=== PATIENT | male | born 1955 | race Caucasian/White ===

== ENCOUNTER 2018-05-13 16:40 | Inpatient (IN) | payer OTHER ==
[~2018-05-13] VITALS: Ht 180.3 cm; Wt 66.9 kg
[2018-05-13] MEDS ORDERED: ONDANSETRON 4 MG TAB (S0181) PO PRN (17:45)
[2018-05-13] MEDS ORDERED: BISACODYL 10 MG SUPP PR PRN (17:45)
[2018-05-13 18:10] VITALS: BP 158/72
[2018-05-13] MEDS ORDERED: VITA500C24 PO (18:11)
[2018-05-13] MEDS ORDERED: VITA100T92 PO (18:11)
[2018-05-13] MEDS ORDERED: GABA-843 PO (18:11)
[2018-05-13] MEDS ORDERED: COLA100C5 PO (18:11)
[2018-05-13] MEDS ORDERED: OXYC10TA12 PO (18:11)
[2018-05-13] MEDS ORDERED: TOPR50TA23 PO (18:11)
[2018-05-13] MEDS ORDERED: VITA-122 PO (18:11)
[2018-05-13] MEDS ORDERED: SENO8.6T5 PO (18:11)
[2018-05-13] MEDS ORDERED: PANT40TA3 PO (18:11)
[2018-05-13] MEDS ORDERED: VITMTA PO (18:11)
[2018-05-13] MEDS ORDERED: ACET1TAB55 PO (18:13)
[2018-05-13] MEDS ORDERED: METOPROLOL TART 25 MG TABLET PO ONE (18:45)
[2018-05-13] MEDS: MOM 30ML SUSPENSION UDC PO PRN (18:48)
[2018-05-13 20:13] VITALS: BP 154/72
[2018-05-13] MEDS: traZODone 50 MG TAB PO PRN (20:41)
[2018-05-13] MEDS: DOCUSATE SODIUM 100 MG CAP PO SCH (20:42)
[2018-05-13] MEDS: oxyCODONE 5MG TAB PO PRN (20:43)
[2018-05-13] MEDS: SENNA 8.6 MG TAB (SENOKOT) PO SCH (20:43)
[2018-05-13] MEDS ORDERED: GABAPENTIN 100 MG CAP PO SCH (21:00)
[2018-05-14 01:22] LABS: APPEARANCE, URINE CLEAR (CLEAR); BACTERIA, URINE AUTO NEGATIVE (NEGATIVE); BILIRUBIN, URINE AUTO NEGATIVE (NEGATIVE); BLOOD, URINE BLOOD NEGATIVE (NEGATIVE); COLOR, URINE YELLOW (YELLOW); GLUCOSE, URINE (UA) AUTO NEGATIVE (NEGATIVE); KETONE, URINE AUTO TRACE mg/dL (NEGATIVE); LEUKOCYTE ESTERASE, URINE AUTO NEGATIVE (NEGATIVE); NITRITE, URINE AUTO NEGATIVE (NEGATIVE); PROTEIN, URINE AUTO NEGATIVE (NEGATIVE); RBC, URINE AUTO 1 /HPF (0-3); SPECIFIC GRAVITY URINE AUTO 1.014 (1.002-1.035); SQUAMOUS EPITHELIAL CELL UR AU 0 /HPF (0-6); WBC, URINE AUTO 1 /HPF (0-3)
[2018-05-14 05:55] VITALS: BP 178/84
[2018-05-14] MEDS: oxyCODONE 5MG TAB PO PRN ×2 (05:57→09:54)
[2018-05-14 06:32] VITALS: BP 158/78
[2018-05-14 07:13] LABS: BASO % 0.1 % (0.0-1.0); EOS # 0.1 10^3/uL (0.0-0.50); EOS % 1.3 % (0.0-3.0); HEMATOCRIT 24.6 % (42.0-52.0); HEMOGLOBIN 8.6 g/dl (13.5-17.5); LYMPH # 0.6 10^3/uL (1.5-4.5); MEAN CORPUSCULAR VOLUME 88.8 fl (80.0-96.0); MONO # 1.1 10^3/uL (0.0-0.8); MONO % 15.5 % (0.0-5.0); NEUTROPHILS # 5.3 10^3/uL (1.8-7.7); NEUTROPHILS % 74.5 % (36.0-66.0); PLATELET COUNT, AUTOMATED 240 10^3/uL (150-450); RED BLOOD COUNT 2.77 10^6/uL (4.30-6.10); WHITE BLOOD COUNT 7.1 10^3/uL (4.0-10.0)
[2018-05-14 07:41] LABS: ALBUMIN 2.3 GM/DL (3.2-5.2); ALT/SGPT 48 U/L (12-78); BILIRUBIN,TOTAL 0.6 MG/DL (0.2-1.0); BLOOD UREA NITROGEN 11 MG/DL (7-18); CALCIUM LEVEL 8.1 MG/DL (8.8-10.2); CARBON DIOXIDE LEVEL 25 MEQ/L (21-32); CHLORIDE LEVEL 100 MEQ/L (98-107); CREATININE FOR GFR 0.39 MG/DL (0.70-1.30); GLOMERULAR FILTRATION RATE > 60.0 (>49); GLUCOSE, FASTING 98 MG/DL (70-100); POTASSIUM SERUM 3.3 MEQ/L (3.5-5.1); SODIUM LEVEL 132 MEQ/L (136-145); TOTAL PROTEIN 5.6 GM/DL (6.4-8.2)
[2018-05-14] MEDS ORDERED: METOPROLOL SUCC (TopROL XL) 50MG **XL** TAB PO SCH (09:00)
[2018-05-14] MEDS: PANTOPRAZOLE 40MG TAB (PROTONIX) PO SCH (09:37)
[2018-05-14] MEDS: VITAMIN D 1,000 INTERNATIONAL UNITS TABLET PO SCH (09:37)
[2018-05-14] MEDS: ASCORBIC ACID 500 MG TAB PO SCH (09:37)
[2018-05-14] MEDS: DOCUSATE SODIUM 100 MG CAP PO SCH ×2 (09:37→20:55)
[2018-05-14] MEDS: THIAMINE 100 MG TAB PO SCH (09:37)
[2018-05-14] MEDS: ENOXAPARIN 40 MG/0.4 ML SYRINGE (J1650) SC SCH (09:39)
--- NOTE | 2018-05-14 10:54 | CR.PDOC ---
General Date of Consultation: May 14, 2018 Consultation CONSULTATION REPORT FOR: Dr Paniagua REASON FOR CONSULTATION: Medical Management ATTENDING: Dr. Erlinda Guillaume PCP: Dr Nida Peña [place] Neuro[facility] Dr Liu HPI: 62year old M S/P T11-S1 posterior arthrodesis L1-S1 laminectomies05/08/[address] Liu [facility]. Transfered to the care of Dr Paniagua, [facility], 05/13/18. No acute medical complaints today. Pt states pain is controlled. OOB with therapy. Denies any fevers, chills, weakness, fatigue, Headache, Chest Pain, Shortness of breath, cough, palpitations, abdominal pain, N/V/D or changes in bowel or bladder habits. PMHx: cervical stenosis Lumbar stenosis Thoracolumbar scoliosis Chronic neck pain/LE pain/Chronic pain GERD HTN PSHX: 05/08/18 T11-S1 posterior arthrodesis L1-S1 laminectomies. SOCHX: Resides in: [facility] Marital Status: Tobacco use: cigars ETOH: 1-2 per day FAMHX: Children: Alive, well ROS: As noted in HPI, otherwise 11pt ROS of systems reviewed and unremarkable. PE: GEN: 62yoM, appears stated age. Well-nourished, well developed. No acute di stress. Alert and oriented x 3. Pleasant, interactive. HEENT: Normocephalic, atraumatic. Sclera are nonicteric. Conjunctiva without injection. Nose midline. No facial asymmetry. Moist mucous membranes.Pharynx pink and moist, no cobblestoning. Neck supple, trachea midline. No lymphadenopathy or thyromegaly appreciated. CHEST: Regular rate and rhythm, +S1, +S2 LUNGS: Clear to auscultation bilaterally. No wheezes, rales, or rhonchi. ABD: Exam limited related to pt brace. Round, soft, non-tender, non-distended. +Bowel sounds noted. EXT: Pulses 2+ bilaterally dorsalis pedis and radial. No lower extremity edema appreciated. SKIN: [place], dry, warm. Capillary refill <2sec. No rashes. NEURO: Alert and oriented x 3. Cranial nerves III-XII are intact. No focal deficits appreciated. UC pending. U/S LEs pending. A&P: 62year old M S/P T11-S1 posterior arthrodesis L1-S1 laminectomies05/08/[address] Liu [facility]. Transferred to the care of MARIEL Zamora [facility], 05/13/18. 1. S/P T11-S1 posterior arthrodesis L1-S1 laminectomies05/08/[address] Alexa Plascencia [facility] PT/OT/ST as per MARIEL Zamora. Pain control as per MARIEL Zamora. Bowel care as per MARIEL Zamora. DVT prophylaxis as per MARIEL Zamora. Lovenox SQ. LE U/S pending. Outpt F/U with Dr Liu. Wearing TLSO brace as per Dr Liu. UC pending. 2. HTN. Toprol XL 100 mg po daily. Dose increased today as per Dr Paniagua for additional BP control. Pt to restart ASA 81 mg daily 05/22/18. 3. Hypokalemia. Supplement ordered. Recheck BMP in AM. 4. Anemia. Hgb 8.6 Add Fe studies, B12, folate. FOB. Monitor need for transfusion. 5. Hyponatremia. Recheck BMP in AM. 6. GERD. Protonix. Thank you for your consultation. We will continue to follow along with you. Vital Signs/I&O Vital Signs Date Time Temp Pulse Resp B/P (MAP) Pulse Ox O2 Delivery O2 Flow Rate FiO2 05/14/18 09:54 18 05/14/18 09:39 80 157/70 05/14/18 06:32 98.7 Room Air 05/14/18 05:55 96 I&O- Last 24 Hours up to 6 AM 05/14/18 06:00 Intake Total 240 ml Output Total 775 ml Balance -535 ml Laboratory Data Labs 24H Laboratory Tests 2 05/14/18 01:16: Urine Appearance CLEAR, Urine Color YELLOW, Urine pH 7.0, Urine Specific [place] 1.014, Urine Protein NEGATIVE, Urine Glucose (UA) NEGATIVE, Urine Ketones TRACEH, Urine Urobilinogen 4.0H, Urine Bilirubin NEGATIVE, Urine Leukocyte Esterase NEGATIVE, Urine Blood NEGATIVE, Urine Nitrite NEGATIVE, Urine WBC (Auto) 1, Urine RBC (Auto) 1, Urine Hyaline Casts (Auto) 0, Urine Bacteria (Aut o) NEGATIVE, Urine Squamous Epithelial Cells 0, Urine Sperm (Auto) 05/14/18 06:50: Immature Granulocyte % (Auto) 0.6, White Blood Count 7.1, Red Blood Count 2.77L, Hemoglobin 8.6L, Hematocrit 24.6L, Mean Corpuscular Volume 88.8, Mean Corpuscular Hemoglobin 31.0, Mean Corpuscular Hemoglobin Concent 35.0, Red Cell Distribution Width 11.8, Platelet Count 240, Neutrophils (%) (Auto) 74.5H, Lymphocytes (%) (Auto) 8.0L, Monocytes (%) (Auto) 15.5H, Eosinophils (%) (Auto) 1.3, Basophils (%) (Auto) 0.1, Neutrophils # (Auto) 5.3, Lymphocytes # (Auto) 0.6L, Monocytes # (Auto) 1.1H, Eosinophils # (Auto) 0.1, Basophils # (Auto) 0.0, Nucleated Red Blood Cells % (auto) 0.0, Anion Gap 7L, Glomerular Filtration Rate > 60.0, Blood Urea Nitrogen 11, Creatinine 0.39L, Sodium Level 132L, Potassium Level 3.3L, Chloride Level 100, Carbon Dioxide Level 25, Calcium Level 8.1L, Aspartate Amino Transf (AST/SGOT) 33, Alanine Aminotransferase (ALT/SGPT) 48, Alkaline Phosphatase 84, Total Bilirubin 0.6, Total Protein 5.6L, Albumin 2.3L, Albumin/Globulin Ratio 0.70L CBC/BMP Laboratory Tests 05/14/18 06:50 Red Blood Count 2.77 L, Mean Corpuscular Volume 88.8, Mean Corpuscular Hemoglobin 31.0, Mean Corpuscular Hemoglobin Concent 35.0, Red Cell Distribution Width 11.8, Neutrophils (%) (Auto) 74.5 H, Lymphocytes (%) (Auto) 8.0 L, Monocytes (%) (Auto) 15.5 H, Eosinophils (%) (Auto) 1.3, Basophils (%) (Auto) 0.1, Neutrophils # (Auto) 5.3, Lymphocytes # (Auto) 0.6 L, Monocytes # (Auto) 1.1 H, Eosinophils # (Auto) 0.1, Basophils # (Auto) 0.0, Calcium Level 8.1 L, Aspartate Amino Transf (AST/SGOT) 33, Alanine Aminotransferase (ALT/SGPT) 48, Alkaline Phosphatase 84, Total Bilirubin 0.6, Total Protein 5.6 L, Albumin 2.3 L Microbiology Microbiology 05/14/18 Urine Culture, Received Pending Allergies Coded Allergies: No Known Drug Allergy (Verified Allergy, Unknown, 05/13/18) Home Medications Scheduled Ascorbic Acid (Vitamin C) 500 Mg Cap, 1,000 MG PO DAILY, (Reported) Cholecalciferol (Vitamin D3) 1,000 Unit Tab, 1,000 UNIT PO DAILY, (Reported) Docusate Sodium (Colace) 100 Mg Cap, 100 MG PO BID, (Reported) Gabapentin (Gabapentin) 300 Mg Cap, 300 MG PO TID, (Reported) Metoprolol Succinate (Toprol Xl) 50 Mg Tab, 100 MG PO DAILY, (Reported) Multivitamins *[facility] STOCKED* (Thera M Plus *[facility] STOCKED*) 1 Tab Tab, 1 TAB PO BID, (Reported) Pantoprazole Sodium (Pantoprazole Sodium) 40 Mg Tab, 40 MG PO DAILY, (Reported) Senna (Senokot) 8.6 Mg Tab, 17.2 MG PO QHS, (Reported) Thiamine Mononitrate (Vitamin B1) 100 Mg Tab, 100 MG PO BID, (Reported) Scheduled PRN Acetaminophen (Acetaminophen) 325 Mg Tab, 650 MG PO Q6H PRN for PAIN, (Reported) Oxycodone HCl (Oxycodone HCl) 10 Mg Tab, 20 MG PO Q4H PRN for PAIN, (Reported) Olga Loja May 14, 2018 10:54
[2018-05-14] MEDS ORDERED: METOPROLOL SUCC (TopROL XL) 50MG **XL** TAB PO ONE (11:15)
[2018-05-14] MEDS ORDERED: POTASSIUM CHLORIDE 10 MEQ SR TABLET PO ONE (11:30)
[2018-05-14 14:00] VITALS: BP 171/79
--- NOTE | 2018-05-14 14:48 | HPEPDOC ---
[employer] Note DATE OF ADMISSION: May 13, 2018 at 17:26 SOURCE OF ADMISSION INFORMATION: Patient, family, and [facility] medical records CHIEF COMPLAINT: lumbar stenosis s/p laminectomy HISTORY OF PRESENT ILLNESS: 62M pmh HTN and chronic neck and scolioisis with low back pain who developed worsening lower extremity weakness especially affecting his left lower extremity which worsened in August 2017 leading him to use a rolling walker and require assistance with stairs. He was evaluated at [facility] where he underwent a T11-S1 posterior arthrodesis and [id number]-L4-L5-S1 laminectomy for a diagnosis of severe lumbar stenosis with neurogenic claudication performed by Dr. Liu. He denied having any urinary or fecal incontinence prior to or following the surgery and had slight gain in strength in his left lower extremity. He denies ever having had spinal injections prior to his surgery and was not managemd by a pain specialist. Post-op CT lumbar spine revealed dextroconvex scoliosis of the lumbar spine. Expected recent postsurgical changesmultilevel degenerative changesat L2-L3 moderate left and mild right foraminal narrowing. At L3- E9deetu is moderate to severe bilateral foraminal narrowing left greater than right. At L4-G1akrklxtw to severe bilateral foraminal narrowingat L5- N4ckgtphnb to severe bilateral foraminal narrowing, right greater than left. His pain was controlled, aspirin held until the 22 of May, and TLSO brace provided for lumbar stabilization, He was evaluated by therapy, found to have significant gait and ADL impairments and deemed medically appropriate for discharge to ARU on 05-13-18. REVIEW OF SYSTEMS: The following is a completed review of systems and has been reviewed. Review of systems otherwise unremarkable. PAIN: self reports non-radiating low back pain EYES: Negative for recent vision changes EARS, NOSE, & THROAT: Denied rhinorrhea, throat pain or dysphagia CARDIOVASCULAR: denies chest pain or palpitations PULMONARY: Negative. Denies shortness of breat GASTROINTESTINAL: Negative for diarrhea, +constipation GENITOURINARY: Negative for dysuria or hematuria or incontinence MUSCULOSKELETAL: bilateral LE weakness L>R and Left shoulder pain and arm weakness NEUROLOGICAL: LLE paralysis HEMATOLOGICAL: Negative for bruising SKIN: scab on bottom of left foot, lumbosacral sutures, otherwise intact. PSYCHIATRIC: Unremarkable All other review of systems found to be negative. PAST MEDICAL HISTORY: HTN, low back pain, cervical and lumbar stenosis PAST SURGICAL HISTORY: right hip THR ALLERGIES: Please see below. MEDICATIONS: Please see below. FAMILY HISTORY: healthy children SOCIAL HISTORY: lives with , has been using a RW for 6 months, smokes 2 cigars a day and has 2 drinks/day, no drugs. DIET: Regular PHYSICAL EXAMINATION: VITAL SIGNS: Please see below. GENERAL: Pleasant and cooperative. No acute distress. HEENT: PERRL. Extraocular movements intact. Clear conjunctiva, poor dentition CARDIOVASCULAR: Regular rate and rhythm. No murmurs, rubs, or gallops LUNGS: Clear to auscultation bilaterally. No wheezes. No rhonchi ABDOMEN: Soft, nontender, nondistended. Positive bowel sounds. Normal active bowel sounds NEUROLOGICAL: Alert and oriented times three. Cranial nerves II through XII grossly intact. Sensation to light touch in C-T2 dermatomes and L2-S2 dermatomes +bilateral Babinski, 1+/4 patellar reflexes bilat 3+ bicep and brachioradialis reflexes, negative Isabel's EXTREMITIES: 5-\\5 strength right upper extremities. 3/5 left shoulder abduction pain limiting, and unable to fully test elbow extension given limited ROM, household refrigeration mechanic 5/5 and elbow flexors 5-/5 3+/5 right hip flexors and knee extensors, 2+/5 ankle DF and EHL 2/5 left hip flexors and knee extensors, 1/5 left ankle DF and EHL Left shoulder: +Neers and decreased internal rotation SKIN: lumbosacral incision c/d/i no induration, no sacral ulcers, scab on bottom of left foot IMAGING: Imaging documentation personally reviewed by record FUNCTIONAL STATUS: Premorbid: Min assist with RW for ambulation, Mod assist for stairs for the last 6 months, however able to walk with a cane 1 year ago On Admission: Total assist with stairs, Mod-Max assist with functional transfers and bed mobility, Total assist for ambulation with RW. GOALS: Modified Independent from a wheelchair level, able to ambulate household distances with a RW CG-supervision and for stair negotiation, Mod-I for bathing, dressing, and grooming. ASSESSMENT:62-year-old M with past medical history of chronic low back pain who presents status post T11-S1 arthrodesis and laminectomy. PLAN: 1. rehab: PT/OT, assess for DME 2. Ortho: s/p T11-S1 arthrodesis with laminectomy in setting of spinal stenosis with significant RLE paresis, TLSO brace when out of bed, Spinal precautions, monitor for myelopathy, at this time does have brisk reflexes in UE and +Babinksi most likely from cervical stenosis- no incontinence -will need outpatient follow-up -Left shoulder likely weak from cervical stenosis and impingement- will encourage ROM to prevent adhesive capsulitis 3. Cardio: pmh HTN: continue Metoprolol aand adjust prn- medicine consulted, will restart ASA on 05-22-18 4 GI: bowel meds, and protonix for ppx 5. : monitor PVRs, f/u admission UA and Ucx 6. Skin: dressing in place, can be removed on 05-17-18, monitor for infection, multipodus boots while in bed to prevent heel cord contractures and heel ulcers 7. DVT ppx" will start Lovenox and f/u admission dopplers 9. Pain: OXycodone and Tylenol 8. Dispo: TBD POST ADMISSION PHYSICIAN EVALUATION: Medical and functional status: Description of medical status, medical assessment: As above. Rehabilitation diagnosis and current and prior cold morbid medical conditions as above. Risk of complications and plans to mitigate them as above. Description of functional status current status is as above. Prior status as above. Status compared to preadmission: There are no clinically significant differences between the patient's current status and the information described on the preadmission screening document. Treatment plan anticipated: Treatment plan is as described above. Required disciplines including physical therapy, occupational therapy, others as noted above. Intensity of services: 3 hours a day, 6 days a week. Special considerations: There are no specific special or safety considerations that would likely preclude immediate implementation of an intensive rehabilitation program or subsequently influence the plan of care. ATTESTATION: Considering all the information above, it is my best judgment that this patient requires intensive rehabilitation therapy as described above and an inpatient hospital environment due to the complexity of nursing, medical, and rehabilitation needs required by the patient. Furthermore, this patient can reasonably be expected to participate in an benefit from an inpatient rehabilitation stay with an interdisciplinary team approach to the delivery of rehabilitation care under the direction and supervision of rehabilitation physician PROGNOSIS: Good ESTIMATED LENGTH OF STAY:21-28 days. PROJECTED DISCHARGE DESTINATION: Home with family support and any durable medic al equipment required to increase functional safety and mobility. TIME SPENT COUNSELING AND COORDINATING INITIAL CARE: Greater than 70 minutes. Vital Signs Vital Sign - Last 24 Hours 05/13/18 05/13/18 05/13/18 05/13/18 18:10 18:48 20:13 20:43 Temp 99.0 99.6 Pulse 85 85 74 Resp 20 19 18 B/P (MAP) 158/72 (100) 158/72 154/72 (99) Pulse Ox 98 98 O2 Delivery Room Air Room Air 05/13/18 05/14/18 05/14/18 05/14/18 22:00 05:55 05:57 06:32 Temp 100.4 98.7 Pulse 85 Resp 18 18 18 B/P (MAP) 178/84 (115) 158/78 (104) Pulse Ox 96 O2 Delivery Room Air Room Air Room Air 05/14/18 05/14/18 05/14/18 06:50 09:39 09:54 Pulse 80 Resp 18 18 B/P (MAP) 157/70 Laboratory Data CBC/BMP Laboratory Tests 05/14/18 06:50 Red Blood Count 2.77 L, Mean Corpuscular Volume 88.8, Mean Corpuscular Hemoglobin 31.0, Mean Corpuscular Hemoglobin Concent 35.0, Red Cell Distribution Width 11.8, Neutrophils (%) (Auto) 74.5 H, Lymphocytes (%) (Auto) 8.0 L, Monocytes (%) (Auto) 15.5 H, Eosinophils (%) (Auto) 1.3, Basophils (%) (Auto) 0.1, Neutrophils # (Auto) 5.3, Lymphocytes # (Auto) 0.6 L, Monocytes # (Auto) 1.1 H, Eosinophils # (Auto) 0.1, Basophils # (Auto) 0.0, Calcium Level 8.1 L, Aspartate Amino Transf (AST/SGOT) 33, Alanine Aminotransferase (ALT/SGPT) 48, Alkaline Phosphatase 84, Total Bilirubin 0.6, Total Protein 5.6 L, Albumin 2.3 L Labs 24H Laboratory Tests 2 05/14/18 01:16: Urine Appearance CLEAR, Urine Color YELLOW, Urine pH 7.0, Urine Specific [place] 1.014, Urine Protein NEGATIVE, Urine Glucose (UA) NEGATIVE, Urine Ketones TRACEH, Urine Urobilinogen 4.0H, Urine Bilirubin NEGATIVE, Urine Leukocyte Esterase NEGATIVE, Urine Blood NEGATIVE, Urine Nitrite NEGATIVE, Urine WBC (Auto) 1, Urine RBC (Auto) 1, Urine Hyaline Casts (Auto) 0, Urine Bacteria (Auto) NEGATIVE, Urine Squamous Epithelial Cells 0, Urine Sperm (Auto) 05/14/18 06:50: Immature Granulocyte % (Auto) 0.6, White Blood Count 7.1, Red Blood Count 2.77L, Hemoglobin 8.6L, Hematocrit 24.6L, Mean Corpuscular Volume 88.8, Mean C orpuscular Hemoglobin 31.0, Mean Corpuscular Hemoglobin Concent 35.0, Red Cell Distribution Width 11.8, Platelet Count 240, Neutrophils (%) (Auto) 74.5H, Lymphocytes (%) (Auto) 8.0L, Monocytes (%) (Auto) 15.5H, Eosinophils (%) (Auto) 1.3, Basophils (%) (Auto) 0.1, Neutrophils # (Auto) 5.3, Lymphocytes # (Auto) 0.6L, Monocytes # (Auto) 1.1H, Eosinophils # (Auto) 0.1, Basophils # (Auto) 0.0, Nucleated Red Blood Cells % (auto) 0.0, Anion Gap 7L, Glomerular Filtration Rate > 60.0, Blood Urea Nitrogen 11, Creatinine 0.39L, Sodium Level 132L, Potassium Level 3.3L, Chloride Level 100, Carbon Dioxide Level 25, Calcium Level 8.1L, Aspartate Amino Transf (AST/SGOT) 33, Alanine Aminotransferase (ALT/SGPT) 48, Alkaline Phosphatase 84, Total Bilirubin 0.6, Total Protein 5.6L, Albumin 2.3L, Albumin/Globulin Ratio 0.70L Microbiology Microbiology 05/14/18 Urine Culture, Received Pending Home Medications Scheduled Ascorbic Acid (Vitamin C) 500 Mg Cap, 1,000 MG PO DAILY, (Reported) Cholecalciferol (Vitamin D3) 1,000 Unit Tab, 1,000 UNIT PO DAILY, (Reported) Docusate Sodium (Colace) 100 Mg Cap, 100 MG PO BID, (Reported) Gabapentin (Gabapentin) 300 Mg Cap, 300 MG PO TID, (Reported) Metoprolol Succinate (Toprol Xl) 50 Mg Tab, 100 MG PO DAILY, (Reported) Multivitamins *[facility] STOCKED* (Thera M Plus *[facility] STOCKED*) 1 Tab Tab, 1 TAB PO BID, (Reported) Pantoprazole Sodium (Pantoprazole Sodium) 40 Mg Tab, 40 MG PO DAILY, (Reported) Senna (Senokot) 8.6 Mg Tab, 17.2 MG PO QHS, (Reported) Thiamine Mononitrate (Vitamin B1) 100 Mg Tab, 100 MG PO BID, (Reported) Scheduled PRN Acetaminophen (Acetaminophen) 325 Mg Tab, 650 MG PO Q6H PRN for PAIN, (Reported) Oxycodone HCl (Oxycodone HCl) 10 Mg Tab, 20 MG PO Q4H PRN for PAIN, (Reported) Allergies Coded Allergies: No Known Drug Allergy (Verified Allergy, Unknown, 05/13/18) BRUCE CARDOZA MD May 14, 2018 14:48
[2018-05-14] MEDS: oxyCODONE 5MG TAB PO SCH ×2 (15:21→20:56)
[2018-05-14] MEDS ORDERED: LACTULOSE 20 GM/30 ML SYRUP UD PO ONE (16:00)
[2018-05-14] MEDS ORDERED: BISACODYL 10 MG SUPP PR PRN (18:00)
[2018-05-14 20:00] VITALS: BP 168/76
--- NOTE | 2018-05-14 20:51 | IPNPDOC ---
PM&R Progress Note DATE OF SERVICE: May 14, 2018 Reject Opener And Filler Progress Note Subjective: Patient reports he had a tiring, but productive day in therapy and was instructed to work on scapular stabilization exercises while in bed and gluteal strengthening. REVIEW OF SYSTEMS: The following is a completed review of systems and has been reviewed. Review of systems otherwise unremarkable. PAIN: self reports non-radiating low back pain EYES: Negative for recent vision changes EARS, NOSE, & THROAT: Denied rhinorrhea, throat pain or dysphagia CARDIOVASCULAR: denies chest pain or palpitations PULMONARY: Negative. Denies shortness of breast GASTROINTESTINAL: Negative for diarrhea, +constipation GENITOURINARY: Negative for dysuria or hematuria or incontinence MUSCULOSKELETAL: bilateral LE weakness L>R and Left shoulder pain and arm weakness NEUROLOGICAL: LLE paralysis HEMATOLOGICAL: Negative for bruising SKIN: scab on bottom of left foot, lumbosacral sutures, otherwise intact. PSYCHIATRIC: Unremarkable All other review of systems found to be negative. PAST MEDICAL HISTORY: HTN, low back pain, cervical and lumbar stenosis PAST SURGICAL HISTORY: right hip THR PHYSICAL EXAMINATION: VITAL SIGNS: Please see below. GENERAL: Pleasant and cooperative. No acute distress. HEENT: PERRL. Extraocular movements intact. Clear conjunctiva, poor dentition CARDIOVASCULAR: Regular rate and rhythm. No murmurs, rubs, or gallops LUNGS: Clear to auscultation bilaterally. No wheezes. No rhonchi ABDOMEN: Soft, nontender, nondistended. Positive bowel sounds. Normal active bowel sounds NEUROLOGICAL: Alert and oriented times three. Cranial nerves II through XII grossly intact. Sensation to light touch in C-T2 dermatomes and L2-S2 dermatomes +bilateral Babinski, 1+/4 patellar reflexes bilat 3+ bicep and brachioradialis reflexes, negative Isabel's EXTREMITIES: 5-\5 strength right upper extremities. 3/5 left shoulder abduction pain limiting, and unable to fully test elbow extension given limited ROM, evp and chief operating officer 5/5 and elbow flexors 5-/5 3+/5 right hip flexors and knee extensors, 2+/5 ankle DF and EHL 2/5 left hip flexors and knee extensors, 1/5 left ankle DF and EHL Left shoulder: +Neers and decreased internal rotation SKIN: lumbosacral incision c/d/i no induration, no sacral ulcers, scab on bottom of left foot IMAGING: Imaging documentation personally reviewed by record ASSESSMENT:62-year-old M with past medical history of chronic low back pain who presents status post T11-S1 arthrodesis and laminectomy. PLAN: 1. rehab: PT/OT, assess for DME 2. Ortho: s/p T11-S1 arthrodesis with laminectomy in setting of spinal stenosis with significant RLE paresis, TLSO brace when out of bed, Spinal precautions, monitor for myelopathy, at this time does have brisk reflexes in UE and +Babinksi most likely from cervical stenosis- no incontinence -will need outpatient follow-up with surgeon 05-21-18 for possible suture removal -Left shoulder likely weak from cervical stenosis and impingement- will encourage ROM to prevent adhesive capsulitis 3. Cardio: pmh HTN: continue Metoprolol aand adjust prn- medicine consulted, will restart ASA on 05-22-18 4 GI: bowel meds, and protonix for ppx 5. : monitor PVRs, f/u admission UA and Ucx 6. Skin: dressing in place, can be removed on 05-17-18, monitor for infection, multipodus boots while in bed to prevent heel cord contractures and heel ulcers 7. DVT ppx: continue Lovenox and f/u admission dopplers-pendind report 9. Pain: OXycodone and Tylenol 8. Dispo: TBD Allergies Coded Allergies: No Known Drug Allergy (Verified Allergy, Unknown, 05/13/18) Vital Signs Vital Signs Date Time Temp Pulse Resp B/P (MAP) Pulse Ox O2 Delivery O2 Flow Rate FiO2 05/14/18 15:51 18 05/14/18 15:20 171/79 05/14/18 14:00 98.3 78 100 Room Air Laboratory Data CBC/BMP Laboratory Tests 05/14/18 06:50 Red Blood Count 2.77 L, Mean Corpuscular Volume 88.8, Mean Corpuscular Hemoglobin 31.0, Mean Corpuscular Hemoglobin Concent 35.0, Red Cell Distribution Width 11.8, Neutrophils (%) (Auto) 74.5 H, Lymphocytes (%) (Auto) 8.0 L, Monocytes (%) (Auto) 15.5 H, Eosinophils (%) (Auto) 1.3, Basophils (%) (Auto) 0.1, Neutrophils # (Auto) 5.3, Lymphocytes # (Auto) 0.6 L, Monocytes # (Auto) 1.1 H, Eosinophils # (Auto) 0.1, Basophils # (Auto) 0.0, Calcium Level 8.1 L, Aspartate Amino Transf (AST/SGOT) 33, Alanine Aminotransferase (ALT/SGPT) 48, Alkaline Phosphatase 84, Total Bilirubin 0.6, Total Protein 5.6 L, Albumin 2.3 L Labs 24H Laboratory Tests 2 05/14/18 01:16: Urine Appearance CLEAR, Urine Color YELLOW, Urine pH 7.0, Urine Specific [place] 1.014, Urine Protein NEGATIVE, Urine Glucose (UA) NEGATIVE, Urine Ketones TRACEH , Urine Urobilinogen 4.0H, Urine Bilirubin NEGATIVE, Urine Leukocyte Esterase NEGATIVE, Urine Blood NEGATIVE, Urine Nitrite NEGATIVE, Urine WBC (Auto) 1, Urine RBC (Auto) 1, Urine Hyaline Casts (Auto) 0, Urine Bacteria (Auto) NEGATIVE, Urine Squamous Epithelial Cells 0, Urine Sperm (Auto) 05/14/18 06:50: Immature Granulocyte % (Auto) 0.6, White Blood Count 7.1, Red Blood Count 2.77L, Hemoglobin 8.6L, Hematocrit 24.6L, Mean Corpuscular Volume 88.8, Mean Corpuscular Hemoglobin 31.0, Mean Corpuscular Hemoglobin Concent 35.0, Red Cell Distribution Width 11.8, Platelet Count 240, Neutrophils (%) (Auto) 74.5H, Lymphocytes (%) (Auto) 8.0L, Monocytes (%) (Auto) 15.5H, Eosinophils (%) (Auto) 1.3, Basophils (%) (Auto) 0.1, Neutrophils # (Auto) 5.3, Lymphocytes # (Auto) 0.6L, Monocytes # (Auto) 1.1H, Eosinophils # (Auto) 0.1, Basophils # (Auto) 0.0, Nucleated Red Blood Cells % (auto) 0.0, Anion Gap 7L, Glomerular Filtration Rate > 60.0, Blood Urea Nitrogen 11, Creatinine 0.39L, Sodium Level 132L, Potassium Level 3.3L, Chloride Level 100, Carbon Dioxide Level 25, Calcium Level 8.1L, Aspartate Amino Transf (AST/SGOT) 33, Alanine Aminotransferase (ALT/SGPT) 48, Alkaline Phosphatase 84, Total Bilirubin 0.6, Total Protein 5.6L, Albumin 2.3L, Albumin/Globulin Ratio 0.70L Microbiology Microbiology 05/14/18 Stool Occult Blood (TENZIN) - Final, Complete 05/14/18 Urine Culture, Received Pending Current Medications Current Medications Current Medications Acetaminophen (Tylenol Tab) 650 mg Q4HP PRN PO fever/MILD PAIN (PS 1-4); Start 05/13/18 at 17:45 Ascorbic Acid (Vitamin C) 1,000 mg DAILY PO Last administered on 05/14/18at 09:37; Start 05/14/18 at 09:00 Aspirin (Ecotrin) 81 mg DAILY PO ; Start 05/22/18 at 09:00 Bisacodyl (Dulcolax Suppository) 10 mg ASDIRECTED PRN MA IF NO BOWEL MOVEMENT; Start 05/14/18 at 18:00 Bisacodyl (Dulcolax Suppository) 10 mg DAILYPRN PRN [place] CONSTIPATION; Start 05/13/18 at 17:45 Docusate Sodium (Colace) 100 mg BID PO Last administered on 05/14/18at 09:37; Start 05/13/18 at 21:00 Enoxaparin Sodium (Lovenox) 40 mg DAILY SC Last administered on 05/14/18at 09:39; Start 05/14/18 at 09:00 Gabapentin (Neurontin) 200 mg TID PO ; Start 05/13/18 at 21:00; Stop 05/13/18 at 21:00; Status DC Home Med (Med Rec Complete!) ASDIRECTED XX ; Start 05/13/18 at 18:15; Stop 05/13/18 at 18:16; Status DC Magnesium Hydroxide (Milk Of Magnesia) 30 ml DAILYPRN PRN PO CONSTIPATION Last administered on 05/13/18at 18:48; Start 05/13/18 at 17:45 Metoprolol Succinate (TopROL XL) 50 mg DAILY PO Last administered on 05/14/18at 09:39; Start 05/14/18 at 09:00; Stop 05/14/18 at 11:18; Status DC Metoprolol Succinate (TopROL XL) 100 mg DAILY PO ; Start 05/15/18 at 09:00 Ondansetron HCl (Zofran) 4 mg Q6HP PRN PO NAUSEA; Start 05/13/18 at 17:45 Oxycodone HCl (Roxicodone, Oxyir) 5 mg Q4HP PRN PO PAIN 4-7 Last administered on 05/13/18at 20:43; Start 05/13/18 at 17:45 Oxycodone HCl (Roxicodone, Oxyir) 10 mg Q4HP PRN PO SEVERE PAIN (PS 8-10) Last administered on 05/14/18at 09:54; Start 05/13/18 at 17:45; Stop 05/14/18 at 11:16; Status DC Oxycodone HCl (Roxicodone, Oxyir) 10 mg TID PO Last administered on 05/14/18 15:21; Start 05/14/18 at 16:00 Pantoprazole Sodium (Protonix) 40 mg DAILY PO Last administered on 05/14/18 09:37; Start 05/14/18 at 09:00 Potassium Chloride (Micro-K Extencaps) 20 meq DAILY PO ; Start 05/15/18 at 09:00 Senna (Senokot) 1 tab QHS PO Last administered on 05/13/18 20:43; Start 05/13/18 at 21:00 Thiamine HCl (Thiamine HCl) 100 mg DAILY PO Last administered on 05/14/18 09:37; Start 05/14/18 at 09:00 Trazodone HCl (Desyrel) 50 mg QHSP PRN PO INSOMNIA Last administered on 05/13/18 20:41; Start 05/13/18 at 17:45 Vitamin D (Vitamin D) 1,000 units DAILY PO Last administered on 05/14/18 09:37; Start 05/14/18 at 09:00 BRUCE CARDOZA MD May 14, 2018 20:51
[2018-05-14] MEDS: SENNA 8.6 MG TAB (SENOKOT) PO SCH (20:55)
[2018-05-14] MEDS: LIDOCAINE 5% (LIDODERM) PATCH TD SCH (21:02)
[2018-05-15] MEDS: oxyCODONE 5MG TAB PO PRN (02:36)
--- NOTE | 2018-05-15 05:45 | REP ---
Clinical: History of recent spinal fusion with decreased mobility . Technique: Bowden scale and color Doppler evaluation using linear high frequency transducer. Findings: Ultrasound examination of the right and left lower extremity deep venous structures from the common femoral vein to the popliteal vein demonstrates normal compressibility flow and wave patterns in response to respiration and augmentation. There is no evidence for deep venous thrombosis. Impression: No evidence for deep venous thrombosis. Electronically Signed by Adryan Cole MD 05/15/2018 05:36 A
[2018-05-15 06:15] VITALS: BP 158/68
[2018-05-15 07:21] LABS: BASO % 0.1 % (0.0-1.0); EOS # 0.2 10^3/uL (0.0-0.50); EOS % 2.4 % (0.0-3.0); HEMATOCRIT 25.3 % (42.0-52.0); HEMOGLOBIN 8.7 g/dl (13.5-17.5); LYMPH # 0.6 10^3/uL (1.5-4.5); LYMPH % 8.7 % (24.0-44.0); MEAN CORPUSCULAR HEMOGLOBIN 30.7 pg (27.0-33.0); MEAN CORPUSCULAR HGB CONC 34.4 g/dl (32.0-36.5); MEAN CORPUSCULAR VOLUME 89.4 fl (80.0-96.0); MONO % 14.8 % (0.0-5.0); NEUTROPHILS % 73.3 % (36.0-66.0); PLATELET COUNT, AUTOMATED 278 10^3/uL (150-450); RED BLOOD COUNT 2.83 10^6/uL (4.30-6.10); WHITE BLOOD COUNT 6.8 10^3/uL (4.0-10.0)
[2018-05-15 07:37] LABS: BLOOD UREA NITROGEN 8 MG/DL (7-18); CALCIUM LEVEL 8.1 MG/DL (8.8-10.2); CARBON DIOXIDE LEVEL 24 MEQ/L (21-32); CHLORIDE LEVEL 98 MEQ/L (98-107); CREATININE FOR GFR 0.42 MG/DL (0.70-1.30); GLOMERULAR FILTRATION RATE > 60.0 (>49); GLUCOSE, FASTING 96 MG/DL (70-100); POTASSIUM SERUM 3.6 MEQ/L (3.5-5.1); SODIUM LEVEL 130 MEQ/L (136-145)
[2018-05-15 07:41] LABS: PERCENT SATURATION 10.7 % (19.7-50.0)
[2018-05-15] MEDS: **NOTE PATIENT COMMENT** MISC XX SCH (09:00)
[2018-05-15] MEDS: POTASSIUM CHLORIDE 10 MEQ SR TABLET PO SCH (09:24)
[2018-05-15] MEDS: ASCORBIC ACID 500 MG TAB PO SCH (09:24)
[2018-05-15] MEDS: VITAMIN D 1,000 INTERNATIONAL UNITS TABLET PO SCH (09:24)
[2018-05-15] MEDS: PANTOPRAZOLE 40MG TAB (PROTONIX) PO SCH (09:24)
[2018-05-15] MEDS: DOCUSATE SODIUM 100 MG CAP PO SCH ×2 (09:24→21:00)
[2018-05-15] MEDS: THIAMINE 100 MG TAB PO SCH (09:24)
[2018-05-15] MEDS: METOPROLOL SUCC (TopROL XL) 50MG **XL** TAB PO SCH (09:24)
[2018-05-15] MEDS: oxyCODONE 5MG TAB PO SCH ×3 (09:25→22:03)
[2018-05-15] MEDS: ENOXAPARIN 40 MG/0.4 ML SYRINGE (J1650) SC SCH (09:25)
--- NOTE | 2018-05-15 11:37 | IPNPDOC ---
Date Seen The patient was seen on 05/15/18. Progress Note HPI: 62year old M S/P T11-S1 posterior arthrodesis L1-S1 laminectomies05/08/[address] Liu [facility]. [facility] [place] The pt states he has had pain related to his brace, with some adjustments this has improved some. States he is eating and drinking. Denies any fevers, chills, weakness, fatigue, Headache, Chest Pain, Shortness of breath, cough, palpitations, abdominal pain, N/V/D or changes in bowel or bladder habits. PMHx: cervical stenosis Lumbar stenosis Thoracolumbar scoliosis Chronic neck pain/LE pain/Chronic pain GERD HTN PSHX: 05/08/18 T11-S1 posterior arthrodesis L1-S1 laminectomies. PE: GEN: 62yoM, appears stated age. No acute distress. Alert and oriented x 3. HEENT: Normocephalic, atraumatic. Sclera are nonicteric. Conjunctiva without injection. Moist mucous membranes.Pharynx pink and moist. Neck supple, trachea midline. No lymphadenopathy or thyromegaly appreciated. CHEST: Regular rate and rhythm, +S1, +S2 LUNGS: Clear to auscultation bilaterally. No wheezes, rales, or rhonchi. ABD: Exam limited related to pt brace. Round, soft, non-tender, non-distended. +Bowel sounds noted. EXT: Pulses 2+ bilaterally dorsalis pedis and radial. No lower extremity edema appreciated. SKIN: [place], dry, warm. No rashes. NEURO: Alert and oriented x 3. Cranial nerves III-XII are intact. No focal deficits appreciated. UC neg 05/14/18 FOB neg. U/S LEs No evidence for deep venous thrombosis. Electronically Signed by Adryan Cole MD 05/15/2018 05:36 A A&P: 62year old M S/P T11-S1 posterior arthrodesis L1-S1 laminectomies05/08/[address] Liu [facility]. Transferred to the care of Dr Paniagua [facility], 05/13/18. 1. S/P T11-S1 posterior arthrodesis L1-S1 laminectomies05/08/[address] Liu [facility] PT/OT/ST as per MARIEL Zamora. Pain control as per MARIEL Zamora. Bowel care as per MARIEL Zamora. DVT prophylaxis as per MARIEL Zamora. Lovenox SQ. LE U/S pending. Outpt F/U with Dr Liu. Wearing TLSO brace as per Dr Liu. UC neg LE U/S neg. 2. HTN. Toprol XL 100 mg po daily. Dose increased 05/14/18 Lisinopril 10 mg daily added 05/15/18 for additional BP control. Pt to restart ASA 81 mg daily 05/22/18. 3. Hypokalemia. Supplement ordered. Recheck BMP in AM. 4. Anemia. Hgb 8.7 Fe studies, B12, folate completed. FOB neg. Fe supplement BID added. Monitor need for transfusion. 5. Hyponatremia. Na 130. Add Ser Osm/Ur Osm/Ur Cr/NA/TSH/Mag. NaCl tab BID added today. Monitor daily BMP. 6. GERD. Protonix. VS, I&O, 24H, Fishbone Vital Signs/I&O Vital Signs Date Time Temp Pulse Resp B/P (MAP) Pulse Ox O2 Delivery O2 Flow Rate FiO2 05/15/18 09:55 16 Room Air 05/15/18 09:24 74 158/68 05/15/18 06:15 98.5 96 I&O- Last 24 Hours up to 6 AM 05/15/18 06:00 Intake Total 990 ml Output Total 1300 ml Balance -310 ml Laboratory Data 24H LABS Laboratory Tests 2 05/15/18 06:47: Immature Granulocyte % (Auto) 0.7, White Blood Count 6.8, Red Blood Count 2.83L, Hemoglobin 8.7L, Hematocrit 25.3L, Mean Corpuscular Volume 89.4, Mean Corpuscu lar Hemoglobin 30.7, Mean Corpuscular Hemoglobin Concent 34.4, Red Cell Distribution Width 11.9, Platelet Count 278, Neutrophils (%) (Auto) 73.3H, Lymphocytes (%) (Auto) 8.7L, Monocytes (%) (Auto) 14.8H, Eosinophils (%) (Auto) 2.4, Basophils (%) (Auto) 0.1, Neutrophils # (Auto) 5.0, Lymphocytes # (Auto) 0.6L, Monocytes # (Auto) 1.0H, Eosinophils # (Auto) 0.2, Basophils # (Auto) 0.0, Nucleated Red Blood Cells % (auto) 0.0, Anion Gap 8, Glomerular Filtration Rate > 60.0, Blood Urea Nitrogen 8, Creatinine 0.42L, Sodium Level 130L, Potassium Level 3.6, Chloride Level 98, Carbon Dioxide Level 24, Calcium Level 8.1L, Iron Level 17L, Total Iron Binding Capacity 159L, Transferrin % Saturation 10.7L, Ferritin 272, Vitamin B12 Level 346, Folate 11.0 CBC/BMP Laboratory Tests 05/15/18 06:47 Red Blood Count 2.83 L, Mean Corpuscular Volume 89.4, Mean Corpuscular Hemoglobin 30.7, Mean Corpuscular Hemoglobin Concent 34.4, Red Cell Distribution Width 11.9, Neutrophils (%) (Auto) 73.3 H, Lymphocytes (%) (Auto) 8.7 L, Monocytes (%) (Auto) 14.8 H, Eosinophils (%) (Auto) 2.4, Basophils (%) (Auto) 0.1, Neutrophils # (Auto) 5.0, Lymphocytes # (Auto) 0.6 L, Monocytes # (Auto) 1.0 H, Eosinophils # (Auto) 0.2, Basophils # (Auto) 0.0, Calcium Level 8.1 L Microbiology Microbiology 05/14/18 Stool Occult Blood (TENZIN) - Final, Complete 05/14/18 Urine Culture - Final, Complete Olga Loja May 15, 2018 11:37
[2018-05-15 12:54] LABS: MAGNESIUM LEVEL 2.4 MG/DL (1.8-2.4); THYROID STIMULATING HORMONE 0.782 uIU/ML (0.358-3.740)
[2018-05-15] MEDS: SODIUM CHLORIDE 1 GM TAB PO SCH ×2 (13:13→22:03)
[2018-05-15] MEDS: LISINOPRIL 10 MG TAB PO SCH (13:14)
[2018-05-15 14:00] VITALS: BP 144/58
[2018-05-15 20:00] VITALS: BP 152/80
[2018-05-15] MEDS: SENNA 8.6 MG TAB (SENOKOT) PO SCH (21:00)
[2018-05-15] MEDS: FERROUS GLUCONATE 324 MG TAB PO SCH (22:03)
[2018-05-15] MEDS: LIDOCAINE 5% (LIDODERM) PATCH TD SCH (22:04)
[2018-05-15] MEDS: traZODone 50 MG TAB PO PRN (22:09)
[2018-05-16] MEDS: oxyCODONE 5MG TAB PO PRN ×2 (01:43→13:31)
[2018-05-16 06:00] VITALS: BP 152/80
[2018-05-16 07:30] LABS: HEMATOCRIT 24.8 % (42.0-52.0); HEMOGLOBIN 8.6 g/dl (13.5-17.5); MEAN CORPUSCULAR HEMOGLOBIN 31.2 pg (27.0-33.0); MEAN CORPUSCULAR HGB CONC 34.7 g/dl (32.0-36.5); MEAN CORPUSCULAR VOLUME 89.9 fl (80.0-96.0); PLATELET COUNT, AUTOMATED 302 10^3/uL (150-450); RED BLOOD COUNT 2.76 10^6/uL (4.30-6.10); WHITE BLOOD COUNT 9.5 10^3/uL (4.0-10.0)
[2018-05-16 07:55] LABS: BLOOD UREA NITROGEN 7 MG/DL (7-18); CALCIUM LEVEL 7.8 MG/DL (8.8-10.2); CARBON DIOXIDE LEVEL 22 MEQ/L (21-32); CHLORIDE LEVEL 97 MEQ/L (98-107); CREATININE FOR GFR 0.44 MG/DL (0.70-1.30); GLOMERULAR FILTRATION RATE > 60.0 (>49); GLUCOSE, FASTING 100 MG/DL (70-100); MAGNESIUM LEVEL 1.8 MG/DL (1.8-2.4); POTASSIUM SERUM 3.7 MEQ/L (3.5-5.1); SODIUM LEVEL 130 MEQ/L (136-145)
[2018-05-16] MEDS: ENOXAPARIN 40 MG/0.4 ML SYRINGE (J1650) SC SCH (08:37)
[2018-05-16] MEDS: LISINOPRIL 10 MG TAB PO SCH (08:38)
[2018-05-16] MEDS: METOPROLOL SUCC (TopROL XL) 50MG **XL** TAB PO SCH (08:38)
[2018-05-16] MEDS: PANTOPRAZOLE 40MG TAB (PROTONIX) PO SCH (08:38)
[2018-05-16] MEDS: SODIUM CHLORIDE 1 GM TAB PO SCH ×3 (08:38→21:29)
[2018-05-16] MEDS: POTASSIUM CHLORIDE 10 MEQ SR TABLET PO SCH (08:38)
[2018-05-16] MEDS: VITAMIN D 1,000 INTERNATIONAL UNITS TABLET PO SCH (08:39)
[2018-05-16] MEDS: DOCUSATE SODIUM 100 MG CAP PO SCH ×2 (08:39→21:00)
[2018-05-16] MEDS: THIAMINE 100 MG TAB PO SCH (08:39)
[2018-05-16] MEDS: oxyCODONE 5MG TAB PO SCH ×3 (08:39→21:30)
[2018-05-16] MEDS: **NOTE PATIENT COMMENT** MISC XX SCH (08:40)
[2018-05-16] MEDS: FERROUS GLUCONATE 324 MG TAB PO SCH ×2 (08:40→21:29)
[2018-05-16] MEDS: ASCORBIC ACID 500 MG TAB PO SCH (08:40)
[2018-05-16 14:00] VITALS: BP 128/62
--- NOTE | 2018-05-16 15:49 | IPNPDOC ---
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 REVIEW OF SYSTEMS: The following is a completed review of systems and has been reviewed. Review of systems otherwise unremarkable. PAIN: self reports non-radiating low back pain EYES: Negative for recent vision changes EARS, NOSE, & THROAT: Denied rhinorrhea, throat pain or dysphagia CARDIOVASCULAR: denies chest pain or palpitations PULMONARY: Negative. Denies shortness of breast GASTROINTESTINAL: Negative for diarrhea, +constipation GENITOURINARY: Negative for dysuria or hematuria or incontinence MUSCULOSKELETAL: bilateral LE weakness L>R and Left shoulder pain and arm weakn ess NEUROLOGICAL: LLE paralysis HEMATOLOGICAL: Negative for bruising SKIN: scab on bottom of left foot, lumbosacral sutures, otherwise intact. PSYCHIATRIC: Unremarkable All other review of systems found to be negative. PHYSICAL EXAMINATION: VITAL SIGNS: Please see below. GENERAL: Pleasant and cooperative. No acute distress. HEENT: PERRL. Extraocular movements intact. Clear conjunctiva, poor dentition CARDIOVASCULAR: Regular rate and rhythm. No murmurs, rubs, or gallops LUNGS: Clear to auscultation bilaterally. No wheezes. No rhonchi ABDOMEN: Soft, nontender, nondistended. Positive bowel sounds. Normal active bowel sounds NEUROLOGICAL: Alert and oriented times three. Cranial nerves II through XII grossly intact. Sensation to light touch in C-T2 dermatomes and L2-S2 dermatomes +bilateral Babinski, 1+/4 patellar reflexes bilat 3+ bicep, triceps, and brachioradialis reflexes, positive Isabel's EXTREMITIES: 5-\5 strength right upper extremities. 3/5 left shoulder abduction pain limiting, and unable to fully test elbow extension given limited ROM, pie filling mixer 5/5 and elbow flexors 5-/5 3+/5 right hip flexors and knee extensors, 2+/5 ankle DF and EHL 2/5 left hip flexors and knee extensors, 1/5 left ankle DF and EHL Left shoulder: +Neers and decreased internal rotation SKIN: lumbosacral incision c/d/i no induration, no sacral ulcers, scab on bottom of left foot bilateral lower lateral trunk erythema ASSESSMENT:62-year-old M with past medical history of chronic low back pain who presents status post T11-S1 arthrodesis and laminectomy. PLAN: 1. rehab: PT/OT, assess for DME- able to propel his wheel chair, working on [id number] 2. Ortho: s/p T11-S1 arthrodesis with laminectomy in setting of spinal stenosis with significant RLE paresis, TLSO brace when out of bed, Spinal precautions, monitor for myelopathy, at this time does have brisk reflexes in UE and +Babinksi most likely from cervical stenosis- no incontinence -has outpatient follow-up with surgeon 05-21-18 for possible suture removal -Left shoulder likely weak from cervical stenosis and impingement- will e ncourage ROM to prevent adhesive capsulitis -TSLO brace adjusted by [facility] 3. Cardio: pmh HTN: continue Metoprolol aand adjust prn- medicine consulted, will restart ASA on 05-22-18 4 GI: bowel meds, and protonix for ppx 5. : monitor PVRs, admission UA and Ucx negative 6. Skin: dressing in place, can be removed on 05-17-18, monitor for infection, multipodus boots while in bed to prevent heel cord contractures and heel ulcers 7. DVT ppx: continue Lovenox, admission dopplers negative 9. Pain: OXycodone and Tylenol 8. Dispo: TBD Allergies Coded Allergies: No Known Drug Allergy (Verified Allergy, Unknown, 05/13/18) Vital Signs Vital Signs Date Time Temp Pulse Resp B/P (MAP) Pulse Ox O2 Delivery O2 Flow Rate FiO2 05/16/18 14:01 18 Room Air 05/16/18 08:38 152/80 05/16/18 08:38 88 05/16/18 06:00 98.6 98 Laboratory Data CBC/BMP Laboratory Tests 05/16/18 06:29 Red Blood Count 2.76 L, Mean Corpuscular Volume 89.9, Mean Corpuscular Hemoglobin 31.2, Mean Corpuscular Hemoglobin Concent 34.7, Red Cell Distribution Width 12.1, Calcium Level 7.8 L Labs 24H Laboratory Tests 2 05/16/18 06:29: Nucleated Red Blood Cells % (auto) 0.0, Anion Gap 11, Glomerular Filtration Rate > 60.0, Blood Urea Nitrogen 7, Creatinine 0.44L, Sodium Level 130L, Potassium Level 3.7, Chloride Level 97L, Carbon Dioxide Level 22, Calcium Level 7.8L, Magnesium Level 1.8 Microbiology Microbiology 05/14/18 Stool Occult Blood (TENZIN) - Final, Complete 05/14/18 Urine Culture - Final, Complete Current Medications Current Medications Current Medications Acetaminophen (Tylenol Tab) 650 mg Q4HP PRN PO fever/MILD PAIN (PS 1-4); Start 05/13/18 at 17:45 Ascorbic Acid (Vitamin C) 1,000 mg DAILY PO Last administered on 05/16/18at 08:40; Start 05/14/18 at 09:00 Aspirin (Ecotrin) 81 mg DAILY PO ; Start 05/22/18 at 09:00 Bisacodyl (Dulcolax Suppository) 10 mg ASDIRECTED PRN MO IF NO BOWEL MOVEMENT; Start 05/14/18 at 18:00 Bisacodyl (Dulcolax Suppository) 10 mg DAILYPRN PRN [place] CONSTIPATION; Start 05/13/18 at 17:45 Docusate Sodium (Colace) 100 mg BID PO Last administered on 05/16/18at 08:39; Start 05/13/18 at 21:00 Enoxaparin Sodium (Lovenox) 40 mg DAILY SC Last administered on 05/16/18at 08:37; Start 05/14/18 at 09:00 Ferrous Gluconate (Fergon) 324 mg BID PO Last administered on 05/16/18at 08:40; Start 05/15/18 at 21:00 Gabapentin (Neurontin) 200 mg TID PO ; Start 05/13/18 at 21:00; Stop 05/13/18 at 21:00; Status DC Home Med (Med Rec Complete!) ASDIRECTED XX ; Start 05/13/18 at 18:15; Stop 05/13/18 at 18:16; Status DC Lidocaine (Lidoderm Patch) 1 patch DAILY@2100 TD Last administered on 05/15/18at 22:04; Start 05/14/18 at 21:00 Lisinopril (Prinivil) 10 mg DAILY PO Last administered on 05/16/18at 08:38; Start 05/15/18 at 11:00 Magnesium Hydroxide (Milk Of Magnesia) 30 ml DAILYPRN PRN PO CONSTIPATION Last administered on 05/13/18 18:48; Start 05/13/18 at 17:45 Metoprolol Succinate (TopROL XL) 50 mg DAILY PO Last administered on 05/14/18 09:39; Start 05/14/18 at 09:00; Stop 05/14/18 at 11:18; Status DC Metoprolol Succinate (TopROL XL) 100 mg DAILY PO Last administered on 05/16/18 08:38; Start 05/15/18 at 09:00 Non-Formulary Medication ( See Comment Field Below ) REMOVE LIDODERM PATCH DAILY XX Last administered on 05/16/18 08:40; Start 05/15/18 at 09:00 Ondansetron HCl (Zofran) 4 mg Q6HP PRN PO NAUSEA; Start 05/13/18 at 17:45 Oxycodone HCl (Roxicodone, Oxyir) 5 mg Q4HP PRN PO PAIN 4-7 Last administered on 05/16/18 13:31; Start 05/13/18 at 17:45 Oxycodone HCl (Roxicodone, Oxyir) 10 mg Q4HP PRN PO SEVERE PAIN (PS 8-10) Last administered on 05/14/18 09:54; Start 05/13/18 at 17:45; Stop 05/14/18 at 11:16; Status DC Oxycodone HCl (Roxicodone, Oxyir) 10 mg TID PO Last administered on 05/16/18 08:39; Start 05/14/18 at 16:00 Pantoprazole Sodium (Protonix) 40 mg DAILY PO Last administered on 05/16/18 08:38; Start 05/14/18 at 09:00 Potassium Chloride (Micro-K Extencaps) 20 meq DAILY PO Last administered on 05/16/18 08:38; Start 05/15/18 at 09:00 Senna (Senokot) 1 tab QHS PO Last administered on 05/13/18at 20:43; Start 05/13/18 at 21:00; Stop 05/15/18 at 17:28; Status DC Senna (Senokot) 2 tab QHS PO ; Start 05/15/18 at 21:00 Sodium Chloride (Sodium Chloride) 1 gm BID PO Last administered on 05/16/18 08:38; Start 05/15/18 at 11:00 Thiamine HCl (Thiamine HCl) 100 mg DAILY PO Last administered on 05/16/18at 08:39; Start 05/14/18 at 09:00 Trazodone HCl (Desyrel) 50 mg QHSP PRN PO INSOMNIA Last administered on 05/15/18at 22:09; Start 05/13/18 at 17:45 Vitamin D (Vitamin D) 1,000 units DAILY PO Last administered on 05/16/18at 08:39; Start 05/14/18 at 09:00 BRUCE CARDOZA MD May 16, 2018 15:49
[2018-05-16 20:00] VITALS: BP 140/72
[2018-05-16] MEDS: SENNA 8.6 MG TAB (SENOKOT) PO SCH (21:00)
[2018-05-16] MEDS: LIDOCAINE 5% (LIDODERM) PATCH TD SCH (21:30)
[2018-05-16] MEDS: traZODone 50 MG TAB PO PRN (21:33)
[2018-05-16] MEDS: ACETAMINOPHEN TAB 650MG DOSE (2X325MG) PO PRN (21:34)
[2018-05-17] MEDS: oxyCODONE 5MG TAB PO PRN (01:27)
[2018-05-17 05:28] LABS: CREATININE,RANDOM URINE 35.7 MG/DL
[2018-05-17 06:00] VITALS: BP 160/70
[2018-05-17 06:50] LABS: BLOOD UREA NITROGEN 9 MG/DL (7-18); CALCIUM LEVEL 8.3 MG/DL (8.8-10.2); CARBON DIOXIDE LEVEL 23 MEQ/L (21-32); CHLORIDE LEVEL 99 MEQ/L (98-107); CREATININE FOR GFR 0.45 MG/DL (0.70-1.30); GLOMERULAR FILTRATION RATE > 60.0 (>49); GLUCOSE, FASTING 95 MG/DL (70-100); POTASSIUM SERUM 3.7 MEQ/L (3.5-5.1); SODIUM LEVEL 132 MEQ/L (136-145)
[2018-05-17] MEDS: DOCUSATE SODIUM 100 MG CAP PO SCH ×2 (09:00→21:59)
[2018-05-17] MEDS: **NOTE PATIENT COMMENT** MISC XX SCH (09:00)
[2018-05-17] MEDS: ASCORBIC ACID 500 MG TAB PO SCH (09:20)
[2018-05-17] MEDS: SODIUM CHLORIDE 1 GM TAB PO SCH ×3 (09:20→21:59)
[2018-05-17] MEDS: THIAMINE 100 MG TAB PO SCH (09:20)
[2018-05-17] MEDS: ENOXAPARIN 40 MG/0.4 ML SYRINGE (J1650) SC SCH (09:20)
[2018-05-17] MEDS: LISINOPRIL 10 MG TAB PO SCH (09:20)
[2018-05-17] MEDS: METOPROLOL SUCC (TopROL XL) 50MG **XL** TAB PO SCH (09:21)
[2018-05-17] MEDS: VITAMIN D 1,000 INTERNATIONAL UNITS TABLET PO SCH (09:22)
[2018-05-17] MEDS: oxyCODONE 5MG TAB PO SCH ×3 (09:22→21:59)
[2018-05-17] MEDS: POTASSIUM CHLORIDE 10 MEQ SR TABLET PO SCH (09:22)
[2018-05-17] MEDS: FERROUS GLUCONATE 324 MG TAB PO SCH ×2 (09:22→21:59)
[2018-05-17] MEDS: PANTOPRAZOLE 40MG TAB (PROTONIX) PO SCH (09:22)
[2018-05-17 14:00] VITALS: BP 148/68
--- NOTE | 2018-05-17 17:04 | IPN ---
DATE: 05/16/2018 Patient seen and examined. Continued to report back pain. Denies any fevers, chills, chest pain, pressure or discomfort. Participating with physical therapy. VITAL SIGNS: Temperature 98.3, pulse 80, respiratory rate 18, blood pressure 128/62, pulse oximetry 99% on room air. LABORATORY: WBC 9.5, hemoglobin and hematocrit (H and H) 8.6 and 24.8, platelets 302. Chemistry: Sodium 130, potassium 3.7, chloride 97, bicarbonate 22, BUN 7, creatinine 0.44. PHYSICAL EXAMINATION: GENERAL: Patient in no acute distress, alert and oriented times three. HEENT: Normocephalic, atraumatic. PULMONARY: Bilateral clear. CARDIAC: Regular. S1, S2. ABDOMEN: Soft, nontender. Positive bowel sounds. EXTREMITIES: Dorsalis pedis (DP)/posterior tibial (PT) pulses intact. Bilateral lower extremity weakness has been ongoing since patient had the back problem, left worse than right. ASSESSMENT AND PLAN: This is a 62-year-old male patient with underlying medical history of cervical stenosis, lumbar stenosis, thoracolumbar scoliosis, chronic neck pain, lower extremity pain, gastroesophageal reflux disease (GERD), hypertension, status post T11-S1 posterior arthrodesis with L1-S1 laminectomy on 05/08/2018 at [facility]. Patient was transferred to acute rehabilitation for further physical therapy. PROBLEMS: 1. Status post T11-S1 posterior arthrodesis with L1-S1 laminectomy 05/08/2018 at [facility]. Physical therapy (PT)/occupational therapy (OT) as per acute rehabilitation provider, pain control as per acute provider, bowel regimen as per acute rehabilitation provider and deep venous thrombosis (DVT) prophylaxis as per acute rehabilitation provider. Patient on Lovenox subcutaneously. Lower extremity ultrasound negative. 2. Hypertension. Continue medication, metoprolol and lisinopril. Continue aspirin. 3. Anemia. Monitor hemoglobin and hematocrit (H and H). Transfuse as needed. 4. Hyponatremia. Will monitor closely. Patient on sodium chloride tablet. 5. Gastroesophageal reflux disease (GERD). Continue proton pump inhibitor (PPI). 6. Deep venous thrombosis (DVT) prophylaxis. Lovenox subcutaneously. DISPOSITION: As per acute rehabilitation provider.
[2018-05-17] MEDS: SENNA 8.6 MG TAB (SENOKOT) PO SCH (21:59)
[2018-05-17] MEDS: LIDOCAINE 5% (LIDODERM) PATCH TD SCH (21:59)
[2018-05-17 22:00] VITALS: BP 142/78
[2018-05-18] MEDS: traZODone 50 MG TAB PO PRN (02:37)
[2018-05-18] MEDS: oxyCODONE 5MG TAB PO PRN ×2 (04:18→14:23)
[2018-05-18 06:00] VITALS: BP 160/78
[2018-05-18 06:10] LABS: HEMATOCRIT 26.2 % (42.0-52.0); HEMOGLOBIN 8.8 g/dl (13.5-17.5); MEAN CORPUSCULAR HEMOGLOBIN 30.3 pg (27.0-33.0); MEAN CORPUSCULAR HGB CONC 33.6 g/dl (32.0-36.5); MEAN CORPUSCULAR VOLUME 90.3 fl (80.0-96.0); PLATELET COUNT, AUTOMATED 341 10^3/uL (150-450); WHITE BLOOD COUNT 7.7 10^3/uL (4.0-10.0)
[2018-05-18 06:35] LABS: BLOOD UREA NITROGEN 10 MG/DL (7-18); CALCIUM LEVEL 8.3 MG/DL (8.8-10.2); CARBON DIOXIDE LEVEL 22 MEQ/L (21-32); CHLORIDE LEVEL 96 MEQ/L (98-107); CREATININE FOR GFR 0.51 MG/DL (0.70-1.30); GLOMERULAR FILTRATION RATE > 60.0 (>49); GLUCOSE, FASTING 103 MG/DL (70-100); MAGNESIUM LEVEL 1.9 MG/DL (1.8-2.4); POTASSIUM SERUM 3.8 MEQ/L (3.5-5.1); SODIUM LEVEL 128 MEQ/L (136-145)
[2018-05-18] MEDS: ACETAMINOPHEN TAB 650MG DOSE (2X325MG) PO PRN ×2 (07:05→15:27)
--- NOTE | 2018-05-18 07:41 | IPN ---
DATE: 05/17/2018 Patient seen and examined. Continues to report back pain. Denies any chest pain, pressure or discomfort. Denies any fevers or chills. Participating with physical therapy. He is bit fatigued. VITAL SIGNS: Temperature 97.2, pulse 84, respirations 18, blood pressure 160/70, pulse oximetry 98% on room air. LABORATORY: WBC 9.5, hemoglobin and hematocrit 8.6/24.8, platelets 302. Chemistry: Sodium 132, potassium 3.7, chloride 99, bicarb 23, BUN 9, creatinine 0.45. PHYSICAL EXAMINATION: GENERAL: Patient alert, comfortable in no acute distress. HEENT: Normocephalic, atraumatic. PULMONARY: Bilaterally clear. CARDIAC: Regular S1, S2. ABDOMEN: Soft, nontender. EXTREMITIES: Dorsalis pedis (DP)/posterior tibial (PT) pulses intact. No edema bilateral lower extremities. Bilateral lower extremity weakness with left sided foot drop. ASSESSMENT AND PLAN: This is a 62-year-old male patient with underlying medical history of cervical stenosis, lumbar stenosis, thoracolumbar scoliosis, chronic neck pain, gastroesophageal reflux disease (GERD), hypertension, patient status post T11 to S1 posterior arthrodesis with L1 to S1 laminectomy on 05/08/2018 at [facility], transferred to acute rehabilitation for further care. PROBLEMS: 1. Status post T11 to S1 posterior arthrodesis with L1 to S1 laminectomy 05/08/2018 at [facility] in [place]. Physical therapy (PT)/occupational therapy (OT) pain regimen, bowel care, deep vein thrombosis (DVT) prophylaxis as per acute rehabilitation provider. Patient on Lovenox for deep vein thrombosis (DVT) prophylaxis. Ultrasound appreciated with no DVT. Follow-up outpatient. Foot brace has been ordered by acute rehab provider. 2. Hypertension. Continue current medications, metoprolol and lisinopril. Restarting aspirin 81 mg daily on 05/22/2018. 3. Hypokalemia. Supplementation has been ordered. Will continue to follow. 4. Anemia. Monitor hemoglobin and hematocrit. Fecal occult has been negative. Iron supplementation. 5. Hyponatremia. Continue to monitor. Sodium chloride tablet. Currently improved. Urine study appreciated. 6. Gastroesophageal reflux disease (GERD). Continue proton pump inhibitor (PPI). 7. Deep venous thrombosis (DVT) prophylaxis. Lovenox subcu. DISPOSITION: Pending acute rehabilitation provider.
[2018-05-18 08:30] LABS: APPEARANCE, URINE CLEAR (CLEAR); BACTERIA, URINE AUTO NEGATIVE (NEGATIVE); BILIRUBIN, URINE AUTO NEGATIVE (NEGATIVE); BLOOD, URINE BLOOD NEGATIVE (NEGATIVE); COLOR, URINE YELLOW (YELLOW); GLUCOSE, URINE (UA) AUTO NEGATIVE (NEGATIVE); KETONE, URINE AUTO NEGATIVE (NEGATIVE); LEUKOCYTE ESTERASE, URINE AUTO NEGATIVE (NEGATIVE); NITRITE, URINE AUTO NEGATIVE (NEGATIVE); PROTEIN, URINE AUTO NEGATIVE (NEGATIVE); RBC, URINE AUTO 2 /HPF (0-3); SPECIFIC GRAVITY URINE AUTO 1.014 (1.002-1.035); SQUAMOUS EPITHELIAL CELL UR AU 0 /HPF (0-6); WBC, URINE AUTO 1 /HPF (0-3)
[2018-05-18] MEDS: ASCORBIC ACID 500 MG TAB PO SCH (08:48)
[2018-05-18] MEDS: oxyCODONE 5MG TAB PO SCH ×3 (08:49→21:27)
[2018-05-18] MEDS: SODIUM CHLORIDE 1 GM TAB PO SCH ×3 (08:49→21:26)
[2018-05-18] MEDS: VITAMIN D 1,000 INTERNATIONAL UNITS TABLET PO SCH (08:50)
[2018-05-18] MEDS: METOPROLOL SUCC (TopROL XL) 50MG **XL** TAB PO SCH (08:50)
[2018-05-18] MEDS: FERROUS GLUCONATE 324 MG TAB PO SCH ×2 (08:51→21:27)
[2018-05-18] MEDS: LISINOPRIL 10 MG TAB PO SCH (08:51)
[2018-05-18] MEDS: ENOXAPARIN 40 MG/0.4 ML SYRINGE (J1650) SC SCH (08:51)
[2018-05-18] MEDS: PANTOPRAZOLE 40MG TAB (PROTONIX) PO SCH (08:51)
[2018-05-18] MEDS: POTASSIUM CHLORIDE 10 MEQ SR TABLET PO SCH (08:51)
[2018-05-18] MEDS: THIAMINE 100 MG TAB PO SCH (08:51)
[2018-05-18] MEDS: DOCUSATE SODIUM 100 MG CAP PO SCH ×2 (08:51→21:27)
[2018-05-18] MEDS: **NOTE PATIENT COMMENT** MISC XX SCH (08:52)
[2018-05-18] MEDS ORDERED: NS 1,000 ML IV ONE (10:30)
--- NOTE | 2018-05-18 12:15 | REP ---
CHEST, PORTABLE VIEW: AP portable view of the chest is performed. There is no prior study for comparison. There is some minimal linear fibroatelectatic change in the left lung base. No acute infiltrate is seen. The heart is normal in size. There is mild calcification of the thoracic aorta. The mediastinal silhouette is otherwise unremarkable. There are significant degenerative changes at both glenohumeral joints. There are degenerative changes of the spine. IMPRESSION: No acute infiltrate. Electronically Signed by Carlos Bowden MD 05/18/2018 12:59 P
[2018-05-18 14:00] VITALS: BP 150/72
--- NOTE | 2018-05-18 14:14 | IPNPDOC ---
Date Seen The patient was seen on 05/18/18. Progress Note HPI: 62year old M S/P T11-S1 posterior arthrodesis L1-S1 laminectomies05/08/[address] Liu [facility]. Transfered to the care of Dr Paniagua [facility], 05/13/18. The pt states he has had pain related to his brace, with some adjustments this has improved somewhat. States he is eating and drinking. Tmax this am noted to be 101.7. Denies any weakness, fatigue, Headache, Chest Pain, Shortness of breath, cough, palpitations, abdominal pain, N/V/D or changes in bowel or bladder habits. PMHx: cervical stenosis Lumbar stenosis Thoracolumbar scoliosis Chronic neck pain/LE pain/Chronic pain GERD HTN PSHX: 05/08/18 T11-S1 posterior arthrodesis L1-S1 laminectomies. PE: GEN: 62yoM, appears stated age. No acute distress. Alert and oriented x 3. HEENT: Normocephalic, atraumatic. Sclera are nonicteric. Conjunctiva without injection. Moist mucous membranes.Pharynx pink and moist. CHEST: Regular rate and rhythm, +S1, +S2 LUNGS: Clear to auscultation bilaterally. No wheezes, rales, or rhonchi. ABD: Exam limited related to pt brace. Round, soft, non-tender, non-distended. +Bowel sounds noted. EXT: Pulses 2+ bilaterally dorsalis pedis and radial. No lower extremity edema appreciated. SKIN: [place], dry, warm. No rashes. NEURO: Alert and oriented x 3. Cranial nerves III-XII are intact. No focal deficits appreciated. UC neg 05/14/18 FOB neg. U/S LEs No evidence for deep venous thrombosis. Electronically Signed by Adryan Cole MD 05/15/2018 05:36 A A&P: 62year old M S/P T11-S1 posterior arthrodesis L1-S1 laminectomies05/08/[address] Liu [facility]. Transferred to the care of Dr Paniagua [facility], 05/13/18. 1. S/P T11-S1 posterior arthrodesis L1-S1 laminectomies05/08/[address] [facility] [place] PT/OT/ST as per MARIEL Zamora. Pain control as per MARIEL Zamora. Bowel care as per MARIEL Zamora. DVT prophylaxis as per MARIEL Zamora. Lovenox SQ. LE U/S pending. Outpt F/U with Dr Liu. Wearing TLSO brace as per Dr Liu. UC neg LE U/S neg. 2. Fever. Tmax 101.7. Respiratory panel Flu positive. BC x 2 pending. CXR NAD IVF x 1 liter. Add Tamiflu 75 mg BID x 5 days. Droplet precautions. Tylenol as needed. 3. HTN. Toprol XL 100 mg po daily. Lisinopril 10 mg daily. Pt to restart ASA 81 mg daily 05/22/18. 4. Hypokalemia. Supplement ordered. Recheck BMP in AM. 4. Anemia. Hgb 8.8 Fe studies, B12, folate completed. FOB neg. Fe supplement BID added. Monitor need for transfusion. 5. Hyponatremia. Na 128. Ser Osm/Ur Osm/Ur Cr/NA/TSH/Mag noted. NaCl tab TID. IVF NS x 1 liter today Monitor daily BMP. 6. GERD. Protonix. VS, I&O, 24H, Fishbone Vital Signs/I&O Vital Signs Date Time Temp Pulse Resp B/P (MAP) Pulse Ox O2 Delivery O2 Flow Rate FiO2 05/18/18 09:30 18 05/18/18 08:50 110 160/78 05/18/18 06:00 101.7 98 Room Air I&O- Last 24 Hours up to 6 AM 05/18/18 05:59 Intake Total 860 ml Output Total 1095 ml Balance -235 ml Laboratory Data 24H LABS Laboratory Tests 2 05/18/18 05:35: Nucleated Red Blood Cells % (auto) 0.0, Anion Gap 10, Glomerular Filtration Rate > 60.0, Blood Urea Nitrogen 10, Creatinine 0.51L, Sodium Level 128L, Potassium Level 3.8, Chloride Level 96L, Carbon Dioxide Level 22, Calcium Level 8.3L, Magnesium Level 1.9 05/18/18 08:16: Urine Appearance CLEAR, Urine Color YELLOW, Urine pH 7.0, Urine Specific [place] 1.014, Urine Protein NEGATIVE, Urine Glucose (UA) NEGATIVE, Urine Ketones NEGATIVE, Urine Urobilinogen 4.0H, Urine Bilirubin NEGATIVE, Urine Leukocyte Esterase NEGATIVE, Urine Blood NEGATIVE, Urine Nitrite NEGATIVE, Urine WBC (Auto) 1, Urine RBC (Auto) 2, Urine Hyaline Casts (Auto) 0, Urine Bacteria (Auto) NEGATIVE, Urine Squamous Epithelial Cells 0, Urine Sperm (Auto) CBC/BMP Laboratory Tests 05/18/18 05:35 Red Blood Count 2.90 L, Mean Corpuscular Volume 90.3, Mean Corpuscular Hemoglo bin 30.3, Mean Corpuscular Hemoglobin Concent 33.6, Red Cell Distribution Width 12.4, Calcium Level 8.3 L Microbiology Microbiology 05/18/18 Blood Culture, Received Pending 05/18/18 Blood Culture, Received Pending 05/14/18 Stool Occult Blood (TENZIN) - Final, Complete 05/18/18 Respiratory Virus Panel (PCR) (TENZIN) - Final, Complete Influenza A H1-200805/14/18 Urine Culture - Final, Complete Olga Loja May 18, 2018 14:14
[2018-05-18] MEDS: CEPHALEXIN 500 MG CAP PO SCH ×3 (14:22→21:27)
[2018-05-18] MEDS: OSELTAMIVIR PHOSPHATE 75 MG CAP (TAMIFLU) PO SCH ×2 (14:37→21:26)
--- NOTE | 2018-05-18 19:29 | IPNPDOC ---
PM&R Progress Note DATE OF SERVICE: May 18, 2018 [employer] Reclaimer Progress Note Subjective: Patient with fever this morning, denies cough, feels fatigued overall. REVIEW OF SYSTEMS: The following is a completed review of systems and has been reviewed. Review of systems otherwise unremarkable. PAIN: self reports non-radiating low back pain EYES: Negative for recent vision changes EARS, NOSE, & THROAT: Denied rhinorrhea, throat pain or dysphagia CARDIOVASCULAR: denies chest pain or palpitations PULMONARY: Negative. Denies shortness of breast GASTROINTESTINAL: Negative for diarrhea, +constipation GENITOURINARY: Negative for dysuria or hematuria or incontinence MUSCULOSKELETAL: bilateral LE weakness L>R and Left shoulder pain and arm weakness NEUROLOGICAL: LLE paralysis HEMATOLOGICAL: Negative for bruising SKIN: scab on bottom of left foot, lumbosacral sutures, otherwise intact. PSYCHIATRIC: Unremarkable All other review of systems found to be negative. PHYSICAL EXAMINATION: VITAL SIGNS: Please see below. GENERAL: Pleasant and cooperative. No acute distress. HEENT: PERRL. Extraocular movements intact. Clear conjunctiva, poor dentition CARDIOVASCULAR: Regular rate and rhythm. No murmurs, rubs, or gallops LUNGS: Clear to auscultation bilaterally. No wheezes. No rhonchi ABDOMEN: Soft, nontender, nondistended. Positive bowel sounds. Normal active bowel sounds NEUROLOGICAL: Alert and oriented times three. Cranial nerves II through XII grossly intact. Sensation to light touch in C-T2 dermatomes and L2-S2 dermatomes +bilateral Babinski, 1+/4 patellar reflexes bilat 3+ bicep and brachioradialis reflexes, negative Isabel's EXTREMITIES: 5-\5 strength right upper extremities. 3/5 left shoulder abduction pain limiting, and unable to fully test elbow extension given limited ROM, finger lift operator 5/5 and elbow flexors 5-/5 3+/5 right hip flexors and knee extensors, 2+/5 ankle DF and EHL 2/5 left hip flexors and knee extensors, 1/5 left ankle DF and EHL Left shoulder: +Neers and decreased internal rotation SKIN: lumbosacral incision erythematous, no sacral ulcers, scab on bottom of left foot Lateral truncal ecchymosis ASSESSMENT:62-year-old M with past medical history of chronic low back pain who presents status post T11-S1 arthrodesis and laminectomy. PLAN: 1. rehab: PT/OT, assess for DME 2. Ortho: s/p T11-S1 arthrodesis with laminectomy in setting of spinal stenosis with significant RLE paresis, TLSO brace when out of bed, Spinal precautions, monitor for myelopathy, at this time does have brisk reflexes in UE and +Babinksi most likely from cervical stenosis- no incontinence -will need outpatient follow-up with surgeon 05-21-18 for possible suture removal -Left shoulder likely weak from cervical stenosis and impingement- will encourage ROM to prevent adhesive capsulitis - TLSO brace adjusted 05/15/18 3. Cardio: pmh HTN: continue Metoprolol and adjust prn- medicine consulted, will restart ASA on 05-22-18 4 GI: bowel meds, and Protonix for ppx 5. : monitor PVRs, admission UA and Ucx negative 6. Skin: dressing in place, change prn soil/drainage, multipodus boots while in bed to prevent heel cord contractures and heel ulcers 7. DVT ppx: continue Lovenox, admission dopplers negative 9. Pain: OXycodone and Tylenol 10. Electrolytes: Hyponatremia, continue salt tabs, will receive 1 L IVF, monitor 11. ID: patient with fever this morning without leukocytosis, +Influenza, started on Tamiflu, given IVF monitor vitals -CXR negative for infiltrate -blood cultures sent -starting Keflex for possible incision site infection 8. Dispo: TBD Allergies Coded Allergies: No Known Drug Allergy (Verified Allergy, Unknown, 05/13/18) Vital Signs Vital Signs Date Time Temp Pulse Resp B/P (MAP) Pulse Ox O2 Delivery O2 Flow Rate FiO2 05/18/18 16:11 18 05/18/18 14:00 102.7 105 150/72 (98) 98 Room Air Laboratory Data CBC/BMP Laboratory Tests 05/18/18 05:35 Red Blood Count 2.90 L, Mean Corpuscular Volume 90.3, Mean Corpuscular Hemoglobin 30.3, Mean Corpuscular Hemoglobin Concent 33.6, Red Cell Distribution Width 12.4, Calcium Level 8.3 L Labs 24H Laboratory Tests 2 05/18/18 05:35: Nucleated Red Blood Cells % (auto) 0.0, Anion Gap 10, Glomerular Filtration Rate > 60.0, Blood Urea Nitrogen 10, Creatinine 0.51L, Sodium Level 128L, Potassium Level 3.8, Chloride Level 96L, Carbon Dioxide Level 22, Calcium Level 8.3L, Magnesium Level 1.9 05/18/18 08:16: Urine Appearance CLEAR, Urine Color YELLOW, Urine pH 7.0, Urine Specific [place] 1.014, Urine Protein NEGATIVE, Urine Glucose (UA) NEGATIVE, Urine Ketones NEGATIVE, Urine Urobilinogen 4.0H, Urine Bilirubin NEGATIVE, Urine Leukocyte Esterase NEGATIVE, Urine Blood NEGATIVE, Urine Nitrite NEGATIVE, Urine WBC (Auto) 1, Urine RBC (Auto) 2, Urine Hyaline Casts (Auto) 0, Urine Bacteria (Auto) NEGATIVE, Urine Squamous Epithelial Cells 0, Urine Sperm (Auto) Microbiology Microbiology 05/18/18 Blood Culture, Received Pending 05/18/18 Blood Culture, Received Pending 05/14/18 Stool Occult Blood (TENZIN) - Final, Complete 05/18/18 Respiratory Virus Panel (PCR) (ETNZIN) - Final, Complete Influenza A H1-2009 05/14/18 Urine Culture - Final, Complete Current Medications Current Medications Current Medications Acetaminophen (Tylenol Tab) 650 mg Q4HP PRN PO fever/MILD PAIN (PS 1-4) Last administered on 05/18/18at 15:27; Start 05/13/18 at 17:45 Ascorbic Acid (Vitamin C) 1,000 mg DAILY PO Last administered on 05/18/18at 08:48; Start 05/14/18 at 09:00 Aspirin (Ecotrin) 81 mg DAILY PO ; Start 05/22/18 at 09:00 Bisacodyl (Dulcolax Suppository) 10 mg ASDIRECTED PRN [place] IF NO BOWEL MOVEMENT; Start 05/14/18 at 18:00 Bisacodyl (Dulcolax Suppository) 10 mg DAILYPRN PRN [place] CONSTIPATION; Start 05/13/18 at 17:45 Cephalexin Monohydrate (Keflex) 500 mg QID PO Last administered on 05/18/18at 18:05; Start 05/18/18 at 13:00 Docusate Sodium (Colace) 100 mg BID PO Last administered on 05/18/18at 08:51; Start 05/13/18 at 21:00 Enoxaparin Sodium (Lovenox) 40 mg DAILY SC Last administered on 05/18/18at 08:51; Start 05/14/18 at 09:00 Ferrous Gluconate (Fergon) 324 mg BID PO Last administered on 05/18/18 08:51; Start 05/15/18 at 21:00 Gabapentin (Neurontin) 200 mg TID PO ; Start 05/13/18 at 21:00; Stop 05/13/18 at 21:00; Status DC Home Med (Med Rec Complete!) ASDIRECTED XX ; Start 05/13/18 at 18:15; Stop 05/13/18 at 18:16; Status DC Lidocaine (Lidoderm Patch) 1 patch DAILY@2100 TD Last administered on 05/17/18at 21:59; Start 05/14/18 at 21:00 Lisinopril (Prinivil) 10 mg DAILY PO Last administered on 05/18/18 08:51; Start 05/15/18 at 11:00 Magnesium Hydroxide (Milk Of Magnesia) 30 ml DAILYPRN PRN PO CONSTIPATION Last administered on 05/13/18at 18:48; Start 05/13/18 at 17:45 Metoprolol Succinate (TopROL XL) 50 mg DAILY PO Last administered on 05/14/18at 09:39; Start 05/14/18 at 09:00; Stop 05/14/18 at 11:18; Status DC Metoprolol Succinate (TopROL XL) 100 mg DAILY PO Last administered on 05/18/18at 08:50; Start 05/15/18 at 09:00 Non-Formulary Medication ( See Comment Field Below ) REMOVE LIDODERM PATCH DAILY XX Last administered on 05/18/18at 08:52; Start 05/15/18 at 09:00 Ondansetron HCl (Zofran) 4 mg Q6HP PRN PO NAUSEA; Start 05/13/18 at 17:45 Oseltamivir Phosphate (Tamiflu) 75 mg BID PO Last administered on 05/18/18at 14:37; Start 05/18/18 at 14:15 Oxycodone HCl (Roxicodone, Oxyir) 5 mg Q4HP PRN PO PAIN 4-7 Last administered on 05/18/18at 14:23; Start 05/13/18 at 17:45 Oxycodone HCl (Roxicodone, Oxyir) 10 mg Q4HP PRN PO SEVERE PAIN (PS 8-10) Last administered on 05/14/18 09:54; Start 05/13/18 at 17:45; Stop 05/14/18 at 11:16; Status DC Oxycodone HCl (Roxicodone, Oxyir) 10 mg TID PO Last administered on 05/18/18 15:27; Start 05/14/18 at 16:00 Pantoprazole Sodium (Protonix) 40 mg DAILY PO Last administered on 05/18/18 08:51; Start 05/14/18 at 09:00 Potassium Chloride (Micro-K Extencaps) 20 meq DAILY PO Last administered on 05/18/18 08:51; Start 05/15/18 at 09:00 Senna (Senokot) 1 tab QHS PO Last administered on 05/13/18 20:43; Start 05/13/18 at 21:00; Stop 05/15/18 at 17:28; Status DC Senna (Senokot) 2 tab QHS PO Last administered on 05/17/18 21:59; Start 05/15/18 at 21:00 Sodium Chloride (Sodium Chloride) 1 gm BID PO Last administered on 05/16/18 08:38; Start 05/15/18 at 11:00; Stop 05/16/18 at 15:45; Status DC Sodium Chloride (Sodium Chloride) 1 gm TID PO Last administered on 05/18/18 15:26; Start 05/16/18 at 16:00 Thiamine HCl (Thiamine HCl) 100 mg DAILY PO Last administered on 05/18/18 08:51; Start 05/14/18 at 09:00 Trazodone HCl (Desyrel) 50 mg QHSP PRN PO INSOMNIA Last administered on 05/18/18 02:37; Start 05/13/18 at 17:45 Vitamin D (Vitamin D) 1,000 units DAILY PO Last administered on 05/18/18 08:50; Start 05/14/18 at 09:00 BRUCE CARDOZA MD May 18, 2018 19:29
[2018-05-18 20:00] VITALS: BP 146/78
[2018-05-18] MEDS: SENNA 8.6 MG TAB (SENOKOT) PO SCH (21:26)
[2018-05-18] MEDS: LIDOCAINE 5% (LIDODERM) PATCH TD SCH (21:28)
[2018-05-19] MEDS: oxyCODONE 5MG TAB PO PRN (00:35)
[2018-05-19] MEDS: traZODone 50 MG TAB PO PRN (00:35)
[2018-05-19 06:00] VITALS: BP 150/72
[2018-05-19 06:47] LABS: BASO % 0.2 % (0.0-1.0); EOS % 0.7 % (0.0-3.0); HEMATOCRIT 23.7 % (42.0-52.0); LYMPH # 0.4 10^3/uL (1.5-4.5); MEAN CORPUSCULAR HEMOGLOBIN 30.1 pg (27.0-33.0); MEAN CORPUSCULAR HGB CONC 33.8 g/dl (32.0-36.5); MEAN CORPUSCULAR VOLUME 89.1 fl (80.0-96.0); MONO # 0.8 10^3/uL (0.0-0.8); MONO % 20.4 % (0.0-5.0); NEUTROPHILS # 2.8 10^3/uL (1.8-7.7); NEUTROPHILS % 67.5 % (36.0-66.0); PLATELET COUNT, AUTOMATED 315 10^3/uL (150-450); RED BLOOD COUNT 2.66 10^6/uL (4.30-6.10); WHITE BLOOD COUNT 4.1 10^3/uL (4.0-10.0)
[2018-05-19 07:12] LABS: BLOOD UREA NITROGEN 12 MG/DL (7-18); CALCIUM LEVEL 7.6 MG/DL (8.8-10.2); CARBON DIOXIDE LEVEL 19 MEQ/L (21-32); CHLORIDE LEVEL 97 MEQ/L (98-107); CREATININE FOR GFR 0.45 MG/DL (0.70-1.30); GLOMERULAR FILTRATION RATE > 60.0 (>49); GLUCOSE, FASTING 90 MG/DL (70-100); POTASSIUM SERUM 3.9 MEQ/L (3.5-5.1); SODIUM LEVEL 128 MEQ/L (136-145)
[2018-05-19] MEDS: ENOXAPARIN 40 MG/0.4 ML SYRINGE (J1650) SC SCH (09:00)
[2018-05-19] MEDS: VITAMIN D 1,000 INTERNATIONAL UNITS TABLET PO SCH (09:00)
[2018-05-19] MEDS: CEPHALEXIN 500 MG CAP PO SCH ×4 (09:00→21:05)
[2018-05-19] MEDS: DOCUSATE SODIUM 100 MG CAP PO SCH ×2 (09:00→21:05)
[2018-05-19] MEDS: FERROUS GLUCONATE 324 MG TAB PO SCH ×2 (09:00→21:05)
[2018-05-19] MEDS: METOPROLOL SUCC (TopROL XL) 50MG **XL** TAB PO SCH (09:00)
[2018-05-19] MEDS: OSELTAMIVIR PHOSPHATE 75 MG CAP (TAMIFLU) PO SCH ×2 (09:00→21:05)
[2018-05-19] MEDS: POTASSIUM CHLORIDE 10 MEQ SR TABLET PO SCH (09:01)
[2018-05-19] MEDS: ASCORBIC ACID 500 MG TAB PO SCH (09:01)
[2018-05-19] MEDS: PANTOPRAZOLE 40MG TAB (PROTONIX) PO SCH (09:01)
[2018-05-19] MEDS: oxyCODONE 5MG TAB PO SCH ×3 (09:01→21:05)
[2018-05-19] MEDS: LISINOPRIL 10 MG TAB PO SCH (09:02)
[2018-05-19] MEDS: SODIUM CHLORIDE 1 GM TAB PO SCH ×3 (09:02→21:05)
[2018-05-19] MEDS: THIAMINE 100 MG TAB PO SCH (09:02)
[2018-05-19] MEDS: **NOTE PATIENT COMMENT** MISC XX SCH (09:23)
--- NOTE | 2018-05-19 11:17 | PMRNOTEPD ---
PMR Note Patient with the flu and significant weakness and lethargy, will hold therapy for the day. BRUCE CARDOZA MD May 19, 2018 11:17
[2018-05-19 14:00] VITALS: BP 128/56
--- NOTE | 2018-05-19 19:00 | IPNPDOC ---
PM&R Progress Note DATE OF SERVICE: May 19, 2018 Grade Recorder Progress Note Subjective: Patient extremely fatigued today and complaining of back pain. Therapy held. REVIEW OF SYSTEMS: The following is a completed review of systems and has been reviewed. Review of systems otherwise unremarkable. PAIN: self reports non-radiating low back pain EYES: Negative for recent vision changes EARS, NOSE, & THROAT: Denied rhinorrhea, throat pain or dysphagia CARDIOVASCULAR: denies chest pain or palpitations PULMONARY: Negative. Denies shortness of breast GASTROINTESTINAL: Negative for diarrhea, +constipation GENITOURINARY: Negative for dysuria or hematuria or incontinence MUSCULOSKELETAL: bilateral LE weakness L>R and Left shoulder pain and arm w eakness NEUROLOGICAL: LLE paralysis HEMATOLOGICAL: Negative for bruising SKIN: scab on bottom of left foot, lumbosacral sutures, otherwise intact. PSYCHIATRIC: Unremarkable All other review of systems found to be negative. PHYSICAL EXAMINATION: VITAL SIGNS: Please see below. GENERAL: Pleasant and cooperative. No acute distress. HEENT: PERRL. Extraocular movements intact. Clear conjunctiva, poor dentition CARDIOVASCULAR: Regular rate and rhythm. No murmurs, rubs, or gallops LUNGS: Clear to auscultation bilaterally. No wheezes. No rhonchi ABDOMEN: Soft, nontender, nondistended. Positive bowel sounds. Normal active bowel sounds NEUROLOGICAL: Alert and oriented times three. Cranial nerves II through XII grossly intact. Sensation to light touch in C-T2 dermatomes and L2-S2 dermatomes +bilateral Babinski, 1+/4 patellar reflexes bilat 3+ bicep and brachioradialis reflexes, negative Isabel's EXTREMITIES: 5-\5 strength right upper extremities. 3/5 left shoulder abduction pain limiting, and unable to fully test elbow extension given limited ROM, restaurant crew person 5/5 and elbow flexors 5-/5 3+/5 right hip flexors and knee extensors, 2+/5 ankle DF and EHL 2/5 left hip flexors and knee extensors, 1/5 left ankle DF and EHL Left shoulder: +Neers and decreased internal rotation SKIN: lumbosacral incision erythematous, no sacral ulcers, scab on bottom of left foot Lateral truncal ecchymosis ASSESSMENT:62-year-old M with past medical history of chronic low back pain who presents status post T11-S1 arthrodesis and laminectomy. PLAN: 1. rehab: PT/OT, assess for DME, working on [id number] 2. Ortho: s/p T11-S1 arthrodesis with laminectomy in setting of spinal stenosis with significant RLE paresis, TLSO brace when out of bed, Spinal precautions, monitor for myelopathy, at this time does have brisk reflexes in UE and +Babinksi most likely from cervical stenosis- no incontinence -will reschedule outpatient follow-up with surgeon 05-21-18 for possible suture removal given +flu -Left shoulder likely weak from cervical stenosis and impingement- will encourage ROM to prevent adhesive capsulitis - TLSO brace adjusted 05/15/18 3. Cardio: pmh HTN: continue Metoprolol and adjust prn- medicine consulted, will restart ASA on 05-22-18 4 GI: bowel meds, and Protonix for ppx 5. : monitor PVRs, admission UA and Ucx negative 6. Skin: dressing in place, change prn soil/drainage, multipodus boots while in bed to prevent heel cord contractures and heel ulcers 7. DVT ppx: continue Lovenox, admission dopplers negative 9. Pain: OXycodone and Tylenol 10. Electrolytes: Hyponatremia, continue salt tabs, s/p 1 L IVF, stable at 128 will continue to monitor- no seizure, cardiac, or GI symptoms at this time 11. ID: patient with fever this morning without leukocytosis, +Influenza, started on Tamiflu, given IVF monitor vitals -CXR negative for infiltrate -blood cultures sent -starting Keflex for possible incision site infection 8. Dispo: 06-08-18, progressing slowly towards goals, medical hold today for continued fatigue secondary to influenza Allergies Coded Allergies: No Known Drug Allergy (Verified Allergy, Unknown, 05/13/18) Vital Signs Vital Signs Date Time Temp Pulse Resp B/P (MAP) Pulse Ox O2 Delivery O2 Flow Rate FiO2 05/19/18 17:25 18 05/19/18 14:00 98.9 74 128/56 (80) 96 Room Air Laboratory Data CBC/BMP Laboratory Tests 05/19/18 06:16 Red Blood Count 2.66 L, Mean Corpuscular Volume 89.1, Mean Corpuscular Hemoglobin 30.1, Mean Corpuscular Hemoglobin Concent 33.8, Red Cell Distribution Width 12.6, Neutrophils (%) (Auto) 67.5 H, Lymphocytes (%) (Auto) 10.0 L, Monocytes (%) (Auto) 20.4 H, Eosinophils (%) (Auto) 0.7, Basophils (%) (Auto) 0 .2, Neutrophils # (Auto) 2.8, Lymphocytes # (Auto) 0.4 L, Monocytes # (Auto) 0.8, Eosinophils # (Auto) 0.0, Basophils # (Auto) 0.0, Calcium Level 7.6 L Labs 24H Laboratory Tests 2 05/19/18 06:16: Immature Granulocyte % (Auto) 1.2, White Blood Count 4.1, Red Blood Count 2.66L, Hemoglobin 8.0L, Hematocrit 23.7L, Mean Corpuscular Volume 89.1, Mean Corpuscular Hemoglobin 30.1, Mean Corpuscular Hemoglobin Concent 33.8, Red Cell Distribution Width 12.6, Platelet Count 315, Neutrophils (%) (Auto) 67.5H, Lymphocytes (%) (Auto) 10.0L, Monocytes (%) (Auto) 20.4H, Eosinophils (%) (Auto) 0.7, Basophils (%) (Auto) 0.2, Neutrophils # (Auto) 2.8, Lymphocytes # (Auto) 0.4L, Monocytes # (Auto) 0.8, Eosinophils # (Auto) 0.0, Basophils # (Auto) 0.0, Nucleated Red Blood Cells % (auto) 0.0, Anion Gap 12, Glomerular Filtration Rate > 60.0, Blood Urea Nitrogen 12, Creatinine 0.45L, Sodium Level 128L, Potassium Level 3.9, Chloride Level 97L, Carbon Dioxide Level 19L, Calcium Level 7.6L Microbiology Microbiology 05/18/18 Blood Culture - Preliminary, Resulted No growth after 24 hours . All specim... 05/18/18 Blood Culture - Preliminary, Resulted No growth after 24 hours . All specim... 05/14/18 Stool Occult Blood (TENZIN) - Final, Complete 05/18/18 Respiratory Virus Panel (PCR) (TENZIN) - Final, Complete Influenza A H1-2009 05/14/18 Urine Culture - Final, Complete Current Medications Current Medications Current Medications Acetaminophen (Tylenol Tab) 650 mg Q4HP PRN PO fever/MILD PAIN (PS 1-4) Last administered on 05/18/18at 15:27; Start 05/13/18 at 17:45 Ascorbic Acid (Vitamin C) 1,000 mg DAILY PO Last administered on 05/19/18at 09:01; Start 05/14/18 at 09:00 Aspirin (Ecotrin) 81 mg DAILY PO ; Start 05/22/18 at 09:00 Bisacodyl (Dulcolax Suppository) 10 mg ASDIRECTED PRN [place] IF NO BOWEL MOVEMENT; Start 05/14/18 at 18:00 Bisacodyl (Dulcolax Suppository) 10 mg DAILYPRN PRN [place] CONSTIPATION; Start 05/13/18 at 17:45 Cephalexin Monohydrate (Keflex) 500 mg QID PO Last administered on 05/19/18at 16:35; Start 05/18/18 at 13:00 Docusate Sodium (Colace) 100 mg BID PO Last administered on 05/19/18at 09:00; Start 05/13/18 at 21:00 Enoxaparin Sodium (Lovenox) 40 mg DAILY SC Last administered on 05/19/18at 09:00; Start 05/14/18 at 09:00 Ferrous Gluconate (Fergon) 324 mg BID PO Last administered on 05/19/18at 09:00; Start 05/15/18 at 21:00 Gabapentin (Neurontin) 200 mg TID PO ; Start 05/13/18 at 21:00; Stop 05/13/18 at 21:00; Status DC Home Med (Med Rec Complete!) ASDIRECTED XX ; Start 05/13/18 at 18:15; Stop 05/13/18 at 18:16; Status DC Lidocaine (Lidoderm Patch) 1 patch DAILY@2100 TD Last administered on 05/18/18at 21:28; Start 05/14/18 at 21:00 Lisinopril (Prinivil) 10 mg DAILY PO Last administered on 05/19/18at 09:02; Start 05/15/18 at 11:00 Magnesium Hydroxide (Milk Of Magnesia) 30 ml DAILYPRN PRN PO CONSTIPATION Last administered on 05/13/18at 18:48; Start 05/13/18 at 17:45 Metoprolol Succinate (TopROL XL) 50 mg DAILY PO Last administered on 05/14/18at 09:39; Start 05/14/18 at 09:00; Stop 05/14/18 at 11:18; Status DC Metoprolol Succinate (TopROL XL) 100 mg DAILY PO Last administered on 05/19/18 09:00; Start 05/15/18 at 09:00 Non-Formulary Medication ( See Comment Field Below ) REMOVE LIDODERM PATCH DAILY XX Last administered on 05/19/18 09:23; Start 05/15/18 at 09:00 Ondansetron HCl (Zofran) 4 mg Q6HP PRN PO NAUSEA; Start 05/13/18 at 17:45 Oseltamivir Phosphate (Tamiflu) 75 mg BID PO Last administered on 05/19/18 09:00; Start 05/18/18 at 14:15 Oxycodone HCl (Roxicodone, Oxyir) 5 mg Q4HP PRN PO PAIN 4-7 Last administered on 05/19/18 00:35; Start 05/13/18 at 17:45 Oxycodone HCl (Roxicodone, Oxyir) 10 mg Q4HP PRN PO SEVERE PAIN (PS 8-10) Last administered on 05/14/18 09:54; Start 05/13/18 at 17:45; Stop 05/14/18 at 11:16; Status DC Oxycodone HCl (Roxicodone, Oxyir) 10 mg TID PO Last administered on 05/19/18 16:36; Start 05/14/18 at 16:00 Pantoprazole Sodium (Protonix) 40 mg DAILY PO Last administered on 05/19/18 09:01; Start 05/14/18 at 09:00 Potassium Chloride (Micro-K Extencaps) 20 meq DAILY PO Last administered on 05/19/18 09:01; Start 05/15/18 at 09:00 Senna (Senokot) 1 tab QHS PO Last administered on 05/13/18 20:43; Start 05/13/18 at 21:00; Stop 05/15/18 at 17:28; Status DC Senna (Senokot) 2 tab QHS PO Last administered on 05/18/18 21:26; Start at 21:00 Sodium Chloride (Sodium Chloride) 1 gm BID PO Last administered on 1/19/19at 08:38; Start 05/15/18 at 11:00; Stop 05/16/18 at 15:45; Status DC Sodium Chloride (Sodium Chloride) 1 gm TID PO Last administered on 05/19/18at 16:36; Start 05/16/18 at 16:00 Thiamine HCl (Thiamine HCl) 100 mg DAILY PO Last administered on 05/19/18at 09:02; Start 05/14/18 at 09:00 Trazodone HCl (Desyrel) 50 mg QHSP PRN PO INSOMNIA Last administered on 05/19/18at 00:35; Start 05/13/18 at 17:45 Vitamin D (Vitamin D) 1,000 units DAILY PO Last administered on 05/19/18 09:00; Start 05/14/18 at 09:00 BRUCE CARDOZA MD May 19, 2018 19:00
[2018-05-19 20:00] VITALS: BP 122/60
[2018-05-19] MEDS: SENNA 8.6 MG TAB (SENOKOT) PO SCH (21:04)
[2018-05-19] MEDS: LIDOCAINE 5% (LIDODERM) PATCH TD SCH (21:06)
[2018-05-20] MEDS: oxyCODONE 5MG TAB PO PRN (03:10)
[2018-05-20 06:00] VITALS: BP 132/58
[2018-05-20 06:52] LABS: BLOOD UREA NITROGEN 11 MG/DL (7-18); CALCIUM LEVEL 8.4 MG/DL (8.8-10.2); CARBON DIOXIDE LEVEL 24 MEQ/L (21-32); CHLORIDE LEVEL 95 MEQ/L (98-107); CREATININE FOR GFR 0.49 MG/DL (0.70-1.30); GLOMERULAR FILTRATION RATE > 60.0 (>49); GLUCOSE, FASTING 91 MG/DL (70-100); POTASSIUM SERUM 3.8 MEQ/L (3.5-5.1); SODIUM LEVEL 128 MEQ/L (136-145)
[2018-05-20] MEDS: DOCUSATE SODIUM 100 MG CAP PO SCH (09:00)
[2018-05-20] MEDS: **NOTE PATIENT COMMENT** MISC XX SCH (09:00)
[2018-05-20] MEDS: ENOXAPARIN 40 MG/0.4 ML SYRINGE (J1650) SC SCH (09:23)
[2018-05-20] MEDS: CEPHALEXIN 500 MG CAP PO SCH ×4 (09:23→21:47)
[2018-05-20] MEDS: SODIUM CHLORIDE 1 GM TAB PO SCH ×2 (09:23→21:47)
[2018-05-20] MEDS: oxyCODONE 5MG TAB PO SCH ×3 (09:24→21:47)
[2018-05-20] MEDS: THIAMINE 100 MG TAB PO SCH (09:24)
[2018-05-20] MEDS: PANTOPRAZOLE 40MG TAB (PROTONIX) PO SCH (09:24)
[2018-05-20] MEDS: OSELTAMIVIR PHOSPHATE 75 MG CAP (TAMIFLU) PO SCH ×2 (09:24→21:47)
[2018-05-20] MEDS: LISINOPRIL 10 MG TAB PO SCH (09:24)
[2018-05-20] MEDS: POTASSIUM CHLORIDE 10 MEQ SR TABLET PO SCH (09:24)
[2018-05-20] MEDS: FERROUS GLUCONATE 324 MG TAB PO SCH ×2 (09:24→21:47)
[2018-05-20] MEDS: ASCORBIC ACID 500 MG TAB PO SCH (09:24)
[2018-05-20] MEDS: VITAMIN D 1,000 INTERNATIONAL UNITS TABLET PO SCH (09:25)
[2018-05-20] MEDS: METOPROLOL SUCC (TopROL XL) 50MG **XL** TAB PO SCH (09:25)
[2018-05-20 14:00] VITALS: BP 106/64
--- NOTE | 2018-05-20 19:47 | IPNPDOC ---
PM&R Progress Note DATE OF SERVICE: May 20, 2018 Spa Receptionist Progress Note Subjective: Patient reports he is having loose stool with gas and will occasionally leak stool with his flatulence. REVIEW OF SYSTEMS: The following is a completed review of systems and has been reviewed. Review of systems otherwise unremarkable. PAIN: self reports non-radiating low back pain EYES: Negative for recent vision changes EARS, NOSE, & THROAT: Denied rhinorrhea, throat pain or dysphagia CARDIOVASCULAR: denies chest pain or palpitations PULMONARY: Negative. Denies shortness of breast GASTROINTESTINAL: Negative for diarrhea, +constipation GENITOURINARY: Negative for dysuria or hematuria or incontinence MUSCULOSKELETAL: bilateral LE weakness L>R and Left shoulder pain and arm weakness NEUROLOGICAL: LLE paralysis HEMATOLOGICAL: Negative for bruising SKIN: scab on bottom of left foot, lumbosacral sutures, otherwise intact. PSYCHIATRIC: Unremarkable All other review of systems found to be negative. PHYSICAL EXAMINATION: VITAL SIGNS: Please see below. GENERAL: Pleasant and cooperative. No acute distress. HEENT: PERRL. Extraocular movements intact. Clear conjunctiva, poor dentition CARDIOVASCULAR: Regular rate and rhythm. No murmurs, rubs, or gallops LUNGS: Clear to auscultation bilaterally. No wheezes. No rhonchi ABDOMEN: Soft, nontender, nondistended. Positive bowel sounds. Normal active bowel sounds NEUROLOGICAL: Alert and oriented times three. Cranial nerves II through XII grossly intact. Sensation to light touch in C-T2 dermatomes and L2-S2 dermatomes +bilateral Babinski, 1+/4 patellar reflexes bilat 3+ bicep and brachioradialis reflexes, negative Isabel's EXTREMITIES: 5-\5 strength right upper extremities. 3/5 left shoulder abduction pain limiting, and unable to fully test elbow extension given limited ROM, pen tester 5/5 and elbow flexors 5-/5 3+/5 right hip flexors and knee extensors, 2+/5 ankle DF and EHL 2/5 left hip flexors and knee extensors, 1/5 left ankle DF and EHL Left shoulder: +Neers and decreased internal rotation SKIN: lumbosacral incision erythematous, no sacral ulcers, scab on bottom of left foot Lateral truncal ecchymosis ASSESSMENT:62-year-old M with past medical history of chronic low back pain who presents status post T11-S1 arthrodesis and laminectomy. PLAN: 1. rehab: PT/OT, assess for DME, working on [id number] 2. Ortho: s/p T11-S1 arthrodesis with laminectomy in setting of spinal stenosis with significant RLE paresis, TLSO brace when out of bed, Spinal precautions, monitor for myelopathy, at this time does have brisk reflexes in UE and +Babinksi most likely from cervical stenosis- no incontinence -will reschedule outpatient follow-up with surgeon 05-21-18 for possible suture r emoval given +flu -Left shoulder likely weak from cervical stenosis and impingement- will encourage ROM to prevent adhesive capsulitis - TLSO brace adjusted 05/15/18 3. Cardio: pmh HTN: continue Metoprolol and adjust prn- medicine consulted, will restart ASA on 05-22-18 4 GI: will discontinue bowel meds for loose stools, and Protonix for ppx 5. : monitor PVRs, admission UA and Ucx negative 6. Skin: dressing in place, change prn soil/drainage, multipodus boots while in bed to prevent heel cord contractures and heel ulcers 7. DVT ppx: continue Lovenox, admission dopplers negative 9. Pain: OXycodone and Tylenol, will add gabapentin 10. Electrolytes: Hyponatremia, continue salt tabs, s/p 1 L IVF, stable at 128 will continue to monitor- no seizure, cardiac, or GI symptoms at this time 11. ID: fever resolved, w +Influenza, started on Tamiflu, s/p IVF monitor vitals -CXR negative for infiltrate -blood cultures sent -continue Keflex for possible incision site infection 12. Pain: continue standing oxycodone and prn, will add gabapentin 13. Dispo: 06-08-18, progressing slowly towards goals, medical hold today for continued fatigue secondary to influenza Allergies Coded Allergies: No Known Drug Allergy (Verified Allergy, Unknown, 05/13/18) Vital Signs Vital Signs Date Time Temp Pulse Resp B/P (MAP) Pulse Ox O2 Delivery O2 Flow Rate FiO2 05/20/18 16:30 16 05/20/18 14:00 97.2 66 106/64 (78) 99 Room Air Laboratory Data CBC/BMP Laboratory Tests 05/20/18 05:54 Calcium Level 8.4 L Labs 24H Laboratory Tests 2 05/20/18 05:54: Anion Gap 9, Glomerular Filtration Rate > 60.0, Blood Urea Nitrogen 11, Creatinine 0.49L, Sodium Level 128L, Potassium Level 3.8, Chloride Level 95L, Carbon Dioxide Level 24, Calcium Level 8.4L Microbiology Microbiology 05/18/18 Blood Culture - Preliminary, Resulted No Growth after 48 hours. All Specime... 05/18/18 Blood Culture - Preliminary, Resulted No Growth after 48 hours. All Specime... 05/14/18 Stool Occult Blood (TENZIN) - Final, Complete 05/18/18 Respiratory Virus Panel (PCR) (TENZIN) - Final, Complete Influenza A H1-2009 05/14/18 Urine Culture - Final, Complete Current Medications Current Medications Current Medications Acetaminophen (Tylenol Tab) 650 mg Q4HP PRN PO fever/MILD PAIN (PS 1-4) Last administered on 05/18/18at 15:27; Start 05/13/18 at 17:45 Ascorbic Acid (Vitamin C) 1,000 mg DAILY PO Last administered on 05/20/18at 09:24; Start 05/14/18 at 09:00 Aspirin (Ecotrin) 81 mg DAILY PO ; Start 05/22/18 at 09:00 Bisacodyl (Dulcolax Suppository) 10 mg ASDIRECTED PRN [place] IF NO BOWEL MOVEMENT; Start 05/14/18 at 18:00 Bisacodyl (Dulcolax Suppository) 10 mg DAILYPRN PRN [place] CONSTIPATION; Start 05/13/18 at 17:45 Cephalexin Monohydrate (Keflex) 500 mg QID PO Last administered on 05/20/18at 16:00; Start 05/18/18 at 13:00 Docusate Sodium (Colace) 100 mg BID PO Last administered on 05/19/18at 21:05; Start 05/13/18 at 21:00; Stop 05/20/18 at 16:41; Status DC Enoxaparin Sodium (Lovenox) 40 mg DAILY SC Last administered on 05/20/18at 09:23; Start 05/14/18 at 09:00 Ferrous Gluconate (Fergon) 324 mg BID PO Last administered on 05/20/18at 09:24; Start 05/15/18 at 21:00 Gabapentin (Neurontin) 100 mg TID PO ; Start 05/20/18 at 21:00 Gabapentin (Neurontin) 200 mg TID PO ; Start 05/13/18 at 21:00; Stop 05/13/18 at 21:00; Status DC Home Med (Med Rec Complete!) ASDIRECTED XX ; Start 05/13/18 at 18:15; Stop 05/13/18 at 18:16; Status DC Lidocaine (Lidoderm Patch) 1 patch DAILY@2100 TD Last administered on 05/19/18at 21:06; Start 05/14/18 at 21:00 Lisinopril (Prinivil) 10 mg DAILY PO Last administered on 05/20/18at 09:24; Start 05/15/18 at 11:00 Magnesium Hydroxide (Milk Of Magnesia) 30 ml DAILYPRN PRN PO CONSTIPATION Last administered on 05/13/18at 18:48; Start 05/13/18 at 17:45 Metoprolol Succinate (TopROL XL) 50 mg DAILY PO Last administered on 05/14/18at 09:39; Start 05/14/18 at 09:00; Stop 05/14/18 at 11:18; Status DC Metoprolol Succinate (TopROL XL) 100 mg DAILY PO Last administered on 05/20/18at 09:25; Start 05/15/18 at 09:00 Miscellaneous (Unresolved Clarification Entry) SEE LABEL COMMENTS DAILY XX ; Start 05/20/18 at 09:00; Stop 05/20/18 at 11:16; Status DC Non-Formulary Medication ( See Comment Field Below ) REMOVE LIDODERM PATCH DAILY XX Last administered on 05/20/18at 09:00; Start 05/15/18 at 09:00 Ondansetron HCl (Zofran) 4 mg Q6HP PRN PO NAUSEA; Start 05/13/18 at 17:45 Oseltamivir Phosphate (Tamiflu) 75 mg BID PO Last administered on 05/20/18at 09:24; Start 05/18/18 at 14:15 Oxycodone HCl (Roxicodone, Oxyir) 5 mg Q4HP PRN PO PAIN 4-7 Last administered on 05/20/18at 03:10; Start 05/13/18 at 17:45 Oxycodone HCl (Roxicodone, Oxyir) 10 mg Q4HP PRN PO SEVERE PAIN (PS 8-10) Last administered on 05/14/18 09:54; Start 05/13/18 at 17:45; Stop 05/14/18 at 11:16; Status DC Oxycodone HCl (Roxicodone, Oxyir) 10 mg TID PO Last administered on 05/20/18 16:00; Start 05/14/18 at 16:00 Pantoprazole Sodium (Protonix) 40 mg DAILY PO Last administered on 05/20/18 09:24; Start 05/14/18 at 09:00 Potassium Chloride (Micro-K Extencaps) 20 meq DAILY PO Last administered on 05/20/18 09:24; Start 05/15/18 at 09:00 Senna (Senokot) 1 tab QHS PO Last administered on 05/13/18 20:43; Start 05/13/18 at 21:00; Stop 05/15/18 at 17:28; Status DC Senna (Senokot) 2 tab QHS PO Last administered on 05/19/18 21:04; Start 05/15/18 at 21:00; Stop 05/20/18 at 16:41; Status DC Sodium Chloride (Sodium Chloride) 1 gm BID PO Last administered on 05/16/18 08:38; Start 05/15/18 at 11:00; Stop 05/16/18 at 15:45; Status DC Sodium Chloride (Sodium Chloride) 1 gm TID PO Last administered on 05/20/18 09 :23; Start 05/16/18 at 16:00; Stop 05/20/18 at 11:13; Status DC Sodium Chloride (Sodium Chloride) 2 gm BID PO ; Start 05/20/18 at 21:00 Thiamine HCl (Thiamine HCl) 100 mg DAILY PO Last administered on 05/20/18 09:24; Start 05/14/18 at 09:00 Trazodone HCl (Desyrel) 50 mg QHSP PRN PO INSOMNIA Last administered on 05/19/18 00:35; Start 05/13/18 at 17:45 Vitamin D (Vitamin D) 1,000 units DAILY PO Last administered on 05/20/18 09:25; Start 05/14/18 at 09:00 BRUCE CARDOZA MD May 20, 2018 19:47
[2018-05-20 21:00] VITALS: BP 110/60
[2018-05-20] MEDS ORDERED: GABAPENTIN 100 MG CAP PO SCH (21:00)
[2018-05-20] MEDS: GABAPENTIN 300 MG CAP PO SCH (21:46)
[2018-05-20] MEDS: LIDOCAINE 5% (LIDODERM) PATCH TD SCH (21:46)
[2018-05-21] MEDS: traZODone 50 MG TAB PO PRN (00:12)
[2018-05-21] MEDS: ACETAMINOPHEN TAB 650MG DOSE (2X325MG) PO PRN ×2 (00:13→21:52)
[2018-05-21] MEDS: oxyCODONE 5MG TAB PO PRN ×2 (01:51→06:12)
[2018-05-21 06:00] VITALS: BP 115/62
[2018-05-21 06:46] LABS: BASO % 0.3 % (0.0-1.0); EOS # 0.1 10^3/uL (0.0-0.50); HEMATOCRIT 28.1 % (42.0-52.0); HEMOGLOBIN 9.4 g/dl (13.5-17.5); LYMPH # 0.8 10^3/uL (1.5-4.5); LYMPH % 21.7 % (24.0-44.0); MEAN CORPUSCULAR HEMOGLOBIN 29.8 pg (27.0-33.0); MEAN CORPUSCULAR HGB CONC 33.5 g/dl (32.0-36.5); MEAN CORPUSCULAR VOLUME 89.2 fl (80.0-96.0); MONO # 0.7 10^3/uL (0.0-0.8); MONO % 17.9 % (0.0-5.0); NEUTROPHILS % 54.9 % (36.0-66.0); PLATELET COUNT, AUTOMATED 379 10^3/uL (150-450); RED BLOOD COUNT 3.15 10^6/uL (4.30-6.10); WHITE BLOOD COUNT 3.7 10^3/uL (4.0-10.0)
[2018-05-21 07:13] LABS: BLOOD UREA NITROGEN 14 MG/DL (7-18); CALCIUM LEVEL 8.1 MG/DL (8.8-10.2); CARBON DIOXIDE LEVEL 22 MEQ/L (21-32); CHLORIDE LEVEL 99 MEQ/L (98-107); CREATININE FOR GFR 0.57 MG/DL (0.70-1.30); GLOMERULAR FILTRATION RATE > 60.0 (>49); GLUCOSE, FASTING 92 MG/DL (70-100); POTASSIUM SERUM 3.8 MEQ/L (3.5-5.1); SODIUM LEVEL 130 MEQ/L (136-145)
[2018-05-21] MEDS: OSELTAMIVIR PHOSPHATE 75 MG CAP (TAMIFLU) PO SCH ×2 (08:18→21:51)
[2018-05-21] MEDS: CEPHALEXIN 500 MG CAP PO SCH ×4 (08:18→21:52)
[2018-05-21] MEDS: PANTOPRAZOLE 40MG TAB (PROTONIX) PO SCH (08:18)
[2018-05-21] MEDS: METOPROLOL SUCC (TopROL XL) 50MG **XL** TAB PO SCH (08:18)
[2018-05-21] MEDS: SODIUM CHLORIDE 1 GM TAB PO SCH ×2 (08:18→21:52)
[2018-05-21] MEDS: VITAMIN D 1,000 INTERNATIONAL UNITS TABLET PO SCH (08:18)
[2018-05-21] MEDS: ASCORBIC ACID 500 MG TAB PO SCH (08:18)
[2018-05-21] MEDS: POTASSIUM CHLORIDE 10 MEQ SR TABLET PO SCH (08:19)
[2018-05-21] MEDS: FERROUS GLUCONATE 324 MG TAB PO SCH ×2 (08:19→21:51)
[2018-05-21] MEDS: LISINOPRIL 10 MG TAB PO SCH (08:19)
[2018-05-21] MEDS: oxyCODONE 5MG TAB PO SCH ×3 (08:19→21:52)
[2018-05-21] MEDS: GABAPENTIN 300 MG CAP PO SCH ×3 (08:20→21:52)
[2018-05-21] MEDS: ENOXAPARIN 40 MG/0.4 ML SYRINGE (J1650) SC SCH (08:20)
[2018-05-21] MEDS: **NOTE PATIENT COMMENT** MISC XX SCH (08:20)
[2018-05-21] MEDS: THIAMINE 100 MG TAB PO SCH (08:20)
[2018-05-21] MEDS: DEXTROMETHORPHAN 5 ML SYRUP (ROBITUSSIN PEDIATRIC COUGH) PO PRN ×3 (10:40→21:51)
[2018-05-21 20:00] VITALS: BP 121/61
--- NOTE | 2018-05-21 21:41 | IPNPDOC ---
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 REVIEW OF SYSTEMS: The following is a completed review of systems and has been reviewed. Review of systems otherwise unremarkable. PAIN: self reports non-radiating low back pain EYES: Negative for recent vision changes EARS, NOSE, & THROAT: Denied rhinorrhea, throat pain or dysphagia CARDIOVASCULAR: denies chest pain or palpitations PULMONARY: Negative. Denies shortness of breast GASTROINTESTINAL: Negative for diarrhea, +constipation GENITOURINARY: Negative for dysuria or hematuria or incontinence MUSCULOSKELETAL: bilateral LE weakness L>R and Left shoulder pain and arm weakness NEUROLOGICAL: LLE paralysis HEMATOLOGICAL: Negative for bruising SKIN: scab on bottom of left foot, lumbosacral sutures, otherwise intact. PSYCHIATRIC: Unremarkable All other review of systems found to be negative. PHYSICAL EXAMINATION: VITAL SIGNS: Please see below. GENERAL: Pleasant and cooperative. No acute distress. HEENT: PERRL. Extraocular movements intact. Clear conjunctiva, poor dentition CARDIOVASCULAR: Regular rate and rhythm. No murmurs, rubs, or gallops LUNGS: Clear to auscultation bilaterally. No wheezes. No rhonchi ABDOMEN: Soft, nontender, nondistended. Positive bowel sounds. Normal active bowel sounds NEUROLOGICAL: Alert and oriented times three. Cranial nerves II through XII grossly intact. Sensation to light touch in C-T2 dermatomes and L2-S2 dermatomes +bilateral Babinski, 1+/4 patellar reflexes bilat 3+ bicep and brachioradialis reflexes, negative Isabel's EXTREMITIES: 5-\5 strength right upper extremities. 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 PLAN: 1. rehab: PT/OT, assess for DME, working on [id number] 2. Ortho: s/p T11-S1 arthrodesis with laminectomy in setting of spinal stenosis with significant RLE paresis, TLSO brace when out of bed, Spinal precautions, monitor for myelopathy, at this time does have brisk reflexes in UE and +Babinksi most likely from cervical stenosis- no incontinence -will reschedule outpatient follow-up with surgeon for 06-04-18 for possible suture removal, delayed from 05/21 given +flu -Left shoulder likely weak from cervical stenosis and impingement- will encourage ROM to prevent adhesive capsulitis - TLSO brace adjusted 05/15/18 3. Cardio: pmh HTN: continue Metoprolol and adjust prn- medicine consulted, will restart ASA on 05-22-18 4 GI: will discontinue bowel meds for loose stools, and Protonix for ppx 5. : monitor PVRs, admission UA and Ucx negative 6. Skin: dressing in place, change prn soil/drainage, multipodus boots while in bed to prevent heel cord contractures and heel ulcers 7. DVT ppx: continue Lovenox, admission dopplers negative 9. Pain: OXycodone and Tylenol, will add gabapentin 10. Electrolytes: Hyponatremia, continue salt tabs, s/p 1 L IVF, stable at 130 (128 yesterday) will continue to monitor- no seizure, cardiac, or GI symptoms at this time 11. ID: fever resolved, w +Influenza, started on Tamiflu, s/p IVF monitor vitals -CXR negative for infiltrate -blood cultures sent, negative growth -continue Keflex for possible incision site infection 12. Pain: continue standing oxycodone and prn, continue gabapentin 13. Dispo: 06-08-18, progressing slowly towards goals Allergies Coded Allergies: No Known Drug Allergy (Verified Allergy, Unknown, 05/13/18) Vital Signs Vital Signs Date Time Temp Pulse Resp B/P (MAP) Pulse Ox O2 Delivery O2 Flow Rate FiO2 05/21/18 17:15 18 05/21/18 08:19 115/62 05/21/18 08:18 71 05/21/18 06:00 98.6 96 Room Air Laboratory Data CBC/BMP Laboratory Tests 05/21/18 06:13 Red Blood Count 3.15 L, Mean Corpuscular Volume 89.2, Mean Corpuscular Hemoglobin 29.8, Mean Corpuscular Hemoglobin Concent 33.5, Red Cell Distribution Width 13.0, Neutrophils (%) (Auto) 54.9, Lymphocytes (%) (Auto) 21.7 L, Monocytes (%) (Auto) 17.9 H, Eosinophils (%) (Auto) 3.0, Basophils (%) (Auto) 0.3, Neutrophils # (Auto) 2.0, Lymphocytes # (Auto) 0.8 L, Monocytes # (Auto) 0.7, Eosinophils # (Auto) 0.1, Basophils # (Auto) 0.0, Calcium Level 8.1 L Labs 24H Laboratory Tests 2 05/21/18 06:13: Immature Granulocyte % (Auto) 2.2, White Blood Count 3.7L, Red Blood Count 3.15L, Hemoglobin 9.4L, Hematocrit 28.1L, Mean Corpuscular Volume 89.2, Mean Corpuscular Hemoglobin 29.8, Mean Corpuscular Hemoglobin Concent 33.5, Red Cell Distribution Width 13.0, Platelet Count 379, Neutrophils (%) (Auto) 54.9, Lymphocytes (%) (Auto) 21.7L, Monocytes (%) (Auto) 17.9H, Eosinophils (%) (Auto) 3.0, Basophils (%) (Auto) 0.3, Neutrophils # (Auto) 2.0, Lymphocytes # (Auto) 0.8L, Monocytes # (Auto) 0.7, Eosinophils # (Auto) 0.1, Basophils # (Auto) 0.0, Nucleated Red Blood Cells % (auto) 0.0, Anion Gap 9, Glomerular Filtration Rate > 60.0, Blood Urea Nitrogen 14, Creatinine 0.57L, Sodium Level 130L, Potassium Level 3.8, Chloride Level 99, Carbon Dioxide Level 22, Calcium Level 8.1L Microbiology Microbiology 05/18/18 Blood Culture - Preliminary, Resulted No Growth after 72 hours. All specime... 05/18/18 Blood Culture - Preliminary, Resulted No Growth after 72 hours. All specime... 05/14/18 Stool Occult Blood (TENZIN) - Final, Complete 05/18/18 Respiratory Virus Panel (PCR) (TENZIN) - Final, Complete Influenza A H1-2009 05/14/18 Urine Culture - Final, Complete Current Medications Current Medications Current Medications Acetaminophen (Tylenol Tab) 650 mg Q4HP PRN PO fever/MILD PAIN (PS 1-4) Last administered on 05/21/18at 00:13; Start 05/13/18 at 17:45 Ascorbic Acid (Vitamin C) 1,000 mg DAILY PO Last administered on 05/21/18at 08:18; Start 05/14/18 at 09:00 Aspirin (Ecotrin) 81 mg DAILY PO ; Start 05/22/18 at 09:00 Bisacodyl (Dulcolax Suppository) 10 mg ASDIRECTED PRN OR IF NO BOWEL MOVEMENT; Start 05/14/18 at 18:00 Bisacodyl (Dulcolax Suppository) 10 mg DAILYPRN PRN OR CONSTIPATION; Start 05/13/18 at 17:45 Cephalexin Monohydrate (Keflex) 500 mg QID PO Last administered on 05/21/18at 16:45; Start 05/18/18 at 13:00 Dextromethorphan (ROBITUSSIN PEDIATRIC COUGH SYRUP 7.5mg/5ml) 5 ml Q8HP PRN PO COUGH Last administered on 05/21/18at 10:40; Start 05/20/18 at 23:30 Diphenhydramine HCl (Benadryl) 25 mg QHSP PRN PO INSOMNIA; Start 05/21/18 at 20:00 Docusate Sodium (Colace) 100 mg BID PO Last administered on 05/19/18at 21:05; Start 05/13/18 at 21:00; Stop 05/20/18 at 16:41; Status DC Enoxaparin Sodium (Lovenox) 40 mg DAILY SC Last administered on 05/21/18at 08:20; Start 05/14/18 at 09:00 Ferrous Gluconate (Fergon) 324 mg BID PO Last administered on 05/21/18at 08:19; Start 05/15/18 at 21:00 Gabapentin (Neurontin) 100 mg TID PO ; Start 05/20/18 at 21:00; Stop 05/20/18 at 21:00; Status DC Gabapentin (Neurontin) 200 mg TID PO ; Start 05/13/18 at 21:00; Stop 05/13/18 at 21:00; Status DC Gabapentin (Neurontin) 300 mg TID PO Last administered on 05/21/18at 16:45; Sta rt 05/20/18 at 21:00 Home Med (Med Rec Complete!) ASDIRECTED XX ; Start 05/13/18 at 18:15; Stop 04/28 10/14 at 18:16; Status DC Lidocaine (Lidoderm Patch) 1 patch DAILY@2100 TD Last administered on 05/20/18at 21:46; Start 05/14/18 at 21:00 Lisinopril (Prinivil) 10 mg DAILY PO Last administered on 05/21/18at 08:19; Start 05/15/18 at 11:00 Magnesium Hydroxide (Milk Of Magnesia) 30 ml DAILYPRN PRN PO CONSTIPATION Last administered on 05/13/18at 18:48; Start 05/13/18 at 17:45 Metoprolol Succinate (TopROL XL) 50 mg DAILY PO Last administered on 05/14/18at 09:39; Start 05/14/18 at 09:00; Stop 05/14/18 at 11:18; Status DC Metoprolol Succinate (TopROL XL) 100 mg DAILY PO Last administered on 05/21/18at 08:18; Start 05/15/18 at 09:00 Miscellaneous (Unresolved Clarification Entry) SEE LABEL COMMENTS DAILY XX ; Start 05/20/18 at 09:00; Stop 05/20/18 at 11:16; Status DC Non-Formulary Medication ( See Comment Field Below ) REMOVE LIDODERM PATCH DAILY XX Last administered on 05/21/18at 08:20; Start 05/15/18 at 09:00 Ondansetron HCl (Zofran) 4 mg Q6HP PRN PO NAUSEA; Start 05/13/18 at 17:45 Oseltamivir Phosphate (Tamiflu) 75 mg BID PO Last administered on 05/21/18 08:18; Start 05/18/18 at 14:15 Oxycodone HCl (Roxicodone, Oxyir) 5 mg Q4HP PRN PO PAIN 4-7 Last administered on 05/21/18 06:12; Start 05/13/18 at 17:45 Oxycodone HCl (Roxicodone, Oxyir) 10 mg Q4HP PRN PO SEVERE PAIN (PS 8-10) Last administered on 05/14/18 09:54; Start 05/13/18 at 17:45; Stop 05/14/18 at 11:16; Status DC Oxycodone HCl (Roxicodone, Oxyir) 10 mg TID PO Last administered on 05/21/18 16:45; Start 05/14/18 at 16:00 Pantoprazole Sodium (Protonix) 40 mg DAILY PO Last administered on 05/21/18 08:18; Start 05/14/18 at 09:00 Potassium Chloride (Micro-K Extencaps) 20 meq DAILY PO Last administered on 04/29 08:19; Start 05/15/18 at 09:00 Senna (Senokot) 1 tab QHS PO Last administered on 05/13/18 20:43; Start 05/13/18 at 21:00; Stop 05/15/18 at 17:28; Status DC Senna (Senokot) 2 tab QHS PO Last administered on 05/19/18 21:04; Start 05/15/18 at 21:00; Stop 05/20/18 at 16:41; Status DC Sodium Chloride (Sodium Chloride) 1 gm BID PO Last administered on 05/16/18 08:38; Start 05/15/18 at 11:00; Stop 05/16/18 at 15:45; Status DC Sodium Chloride (Sodium Chloride) 1 gm TID PO Last administered on 05/20/18 09:23; Start 05/16/18 at 16:00; Stop 05/20/18 at 11:13; Status DC Sodium Chloride (Sodium Chloride) 2 gm BID PO Last administered on 05/21/18 08:18; Start 05/20/18 at 21:00 Thiamine HCl (Thiamine HCl) 100 mg DAILY PO Last administered on 05/21/18 08:20; Start 05/14/18 at 09:00 Trazodone HCl (Desyrel) 50 mg QHSP PRN PO INSOMNIA Last administered on 05/21/18 00:12; Start 05/13/18 at 17:45 Vitamin D (Vitamin D) 1,000 units DAILY PO Last administered on 05/21/18 08:18; Start 05/14/18 at 09:00 BRUCE CARDOZA MD May 21, 2018 21:41
[2018-05-21] MEDS: LIDOCAINE 5% (LIDODERM) PATCH TD SCH (21:51)
[2018-05-21] MEDS: diphenhydrAMINE 25 MG CAP PO PRN (21:51)
[2018-05-22 06:00] VITALS: BP 123/67
[2018-05-22 06:05] LABS: BASO % 0.3 % (0.0-1.0); EOS # 0.1 10^3/uL (0.0-0.50); EOS % 3.6 % (0.0-3.0); HEMATOCRIT 28.8 % (42.0-52.0); HEMOGLOBIN 9.5 g/dl (13.5-17.5); LYMPH # 0.8 10^3/uL (1.5-4.5); LYMPH % 21.3 % (24.0-44.0); MEAN CORPUSCULAR HEMOGLOBIN 29.9 pg (27.0-33.0); MEAN CORPUSCULAR VOLUME 90.6 fl (80.0-96.0); MONO # 0.6 10^3/uL (0.0-0.8); MONO % 16.1 % (0.0-5.0); NEUTROPHILS # 2.1 10^3/uL (1.8-7.7); PLATELET COUNT, AUTOMATED 361 10^3/uL (150-450); RED BLOOD COUNT 3.18 10^6/uL (4.30-6.10); WHITE BLOOD COUNT 3.6 10^3/uL (4.0-10.0)
[2018-05-22 06:17] LABS: BLOOD UREA NITROGEN 19 MG/DL (7-18); CALCIUM LEVEL 8.3 MG/DL (8.8-10.2); CARBON DIOXIDE LEVEL 21 MEQ/L (21-32); CHLORIDE LEVEL 103 MEQ/L (98-107); CREATININE FOR GFR 0.66 MG/DL (0.70-1.30); GLOMERULAR FILTRATION RATE > 60.0 (>49); GLUCOSE, FASTING 95 MG/DL (70-100); POTASSIUM SERUM 4.3 MEQ/L (3.5-5.1); SODIUM LEVEL 133 MEQ/L (136-145)
[2018-05-22] MEDS: oxyCODONE 5MG TAB PO PRN (06:18)
[2018-05-22] MEDS: DEXTROMETHORPHAN 5 ML SYRUP (ROBITUSSIN PEDIATRIC COUGH) PO PRN (06:18)
[2018-05-22] MEDS: ENOXAPARIN 40 MG/0.4 ML SYRINGE (J1650) SC SCH (09:00)
[2018-05-22] MEDS: **NOTE PATIENT COMMENT** MISC XX SCH (09:00)
[2018-05-22] MEDS: FERROUS GLUCONATE 324 MG TAB PO SCH ×2 (09:42→21:15)
[2018-05-22] MEDS: VITAMIN D 1,000 INTERNATIONAL UNITS TABLET PO SCH (09:42)
[2018-05-22] MEDS: ASPIRIN 81 MG ENTERIC TAB PO SCH (09:42)
[2018-05-22] MEDS: ASCORBIC ACID 500 MG TAB PO SCH (09:43)
[2018-05-22] MEDS: oxyCODONE 5MG TAB PO SCH ×3 (09:43→21:16)
[2018-05-22] MEDS: GABAPENTIN 300 MG CAP PO SCH ×3 (09:45→21:16)
[2018-05-22] MEDS: SODIUM CHLORIDE 1 GM TAB PO SCH ×2 (09:45→21:15)
[2018-05-22] MEDS: METOPROLOL SUCC (TopROL XL) 50MG **XL** TAB PO SCH (09:45)
[2018-05-22] MEDS: CEPHALEXIN 500 MG CAP PO SCH ×4 (09:45→21:16)
[2018-05-22] MEDS: PANTOPRAZOLE 40MG TAB (PROTONIX) PO SCH (09:46)
[2018-05-22] MEDS: POTASSIUM CHLORIDE 10 MEQ SR TABLET PO SCH (09:46)
[2018-05-22] MEDS: LISINOPRIL 10 MG TAB PO SCH (09:46)
[2018-05-22] MEDS: OSELTAMIVIR PHOSPHATE 75 MG CAP (TAMIFLU) PO SCH ×2 (09:46→21:16)
[2018-05-22] MEDS: THIAMINE 100 MG TAB PO SCH (09:46)
[2018-05-22 14:00] VITALS: BP 126/61
[2018-05-22] MEDS: IPRATROPIUM 0.5MG/ALBUTEROL 2.5MG INH SOL UD 3ML (DUONEB)(J7620) NEB SCH ×2 (17:08→20:00)
[2018-05-22] MEDS: LIDOCAINE 5% (LIDODERM) PATCH TD SCH (21:15)
[2018-05-22 22:00] VITALS: BP 138/56
[2018-05-23] MEDS: diphenhydrAMINE 25 MG CAP PO PRN ×2 (00:38→22:28)
[2018-05-23 06:00] VITALS: BP 119/52
[2018-05-23] MEDS: IPRATROPIUM 0.5MG/ALBUTEROL 2.5MG INH SOL UD 3ML (DUONEB)(J7620) NEB SCH ×4 (07:40→19:34)
[2018-05-23 07:48] LABS: HEMATOCRIT 29.1 % (42.0-52.0); HEMOGLOBIN 9.7 g/dl (13.5-17.5); MEAN CORPUSCULAR HEMOGLOBIN 29.4 pg (27.0-33.0); MEAN CORPUSCULAR HGB CONC 33.3 g/dl (32.0-36.5); MEAN CORPUSCULAR VOLUME 88.2 fl (80.0-96.0); PLATELET COUNT, AUTOMATED 388 10^3/uL (150-450); WHITE BLOOD COUNT 4.2 10^3/uL (4.0-10.0)
[2018-05-23 08:02] LABS: BLOOD UREA NITROGEN 15 MG/DL (7-18); CALCIUM LEVEL 8.3 MG/DL (8.8-10.2); CARBON DIOXIDE LEVEL 25 MEQ/L (21-32); CHLORIDE LEVEL 100 MEQ/L (98-107); CREATININE FOR GFR 0.55 MG/DL (0.70-1.30); GLOMERULAR FILTRATION RATE > 60.0 (>49); GLUCOSE, FASTING 94 MG/DL (70-100); POTASSIUM SERUM 4.1 MEQ/L (3.5-5.1); SODIUM LEVEL 132 MEQ/L (136-145)
[2018-05-23] MEDS: VITAMIN D 1,000 INTERNATIONAL UNITS TABLET PO SCH (09:09)
[2018-05-23] MEDS: GABAPENTIN 300 MG CAP PO SCH ×3 (09:09→20:59)
[2018-05-23] MEDS: CEPHALEXIN 500 MG CAP PO SCH ×4 (09:09→20:59)
[2018-05-23] MEDS: ASPIRIN 81 MG ENTERIC TAB PO SCH (09:09)
[2018-05-23] MEDS: FERROUS GLUCONATE 324 MG TAB PO SCH ×2 (09:09→20:59)
[2018-05-23] MEDS: THIAMINE 100 MG TAB PO SCH (09:09)
[2018-05-23] MEDS: ASCORBIC ACID 500 MG TAB PO SCH (09:09)
[2018-05-23] MEDS: POTASSIUM CHLORIDE 10 MEQ SR TABLET PO SCH (09:10)
[2018-05-23] MEDS: PANTOPRAZOLE 40MG TAB (PROTONIX) PO SCH (09:10)
[2018-05-23] MEDS: LISINOPRIL 10 MG TAB PO SCH (09:10)
[2018-05-23] MEDS: oxyCODONE 5MG TAB PO SCH ×3 (09:11→21:00)
[2018-05-23] MEDS: METOPROLOL SUCC (TopROL XL) 50MG **XL** TAB PO SCH (09:11)
[2018-05-23] MEDS: OSELTAMIVIR PHOSPHATE 75 MG CAP (TAMIFLU) PO SCH ×2 (09:11→20:59)
[2018-05-23] MEDS: ENOXAPARIN 40 MG/0.4 ML SYRINGE (J1650) SC SCH (09:12)
[2018-05-23] MEDS: SODIUM CHLORIDE 1 GM TAB PO SCH ×2 (09:12→20:59)
[2018-05-23] MEDS: **NOTE PATIENT COMMENT** MISC XX SCH (09:12)
--- NOTE | 2018-05-23 12:15 | IPNPDOC ---
PM&R Progress Note DATE OF SERVICE: May 22, 2018 [employer] Progress Note Subjective: Patient reports his energy is improved and his pain is controlled well enough. He does not want more pain medication. He still has a cough. REVIEW OF SYSTEMS: The following is a completed review of systems and has been reviewed. Review of systems otherwise unremarkable. PAIN: self reports non-radiating low back pain EYES: Negative for recent vision changes EARS, NOSE, & THROAT: Denied rhinorrhea, throat pain or dysphagia CARDIOVASCULAR: denies chest pain or palpitations PULMONARY: Negative. Denies shortness of breath, +cough but improving GASTROINTESTINAL: Negative for diarrhea, +constipation GENITOURINARY: Negative for dysuria or hematuria or incontinence MUSCULOSKELETAL: bilateral LE weakness L>R and Left shoulder pain and arm weakness NEUROLOGICAL: LLE paralysis HEMATOLOGICAL: Negative for bruising SKIN: scab on bottom of left foot, lumbosacral sutures, otherwise intact. PSYCHIATRIC: Unremarkable All other review of systems found to be negative. PHYSICAL EXAMINATION: VITAL SIGNS: Please see below. GENERAL: Pleasant and cooperative. No acute distress. HEENT: PERRL. Extraocular movements intact. Clear conjunctiva, poor dentition CARDIOVASCULAR: Regular rate and rhythm. No murmurs, rubs, or gallops LUNGS: Clear to auscultation bilaterally. No wheezes. No rhonchi ABDOMEN: Soft, nontender, nondistended. Positive bowel sounds. Normal active bowel sounds NEUROLOGICAL: Alert and oriented times three. Cranial nerves II through XII gr ossly intact. Sensation to light touch in C-T2 dermatomes and L2-S2 dermatomes +bilateral Babinski, 1+/4 patellar reflexes bilat 3+ bicep and brachioradialis reflexes, negative Isabel's EXTREMITIES: 5-\5 strength right upper extremities. 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 PLAN: 1. rehab: PT/OT, assess for DME, working on [id number] 2. Ortho: s/p T11-S1 arthrodesis with laminectomy in setting of spinal stenosis with significant RLE paresis, TLSO brace when out of bed, Spinal precautions, monitor for myelopathy, at this time does have brisk reflexes in UE and +Babinksi most likely from cervical stenosis- no incontinence -will reschedule outpatient follow-up with surgeon for 06-04-18 for possible suture removal, delayed from 05/21 given +flu -Left shoulder likely weak from cervical stenosis and impingement- will encourage ROM to prevent adhesive capsulitis - TLSO brace adjusted 05/15/18 3. Cardio: pmh HTN: continue Metoprolol and adjust prn- medicine consulted, restarted ASA on 05-22-18 4 GI: will discontinue bowel meds for loose stools, and Protonix for ppx 5. : monitor PVRs, admission UA and Ucx negative 6. Skin: dressing in place, change prn soil/drainage, multipodus boots while in bed to prevent heel cord contractures and heel ulcers 7. DVT ppx: continue Lovenox, admission dopplers negative 9. Pain: OXycodone and Tylenol, will add gabapentin 10. Electrolytes: Hyponatremia, continue salt tabs, s/p 1 L IVF, stable at 133 will continue to monitor- no seizure, cardiac, or GI symptoms at this time 11. ID: fever resolved, w +Influenza, started on Tamiflu, s/p IVF monitor vitals -CXR negative for infiltrate -blood cultures sent, negative growth -continue Keflex for possible incision site infection, change dressing daily or prn soil- no leukocytosis 12. Pain: continue standing oxycodone and prn, continue gabapentin 13. Dispo: 06-08-18, progressing slowly towards goals Allergies Coded Allergies: No Known Drug Allergy (Verified Allergy, Unknown, 05/13/18) Vital Signs Vital Signs Date Time Temp Pulse Resp B/P (MAP) Pulse Ox O2 Delivery O2 Flow Rate FiO2 05/23/18 10:00 18 Room Air 05/23/18 09:11 72 119/52 05/23/18 06:00 98.3 97 Laboratory Data CBC/BMP Laboratory Tests 05/23/18 07:13 Red Blood Count 3.30 L, Mean Corpuscular Volume 88.2, Mean Corpuscular Hemoglobin 29.4, Mean Corpuscular Hemoglobin Concent 33.3, Red Cell Distribution Width 13.0, Calcium Level 8.3 L Labs 24H Laboratory Tests 2 05/23/18 07:13: Nucleated Red Blood Cells % (auto) 0.0, Anion Gap 7L, Glomerular Filtration Rate > 60.0, Blood Urea Nitrogen 15, Creatinine 0.55L, Sodium Level 132L, Potassium Level 4.1, Chloride Level 100, Carbon Dioxide Level 25, Calcium Level 8.3L Microbiology Microbiology 05/18/18 Blood Culture - Preliminary, Resulted No Growth after 72 hours. All specime... 05/18/18 Blood Culture - Preliminary, Resulted No Growth after 72 hours. All specime... 05/14/18 Stool Occult Blood (TENZIN) - Final, Complete 05/18/18 Respiratory Virus Panel (PCR) (TENZIN) - Final, Complete Influenza A H1-2009 05/14/18 Urine Culture - Final, Complete Current Medications Current Medications Current Medications Acetaminophen (Tylenol Tab) 650 mg Q4HP PRN PO fever/MILD PAIN (PS 1-4) Last administered on 05/21/18at 21:52; Start 05/13/18 at 17:45 Albuterol/ Ipratropium (Duoneb (Ipr 0.5mg/Alb 2.5mg)) 3 ml RQID NEB Last adm inistered on 05/23/18at 07:40; Start 05/22/18 at 16:00 Ascorbic Acid (Vitamin C) 1,000 mg DAILY PO Last administered on 05/23/18at 09:09; Start 05/14/18 at 09:00 Aspirin (Ecotrin) 81 mg DAILY PO Last administered on 05/23/18at 09:09; Start 05/22/18 at 09:00 Bisacodyl (Dulcolax Suppository) 10 mg ASDIRECTED PRN NC IF NO BOWEL MOVEMENT; Start 05/14/18 at 18:00 Bisacodyl (Dulcolax Suppository) 10 mg DAILYPRN PRN NC CONSTIPATION; Start 05/13/18 at 17:45 Cephalexin Monohydrate (Keflex) 500 mg QID PO Last administered on 05/23/18 09:09; Start 05/18/18 at 13:00 Dextromethorphan (ROBITUSSIN PEDIATRIC COUGH SYRUP 7.5mg/5ml) 5 ml Q8HP PRN PO COUGH Last administered on 05/22/18 06:18; Start 05/20/18 at 23:30 Diphenhydramine HCl (Benadryl) 25 mg QHSP PRN PO INSOMNIA Last administered on 05/23/18 00:38; Start 05/21/18 at 20:00 Docusate Sodium (Colace) 100 mg BID PO Last administered on 05/19/18 21:05; Start 05/13/18 at 21:00; Stop 05/20/18 at 16:41; Status DC Enoxaparin Sodium (Lovenox) 40 mg DAILY SC Last administered on 05/23/18 09:12; Start 05/14/18 at 09:00 Ferrous Gluconate (Fergon) 324 mg BID PO Last administered on 05/23/18 09:09; Start 05/15/18 at 21:00 Gabapentin (Neurontin) 100 mg TID PO ; Start 05/20/18 at 21:00; Stop 05/20/18 at 21:00; Status DC Gabapentin (Neurontin) 200 mg TID PO ; Start 05/13/18 at 21:00; Stop 05/13/18 at 21:00; Status DC Gabapentin (Neurontin) 300 mg TID PO Last administered on 05/23/18 09:09; Start 05/20/18 at 21:00 Home Med (Med Rec Complete!) ASDIRECTED XX ; Start 05/13/18 at 18:15; Stop 05/13/18 at 18:16; Status DC Lidocaine (Lidoderm Patch) 1 patch DAILY@2100 TD Last administered on 05/22/18 21:15; Start 05/14/18 at 21:00 Lisinopril (Prinivil) 10 mg DAILY PO Last administered on 05/23/18 09:10; Start 05/15/18 at 11:00 Magnesium Hydroxide (Milk Of Magnesia) 30 ml DAILYPRN PRN PO CONSTIPATION Last administered on 05/13/18 18:48; Start 05/13/18 at 17:45 Metoprolol Succinate (TopROL XL) 50 mg DAILY PO Last administered on 05/14/18at 09:39; Start 05/14/18 at 09:00; Stop 05/14/18 at 11:18; Status DC Metoprolol Succinate (TopROL XL) 100 mg DAILY PO Last administered on 05/23/18at 09:11; Start 05/15/18 at 09:00 Miscellaneous (Unresolved Clarification Entry) SEE LABEL COMMENTS DAILY XX ; Start 05/20/18 at 09:00; Stop 05/20/18 at 11:16; Status DC Non-Formulary Medication ( See Comment Field Below ) REMOVE LIDODERM PATCH DAILY XX Last administered on 05/23/18 09:12; Start 05/15/18 at 09:00 Ondansetron HCl (Zofran) 4 mg Q6HP PRN PO NAUSEA; Start 05/13/18 at 17:45 Oseltamivir Phosphate (Tamiflu) 75 mg BID PO Last administered on 05/23/18at 09:11; Start 05/18/18 at 14:15 Oxycodone HCl (Roxicodone, Oxyir) 5 mg Q4HP PRN PO PAIN 4-7 Last administered on 05/22/18 06:18; Start 05/13/18 at 17:45 Oxycodone HCl (Roxicodone, Oxyir) 10 mg Q4HP PRN PO SEVERE PAIN (PS 8-10) Last administered on 05/14/18 09:54; Start 05/13/18 at 17:45; Stop 05/14/18 at 11:16; Status DC Oxycodone HCl (Roxicodone, Oxyir) 10 mg TID PO Last administered on 05/23/18at 09:11; Start 05/14/18 at 16:00 Pantoprazole Sodium (Protonix) 40 mg DAILY PO Last administered on 05/23/18 09:10; Start 05/14/18 at 09:00 Potassium Chloride (Micro-K Extencaps) 20 meq DAILY PO Last administered on 05/23/18 09:10; Start 05/15/18 at 09:00 Senna (Senokot) 1 tab QHS PO Last administered on 05/13/18at 20:43; Start 05/13/18 at 21:00; Stop 05/15/18 at 17:28; Status DC Senna (Senokot) 2 tab QHS PO Last administered on 05/19/18 21:04; Start 05/15/18 at 21:00; Stop 05/20/18 at 16:41; Status DC Sodium Chloride (Sodium Chloride) 1 gm BID PO Last administered on 05/16/18at 08:38; Start 05/15/18 at 11:00; Stop 05/16/18 at 15:45; Status DC Sodium Chloride (Sodium Chloride) 1 gm TID PO Last administered on 05/20/18 09:23; Start 05/16/18 at 16:00; Stop 05/20/18 at 11:13; Status DC Sodium Chloride (Sodium Chloride) 2 gm BID PO Last administered on 05/23/18 09:12; Start 05/20/18 at 21:00 Thiamine HCl (Thiamine HCl) 100 mg DAILY PO Last administered on 05/23/18 09:09; Start 05/14/18 at 09:00 Trazodone HCl (Desyrel) 50 mg QHSP PRN PO INSOMNIA Last administered on 05/21/18 00:12; Start 05/13/18 at 17:45 Vitamin D (Vitamin D) 1,000 units DAILY PO Last administered on 05/23/18 09:09; Start 05/14/18 at 09:00 BRUCE CARDOZA MD May 23, 2018 12:15
[2018-05-23 14:00] VITALS: BP 108/60
[2018-05-23 20:00] VITALS: BP 126/64
[2018-05-23] MEDS: LIDOCAINE 5% (LIDODERM) PATCH TD SCH (21:00)
[2018-05-23] MEDS: DEXTROMETHORPHAN 5 ML SYRUP (ROBITUSSIN PEDIATRIC COUGH) PO PRN (22:28)
[2018-05-24] MEDS: traZODone 50 MG TAB PO PRN ×2 (01:40→21:58)
[2018-05-24 06:00] VITALS: BP 126/60
[2018-05-24] MEDS: IPRATROPIUM 0.5MG/ALBUTEROL 2.5MG INH SOL UD 3ML (DUONEB)(J7620) NEB SCH ×4 (08:03→20:48)
[2018-05-24] MEDS: VITAMIN D 1,000 INTERNATIONAL UNITS TABLET PO SCH (08:58)
[2018-05-24] MEDS: ASCORBIC ACID 500 MG TAB PO SCH (08:58)
[2018-05-24] MEDS: SODIUM CHLORIDE 1 GM TAB PO SCH ×2 (08:58→21:57)
[2018-05-24] MEDS: OSELTAMIVIR PHOSPHATE 75 MG CAP (TAMIFLU) PO SCH (08:58)
[2018-05-24] MEDS: THIAMINE 100 MG TAB PO SCH (08:59)
[2018-05-24] MEDS: PANTOPRAZOLE 40MG TAB (PROTONIX) PO SCH (08:59)
[2018-05-24] MEDS: GABAPENTIN 300 MG CAP PO SCH ×3 (08:59→21:57)
[2018-05-24] MEDS: CEPHALEXIN 500 MG CAP PO SCH ×4 (08:59→21:57)
[2018-05-24] MEDS: POTASSIUM CHLORIDE 10 MEQ SR TABLET PO SCH (08:59)
[2018-05-24] MEDS: ASPIRIN 81 MG ENTERIC TAB PO SCH (08:59)
[2018-05-24] MEDS: METOPROLOL SUCC (TopROL XL) 50MG **XL** TAB PO SCH (08:59)
[2018-05-24] MEDS: oxyCODONE 5MG TAB PO SCH ×3 (09:00→21:59)
[2018-05-24] MEDS: FERROUS GLUCONATE 324 MG TAB PO SCH ×2 (09:00→21:57)
[2018-05-24] MEDS: **NOTE PATIENT COMMENT** MISC XX SCH (09:01)
[2018-05-24] MEDS: ENOXAPARIN 40 MG/0.4 ML SYRINGE (J1650) SC SCH (09:01)
[2018-05-24] MEDS: LISINOPRIL 10 MG TAB PO SCH (09:01)
[2018-05-24 13:00] VITALS: BP 118/58
[2018-05-24 20:00] VITALS: BP 110/60
[2018-05-24] MEDS: LIDOCAINE 5% (LIDODERM) PATCH TD SCH (21:59)
[2018-05-24] MEDS: DEXTROMETHORPHAN 5 ML SYRUP (ROBITUSSIN PEDIATRIC COUGH) PO PRN (22:03)
[2018-05-25] MEDS: ACETAMINOPHEN TAB 650MG DOSE (2X325MG) PO PRN ×2 (00:22→21:28)
[2018-05-25] MEDS: diphenhydrAMINE 25 MG CAP PO PRN ×2 (00:22→21:27)
[2018-05-25 06:00] VITALS: BP 122/58
[2018-05-25] MEDS: SODIUM CHLORIDE 1 GM TAB PO SCH ×2 (08:42→21:21)
[2018-05-25] MEDS: FERROUS GLUCONATE 324 MG TAB PO SCH ×2 (08:42→21:21)
[2018-05-25] MEDS: POTASSIUM CHLORIDE 10 MEQ SR TABLET PO SCH (08:42)
[2018-05-25] MEDS: GABAPENTIN 300 MG CAP PO SCH ×3 (08:42→21:21)
[2018-05-25] MEDS: ENOXAPARIN 40 MG/0.4 ML SYRINGE (J1650) SC SCH (08:42)
[2018-05-25] MEDS: METOPROLOL SUCC (TopROL XL) 50MG **XL** TAB PO SCH (08:43)
[2018-05-25] MEDS: oxyCODONE 5MG TAB PO SCH ×3 (08:43→21:22)
[2018-05-25] MEDS: LISINOPRIL 10 MG TAB PO SCH (08:43)
[2018-05-25] MEDS: ASPIRIN 81 MG ENTERIC TAB PO SCH (08:43)
[2018-05-25] MEDS: PANTOPRAZOLE 40MG TAB (PROTONIX) PO SCH (08:44)
[2018-05-25] MEDS: THIAMINE 100 MG TAB PO SCH (08:44)
[2018-05-25] MEDS: CEPHALEXIN 500 MG CAP PO SCH (08:44)
[2018-05-25] MEDS: **NOTE PATIENT COMMENT** MISC XX SCH (08:44)
[2018-05-25] MEDS: VITAMIN D 1,000 INTERNATIONAL UNITS TABLET PO SCH (08:44)
[2018-05-25] MEDS: ASCORBIC ACID 500 MG TAB PO SCH (08:44)
[2018-05-25] MEDS: IPRATROPIUM 0.5MG/ALBUTEROL 2.5MG INH SOL UD 3ML (DUONEB)(J7620) NEB SCH ×4 (08:52→20:42)
--- NOTE | 2018-05-25 12:40 | IPNPDOC ---
Date Seen The patient was seen on 05/25/18. Progress Note HPI: 62year old M S/P T11-S1 posterior arthrodesis L1-S1 laminectomies05/08/[address] Alexa Schmidt [facility]. [facility] [place] The pt states he is feeling better overall. Noted to be Flu positive 05/18/18. States he is eating and drinking. Denies any weakness, fatigue, Headache, Chest Pain, Shortness of breath, cough, palpitations, abdominal pain, N/V/D or changes in bowel or bladder habits. PMHx: cervical stenosis Lumbar stenosis Thoracolumbar scoliosis Chronic neck pain/LE pain/Chronic pain GERD HTN PSHX: 05/08/18 T11-S1 posterior arthrodesis L1-S1 laminectomies. PE: GEN: 62yoM, appears stated age. No acute distress. Alert and oriented x 3. HEENT: Normocephalic, atraumatic. Sclera are nonicteric. Conjunctiva without injection. Moist mucous membranes.Pharynx pink and moist. CHEST: Regular rate and rhythm, +S1, +S2 LUNGS: Clear to auscultation bilaterally. No wheezes, rales, or rhonchi. ABD: Exam limited related to pt brace. Round, soft, non-tender, non-distended. +Bowel sounds noted. EXT: Pulses 2+ bilaterally dorsalis pedis and radial. No lower extremity edema appreciated. SKIN: [place], dry, warm. No rashes. NEURO: Alert and oriented x 3. Cranial nerves III-XII are intact. No focal deficits appreciated. UC neg 05/14/18 FOB neg. U/S LEs No evidence for deep venous thrombosis. Electronically Signed by Adryan Cole MD 05/15/2018 05:36 A A&P: 62year old M S/P T11-S1 posterior arthrodesis L1-S1 laminectomies05/08/[address] Alexa Plascencia [facility]. Transferred to the care of Dr Paniagua [facility], 05/13/18. 1. S/P T11-S1 posterior arthrodesis L1-S1 laminectomies05/08/[address] Liu [place] [facility] PT/OT/ST as per MARILE Zamora. Pain control as per MARIEL Zamora. Bowel care as per MARIEL Zamora. DVT prophylaxis as per MARIEL Zamora. Lovenox SQ. LE U/S pending. Outpt F/U with Dr Liu. Wearing TLSO brace as per Dr Liu. UC neg LE U/S neg. 2. Influenza. Afebrile. BC x 2 neg. CXR NAD Completed Tamiflu 75 mg BID x 5 days. Nebs Robitussin as needed. Tylenol as needed. 3. HTN. Toprol XL 100 mg po daily. Lisinopril 10 mg daily. Pt restarted ASA 81 mg daily 05/22/18. 4. Hypokalemia. Supplement ordered. BMP in AM. 4. Anemia. Hgb 9.7 Fe studies, B12, folate completed. FOB neg. Fe supplement BID added. Monitor need for transfusion. CBC in AM. 5. Hyponatremia. Na 132. Ser Osm/Ur Osm/Ur Cr/NA/TSH/Mag noted. NaCl tab TID. Monitor BMP. 6. GERD. Protonix. VS, I&O, 24H, Fishbone Vital Signs/I&O Vital Signs Date Time Temp Pulse Resp B/P (MAP) Pulse Ox O2 Delivery O2 Flow Rate FiO2 05/25/18 09:13 16 05/25/18 08:43 122/58 05/25/18 08:43 71 05/25/18 06:00 98.4 99 Room Air I&O- Last 24 Hours up to 6 AM 05/25/18 06:00 Intake Total 840 ml Output Total 700 ml Balance 140 ml Laboratory Data Microbiology Microbiology 05/18/18 Blood Culture - Final, Complete NO GROWTH AFTER 5 DAYS 05/18/18 Blood Culture - Final, Complete NO GROWTH AFTER 5 DAYS 05/18/18 Respiratory Virus Panel (PCR) (TENZIN) - Final, Complete Influenza A H1-2008 Olga Loja May 25, 2018 12:40
[2018-05-25 14:00] VITALS: BP 110/57
--- NOTE | 2018-05-25 15:29 | IPNPDOC ---
PM&R Progress Note DATE OF SERVICE: May 25, 2018 Community Educator Progress Note Subjective: Patient reports he coughs a few times a day and it is non-productive, he is eager to get to the gym. REVIEW OF SYSTEMS: The following is a completed review of systems and has been reviewed. Review of systems otherwise unremarkable. PAIN: self reports non-radiating low back pain EYES: Negative for recent vision changes EARS, NOSE, & THROAT: Denied rhinorrhea, throat pain or dysphagia CARDIOVASCULAR: denies chest pain or palpitations PULMONARY: Negative. Denies shortness of breath, +cough but improving GASTROINTESTINAL: Negative for diarrhea, +constipation GENITOURINARY: Negative for dysuria or hematuria or incontinence MUSCULOSKELETAL: bilateral LE weakness L>R and Left shoulder pain and arm weakness NEUROLOGICAL: LLE paralysis HEMATOLOGICAL: Negative for bruising SKIN: scab on bottom of left foot, lumbosacral sutures, otherwise intact. PSYCHIATRIC: Unremarkable All other review of systems found to be negative. PHYSICAL EXAMINATION: VITAL SIGNS: Please see below. GENERAL: Pleasant and cooperative. No acute distress. HEENT: PERRL. Extraocular movements intact. Clear conjunctiva, poor dentition CARDIOVASCULAR: Regular rate and rhythm. No murmurs, rubs, or gallops LUNGS: Clear to auscultation bilaterally. No wheezes. No rhonchi ABDOMEN: Soft, nontender, nondistended. Positive bowel sounds. Normal active bowel sounds NEUROLOGICAL: Alert and oriented times three. Cranial nerves II through XII grossly intact. Sensation to light touch in C-T2 dermatomes and L2-S2 dermatomes +bilateral Babinski, 1+/4 patellar reflexes bilat 3+ bicep and brachioradialis reflexes, negative Isabel's EXTREMITIES: 5-\5 strength right upper extremities. 3/5 left shoulder abduction pain limiting, and unable to fully test elbow extension given limited ROM, numerical analysis group manager 5/5 and elbow flexors 5-/5 3+/5 right hip flexors and knee extensors, 2+/5 ankle DF and EHL 2/5 left hip flexors and knee extensors, 1/5 left ankle DF and EHL Left shoulder: +Neers and decreased internal rotation SKIN: lumbosacral incision c/d/i, no sacral ulcers, scab on bottom of left foot Lateral truncal ecchymosis ASSESSMENT:62-year-old M with past medical history of chronic low back pain who presents status post T11-S1 arthrodesis and laminectomy. PLAN: 1. rehab: PT/OT, assess for DME, working on [id number], able to performed wheelchair mobility well while in room, has been unable to tolerate weaing mask with recent influenza and therefor unable to work on walking in gym- w 2. Ortho: s/p T11-S1 arthrodesis with laminectomy in setting of spinal stenosis with significant RLE paresis, TLSO brace when out of bed, Spinal precautions, monitor for myelopathy, at this time does have brisk reflexes in UE and +Babinksi most likely from cervical stenosis- no incontinence -will reschedule outpatient follow-up with surgeon for 06-04-18 at 1:20 pm for possible suture removal, delayed from 05/21 given +flu -Left shoulder likely weak from cervical stenosis and impingement- will encourage ROM to prevent adhesive capsulitis - TLSO brace adjusted 05/15/18 3. Cardio: pmh HTN: continue Metoprolol and adjust prn- medicine consulted, restarted ASA on 05-22-18 4 GI: will discontinue bowel meds for loose stools, and Protonix for ppx 5. : monitor PVRs, admission UA and Ucx negative 6. Skin: dressing in place, change prn soil/drainage, multipodus boots while in bed to prevent heel cord contractures and heel ulcers 7. DVT ppx: continue Lovenox, admission dopplers negative 9. Pain: OXycodone and Tylenol, will add gabapentin 10. Electrolytes: Hyponatremia, continue salt tabs, s/p 1 L IVF, stable at 133 will continue to monitor- no seizure, cardiac, or GI symptoms at this time 11. ID: fever resolved, w +Influenza, started on Tamiflu, s/p IVF monitor vitals -CXR negative for infiltrate -blood cultures sent, negative growth -s/p 7 days course Keflex for possible incision site infection, change dressing daily or prn soil- no leukocytosis 12. Pain: continue standing oxycodone and prn, continue gabapentin 13. Dispo: 06-08-18, progressing towards goals Allergies Coded Allergies: No Known Drug Allergy (Verified Allergy, Unknown, 05/13/18) Vital Signs Vital Signs Date Time Temp Pulse Resp B/P (MAP) Pulse Ox O2 Delivery O2 Flow Rate FiO2 05/25/18 09:13 16 05/25/18 08:43 122/58 05/25/18 08:43 71 05/25/18 06:00 98.4 99 Room Air Microbiology Microbiology 05/18/18 Blood Culture - Final, Complete NO GROWTH AFTER 5 DAYS 05/18/18 Blood Culture - Final, Complete NO GROWTH AFTER 5 DAYS 05/18/18 Respiratory Virus Panel (PCR) ([facility]ZIN) - Final, Complete Influenza A H1-2009 Current Medications Current Medications Current Medications Acetaminophen (Tylenol Tab) 650 mg Q4HP PRN PO fever/MILD PAIN (PS 1-4) Last administered on 05/25/18at 00:22; Start 05/13/18 at 17:45 Albuterol/ Ipratropium (Duoneb (Ipr 0.5mg/Alb 2.5mg)) 3 ml RQID NEB Last administered on 05/25/18at 11:16; Start 05/22/18 at 16:00 Ascorbic Acid (Vitamin C) 1,000 mg DAILY PO Last administered on 05/25/18at 08:44; Start 05/14/18 at 09:00 Aspirin (Ecotrin) 81 mg DAILY PO Last administered on 05/25/18at 08:43; Start 05/22/18 at 09:00 Bisacodyl (Dulcolax Suppository) 10 mg ASDIRECTED PRN ND IF NO BOWEL MOVEMENT; Start 05/14/18 at 18:00 Bisacodyl (Dulcolax Suppository) 10 mg DAILYPRN PRN ND CONSTIPATION; Start 05/13/18 at 17:45 Cephalexin Monohydrate (Keflex) 500 mg QID PO Last administered on 05/25/18at 08:44; Start 05/18/18 at 13:00; Stop 05/25/18 at 10:36; Status DC Dextromethorphan (ROBITUSSIN PEDIATRIC COUGH SYRUP 7.5mg/5ml) 5 ml Q8HP PRN PO COUGH Last administered on 05/24/18at 22:03; Start 05/20/18 at 23:30 Diphenhydramine HCl (Benadryl) 25 mg QHSP PRN PO INSOMNIA Last administered on 05/25/18at 00:22; Start 05/21/18 at 20:00 Docusate Sodium (Colace) 100 mg BID PO Last administered on 05/19/18at 21:05; Start 05/13/18 at 21:00; Stop 05/20/18 at 16:41; Status DC Enoxaparin Sodium (Lovenox) 40 mg DAILY SC Last administered on 05/25/18at 08:42; Start 05/14/18 at 09:00 Ferrous Gluconate (Fergon) 324 mg BID PO Last administered on 05/25/18at 08:42; Start 05/15/18 at 21:00 Gabapentin (Neurontin) 100 mg TID PO ; Start 05/20/18 at 21:00; Stop 05/20/18 at 21:00; Status DC Gabapentin (Neurontin) 200 mg TID PO ; Start 05/13/18 at 21:00; Stop 05/13/18 at 21:00; Status DC Gabapentin (Neurontin) 300 mg TID PO Last administered on 05/25/18at 08:42; Start 05/20/18 at 21:00 Home Med (Med Rec Complete!) ASDIRECTED XX ; Start 05/13/18 at 18:15; Stop 05/13/18 at 18:16; Status DC Lidocaine (Lidoderm Patch) 1 patch DAILY@2100 TD Last administered on 05/24/18at 21:59; Start 05/14/18 at 21:00 Lisinopril (Prinivil) 10 mg DAILY PO Last administered on 05/25/18at 08:43; Start 05/15/18 at 11:00 Magnesium Hydroxide (Milk Of Magnesia) 30 ml DAILYPRN PRN PO CONSTIPATION Last administered on 05/13/18at 18:48; Start 05/13/18 at 17:45 Metoprolol Succinate (TopROL XL) 50 mg DAILY PO Last administered on 05/14/18at 09:39; Start 05/14/18 at 09:00; Stop 05/14/18 at 11:18; Status DC Metoprolol Succinate (TopROL XL) 100 mg DAILY PO Last administered on 05/25/18at 08:43; Start 05/15/18 at 09:00 Miscellaneous (Unresolved Clarification Entry) SEE LABEL COMMENTS DAILY XX ; Start 05/20/18 at 09:00; Stop 05/20/18 at 11:16; Status DC Miscellaneous (Unresolved Clarification Entry) SEE LABEL COMMENTS DAILY XX ; Start 05/24/18 at 09:00; Stop 05/25/18 at 10:36; Status DC Non-Formulary Medication ( See Comment Field Below ) REMOVE LIDODERM PATCH DAILY XX Last administered on 05/25/18 08:44; Start 05/15/18 at 09:00 Ondansetron HCl (Zofran) 4 mg Q6HP PRN PO NAUSEA; Start 05/13/18 at 17:45 Oseltamivir Phosphate (Tamiflu) 75 mg BID PO Last administered on 05/24/18at 08:58; Start 05/18/18 at 14:15; Stop 05/24/18 at 14:17; Status DC Oxycodone HCl (Roxicodone, Oxyir) 5 mg Q4HP PRN PO PAIN 4-7 Last administered on 05/22/18 06:18; Start 05/13/18 at 17:45 Oxycodone HCl (Roxicodone, Oxyir) 10 mg Q4HP PRN PO SEVERE PAIN (PS 8-10) Last administered on 05/14/18 09:54; Start 05/13/18 at 17:45; Stop 05/14/18 at 11:16; Status DC Oxycodone HCl (Roxicodone, Oxyir) 10 mg TID PO Last administered on 05/25/18 08:43; Start 05/14/18 at 16:00 Pantoprazole Sodium (Protonix) 40 mg DAILY PO Last administered on 05/25/18 08:44; Start 05/14/18 at 09:00 Potassium Chloride (Micro-K Extencaps) 20 meq DAILY PO Last administered on 05/25/18 08:42; Start 05/15/18 at 09:00 Senna (Senokot) 1 tab QHS PO Last administered on 05/13/18 20:43; Start 05/13/18 at 21:00; Stop 05/15/18 at 17:28; Status DC Senna (Senokot) 2 tab QHS PO Last administered on 05/19/18at 21:04; Start 05/15/18 at 21:00; Stop 05/20/18 at 16:41; Status DC Sodium Chloride (Sodium Chloride) 1 gm BID PO Last administered on 05/16/18 08:38; Start 05/15/18 at 11:00; Stop 05/16/18 at 15:45; Status DC Sodium Chloride (Sodium Chloride) 1 gm TID PO Last administered on 05/20/18 09:23; Start 05/16/18 at 16:00; Stop 05/20/18 at 11:13; Status DC Sodium Chloride (Sodium Chloride) 2 gm BID PO Last administered on 05/25/18 08:42; Start 05/20/18 at 21:00 Thiamine HCl (Thiamine HCl) 100 mg DAILY PO Last administered on 05/25/18 08:44; Start 05/14/18 at 09:00 Trazodone HCl (Desyrel) 50 mg QHSP PRN PO INSOMNIA Last administered on 05/24/18 21:58; Start 05/13/18 at 17:45 Vitamin D (Vitamin D) 1,000 units DAILY PO Last administered on 05/25/18 08:44; Start 05/14/18 at 09:00 BRUCE CARDOZA MD May 25, 2018 15:29
[2018-05-25 20:00] VITALS: BP 120/59
[2018-05-25] MEDS: LIDOCAINE 5% (LIDODERM) PATCH TD SCH (21:22)
[2018-05-25] MEDS: traZODone 50 MG TAB PO PRN (22:33)
[2018-05-25] MEDS: DEXTROMETHORPHAN 5 ML SYRUP (ROBITUSSIN PEDIATRIC COUGH) PO PRN (22:33)
[2018-05-26] MEDS: oxyCODONE 5MG TAB PO PRN ×2 (02:08→06:38)
[2018-05-26 06:00] VITALS: BP 138/85
[2018-05-26 06:26] LABS: BASO % 0.4 % (0.0-1.0); EOS # 0.2 10^3/uL (0.0-0.50); EOS % 3.1 % (0.0-3.0); HEMOGLOBIN 9.3 g/dl (13.5-17.5); LYMPH # 0.8 10^3/uL (1.5-4.5); LYMPH % 16.2 % (24.0-44.0); MEAN CORPUSCULAR HGB CONC 32.1 g/dl (32.0-36.5); MEAN CORPUSCULAR VOLUME 90.3 fl (80.0-96.0); MONO # 0.6 10^3/uL (0.0-0.8); MONO % 12.3 % (0.0-5.0); NEUTROPHILS # 3.4 10^3/uL (1.8-7.7); NEUTROPHILS % 66.8 % (36.0-66.0); PLATELET COUNT, AUTOMATED 359 10^3/uL (150-450); RED BLOOD COUNT 3.21 10^6/uL (4.30-6.10); WHITE BLOOD COUNT 5.1 10^3/uL (4.0-10.0)
[2018-05-26 06:48] LABS: BLOOD UREA NITROGEN 17 MG/DL (7-18); CALCIUM LEVEL 8.2 MG/DL (8.8-10.2); CARBON DIOXIDE LEVEL 24 MEQ/L (21-32); CHLORIDE LEVEL 104 MEQ/L (98-107); CREATININE FOR GFR 0.56 MG/DL (0.70-1.30); GLOMERULAR FILTRATION RATE > 60.0 (>49); GLUCOSE, FASTING 92 MG/DL (70-100); POTASSIUM SERUM 4.7 MEQ/L (3.5-5.1); SODIUM LEVEL 135 MEQ/L (136-145)
[2018-05-26] MEDS: IPRATROPIUM 0.5MG/ALBUTEROL 2.5MG INH SOL UD 3ML (DUONEB)(J7620) NEB SCH ×5 (08:00→23:19)
[2018-05-26] MEDS: **NOTE PATIENT COMMENT** MISC XX SCH (09:00)
[2018-05-26] MEDS: ENOXAPARIN 40 MG/0.4 ML SYRINGE (J1650) SC SCH (09:45)
[2018-05-26] MEDS: GABAPENTIN 300 MG CAP PO SCH ×3 (09:45→21:27)
[2018-05-26] MEDS: PANTOPRAZOLE 40MG TAB (PROTONIX) PO SCH (09:45)
[2018-05-26] MEDS: ASCORBIC ACID 500 MG TAB PO SCH (09:45)
[2018-05-26] MEDS: THIAMINE 100 MG TAB PO SCH (09:46)
[2018-05-26] MEDS: FERROUS GLUCONATE 324 MG TAB PO SCH ×2 (09:46→21:26)
[2018-05-26] MEDS: POTASSIUM CHLORIDE 10 MEQ SR TABLET PO SCH (09:46)
[2018-05-26] MEDS: ASPIRIN 81 MG ENTERIC TAB PO SCH (09:46)
[2018-05-26] MEDS: VITAMIN D 1,000 INTERNATIONAL UNITS TABLET PO SCH (09:46)
[2018-05-26] MEDS: SODIUM CHLORIDE 1 GM TAB PO SCH ×2 (09:46→21:27)
[2018-05-26] MEDS: oxyCODONE 5MG TAB PO SCH ×3 (09:48→21:28)
[2018-05-26] MEDS: LISINOPRIL 10 MG TAB PO SCH (09:50)
[2018-05-26] MEDS: METOPROLOL SUCC (TopROL XL) 50MG **XL** TAB PO SCH (09:50)
--- NOTE | 2018-05-26 11:58 | IPNPDOC ---
Date Seen The patient was seen on 05/26/18. Progress Note HPI: 62year old M S/P T11-S1 posterior arthrodesis L1-S1 laminectomies05/08/[address] Liu [facility]. [facility] [place] The pt states he is feeling better overall. Noted to be Flu positive 05/18/18. Repeat Resp panel neg 05/25/18. States he is eating and drinking. OOB today with PT. Denies any weakness, fatigue, Headache, Chest Pain, Shortness of breath, cough, palpitations, abdominal pain, N/V/D or changes in bowel or bladder habits. PMHx: cervical stenosis Lumbar stenosis Thoracolumbar scoliosis Chronic neck pain/LE pain/Chronic pain GERD HTN PSHX: 05/08/18 T11-S1 posterior arthrodesis L1-S1 laminectomies. PE: GEN: 62yoM, appears stated age. No acute distress. Alert and oriented x 3. HEENT: Normocephalic, atraumatic. Sclera are nonicteric. Conjunctiva without injection. Moist mucous membranes.Pharynx pink and moist. CHEST: Regular rate and rhythm, +S1, +S2 LUNGS: Clear to auscultation bilaterally. No wheezes, rales, or rhonchi. ABD: Exam limited related to pt brace. Round, soft, non-tender, non-distended. +Bowel sounds noted. EXT: Pulses 2+ bilaterally dorsalis pedis and radial. No lower extremity edema appreciated. SKIN: [place], dry, warm. No rashes. NEURO: Alert and oriented x 3. Cranial nerves III-XII are intact. No focal deficits appreciated. UC neg 05/14/18 FOB neg. U/S LEs No evidence for deep venous thrombosis. Electronically Signed by Adryan Cole MD 05/15/2018 05:36 A A&P: 62year old M S/P T11-S1 posterior arthrodesis L1-S1 laminectomies05/08/[address] Liu [facility]. Transferred to the care of Dr Paniagua [facility], 05/13/18. 1. S/P T11-S1 posterior arthrodesis L1-S1 laminectomies05/08/[address] Moquin [facility] PT/OT/ST as per MARIEL Zamora. Pain control as per MARIEL Zamora. Bowel care as per MARIEL Zamora. DVT prophylaxis as per MARIEL Zamora. Lovenox SQ. Outpt F/U with Dr Liu. Wearing TLSO brace as per Dr Liu. UC neg LE U/S neg. 2. S/P Influenza. Afebrile. BC x 2 neg. CXR NAD Completed Tamiflu 75 mg BID x 5 days. Nebs Robitussin as needed. Tylenol as needed. Repeat respiratory panel negative 05/25/18. 3. HTN. Toprol XL 100 mg po daily. Lisinopril 10 mg daily. Pt restarted ASA 81 mg daily 05/22/18. 4. Hypokalemia. Supplement ordered. BMP in AM. 4. Anemia. Hgb 9.3 Fe studies, B12, folate completed. FOB neg. Fe supplement BID added. Monitor need for transfusion. Monitor CBC 5. Hyponatremia. Na 135. Continues to trend upward. Ser Osm/Ur Osm/Ur Cr/NA/TSH/Mag noted. Monitor BMP. 6. GERD. Protonix. VS, I&O, 24H, Fishbone Vital Signs/I&O Vital Signs Date Time Temp Pulse Resp B/P (MAP) Pulse Ox O2 Delivery O2 Flow Rate FiO2 05/26/18 09:50 83 129/62 05/26/18 09:48 18 Room Air 05/26/18 06:00 98.0 98 I&O- Last 24 Hours up to 6 AM 05/26/18 06:00 Intake Total 1560 ml Output Total 1550 ml Balance 10 ml Laboratory Data 24H LABS Laboratory Tests 2 05/26/18 05:52: Immature Granulocyte % (Auto) 1.2, White Blood Count 5.1, Red Blood Count 3.21L, Hemoglobin 9.3L, Hematocrit 29.0L, Mean Corpuscular Volume 90.3, Mean Corpuscular Hemoglobin 29.0, Mean Corpuscular Hemoglobin Concent 32.1, Red Cell Distribution Width 13.2, Platelet Count 359, Neutrophils (%) (Auto) 66.8H, Lymphocytes (%) (Auto) 16.2L, Monocytes (%) (Auto) 12.3H, Eosinophils (%) (Auto) 3.1H, Basophils (%) (Auto) 0.4, Neutrophils # (Auto) 3.4, Lymphocytes # (Auto) 0.8L, Monocytes # (Auto) 0.6, Eosinophils # (Auto) 0.2, Basophils # (Auto) 0.0, Nucleated Red Blood Cells % (auto) 0.0, Anion Gap 7L, Glomerular Filtration Rate > 60.0, Blood Urea Nitrogen 17, Creatinine 0.56L, Sodium Level 135L, Potassium Level 4.7, Chloride Level 104, Carbon Dioxide Level 24, Calcium Level 8.2L CBC/BMP Laboratory Tests 05/26/18 05:52 Red Blood Count 3.21 L, Mean Corpuscular Volume 90.3, Mean Corpuscular Hemoglobin 29.0, Mean Corpuscular Hemoglobin Concent 32.1, Red Cell Distribution Width 13.2, Neutrophils (%) (Auto) 66.8 H, Lymphocytes (%) (Auto) 16.2 L, Monocytes (%) (Auto) 12.3 H, Eosinophils (%) (Auto) 3.1 H, Basophils (%) (Auto) 0.4, Neutrophils # (Auto) 3.4, Lymphocytes # (Auto) 0.8 L, Monocytes # (Auto) 0.6, Eosinophils # (Auto) 0.2, Basophils # (Auto) 0.0, Calcium Level 8.2 L Microbiology Microbiology 05/18/18 Blood Culture - Final, Complete NO GROWTH AFTER 5 DAYS 05/18/18 Blood Culture - Final, Complete NO GROWTH AFTER 5 DAYS 05/25/18 Respiratory Virus Panel (PCR) (TENZIN) - Final, Complete 05/18/18 Respiratory Virus Panel (PCR) (TENZIN) - Final, Complete Influenza A H1-2009 Olga Loja May 26, 2018 11:58
[2018-05-26 14:00] VITALS: BP 106/56
[2018-05-26 20:00] VITALS: BP 119/62
[2018-05-26] MEDS: diphenhydrAMINE 25 MG CAP PO PRN (21:26)
[2018-05-26] MEDS: LIDOCAINE 5% (LIDODERM) PATCH TD SCH (21:26)
[2018-05-26] MEDS: ACETAMINOPHEN TAB 650MG DOSE (2X325MG) PO PRN (21:28)
[2018-05-26] MEDS: traZODone 50 MG TAB PO PRN (22:36)
[2018-05-26] MEDS: DEXTROMETHORPHAN 5 ML SYRUP (ROBITUSSIN PEDIATRIC COUGH) PO PRN (22:36)
[2018-05-27] MEDS: ACETAMINOPHEN TAB 650MG DOSE (2X325MG) PO PRN (01:46)
[2018-05-27] MEDS: oxyCODONE 5MG TAB PO PRN ×2 (01:47→06:07)
[2018-05-27 06:00] VITALS: BP 110/60
[2018-05-27] MEDS: IPRATROPIUM 0.5MG/ALBUTEROL 2.5MG INH SOL UD 3ML (DUONEB)(J7620) NEB SCH ×4 (07:44→20:00)
[2018-05-27] MEDS: **NOTE PATIENT COMMENT** MISC XX SCH (09:00)
[2018-05-27] MEDS: GABAPENTIN 300 MG CAP PO SCH ×3 (09:20→21:29)
[2018-05-27] MEDS: ASPIRIN 81 MG ENTERIC TAB PO SCH (09:20)
[2018-05-27] MEDS: PANTOPRAZOLE 40MG TAB (PROTONIX) PO SCH (09:20)
[2018-05-27] MEDS: ASCORBIC ACID 500 MG TAB PO SCH (09:20)
[2018-05-27] MEDS: oxyCODONE 5MG TAB PO SCH ×3 (09:21→21:29)
[2018-05-27] MEDS: VITAMIN D 1,000 INTERNATIONAL UNITS TABLET PO SCH (09:22)
[2018-05-27] MEDS: THIAMINE 100 MG TAB PO SCH (09:22)
[2018-05-27] MEDS: FERROUS GLUCONATE 324 MG TAB PO SCH ×2 (09:22→21:29)
[2018-05-27] MEDS: LISINOPRIL 10 MG TAB PO SCH (09:22)
[2018-05-27] MEDS: POTASSIUM CHLORIDE 10 MEQ SR TABLET PO SCH (09:23)
[2018-05-27] MEDS: ENOXAPARIN 40 MG/0.4 ML SYRINGE (J1650) SC SCH (09:24)
[2018-05-27] MEDS: SODIUM CHLORIDE 1 GM TAB PO SCH ×2 (09:24→21:28)
[2018-05-27] MEDS: METOPROLOL SUCC (TopROL XL) 50MG **XL** TAB PO SCH (09:25)
--- NOTE | 2018-05-27 12:39 | IPNPDOC ---
Date Seen The patient was seen on 05/27/18. Progress Note HPI: 62year old M S/P T11-S1 posterior arthrodesis L1-S1 laminectomies05/08/[address] Liu [facility]. [facility] [place]. The pt states he is feeling better overall. Noted to be Flu positive 05/18/18. Repeat Resp panel neg 05/25/18. States he is eating and drinking. OOB today with PT. States is feeling stronger. No verbalized concerns at this time. Denies any weakness, fatigue, Headache, Chest Pain, Shortness of breath, cough, palpitations, abdominal pain, N/V/D or changes in bowel or bladder habits. PMHx: cervical stenosis Lumbar stenosis Thoracolumbar scoliosis Chronic neck pain/LE pain/Chronic pain GERD HTN PSHX: 05/08/18 T11-S1 posterior arthrodesis L1-S1 laminectomies. PE: GEN: 62yoM, appears stated age. No acute distress. Alert and oriented x 3. HEENT: Normocephalic, atraumatic. Sclera are nonicteric. Conjunctiva without injection. Moist mucous membranes.Pharynx pink and moist. CHEST: Regular rate and rhythm, +S1, +S2 LUNGS: Clear to auscultation bilaterally. No wheezes, rales, or rhonchi. ABD: Exam limited related to pt brace. Round, soft, non-tender, non-distended. EXT: Pulses 2+ bilaterally dorsalis pedis and radial. No lower extremity edema appreciated. SKIN: [place], dry, warm. No rashes. NEURO: Alert and oriented x 3. No focal deficits appreciated. UC neg 05/14/18 FOB neg. U/S LEs No evidence for deep venous thrombosis. Electronically Signed by Adryan Cole MD 05/15/2018 05:36 A A&P: 62year old M S/P T11-S1 posterior arthrodesis L1-S1 laminectomies05/08/[address] Liu [facility]. Transferred to the care of Dr Paniagua [facility], 05/13/18. 1. S/P T11-S1 posterior arthrodesis L1-S1 laminectomies05/08/[address] Moquin [facility] PT/OT/ST as per MARIEL Zamora. Pain control as per MARIEL Zamora. Bowel care as per MARIEL Zamora. DVT prophylaxis as per MARIEL Zamora. Lovenox SQ. Outpt F/U with Dr Liu. Wearing TLSO brace as per Dr Liu. UC neg LE U/S neg. 2. S/P Influenza. Afebrile. BC x 2 neg. CXR NAD Completed Tamiflu 75 mg BID x 5 days. Nebs Robitussin as needed. Tylenol as needed. Repeat respiratory panel negative 05/25/18. 3. HTN. Toprol XL 100 mg po daily. Lisinopril 10 mg daily. Pt restarted ASA 81 mg daily 05/22/18. 4. Hypokalemia. Supplement ordered. BMP in AM. 4. Anemia. Hgb 9.3 Fe studies, B12, folate completed. FOB neg. Fe supplement BID added. Monitor need for transfusion. Monitor CBC 5. Hyponatremia. Na 135. Continues to trend upward. Ser Osm/Ur Osm/Ur Cr/NA/TSH/Mag noted. BMP in AM. 6. GERD. Protonix. VS, I&O, 24H, Fishbone Vital Signs/I&O Vital Signs Date Time Temp Pulse Resp B/P (MAP) Pulse Ox O2 Delivery O2 Flow Rate FiO2 05/27/18 09:51 16 05/27/18 09:25 80 110/60 05/27/18 06:00 98.5 97 Room Air I&O- Last 24 Hours up to 6 AM 05/27/18 06:00 Intake Total 800 ml Output Total 900 ml Balance -100 ml Laboratory Data Microbiology Microbiology 05/18/18 Blood Culture - Final, Complete NO GROWTH AFTER 5 DAYS 05/18/18 Blood Culture - Final, Complete NO GROWTH AFTER 5 DAYS 05/25/18 Respiratory Virus Panel (PCR) (TENZIN) - Final, Complete 05/18/18 Respiratory Virus Panel (PCR) (TENZIN) - Final, Complete Influenza A H1-2008 Olga Loja May 27, 2018 12:39
[2018-05-27 14:00] VITALS: BP 127/58
[2018-05-27 20:00] VITALS: BP 111/56
[2018-05-27] MEDS: LIDOCAINE 5% (LIDODERM) PATCH TD SCH (21:28)
--- NOTE | 2018-05-27 22:02 | IPNPDOC ---
PM&R Progress Note DATE OF SERVICE: May 26, 2018 [employer] Progress Note Subjective: Patient reports he cough improved, contact precautions discontinued and starting to work in gym today. REVIEW OF SYSTEMS: The following is a completed review of systems and has been reviewed. Review of systems otherwise unremarkable. PAIN: self reports non-radiating low back pain EYES: Negative for recent vision changes EARS, NOSE, & THROAT: Denied rhinorrhea, throat pain or dysphagia CARDIOVASCULAR: denies chest pain or palpitations PULMONARY: Negative. Denies shortness of breath, +cough but improving GASTROINTESTINAL: Negative for diarrhea or constipation GENITOURINARY: Negative for dysuria or hematuria or incontinence MUSCULOSKELETAL: bilateral LE weakness L>R and Left shoulder pain and arm weakness NEUROLOGICAL: LLE paralysis HEMATOLOGICAL: Negative for bruising SKIN: scab on bottom of left foot, lumbosacral sutures, otherwise intact. PSYCHIATRIC: Unremarkable All other review of systems found to be negative. PHYSICAL EXAMINATION: VITAL SIGNS: Please see below. GENERAL: Pleasant and cooperative. No acute distress. HEENT: PERRL. Extraocular movements intact. Clear conjunctiva, poor dentition CARDIOVASCULAR: Regular rate and rhythm. No murmurs, rubs, or gallops LUNGS: Clear to auscultation bilaterally. No wheezes. No rhonchi ABDOMEN: Soft, nontender, nondistended. Positive bowel sounds. Normal active bowel sounds NEUROLOGICAL: Alert and oriented times three. Cranial nerves II through XII grossly intact. Sensation to light touch in C-T2 dermatomes and L2-S2 dermatomes +bilateral Babinski, 1+/4 patellar reflexes bilat 3+ bicep and brachioradialis reflexes, negative Isabel's EXTREMITIES: 5-\5 strength right upper extremities. 3/5 left shoulder abduction pain limiting, and unable to fully test elbow extension given limited ROM, hand etcher 5/5 and elbow flexors 5-/5 3+/5 right hip flexors and knee extensors, 2+/5 ankle DF and EHL 2/5 left hip flexors and knee extensors, 1/5 left ankle DF and EHL Left shoulder: +Neers and decreased internal rotation SKIN: lumbosacral incision c/d/i, no sacral ulcers, scab on bottom of left foot Lateral truncal ecchymosis ASSESSMENT:62-year-old M with past medical history of chronic low back pain who presents status post T11-S1 arthrodesis and laminectomy. PLAN: 1. rehab: PT/OT, assess for DME, working on [id number], able to performed wheelchair mobility well while in room, recovering from flu, will start working in gym today as unable to tolerate wearing mask outside of the room prio 2. Ortho: s/p T11-S1 arthrodesis with laminectomy in setting of spinal stenosis with significant RLE paresis, TLSO brace when out of bed, Spinal precautions, monitor for myelopathy, at this time does have brisk reflexes in UE and +Babinksi most likely from cervical stenosis- no incontinence -will reschedule outpatient follow-up with surgeon for 06-04-18 at 1:20 pm for possible suture removal, delayed from 05/21 given +flu -Left shoulder likely weak from cervical stenosis and impingement- will encourage ROM to prevent adhesive capsulitis - TLSO brace adjusted 05/15/18 3. Cardio: pmh HTN: continue Metoprolol and adjust prn- medicine consulted, restarted ASA on 05-22-18 4 GI: will discontinue bowel meds for loose stools, and Protonix for ppx 5. : monitor PVRs, admission UA and Ucx negative 6. Skin: dressing in place, change prn soil/drainage, multipodus boots while in bed to prevent heel cord contractures and heel ulcers 7. DVT ppx: continue Lovenox, admission dopplers negative 9. Pain: OXycodone and Tylenol, will add gabapentin 10. Electrolytes: Hyponatremia, continue salt tabs, s/p 1 L IVF, stable at 133 will continue to monitor- no seizure, cardiac, or GI symptoms at this time 11. ID: fever resolved, w +Influenza, started on Tamiflu, s/p IVF monitor vitals -CXR negative for infiltrate -blood cultures sent, negative growth -s/p 7 days course Keflex for possible incision site infection, change dressing daily or prn soil- no leukocytosis 12. Pain: continue standing oxycodone and prn, continue gabapentin 13. Dispo: 06-08-18, progressing towards goals Allergies Coded Allergies: No Known Drug Allergy (Verified Allergy, Unknown, 05/13/18) Vital Signs Vital Signs Date Time Temp Pulse Resp B/P (MAP) Pulse Ox O2 Delivery O2 Flow Rate FiO2 05/27/18 21:29 18 05/27/18 20:00 98.0 83 111/56 (74) 99 05/27/18 06:00 Room Air Microbiology Microbiology 05/18/18 Blood Culture - Final, Complete NO GROWTH AFTER 5 DAYS 05/18/18 Blood Culture - Final, Complete NO GROWTH AFTER 5 DAYS 05/25/18 Respiratory Virus Panel (PCR) ([facility]ENZIN) - Final, Complete 05/18/18 Respiratory Virus Panel (PCR) ([facility]IN) - Final, Complete Influenza A H1-2009 Current Medications Current Medications Current Medications Acetaminophen (Tylenol Tab) 650 mg Q4HP PRN PO fever/MILD PAIN (PS 1-4) Last administered on 05/27/18 01:46; Start 05/13/18 at 17:45 Albuterol/ Ipratropium (Duoneb (Ipr 0.5mg/Alb 2.5mg)) 3 ml RQID NEB Last administered on 05/27/18at 16:14; Start 05/22/18 at 16:00 Ascorbic Acid (Vitamin C) 1,000 mg DAILY PO Last administered on 05/27/18 09:20; Start 05/14/18 at 09:00 Aspirin (Ecotrin) 81 mg DAILY PO Last administered on 05/27/18at 09:20; Start 05/22/18 at 09:00 Bisacodyl (Dulcolax Suppository) 10 mg ASDIRECTED PRN ID IF NO BOWEL MOVEMENT; Start 05/14/18 at 18:00 Bisacodyl (Dulcolax Suppository) 10 mg DAILYPRN PRN ID CONSTIPATION; Start 05/13/18 at 17:45 Cephalexin Monohydrate (Keflex) 500 mg QID PO Last administered on 05/25/18at 08:44; Start 05/18/18 at 13:00; Stop 05/25/18 at 10:36; Status DC Dextromethorphan (ROBITUSSIN PEDIATRIC COUGH SYRUP 7.5mg/5ml) 5 ml Q8HP PRN PO COUGH Last administered on 05/26/18at 22:36; Start 05/20/18 at 23:30 Diphenhydramine HCl (Benadryl) 25 mg QHSP PRN PO INSOMNIA Last administered on 05/26/18at 21:26; Start 05/21/18 at 20:00 Docusate Sodium (Colace) 100 mg BID PO Last administered on 05/19/18at 21:05; Start 05/13/18 at 21:00; Stop 05/20/18 at 16:41; Status DC Enoxaparin Sodium (Lovenox) 40 mg DAILY SC Last administered on 05/27/18 09:24; Start 05/14/18 at 09:00 Ferrous Gluconate (Fergon) 324 mg BID PO Last administered on 05/27/18at 21:29; Start 05/15/18 at 21:00 Gabapentin (Neurontin) 100 mg TID PO ; Start 05/20/18 at 21:00; Stop 05/20/18 at 21:00; Status DC Gabapentin (Neurontin) 200 mg TID PO ; Start 05/13/18 at 21:00; Stop 05/13/18 at 21:00; Status DC Gabapentin (Neurontin) 300 mg TID PO Last administered on 05/27/18at 21:29; Start 05/20/18 at 21:00 Home Med (Med Rec Complete!) ASDIRECTED XX ; Start 05/13/18 at 18:15; Stop 05/13/18 at 18:16; Status DC Lidocaine (Lidoderm Patch) 1 patch DAILY@2100 TD Last administered on 05/27/18at 21:28; Start 05/14/18 at 21:00 Lisinopril (Prinivil) 10 mg DAILY PO Last administered on 05/27/18 09:22; Start 05/15/18 at 11:00 Magnesium Hydroxide (Milk Of Magnesia) 30 ml DAILYPRN PRN PO CONSTIPATION Last administered on 05/13/18at 18:48; Start 05/13/18 at 17:45 Metoprolol Succinate (TopROL XL) 50 mg DAILY PO Last administered on 05/14/18at 09:39; Start 05/14/18 at 09:00; Stop 05/14/18 at 11:18; Status DC Metoprolol Succinate (TopROL XL) 100 mg DAILY PO Last administered on 05/27/18at 09:25; Start 05/15/18 at 09:00 Miscellaneous (Unresolved Clarification Entry) SEE LABEL COMMENTS DAILY XX ; Start 05/20/18 at 09:00; Stop 05/20/18 at 11:16; Status DC Miscellaneous (Unresolved Clarification Entry) SEE LABEL COMMENTS DAILY XX ; Start 05/24/18 at 09:00; Stop 05/25/18 at 10:36; Status DC Non-Formulary Medication ( See Comment Field Below ) REMOVE LIDODERM PATCH DAILY XX Last administered on 05/27/18 09:00; Start 05/15/18 at 09:00 Ondansetron HCl (Zofran) 4 mg Q6HP PRN PO NAUSEA; Start 05/13/18 at 17:45 Oseltamivir Phosphate (Tamiflu) 75 mg BID PO Last administered on 05/24/18at 08:58; Start 05/18/18 at 14:15; Stop 05/24/18 at 14:17; Status DC Oxycodone HCl (Roxicodone, Oxyir) 5 mg Q4HP PRN PO PAIN 4-7 Last administered on 05/27/18 06:07; Start 05/13/18 at 17:45 Oxycodone HCl (Roxicodone, Oxyir) 10 mg Q4HP PRN PO SEVERE PAIN (PS 8-10) Last administered on 05/14/18 09:54; Start 05/13/18 at 17:45; Stop 05/14/18 at 11:16; Status DC Oxycodone HCl (Roxicodone, Oxyir) 10 mg TID PO Last administered on 05/27/18 21:29; Start 05/14/18 at 16:00 Pantoprazole Sodium (Protonix) 40 mg DAILY PO Last administered on 05/27/18 09:20; Start 05/14/18 at 09:00 Potassium Chloride (Micro-K Extencaps) 20 meq DAILY PO Last administered on 05/27/18 09:23; Start 05/15/18 at 09:00 Senna (Senokot) 1 tab QHS PO Last administered on 05/13/18 20:43; Start 05/13/18 at 21:00; Stop 05/15/18 at 17:28; Status DC Senna (Senokot) 2 tab QHS PO Last administered on 05/19/18 21:04; Start 05/15/18 at 21:00; Stop 05/20/18 at 16:41; Status DC Sodium Chloride (Sodium Chloride) 1 gm BID PO Last administered on 05/16/18 08:38; Start 05/15/18 at 11:00; Stop 05/16/18 at 15:45; Status DC Sodium Chloride (Sodium Chloride) 1 gm TID PO Last administered on 05/20/18 09:23; Start 05/16/18 at 16:00; Stop 05/20/18 at 11:13; Status DC Sodium Chloride (Sodium Chloride) 2 gm BID PO Last administered on 05/27/18 21:28; Start 05/20/18 at 21:00 Thiamine HCl (Thiamine HCl) 100 mg DAILY PO Last administered on 05/27/18 09:22; Start 05/14/18 at 09:00 Trazodone HCl (Desyrel) 50 mg QHSP PRN PO INSOMNIA Last administered on 05/26/18 22:36; Start 05/13/18 at 17:45 Vitamin D (Vitamin D) 1,000 units DAILY PO Last administered on 05/27/18 09:22; Start 05/14/18 at 09:00 BRUCE CARDOZA MD May 27, 2018 22:02
[2018-05-27] MEDS: diphenhydrAMINE 25 MG CAP PO PRN (23:31)
[2018-05-27] MEDS: traZODone 50 MG TAB PO PRN (23:31)
[2018-05-28] MEDS: oxyCODONE 5MG TAB PO PRN (04:48)
[2018-05-28 05:28] VITALS: BP 120/57
[2018-05-28 07:23] LABS: HEMATOCRIT 28.3 % (42.0-52.0); HEMOGLOBIN 9.3 g/dl (13.5-17.5); MEAN CORPUSCULAR HEMOGLOBIN 28.5 pg (27.0-33.0); MEAN CORPUSCULAR HGB CONC 32.9 g/dl (32.0-36.5); MEAN CORPUSCULAR VOLUME 86.8 fl (80.0-96.0); PLATELET COUNT, AUTOMATED 382 10^3/uL (150-450); RED BLOOD COUNT 3.26 10^6/uL (4.30-6.10); WHITE BLOOD COUNT 6.2 10^3/uL (4.0-10.0)
[2018-05-28] MEDS: IPRATROPIUM 0.5MG/ALBUTEROL 2.5MG INH SOL UD 3ML (DUONEB)(J7620) NEB SCH (07:38)
[2018-05-28 07:39] LABS: BLOOD UREA NITROGEN 17 MG/DL (7-18); CALCIUM LEVEL 8.6 MG/DL (8.8-10.2); CARBON DIOXIDE LEVEL 24 MEQ/L (21-32); CHLORIDE LEVEL 104 MEQ/L (98-107); CREATININE FOR GFR 0.51 MG/DL (0.70-1.30); GLOMERULAR FILTRATION RATE > 60.0 (>49); GLUCOSE, FASTING 100 MG/DL (70-100); POTASSIUM SERUM 4.2 MEQ/L (3.5-5.1); SODIUM LEVEL 135 MEQ/L (136-145)
[2018-05-28] MEDS: **NOTE PATIENT COMMENT** MISC XX SCH (09:00)
[2018-05-28] MEDS: MOM 30ML SUSPENSION UDC PO PRN (10:31)
[2018-05-28] MEDS: ASCORBIC ACID 500 MG TAB PO SCH (10:31)
[2018-05-28] MEDS: SODIUM CHLORIDE 1 GM TAB PO SCH ×2 (10:33→20:44)
[2018-05-28] MEDS: METOPROLOL SUCC (TopROL XL) 50MG **XL** TAB PO SCH (10:33)
[2018-05-28] MEDS: THIAMINE 100 MG TAB PO SCH (10:34)
[2018-05-28] MEDS: POTASSIUM CHLORIDE 10 MEQ SR TABLET PO SCH (10:34)
[2018-05-28] MEDS: VITAMIN D 1,000 INTERNATIONAL UNITS TABLET PO SCH (10:34)
[2018-05-28] MEDS: PANTOPRAZOLE 40MG TAB (PROTONIX) PO SCH (10:34)
[2018-05-28] MEDS: FERROUS GLUCONATE 324 MG TAB PO SCH ×2 (10:34→20:46)
[2018-05-28] MEDS: GABAPENTIN 300 MG CAP PO SCH ×3 (10:34→20:46)
[2018-05-28] MEDS: ASPIRIN 81 MG ENTERIC TAB PO SCH (10:34)
[2018-05-28] MEDS: LISINOPRIL 10 MG TAB PO SCH (10:36)
[2018-05-28] MEDS: ENOXAPARIN 40 MG/0.4 ML SYRINGE (J1650) SC SCH (10:37)
[2018-05-28] MEDS: oxyCODONE 5MG TAB PO SCH ×3 (10:43→20:45)
--- NOTE | 2018-05-28 13:48 | IPNPDOC ---
Date Seen The patient was seen on 05/28/18. Progress Note HPI: 62year old M S/P T11-S1 posterior arthrodesis L1-S1 laminectomies05/08/[address] Liu [facility]. Transfered to the care of MRAIEL Zamora [facility], 05/13/18. The pt states he is feeling stronger. States he is eating and drinking. OOB today with PT. States has had constipation but bowel care is ordered today. Denies any weakness, fatigue, Headache, Chest Pain, Shortness of breath, cough, palpitations, abdominal pain, N/V/D or changes in bowel or bladder habits. PMHx: cervical stenosis Lumbar stenosis Thoracolumbar scoliosis Chronic neck pain/LE pain/Chronic pain GERD HTN PSHX: 05/08/18 T11-S1 posterior arthrodesis L1-S1 laminectomies. PE: GEN: 62yoM, appears stated age. No acute distress. Alert and oriented x 3. HEENT: Normocephalic, atraumatic. Sclera are nonicteric. Conjunctiva without injection. Moist mucous membranes.Pharynx pink and moist. CHEST: Regular rate and rhythm, +S1, +S2 LUNGS: Clear to auscultation bilaterally. No wheezes, rales, or rhonchi. ABD: soft, NT, non-distended BS present. . EXT: Pulses 2+ bilaterally dorsalis pedis and radial. No lower extremity edema appreciated. SKIN: [place], dry, warm. No rashes. NEURO: Alert and oriented x 3. No focal deficits appreciated. UC neg 05/14/18 FOB neg. U/S LEs No evidence for deep venous thrombosis. Electronically Signed by Adryan Cole MD 05/15/2018 05:36 A A&P: 62year old M S/P T11-S1 posterior arthrodesis L1-S1 laminectomies05/08/[address] Liu [facility]. Transferred to the care of MARIEL Zamora [facility], 05/13/18. 1. S/P T11-S1 posterior arthrodesis L1-S1 laminectomies05/08/[address] Liu [facility] PT/OT/ST as per MARIEL Zamora. Pain control as per MARIEL Zamora. Bowel care as per MARIEL Zamora. DVT prophylaxis as per MARIEL Zamora. Lovenox SQ. Outpt F/U with Dr Liu. Wearing TLSO brace as per Dr Liu. UC neg LE U/S neg. 2. S/P Influenza. Afebrile. BC x 2 neg. CXR NAD Completed Tamiflu 75 mg BID x 5 days. Nebs Robitussin as needed. Tylenol as needed. Repeat respiratory panel negative 05/25/18. 3. HTN. Toprol XL 100 mg po daily. Lisinopril 10 mg daily. Pt restarted ASA 81 mg daily 05/22/18. 4. Hypokalemia. Supplement ordered. BMP in AM. 4. Anemia. Hgb 9.3 Fe studies, B12, folate completed. FOB neg. Fe supplement BID added. Monitor need for transfusion. Monitor CBC 5. Hyponatremia. Na 135. Continues to trend upward. Ser Osm/Ur Osm/Ur Cr/NA/TSH/Mag noted. BMP in AM. 6. GERD. Protonix. VS, I&O, 24H, Fishbone Vital Signs/I&O Vital Signs Date Time Temp Pulse Resp B/P (MAP) Pulse Ox O2 Delivery O2 Flow Rate FiO2 05/28/18 10:43 18 05/28/18 10:36 112/68 05/28/18 10:33 80 05/28/18 05:28 98.7 97 05/27/18 06:00 Room Air I&O- Last 24 Hours up to 6 AM 05/28/18 06:00 Intake Total 1245 ml Output Total 930 ml Balance 315 ml Laboratory Data 24H LABS Laboratory Tests 2 05/28/18 06:56: Nucleated Red Blood Cells % (auto) 0.0, Anion Gap 7L, Glomerular Filtration Rate > 60.0, Blood Urea Nitrogen 17, Creatinine 0.51L, Sodium Level 135L, Potassium Level 4.2, Chloride Level 104, Carbon Dioxide Level 24, Calcium Level 8.6L CBC/BMP Laboratory Tests 05/28/18 06:56 Red Blood Count 3.26 L, Mean Corpuscular Volume 86.8, Mean Corpuscular Hemoglobin 28.5, Mean Corpuscular Hemoglobin Concent 32.9, Red Cell Distribution Width 13.3, Calcium Level 8.6 L Microbiology Microbiology 05/18/18 Blood Culture - Final, Complete NO GROWTH AFTER 5 DAYS 05/18/18 Blood Culture - Final, Complete NO GROWTH AFTER 5 DAYS 05/25/18 Respiratory Virus Panel (PCR) (T[facility]ZIN) - Final, Complete 05/18/18 Respiratory Virus Panel (PCR) (TENZIN) - Final, Complete Influenza A H1-2009 Olga Loja May 28, 2018 13:48
[2018-05-28 16:43] VITALS: BP 116/62
[2018-05-28 20:00] VITALS: BP 121/62
[2018-05-28] MEDS: LIDOCAINE 5% (LIDODERM) PATCH TD SCH (20:46)
[2018-05-28] MEDS: diphenhydrAMINE 25 MG CAP PO PRN (22:41)
[2018-05-28] MEDS: traZODone 50 MG TAB PO PRN (22:41)
[2018-05-29] MEDS: oxyCODONE 5MG TAB PO PRN (03:42)
[2018-05-29 06:00] VITALS: BP 101/62
[2018-05-29 06:20] LABS: BASO % 0.3 % (0.0-1.0); EOS # 0.1 10^3/uL (0.0-0.50); EOS % 1.9 % (0.0-3.0); HEMATOCRIT 30.2 % (42.0-52.0); HEMOGLOBIN 9.5 g/dl (13.5-17.5); LYMPH # 0.7 10^3/uL (1.5-4.5); LYMPH % 9.9 % (24.0-44.0); MEAN CORPUSCULAR HEMOGLOBIN 28.2 pg (27.0-33.0); MEAN CORPUSCULAR HGB CONC 31.5 g/dl (32.0-36.5); MEAN CORPUSCULAR VOLUME 89.6 fl (80.0-96.0); MONO # 0.9 10^3/uL (0.0-0.8); MONO % 12.9 % (0.0-5.0); NEUTROPHILS # 5.4 10^3/uL (1.8-7.7); NEUTROPHILS % 73.8 % (36.0-66.0); PLATELET COUNT, AUTOMATED 390 10^3/uL (150-450); RED BLOOD COUNT 3.37 10^6/uL (4.30-6.10); WHITE BLOOD COUNT 7.3 10^3/uL (4.0-10.0)
[2018-05-29 06:45] LABS: BLOOD UREA NITROGEN 21 MG/DL (7-18); CALCIUM LEVEL 8.5 MG/DL (8.8-10.2); CARBON DIOXIDE LEVEL 26 MEQ/L (21-32); CHLORIDE LEVEL 103 MEQ/L (98-107); GLOMERULAR FILTRATION RATE > 60.0 (>49); GLUCOSE, FASTING 96 MG/DL (70-100); POTASSIUM SERUM 4.7 MEQ/L (3.5-5.1); SODIUM LEVEL 136 MEQ/L (136-145)
[2018-05-29] MEDS: **NOTE PATIENT COMMENT** MISC XX SCH (09:00)
[2018-05-29] MEDS: ENOXAPARIN 40 MG/0.4 ML SYRINGE (J1650) SC SCH (09:17)
[2018-05-29] MEDS: FERROUS GLUCONATE 324 MG TAB PO SCH (09:17)
[2018-05-29] MEDS: GABAPENTIN 300 MG CAP PO SCH ×3 (09:17→20:33)
[2018-05-29] MEDS: SODIUM CHLORIDE 1 GM TAB PO SCH ×2 (09:18→20:33)
[2018-05-29] MEDS: PANTOPRAZOLE 40MG TAB (PROTONIX) PO SCH (09:18)
[2018-05-29] MEDS: POTASSIUM CHLORIDE 10 MEQ SR TABLET PO SCH (09:19)
[2018-05-29] MEDS: ASCORBIC ACID 500 MG TAB PO SCH (09:19)
[2018-05-29] MEDS: LISINOPRIL 10 MG TAB PO SCH (09:19)
[2018-05-29] MEDS: METOPROLOL SUCC (TopROL XL) 50MG **XL** TAB PO SCH (09:20)
[2018-05-29] MEDS: oxyCODONE 5MG TAB PO SCH ×3 (09:20→20:34)
[2018-05-29] MEDS: THIAMINE 100 MG TAB PO SCH (09:21)
[2018-05-29] MEDS: ASPIRIN 81 MG ENTERIC TAB PO SCH (09:21)
[2018-05-29] MEDS: VITAMIN D 1,000 INTERNATIONAL UNITS TABLET PO SCH (09:21)
[2018-05-29] MEDS: MOM 30ML SUSPENSION UDC PO PRN (09:25)
--- NOTE | 2018-05-29 13:16 | IPNPDOC ---
Date Seen The patient was seen on 05/29/18. Progress Note HPI: 62year old M S/P T11-S1 posterior arthrodesis L1-S1 laminectomies05/08/[address] Liu Temo [facility]. Transfered to the care of MARIEL Zamora [facility], 05/13/18. OOB today with therapy. Pain controlled, no voiced concerns. Denies any weakness, fatigue, Headache, Chest Pain, Shortness of breath, cough, palpitations, abdominal pain, N/V/D or changes in bowel or bladder habits. PMHx: cervical stenosis Lumbar stenosis Thoracolumbar scoliosis Chronic neck pain/LE pain/Chronic pain GERD HTN PSHX: 05/08/18 T11-S1 posterior arthrodesis L1-S1 laminectomies. PE: GEN: 62yoM, appears stated age. No acute distress. Alert and oriented x 3. HEENT: Normocephalic, atraumatic. Sclera are nonicteric. Conjunctiva without injection. Moist mucous membranes.Pharynx pink and moist. CHEST: Regular rate and rhythm, +S1, +S2 LUNGS: Clear to auscultation bilaterally. No wheezes, rales, or rhonchi. ABD: soft, NT, non-distended BS present. EXT: No lower extremity edema appreciated. SKIN: No rashes. NEURO: Alert and oriented x 3. No focal deficits appreciated. UC neg 05/14/18 FOB neg. U/S LEs No evidence for deep venous thrombosis. Electronically Signed by Adryan Cole MD 05/15/2018 05:36 A A&P: 62year old M S/P T11-S1 posterior arthrodesis L1-S1 laminectomies05/08/[address] Alexa Plascencia [facility]. Transferred to the care of MARIEL Zamora [facility], 05/13/18. 1. S/P T11-S1 posterior arthrodesis L1-S1 laminectomies05/08/[address] Liu Malone [facility] PT/OT/ST as per MARIEL Zamora. Pain control as per MARIEL Zamora. Bowel care as per MARIEL Zamora. DVT prophylaxis as per MARIEL Zamora. Lovenox SQ. Outpt F/U with Dr Liu. Wearing TLSO brace as per Dr Liu. UC neg LE U/S neg. 2. S/P Influenza. Afebrile. BC x 2 neg. CXR NAD Completed Tamiflu 75 mg BID x 5 days. Nebs Robitussin as needed. Tylenol as needed. Repeat respiratory panel negative 05/25/18. 3. HTN. Toprol XL 100 mg po daily. Lisinopril 10 mg daily. Pt restarted ASA 81 mg daily 05/22/18. 4. Hypokalemia. Resolved. po Supplement daily. 4. Anemia. Hgb 9.5 Fe studies, B12, folate completed. FOB neg. Fe supplement BID added. Monitor need for transfusion. Monitor CBC 5. Hyponatremia. Na 136 this AM Ser Osm/Ur Osm/Ur Cr/NA/TSH/Mag noted. BMP 06/01/18. 6. GERD. Protonix. VS, I&O, 24H, Fishbone Vital Signs/I&O Vital Signs Date Time Temp Pulse Resp B/P (MAP) Pulse Ox O2 Delivery O2 Flow Rate FiO2 05/29/18 09:50 16 16.0 05/29/18 09:20 73 111/64 05/29/18 06:00 98.1 97 05/27/18 06:00 Room Air I&O- Last 24 Hours up to 6 AM 05/29/18 06:00 Intake Total 480 ml Output Total 850 ml Balance -370 ml Laboratory Data 24H LABS Laboratory Tests 2 05/29/18 05:42: Immature Granulocyte % (Auto) 1.2, White Blood Count 7.3, Red Blood Count 3.37L, Hemoglobin 9.5L, Hematocrit 30.2L, Mean Corpuscular Volume 89.6, Mean Corpuscular Hemoglobin 28.2, Mean Corpuscular Hemoglobin Concent 31.5L, Red Cell Distribution Width 13.4, Platelet Count 390, Neutrophils (%) (Auto) 73.8H, Lymphocytes (%) (Auto) 9.9L, Monocytes (%) (Auto) 12.9H, Eosinophils (%) (Auto) 1.9, Basophils (%) (Auto) 0.3, Neutrophils # (Auto) 5.4, Lymphocytes # (Auto) 0.7L, Monocytes # (Auto) 0.9H, Eosinophils # (Auto) 0.1, Basophils # (Auto) 0.0, Nucleated Red Blood Cells % (auto) 0.0, Anion Gap 7L, Glomerular Filtration Rate > 60.0, Blood Urea Nitrogen 21H, Creatinine 0.60L, Sodium Level 136, Potassium Level 4.7, Chloride Level 103, Carbon Dioxide Level 26, Calcium Level 8.5L CBC/BMP Laboratory Tests 05/29/18 05:42 Red Blood Count 3.37 L, Mean Corpuscular Volume 89.6, Mean Corpuscular Hemoglobin 28.2, Mean Corpuscular Hemoglobin Concent 31.5 L, Red Cell Distribution Width 13.4, Neutrophils (%) (Auto) 73.8 H, Lymphocytes (%) (Auto) 9.9 L, Monocytes (%) (Auto) 12.9 H, Eosinophils (%) (Auto) 1.9, Basophils (%) (Auto) 0.3, Neutrophils # (Auto) 5.4, Lymphocytes # (Auto) 0.7 L, Monocytes # (Auto) 0.9 H, Eosinophils # (Auto) 0.1, Basophils # (Auto) 0.0, Calcium Level 8.5 L Microbiology Microbiology 05/25/18 Respiratory Virus Panel (PCR) (TENZIN) - Final, Complete Olga Loja May 29, 2018 13:16
[2018-05-29 14:00] VITALS: BP 112/58
--- NOTE | 2018-05-29 16:01 | IPNPDOC ---
PM&R Progress Note DATE OF SERVICE: May 29, 2018 [employer] Window [employer]er Progress Note Subjective: Patient reports he was in the gym today and felt he had gas, went to the bathroom but had difficulty pushing out his stool. He would like to resume bowel meds. REVIEW OF SYSTEMS: The following is a completed review of systems and has been reviewed. Review of systems otherwise unremarkable. PAIN: self reports non-radiating low back pain EYES: Negative for recent vision changes EARS, NOSE, & THROAT: Denied rhinorrhea, throat pain or dysphagia CARDIOVASCULAR: denies chest pain or palpitations PULMONARY: Negative. Denies shortness of breath GASTROINTESTINAL: Negative for diarrhea or constipation GENITOURINARY: Negative for dysuria or hematuria or incontinence MUSCULOSKELETAL: bilateral LE weakness L>R and Left shoulder pain and arm weakness NEUROLOGICAL: LLE paralysis HEMATOLOGICAL: Negative for bruising SKIN: scab on bottom of left foot, lumbosacral sutures, otherwise intact. PSYCHIATRIC: Unremarkable All other review of systems found to be negative. PHYSICAL EXAMINATION: VITAL SIGNS: Please see below. GENERAL: Pleasant and cooperative. No acute distress. HEENT: PERRL. Extraocular movements intact. Clear conjunctiva, poor dentition CARDIOVASCULAR: Regular rate and rhythm. No murmurs, rubs, or gallops LUNGS: Clear to auscultation bilaterally. No wheezes. No rhonchi ABDOMEN: Soft, nontender, nondistended. Positive bowel sounds. Normal active bowel sounds NEUROLOGICAL: Alert and oriented times three. Cranial nerves II through XII grossly intact. Sensation to light touch in C-T2 dermatomes and L2-S2 dermatomes, and S3-5 regions to light touch +bilateral Babinski, 1+/4 patellar reflexes bilat 3+ bicep and brachioradialis reflexes EXTREMITIES: 5-\5 strength right upper extremities. 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 PLAN: 1. rehab: PT/OT, assess for DME, working on [id number], able to performed wheelchair mobility well while in room, recovering from flu, will start working in gym today as unable to tolerate wearing mask outside of the room prio 2. Ortho: s/p T11-S1 arthrodesis with laminectomy in setting of spinal stenosis with significant RLE paresis, TLSO brace when out of bed, Spinal precautions, monitor for myelopathy, at this time does have brisk reflexes in UE and +Babinksi most likely from cervical stenosis- no incontinence -will reschedule outpatient follow-up with surgeon for 06-04-18 at 1:20 pm for possible suture removal, delayed from 05/21 given +flu -Left shoulder likely weak from cervical stenosis and impingement- will encourage ROM to prevent adhesive capsulitis - TLSO brace adjusted 05/15/18 3. Cardio: pmh HTN: continue Metoprolol and adjust prn- medicine consulted, restarted ASA on 05-22-18 4 GI: patient reports constipation will get KUB, and add back COlace and Senna, continue Protonix for ppx 5. : monitor PVRs, admission UA and Ucx negative 6. Skin: dressing in place, change prn soil/drainage, multipodus boots while in bed to prevent heel cord contractures and heel ulcers 7. DVT ppx: continue Lovenox, admission dopplers negative 9. Pain: OXycodone and Tylenol, will add gabapentin 10. Electrolytes: Hyponatremia-resolved, will try to taper down salt tabs to 1mg BID and monitor 11. ID: fever resolved, w +Influenza, started on Tamiflu, s/p IVF monitor vitals -CXR negative for infiltrate -blood cultures sent, negative growth -s/p 7 days course Keflex for possible incision site infection, change dressing daily or prn soil- no leukocytosis 12. Pain: continue standing oxycodone and prn, continue gabapentin 13. Dispo: 06-04-18, progressing towards goals given recent flu- will plan for 06/11 instead to allow more time for stair training Allergies Coded Allergies: No Known Drug Allergy (Verified Allergy, Unknown, 05/13/18) Vital Signs Vital Signs Date Time Temp Pulse Resp B/P (MAP) Pulse Ox O2 Delivery O2 Flow Rate FiO2 05/29/18 15:26 16 05/29/18 14:00 98.8 83 112/58 (76) 98 05/29/18 09:50 16.0 05/27/18 06:00 Room Air Laboratory Data CBC/BMP Laboratory Tests 05/29/18 05:42 Red Blood Count 3.37 L, Mean Corpuscular Volume 89.6, Mean Corpuscular Hemoglobin 28.2, Mean Corpuscular Hemoglobin Concent 31.5 L, Red Cell Distribution Width 13.4, Neutrophils (%) (Auto) 73.8 H, Lymphocytes (%) (Auto) 9.9 L, Monocytes (%) (Auto) 12.9 H, Eosinophils (%) (Auto) 1.9, Basophils (%) (Auto) 0.3, Neutrophils # (Auto) 5.4, Lymphocytes # (Auto) 0.7 L, Monocytes # (Auto) 0.9 H, Eosinophils # (Auto) 0.1, Basophils # (Auto) 0.0, Calcium Level 8.5 L Labs 24H Laboratory Tests 2 05/29/18 05:42: Immature Granulocyte % (Auto) 1.2, White Blood Count 7.3, Red Blood Count 3.37L, Hemoglobin 9.5L, Hematocrit 30.2L, Mean Corpuscular Volume 89.6, Mean Corpuscular Hemoglobin 28.2, Mean Corpuscular Hemoglobin Concent 31.5L, Red Cell Distribution Width 13.4, Platelet Count 390, Neutrophils (%) (Auto) 73.8H, Lymphocytes (%) (Auto) 9.9L, Monocytes (%) (Auto) 12.9H, Eosinophils (%) (Auto) 1.9, Basophils (%) (Auto) 0.3, Neutrophils # (Auto) 5.4, Lymphocytes # (Auto) 0.7L, Monocytes # (Auto) 0.9H, Eosinophils # (Auto) 0.1, Basophils # (Auto) 0.0, Nucleated Red Blood Cells % (auto) 0.0, Anion Gap 7L, Glomerular Filtration Rate > 60.0, Blood Urea Nitrogen 21H, Creatinine 0.60L, Sodium Level 136, Potassium Level 4.7, Chloride Level 103, Carbon Dioxide Level 26, Calcium Level 8.5L Microbiology Microbiology 05/25/18 Respiratory Virus Panel (PCR) (TENZIN) - Final, Complete Current Medications Current Medications Current Medications Acetaminophen (Tylenol Tab) 650 mg Q4HP PRN PO fever/MILD PAIN (PS 1-4) Last administered on 05/27/18at 01:46; Start 05/13/18 at 17:45 Albuterol/ Ipratropium (Duoneb (Ipr 0.5mg/Alb 2.5mg)) 3 ml RQID NEB Last administered on 05/27/18at 16:14; Start 05/22/18 at 16:00; Stop 05/28/18 at 13:42; Status DC Ascorbic Acid (Vitamin C) 1,000 mg DAILY PO Last administered on 05/29/18 09:19; Start 05/14/18 at 09:00 Aspirin (Ecotrin) 81 mg DAILY PO Last administered on 05/29/18at 09:21; Start 05/22/18 at 09:00 Bisacodyl (Dulcolax Suppository) 10 mg ASDIRECTED PRN TN IF NO BOWEL MOVEMENT; Start 05/14/18 at 18:00 Bisacodyl (Dulcolax Suppository) 10 mg DAILYPRN PRN TN CONSTIPATION; Start 05/13/18 at 17:45 Cephalexin Monohydrate (Keflex) 500 mg QID PO Last administered on 05/25/18at 08:44; Start 05/18/18 at 13:00; Stop 05/25/18 at 10:36; Status DC Dextromethorphan (ROBITUSSIN PEDIATRIC COUGH SYRUP 7.5mg/5ml) 5 ml Q8HP PRN PO COUGH Last administered on 05/26/18at 22:36; Start 05/20/18 at 23:30 Diphenhydramine HCl (Benadryl) 25 mg QHSP PRN PO INSOMNIA Last administered on 05/28/18at 22:41; Start 05/21/18 at 20:00 Docusate Sodium (Colace) 100 mg BID PO Last administered on 05/19/18at 21:05; Start 05/13/18 at 21:00; Stop 05/20/18 at 16:41; Status DC Docusate Sodium (Colace) 100 mg BID PO ; Start 05/29/18 at 21:00 Enoxaparin Sodium (Lovenox) 40 mg DAILY SC Last administered on 05/29/18at 09:17; Start 05/14/18 at 09:00 Ferrous Gluconate (Fergon) 324 mg BID PO Last administered on 05/29/18at 09:17; Start 05/15/18 at 21:00; Stop 05/29/18 at 15:44; Status DC Gabapentin (Neurontin) 100 mg TID PO ; Start 05/20/18 at 21:00; Stop 05/20/18 at 21:00; Status DC Gabapentin (Neurontin) 200 mg TID PO ; Start 05/13/18 at 21:00; Stop 05/13/18 at 21:00; Status DC Gabapentin (Neurontin) 300 mg TID PO Last administered on 05/29/18at 15:26; Start 05/20/18 at 21:00 Home Med (Med Rec Complete!) ASDIRECTED XX ; Start 05/13/18 at 18:15; Stop 05/13/18 at 18:16; Status DC Lidocaine (Lidoderm Patch) 1 patch DAILY@2100 TD Last administered on 05/28/18at 20:46; Start 05/14/18 at 21:00 Lisinopril (Prinivil) 10 mg DAILY PO Last administered on 05/29/18 09:19; Start 05/15/18 at 11:00 Magnesium Hydroxide (Milk Of Magnesia) 30 ml DAILYPRN PRN PO CONSTIPATION Last administered on 05/29/18at 09:25; Start 05/13/18 at 17:45 Metoprolol Succinate (TopROL XL) 50 mg DAILY PO Last administered on 05/14/18at 09:39; Start 05/14/18 at 09:00; Stop 05/14/18 at 11:18; Status DC Metoprolol Succinate (TopROL XL) 100 mg DAILY PO Last administered on 05/29/18at 09:20; Start 05/15/18 at 09:00 Miscellaneous (Unresolved Clarification Entry) SEE LABEL COMMENTS DAILY XX ; Start 05/20/18 at 09:00; Stop 05/20/18 at 11:16; Status DC Miscellaneous (Unresolved Clarification Entry) SEE LABEL COMMENTS DAILY XX ; Start 05/24/18 at 09:00; Stop 05/25/18 at 10:36; Status DC Non-Formulary Medication ( See Comment Field Below ) REMOVE LIDODERM PATCH DAILY XX Last administered on 05/29/18 09:00; Start 05/15/18 at 09:00 Ondansetron HCl (Zofran) 4 mg Q6HP PRN PO NAUSEA; Start 05/13/18 at 17:45 Oseltamivir Phosphate (Tamiflu) 75 mg BID PO Last administered on 05/24/18at 08:58; Start 05/18/18 at 14:15; Stop 05/24/18 at 14:17; Status DC Oxycodone HCl (Roxicodone, Oxyir) 5 mg Q4HP PRN PO PAIN 4-7 Last administered on 05/29/18at 03:42; Start 05/13/18 at 17:45 Oxycodone HCl (Roxicodone, Oxyir) 10 mg Q4HP PRN PO SEVERE PAIN (PS 8-10) Last administered on 05/14/18at 09:54; Start 05/13/18 at 17:45; Stop 05/14/18 at 11:16; Status DC Oxycodone HCl (Roxicodone, Oxyir) 10 mg TID PO Last administered on 05/29/18 15:26; Start 05/14/18 at 16:00 Pantoprazole Sodium (Protonix) 40 mg DAILY PO Last administered on 05/29/18 09:18; Start 05/14/18 at 09:00 Potassium Chloride (Micro-K Extencaps) 20 meq DAILY PO Last administered on 05/29/18 09:19; Start 05/15/18 at 09:00 Senna (Senokot) 1 tab QHS PO Last administered on 05/13/18at 20:43; Start 05/13/18 at 21:00; Stop 05/15/18 at 17:28; Status DC Senna (Senokot) 2 tab QHS PO Last administered on 05/19/18at 21:04; Start 05/15/18 at 21:00; Stop 05/20/18 at 16:41; Status DC Sodium Chloride (Sodium Chloride) 1 gm BID PO Last administered on 05/16/18at 08:38; Start 05/15/18 at 11:00; Stop 05/16/18 at 15:45; Status DC Sodium Chloride (Sodium Chloride) 1 gm BID PO ; Start 05/29/18 at 21:00 Sodium Chloride (Sodium Chloride) 1 gm TID PO Last administered on 05/20/18 09:23; Start 05/16/18 at 16:00; Stop 05/20/18 at 11:13; Status DC Sodium Chloride (Sodium Chloride) 2 gm BID PO Last administered on 05/29/18 09:18; Start 05/20/18 at 21:00; Stop 05/29/18 at 15:45; Status DC Thiamine HCl (Thiamine HCl) 100 mg DAILY PO Last administered on 05/29/18 09:21; Start 05/14/18 at 09:00 Trazodone HCl (Desyrel) 50 mg QHSP PRN PO INSOMNIA Last administered on 05/28/18at 22:41; Start 05/13/18 at 17:45 Vitamin D (Vitamin D) 1,000 units DAILY PO Last administered on 05/29/18 09:21; Start 05/14/18 at 09:00 BRUCE CARDOZA MD May 29, 2018 16:01
--- NOTE | 2018-05-29 16:32 | REP ---
Clinical: Fecal retention. Abdominal distension. Technique: Two supine views of the abdomen and pelvis. Findings: Diffuse air-filled loops of small and large bowel are appreciated without evidence for obstruction or perforation. No organomegaly. Skeletal structures demonstrate advanced degenerative changes. Vascular calcifications noted. Evidence for prior right hip replacement. Impression: Moderately distended air filled loops of small and large bowel raise the possibility of ileus. Electronically Signed by Adryan Cole MD 05/29/2018 04:23 P
[2018-05-29 20:00] VITALS: BP 117/57
[2018-05-29] MEDS: LIDOCAINE 5% (LIDODERM) PATCH TD SCH (20:33)
[2018-05-29] MEDS: DICYCLOMINE 10 MG CAP PO SCH (20:33)
[2018-05-29] MEDS: traZODone 50 MG TAB PO PRN (20:39)
[2018-05-29] MEDS: DEXTROMETHORPHAN 60MG/10ML SUSP 90ML BTL(DELSYM) PO PRN (20:42)
[2018-05-29] MEDS ORDERED: DOCUSATE SODIUM 100 MG CAP PO SCH (21:00)
[2018-05-30] MEDS: ACETAMINOPHEN TAB 650MG DOSE (2X325MG) PO PRN ×3 (00:01→22:11)
[2018-05-30] MEDS: diphenhydrAMINE 25 MG CAP PO PRN ×2 (00:01→22:11)
[2018-05-30] MEDS: DICYCLOMINE 10 MG CAP PO SCH ×2 (00:01→06:30)
[2018-05-30 06:00] VITALS: BP 138/63
[2018-05-30] MEDS: oxyCODONE 5MG TAB PO PRN (06:30)
[2018-05-30 07:08] LABS: HEMATOCRIT 30.1 % (42.0-52.0); HEMOGLOBIN 9.6 g/dl (13.5-17.5); MEAN CORPUSCULAR HEMOGLOBIN 28.5 pg (27.0-33.0); MEAN CORPUSCULAR HGB CONC 31.9 g/dl (32.0-36.5); MEAN CORPUSCULAR VOLUME 89.3 fl (80.0-96.0); PLATELET COUNT, AUTOMATED 369 10^3/uL (150-450); RED BLOOD COUNT 3.37 10^6/uL (4.30-6.10); WHITE BLOOD COUNT 8.3 10^3/uL (4.0-10.0)
[2018-05-30 07:35] LABS: BLOOD UREA NITROGEN 16 MG/DL (7-18); CALCIUM LEVEL 8.4 MG/DL (8.8-10.2); CARBON DIOXIDE LEVEL 25 MEQ/L (21-32); CHLORIDE LEVEL 101 MEQ/L (98-107); CREATININE FOR GFR 0.59 MG/DL (0.70-1.30); GLOMERULAR FILTRATION RATE > 60.0 (>49); GLUCOSE, FASTING 108 MG/DL (70-100); POTASSIUM SERUM 4.4 MEQ/L (3.5-5.1); SODIUM LEVEL 135 MEQ/L (136-145)
--- NOTE | 2018-05-30 08:56 | IPNPDOC ---
Date Seen The patient was seen on 05/30/18. Progress Note SUBJECTIVE: Patient is a 62-year-old male who was seen and examined this morning. he has no medical complaints this morning. Just have constipation, xray showed illeus, the patient in not really ambulatory due to injury. Dr. Murphy was consulted for the ileus. Continues to work with PT OT as scheduled by ARU. Denies fevers chills headache chest pain shortness of breath cough palpitation abdominal pain nausea vomiting diarrhea. he denies any abdominal pain or discomfort. Tolerating meals with no problem as well. OBJECTIVE PHYSICAL EXAMINATION: VITAL SIGNS: Please see below. GENERAL: Pleasant 62 year old male, alert and oriented 3 does not appear in acute distress HEENT: Normocephalic, atraumatic. Sclera nonicteric. Moist mucous membrane cervical collar in place. CARDIOVASCULAR: Regular rate and rhythm normal S1-S2 sounds no audible murmurs gallops RESPIRATORY: Clear to auscultate bilaterally. No wheezing rales or rhonchi ABDOMINAL: Positive bowel sounds in all 4 quadrants of round soft nontender nondistended. EXTREMITIES: No lower extremity edema or tenderness appreciated in the calves NEUROLOGICAL: Alert and oriented 3 normal speech no focal deficits noted LABORATORY DATA, IMAGING STUDIES, MICROBIOLOGY: Please see below. DVT prophylaxis ordered?: Yes Lovenox ASSESSMENT AND PLAN: 62year old M S/P T11-S1 posterior arthrodesis L1-S1 laminectomies05/08/[address] Liu [facility]. Transfered to the care of Dr Paniagua, [facility], 05/13/18. PROBLEMS: s/p [id number] arthrodesis L1-S1 laminectomies -Management per ARU -on 05/08/[address] Liu [facility] Bowel Illeus: -Abdomen xray: ileus in the smal and large bowel -surgery consulted - tolerating meals -started Senokot S BID+Miralax - Mag Citratex1 150ml Now S/P Influenza. -Positive 05/18/2018 -s/p Tamiflu x 5 day -c/w Nebs, Robitussin, Tylenol prn -Repeat respiratory panel negative 05/25/18. HTN c/w Toprol XL and Lisinopril 10 mg daily. Primary prevention for CVD and CRC -c/w ASA 81 mg Anemia of chronic disease -Stable -Iron studies: Low iron, TIBC, transferrin and normal ferritin -Fecal occult blood negative -c/w Fe supplement Hyponatremia Euvolemia -05/15/18Plasma osmolarity 264 (Low <280) -05/17/18 urine osmolality 336 (high >100) urine sodium 76 -Was started on sodium chloride supplementation on 05/15/2018 Unsure if this is skewing the numbers. Kyle not believe the patient has SIADH, he is not on any thiazide, does not have renal failure, and does not have adrenal insufficiency -Can consider stopping the sodium chloride supplementation in 24-48 hours and see if the patient sodium chloride stays within normal limits -refer to primary team. GERD. c/w Protonix VS, I&O, 24H, Fishbone Vital Signs/I&O Vital Signs Date Time Temp Pulse Resp B/P (MAP) Pulse Ox O2 Delivery O2 Flow Rate FiO2 05/30/18 06:30 18 05/29/18 20:00 98.3 79 117/57 (77) 99 05/29/18 09:50 16.0 05/27/18 06:00 Room Air I&O- Last 24 Hours up to 6 AM 05/30/18 06:00 Intake Total 720 ml Output Total 700 ml Balance 20 ml Laboratory Data Microbiology Microbiology 05/25/18 Respiratory Virus Panel (PCR) (TENZIN) - Final, Complete GME ATTESTATION GME ATTESTATION My faculty preceptor for this patient encounter was physically present during the encounter and was fully available. All aspects of the patient interview, examination, medical decision making process, and medical care plan development were reviewed and approved by the faculty preceptor. The faculty preceptor is aware and concurs with the plan as stated in the body of this note and will attest to such by his/her cosignature. ATTENDING NOTE I have both independently examined this patient as well as reviewed the note I have discussed in detail the findings and plan of treatment as documented in the note. I will continue to follow the patient and offer further guidance to the patients care as necessary during this hospital stay. MEENA Lyons MD, DO May 30, 2018 06:46 ELIAZAR JURADO MD May 30, 2018 11:00
[2018-05-30] MEDS ORDERED: MAGNESIUM CITRATE 300 ML BTL PO ONE (09:00)
[2018-05-30] MEDS ORDERED: SENOKOT S TAB PO SCH (09:00)
[2018-05-30] MEDS: POTASSIUM CHLORIDE 10 MEQ SR TABLET PO SCH (09:59)
[2018-05-30] MEDS: MIRALAX *UNIT DOSE* 17GM PACKET PO SCH (09:59)
[2018-05-30] MEDS: ASCORBIC ACID 500 MG TAB PO SCH (09:59)
[2018-05-30] MEDS: VITAMIN D 1,000 INTERNATIONAL UNITS TABLET PO SCH (09:59)
[2018-05-30] MEDS: GABAPENTIN 300 MG CAP PO SCH ×3 (09:59→21:08)
[2018-05-30] MEDS: SODIUM CHLORIDE 1 GM TAB PO SCH ×2 (10:00→21:08)
[2018-05-30] MEDS: ASPIRIN 81 MG ENTERIC TAB PO SCH (10:00)
[2018-05-30] MEDS: THIAMINE 100 MG TAB PO SCH (10:00)
[2018-05-30] MEDS: PANTOPRAZOLE 40MG TAB (PROTONIX) PO SCH (10:01)
[2018-05-30] MEDS: SENOKOT S TAB PO SCH ×2 (10:01→21:08)
[2018-05-30] MEDS: ENOXAPARIN 40 MG/0.4 ML SYRINGE (J1650) SC SCH (10:02)
[2018-05-30] MEDS: oxyCODONE 5MG TAB PO SCH ×3 (10:02→21:09)
[2018-05-30] MEDS: METOPROLOL SUCC (TopROL XL) 50MG **XL** TAB PO SCH (10:03)
[2018-05-30] MEDS: **NOTE PATIENT COMMENT** MISC XX SCH (10:03)
[2018-05-30] MEDS: LISINOPRIL 10 MG TAB PO SCH (10:03)
[2018-05-30] MEDS: SENNA 8.6 MG TAB (SENOKOT) PO SCH (12:53)
[2018-05-30 14:00] VITALS: BP 138/61
[2018-05-30 20:00] VITALS: BP 129/64
[2018-05-30] MEDS: DEXTROMETHORPHAN 60MG/10ML SUSP 90ML BTL(DELSYM) PO PRN (21:08)
[2018-05-30] MEDS: traZODone 50 MG TAB PO PRN (21:08)
[2018-05-30] MEDS: LIDOCAINE 5% (LIDODERM) PATCH TD SCH (21:09)
[2018-05-31] MEDS: ACETAMINOPHEN TAB 650MG DOSE (2X325MG) PO PRN (03:07)
[2018-05-31] MEDS: oxyCODONE 5MG TAB PO PRN (03:07)
[2018-05-31 06:00] VITALS: BP 123/70
[2018-05-31] MEDS: VITAMIN D 1,000 INTERNATIONAL UNITS TABLET PO SCH (08:58)
[2018-05-31] MEDS: PANTOPRAZOLE 40MG TAB (PROTONIX) PO SCH (08:58)
[2018-05-31] MEDS: SENOKOT S TAB PO SCH ×2 (08:58→21:39)
[2018-05-31] MEDS: ENOXAPARIN 40 MG/0.4 ML SYRINGE (J1650) SC SCH (08:58)
[2018-05-31] MEDS: MIRALAX *UNIT DOSE* 17GM PACKET PO SCH (08:58)
[2018-05-31] MEDS: ASCORBIC ACID 500 MG TAB PO SCH (08:59)
[2018-05-31] MEDS: THIAMINE 100 MG TAB PO SCH (08:59)
[2018-05-31] MEDS: oxyCODONE 5MG TAB PO SCH ×3 (09:00→21:38)
[2018-05-31] MEDS: **NOTE PATIENT COMMENT** MISC XX SCH (09:00)
[2018-05-31] MEDS: POTASSIUM CHLORIDE 10 MEQ SR TABLET PO SCH (09:00)
[2018-05-31] MEDS: ASPIRIN 81 MG ENTERIC TAB PO SCH (09:00)
[2018-05-31] MEDS: SODIUM CHLORIDE 1 GM TAB PO SCH ×2 (09:00→21:39)
[2018-05-31] MEDS: LISINOPRIL 10 MG TAB PO SCH (09:01)
[2018-05-31] MEDS: METOPROLOL SUCC (TopROL XL) 50MG **XL** TAB PO SCH (09:01)
[2018-05-31] MEDS: MOM 30ML SUSPENSION UDC PO PRN (09:01)
[2018-05-31] MEDS: GABAPENTIN 300 MG CAP PO SCH ×3 (09:01→21:39)
[2018-05-31] MEDS: SENNA 8.6 MG TAB (SENOKOT) PO SCH (13:18)
[2018-05-31 14:00] VITALS: BP 127/61
[2018-05-31 21:00] VITALS: BP 138/72
--- NOTE | 2018-05-31 21:02 | IPN ---
DATE: 05/31/2018 The patient is seen and examined. No acute events overnight. Denies any chest pain, pressure or discomfort. Denies any fevers or chills. No significant pain reported. VITAL SIGNS: Temperature 97.9, pulse 78, respirations 18, blood pressure 123/70, pulse oximetry 98% on room air. LABORATORY DATA: WBC 8.3, hemoglobin and hematocrit 9.6/30.1, platelets 369. Chemistry: Sodium 135, potassium 4.4, chloride 101, bicarbonate 25, BUN 15, creatinine 0.59. PHYSICAL EXAMINATION: GENERAL: The patient is alert, comfortable, pleasant, in no acute distress. HEENT: Normocephalic, atraumatic. Moist mucous membranes. NECK: Supple. CARDIAC: Regular S1, S2. PULMONARY: Bilaterally clear. ABDOMEN: Soft, nontender. EXTREMITIES: No clubbing, cyanosis. Slight left lower extremity dependent edema. Dorsalis pedis and posterior tibialis pulses intact. ASSESSMENT AND PLAN: This is a 62-year-old male patient with underlying medical history of cervical stenosis, lumbar stenosis, thoracolumbar scoliosis, chronic neck pain, gastroesophageal reflux disease (GERD), hypertension, status post T11 to S1 arthrodesis with L1 to S1 laminectomy on 05/08/2018 at [facility] and transferred to acute rehabilitation for further care. 1. Status post T11 to S1 posterior arthrodesis, L1 through S1 laminectomy on 05/08/2018 at [facility]. Physical therapy (PT), occupational therapy (OT), speech and swallow as per acute rehabilitation provider. Pain regimen as per acute rehabilitation provider. Bowel care has been ordered. 2. Deep vein thrombosis (DVT) prophylaxis. The patient is on Lovenox subcutaneously. 3. Bracing as per acute rehabilitation provider and orthopedic service at [facility]. 4. Influenza. The patient was treated with Tamiflu. Supportive care. 5. Hypertension. Continue current medications. The patient is on baby aspirin at this point as well. Continue 81 mg of aspirin, Lisinopril and metoprolol. 6. Constipation. Bowel regimen as prescribed. 7. Hypokalemia, resolved. 8. Anemia. Monitor hemoglobin and hematocrit. 9. Hyponatremia, euvolemia. We will consider stopping sodium chloride tablet and monitor the patient's sodium. 10. Gastroesophageal reflux disease (GERD). Continue proton pump inhibitor. 11. Deep vein thrombosis (DVT) prophylaxis. Lovenox subcutaneously as per acute rehabilitation provider. DISPOSITION: As per acute rehabilitation provider.
[2018-05-31] MEDS: LIDOCAINE 5% (LIDODERM) PATCH TD SCH (21:37)
[2018-05-31] MEDS: DEXTROMETHORPHAN 60MG/10ML SUSP 90ML BTL(DELSYM) PO PRN (21:44)
[2018-05-31] MEDS: traZODone 50 MG TAB PO PRN (21:44)
[2018-06-01 06:00] VITALS: BP 125/67
[2018-06-01 07:44] LABS: BLOOD UREA NITROGEN 12 MG/DL (7-18); CALCIUM LEVEL 8.6 MG/DL (8.8-10.2); CARBON DIOXIDE LEVEL 26 MEQ/L (21-32); CHLORIDE LEVEL 101 MEQ/L (98-107); CREATININE FOR GFR 0.48 MG/DL (0.70-1.30); GLOMERULAR FILTRATION RATE > 60.0 (>49); GLUCOSE, FASTING 103 MG/DL (70-100); POTASSIUM SERUM 4.6 MEQ/L (3.5-5.1); SODIUM LEVEL 135 MEQ/L (136-145)
[2018-06-01] MEDS: ASCORBIC ACID 500 MG TAB PO SCH (08:34)
[2018-06-01] MEDS: ENOXAPARIN 40 MG/0.4 ML SYRINGE (J1650) SC SCH (08:34)
[2018-06-01] MEDS: PANTOPRAZOLE 40MG TAB (PROTONIX) PO SCH (08:35)
[2018-06-01] MEDS: oxyCODONE 5MG TAB PO SCH ×3 (08:35→21:20)
[2018-06-01] MEDS: LISINOPRIL 10 MG TAB PO SCH (08:36)
[2018-06-01] MEDS: THIAMINE 100 MG TAB PO SCH (08:36)
[2018-06-01] MEDS: SODIUM CHLORIDE 1 GM TAB PO SCH ×2 (08:36→21:20)
[2018-06-01] MEDS: ASPIRIN 81 MG ENTERIC TAB PO SCH (08:36)
[2018-06-01] MEDS: GABAPENTIN 300 MG CAP PO SCH ×3 (08:36→21:18)
[2018-06-01] MEDS: VITAMIN D 1,000 INTERNATIONAL UNITS TABLET PO SCH (08:36)
[2018-06-01] MEDS: POTASSIUM CHLORIDE 10 MEQ SR TABLET PO SCH (08:37)
[2018-06-01] MEDS: METOPROLOL SUCC (TopROL XL) 50MG **XL** TAB PO SCH (08:37)
[2018-06-01] MEDS: MIRALAX *UNIT DOSE* 17GM PACKET PO SCH (08:40)
[2018-06-01] MEDS: SENOKOT S TAB PO SCH ×2 (08:40→21:20)
[2018-06-01] MEDS: **NOTE PATIENT COMMENT** MISC XX SCH (08:41)
--- NOTE | 2018-06-01 11:21 | IPNPDOC ---
Date Seen The patient was seen on 06/01/18. Progress Note HPI: 62year old M S/P T11-S1 posterior arthrodesis L1-S1 laminectomies05/08/[address] Liu [facility]. Transfered to the care of [facility], 05/13/18. OOB today with therapy. States constipation resolved. Denies any weakness, fatigue, Headache, Chest Pain, Shortness of breath, cough, palpitations, abdominal pain, N/V/D or changes in bowel or bladder habits. PMHx: cervical stenosis Lumbar stenosis Thoracolumbar scoliosis Chronic neck pain/LE pain/Chronic pain GERD HTN PSHX: 05/08/18 T11-S1 posterior arthrodesis L1-S1 laminectomies. PE: GEN: 62yoM, appears stated age. No acute distress. Alert and oriented x 3. HEENT: Normocephalic, atraumatic. Sclera are nonicteric. Conjunctiva without injection. Moist mucous membranes.Pharynx pink and moist. CHEST: Regular rate and rhythm, +S1, +S2 LUNGS: Clear to auscultation bilaterally. No wheezes, rales, or rhonchi. ABD: soft, NT, non-distended BS present. EXT: No lower extremity edema appreciated. SKIN: No rashes. NEURO: Alert and oriented x 3. No focal deficits appreciated. UC neg 05/14/18 FOB neg. U/S LEs No evidence for deep venous thrombosis. Electronically Signed by Adryan Cole MD 05/15/2018 05:36 A A&P: 62year old M S/P T11-S1 posterior arthrodesis L1-S1 laminectomies05/08/[address] Liu [facility]. Transferred to the care of [facility] Zam[facility], 05/13/18. 1. S/P T11-S1 posterior arthrodesis L1-S1 laminectomies05/08/[address] Liu [facility] PT/OT/ST as per [facility]. Pain control as per [facility]. Bowel care as per [facility]. DVT prophylaxis as per [facility]. Lovenox SQ. Outpt F/U with Dr Liu. Wearing TLSO brace as per Dr Liu. UC neg LE U/S neg. 2. S/P Influenza. Afebrile. BC x 2 neg. CXR NAD Completed Tamiflu 75 mg BID x 5 days. Nebs Robitussin as needed. Tylenol as needed. Repeat respiratory panel negative 05/25/18. 3. HTN. Toprol XL 100 mg po daily. Lisinopril 10 mg daily. Pt restarted ASA 81 mg daily 05/22/18. 4. Hypokalemia. Resolved. po Supplement daily. 4. Anemia. Hgb 9.6 Fe studies, B12, folate completed. FOB neg. Fe supplement BID added. Monitor need for transfusion. Monitor CBC 5. Hyponatremia. Na 135 this AM, trend 135-136. Ser Osm/Ur Osm/Ur Cr/NA/TSH/Mag noted. BMP 06/02/18. 6. GERD. Protonix. VS, I&O, 24H, Fishbone Vital Signs/I&O Vital Signs Date Time Temp Pulse Resp B/P (MAP) Pulse Ox O2 Delivery O2 Flow Rate FiO2 06/01/18 09:05 18 06/01/18 08:37 86 125/67 06/01/18 06:00 98.9 96 05/29/18 09:50 16.0 05/27/18 06:00 Room Air I&O- Last 24 Hours up to 6 AM 06/01/18 06:00 Intake Total 960 ml Output Total 950 ml Balance 10 ml Laboratory Data 24H LABS Laboratory Tests 2 06/01/18 06:53: Anion Gap 8, Glomerular Filtration Rate > 60.0, Blood Urea Nitrogen 12, Creatinine 0.48L, Sodium Level 135L, Potassium Level 4.6, Chloride Level 101, Carbon Dioxide Level 26, Calcium Level 8.6L CBC/BMP Laboratory Tests 06/01/18 06:53 Calcium Level 8.6 L Microbiology Microbiology 05/25/18 Respiratory Virus Panel (PCR) (TENZIN) - Final, Complete Olga Loja Jun 01, 2018 11:21
[2018-06-01] MEDS: SENNA 8.6 MG TAB (SENOKOT) PO SCH (12:00)
[2018-06-01 14:45] VITALS: BP 106/55
--- NOTE | 2018-06-01 18:15 | IPNPDOC ---
PM&R Progress Note DATE OF SERVICE: Jun 01, 2018 Wave Guide Assembler Progress Note Wave Guide Assembler Progress Note Subjective: Patient reports he feels much better after having had a bowel movement yesterday following the tap water enema. He reports some return in strength in his left eg and was encouraged to work on stairs in therapy. REVIEW OF SYSTEMS: The following is a completed review of systems and has been reviewed. Review of systems otherwise unremarkable. PAIN: self reports non-radiating low back pain EYES: Negative for recent vision changes EARS, NOSE, & THROAT: Denied rhinorrhea, throat pain or dysphagia CARDIOVASCULAR: denies chest pain or palpitations PULMONARY: Negative. Denies shortness of breath GASTROINTESTINAL: Negative for diarrhea or constipation GENITOURINARY: Negative for dysuria or hematuria or incontinence MUSCULOSKELETAL: bilateral LE weakness L>R and Left shoulder pain and arm weakness NEUROLOGICAL: LLE paralysis HEMATOLOGICAL: Negative for bruising SKIN: scab on bottom of left foot, lumbosacral sutures, otherwise intact. PSYCHIATRIC: Unremarkable All other review of systems found to be negative. PHYSICAL EXAMINATION: VITAL SIGNS: Please see below. GENERAL: Pleasant and cooperative. No acute distress. HEENT: PERRL. Extraocular movements intact. Clear conjunctiva, poor dentition CARDIOVASCULAR: Regular rate and rhythm. No murmurs, rubs, or gallops LUNGS: Clear to auscultation bilaterally. No wheezes. No rhonchi ABDOMEN: Soft, nontender, nondistended. Positive bowel sounds. Normal active bowel sounds NEUROLOGICAL: Alert and oriented times three. Cranial nerves II through XII bethanie sly intact. Sensation to light touch in C-T2 dermatomes and L2-S2 dermatomes, and S3-5 regions to light touch +bilateral Babinski, 1+/4 patellar reflexes bilat 3+ bicep and brachioradialis reflexes EXTREMITIES: 5-\\5 strength right upper extremities. 3/5 left shoulder abduction pain limiting, and unable to fully test elbow extension given limited ROM, education and development manager 5/5 and elbow flexors 5-/5 3+/5 right hip flexors and knee extensors, 2+/5 ankle DF and EHL 2/5 left hip flexors and 3/5 knee extensors, 1/5 left ankle DF and EHL Left shoulder: +Neers and decreased internal rotation SKIN: lumbosacral incision c/d/i, no sacral ulcers, scab on bottom of left foot Lateral truncal ecchymosis ASSESSMENT:62-year-old M with past medical history of chronic low back pain who presents status post T11-S1 arthrodesis and laminectomy. PLAN: 1. rehab: PT/OT, assess for DME, working on [id number], able to performed wheelchair mobility well while in room,s/p flu, goal to work on stairs in PT 2. Ortho: s/p T11-S1 arthrodesis with laminectomy in setting of spinal stenosis with significant RLE paresis, TLSO brace when out of bed, Spinal precautions, monitor for myelopathy, at this time does have brisk reflexes in UE and +Babinksi most likely from cervical stenosis- -will reschedule outpatient follow-up with surgeon for 06-04-18 at 1:20 pm for possible suture removal at [place] , delayed from 05/21 given +flu -Left shoulder likely weak from cervical stenosis and impingement- will encourage ROM to prevent adhesive capsulitis - TLSO brace adjusted 05/15/18 3. Cardio: pmh HTN: continue Metoprolol and adjust prn- medicine consulted, restarted ASA on 05-22-18 4 GI: patient reports constipation with leakage, KUB 05/29/18 showed, "Moderately distended air filled loops of small and large bowel raise the possibility of ileus." discussed case with surgeon insulation nozzleman who recommended addition of bowel meds and to monitor clinical symptoms- s/p tap water enema 05/31/18 with improvem ent in constipation- continue bowel regimen 5. : monitor PVRs, admission UA and Ucx negative 6. Skin: dressing in place, change prn soil/drainage, multipodus boots while in bed to prevent heel cord contractures and heel ulcers 7. DVT ppx: continue Lovenox, admission dopplers negative 9. Pain: OXycodone and Tylenol, continue gabapentin 10. Electrolytes: Hyponatremia-resolved, will try to taper down salt tabs to 1mg BID and monitor 11. ID: fever resolved, w +Influenza, started on Tamiflu, s/p IVF monitor vitals -CXR negative for infiltrate -blood cultures sent, negative growth -s/p 7 days course Keflex for possible incision site infection, change dressing daily or prn soil- no leukocytosis 12. Pain: continue standing oxycodone and prn, continue gabapentin 13. Dispo: Will request more time as patient given recent flu and will plan for 06/11 instead to allow more time for stair training Allergies Coded Allergies: No Known Drug Allergy (Verified Allergy, Unknown, 05/13/18) Vital Signs Vital Signs Date Time Temp Pulse Resp B/P (MAP) Pulse Ox O2 Delivery O2 Flow Rate FiO2 06/01/18 16:26 16 06/01/18 14:45 99.7 66 106/55 (72) 100 05/29/18 09:50 16.0 05/27/18 06:00 Room Air Laboratory Data CBC/BMP Laboratory Tests 06/01/18 06:53 Calcium Level 8.6 L Labs 24H Laboratory Tests 2 06/01/18 06:53: Anion Gap 8, Glomerular Filtration Rate > 60.0, Blood Urea Nitrogen 12, Creatinine 0.48L, Sodium Level 135L, Potassium Level 4.6, Chloride Level 101, Carbon Dioxide Level 26, Calcium Level 8.6L Microbiology Microbiology 05/25/18 Respiratory Virus Panel (PCR) ([facility]) - Final, Complete Current Medications Current Medications Current Medications Acetaminophen (Tylenol Tab) 650 mg Q4HP PRN PO fever/MILD PAIN (PS 1-4) Last administered on 05/31/18at 03:07; Start 05/13/18 at 17:45 Albuterol/ Ipratropium (Duoneb (Ipr 0.5mg/Alb 2.5mg)) 3 ml RQID NEB Last administered on 05/27/18at 16:14; Start 05/22/18 at 16:00; Stop 05/28/18 at 13:42; Status DC Ascorbic Acid (Vitamin C) 1,000 mg DAILY PO Last administered on 06/01/18at 08:34; Start 05/14/18 at 09:00 Aspirin (Ecotrin) 81 mg DAILY PO Last administered on 06/01/18at 08:36; Start 05/22/18 at 09:00 Bisacodyl (Dulcolax Suppository) 10 mg ASDIRECTED PRN HI IF NO BOWEL MOVEMENT; Start 05/14/18 at 18:00; Stop 05/30/18 at 08:45; Status DC Bisacodyl (Dulcolax Suppository) 10 mg DAILYPRN PRN HI CONSTIPATION; Start 05/13/18 at 17:45; Stop 05/30/18 at 08:45; Status DC Cephalexin Monohydrate (Keflex) 500 mg QID PO Last administered on 05/25/18at 08:44; Start 05/18/18 at 13:00; Stop 05/25/18 at 10:36; Status DC Dextromethorphan (Delsym Af 12hr Susp) 30 mg Q12HP PRN PO COUGH Last administered on 05/31/18at 21:44; Start 05/29/18 at 19:45 Dextromethorphan (ROBITUSSIN PEDIATRIC COUGH SYRUP 7.5mg/5ml) 5 ml Q8HP PRN PO COUGH Last administered on 05/26/18at 22:36; Start 05/20/18 at 23:30; Stop 05/29/18 at 19:39; Status DC Dicyclomine HCl (Bentyl) 10 mg Q6H PO Last administered on 05/30/18at 06:30; Start 05/29/18 at 18:00; Stop 05/30/18 at 08:45; Status DC Diphenhydramine HCl (Benadryl) 25 mg QHSP PRN PO INSOMNIA Last administered on 05/30/18at 22:11; Start 05/21/18 at 20:00 Docusate Sodium (Colace) 100 mg BID PO Last administered on 05/19/18at 21:05; Start 05/13/18 at 21:00; Stop 05/20/18 at 16:41; Status DC Docusate Sodium (Colace) 100 mg BID PO Last administered on 05/29/18at 20:33; Start 05/29/18 at 21:00; Stop 05/30/18 at 08:45; Status DC Enoxaparin Sodium (Lovenox) 40 mg DAILY SC Last administered on 06/01/18at 08:34; Start 05/14/18 at 09:00 Ferrous Gluconate (Fergon) 324 mg BID PO Last administered on 05/29/18at 09:17; Start 05/15/18 at 21:00; Stop 05/29/18 at 15:44; Status DC Gabapentin (Neurontin) 100 mg TID PO ; Start 05/20/18 at 21:00; Stop 05/20/18 at 21:00; Status DC Gabapentin (Neurontin) 200 mg TID PO ; Start 05/13/18 at 21:00; Stop 05/13/18 at 21:00; Status DC Gabapentin (Neurontin) 300 mg TID PO Last administered on 06/01/18at 15:56; Start 05/20/18 at 21:00 Home Med (Med Rec Complete!) ASDIRECTED XX ; Start 05/13/18 at 18:15; Stop 05/13/18 at 18:16; Status DC Lidocaine (Lidoderm Patch) 1 patch DAILY@2100 TD Last administered on 05/31/18 21:37; Start 05/14/18 at 21:00 Lisinopril (Prinivil) 10 mg DAILY PO Last administered on 06/01/18 08:36; Start 05/15/18 at 11:00 Magnesium Hydroxide (Milk Of Magnesia) 30 ml DAILYPRN PRN PO CONSTIPATION Last administered on 05/31/18 09:01; Start 05/13/18 at 17:45 Metoprolol Succinate (TopROL XL) 50 mg DAILY PO Last administered on 05/14/18at 09:39; Start 05/14/18 at 09:00; Stop 05/14/18 at 11:18; Status DC Metoprolol Succinate (TopROL XL) 100 mg DAILY PO Last administered on 06/01/18 08:37; Start 05/15/18 at 09:00 Miscellaneous (Unresolved Clarification Entry) SEE LABEL COMMENTS DAILY XX ; Start 05/20/18 at 09:00; Stop 05/20/18 at 11:16; Status DC Miscellaneous (Unresolved Clarification Entry) SEE LABEL COMMENTS DAILY XX ; Start 05/24/18 at 09:00; Stop 05/25/18 at 10:36; Status DC Miscellaneous (Unresolved Clarification Entry) SEE LABEL COMMENTS DAILY XX ; Start 05/31/18 at 09:00; Stop 06/01/18 at 07:06; Status DC Miscellaneous (Unresolved Clarification Entry) SEE LABEL COMMENTS DAILY XX Last administered on 06/01/18 08:41; Start 06/01/18 at 09:00; Stop 06/01/18 at 11:29; Status DC Non-Formulary Medication ( See Comment Field Below ) REMOVE LIDODERM PATCH DAILY XX Last administered on 06/01/18 08:41; Start 05/15/18 at 09:00 Ondansetron HCl (Zofran) 4 mg Q6HP PRN PO NAUSEA; Start 05/13/18 at 17:45 Oseltamivir Phosphate (Tamiflu) 75 mg BID PO Last administered on 05/24/18 08:58; Start 05/18/18 at 14:15; Stop 05/24/18 at 14:17; Status DC Oxycodone HCl (Roxicodone, Oxyir) 5 mg Q4HP PRN PO PAIN 4-7 Last administered on 05/31/18 03:07; Start 05/13/18 at 17:45 Oxycodone HCl (Roxicodone, Oxyir) 10 mg Q4HP PRN PO SEVERE PAIN (PS 8-10) Last administered on 05/14/18 09:54; Start 05/13/18 at 17:45; Stop 05/14/18 at 11:16; Status DC Oxycodone HCl (Roxicodone, Oxyir) 10 mg TID PO Last administered on 06/01/18 15:56; Start 05/14/18 at 16:00 Pantoprazole Sodium (Protonix) 40 mg DAILY PO Last administered on 06/01/18 08:35; Start 05/14/18 at 09:00 Polyethylene Glycol (Miralax) 1 pkt DAILY PO Last administered on 05/31/18 08:58; Start 05/30/18 at 09:00; Stop 05/31/18 at 14:31; Status DC Polyethylene Glycol (Miralax) 2 pkt DAILY PO Last administered on 06/01/18 08:40; Start 06/01/18 at 09:00 Potassium Chloride (Micro-K Extencaps) 20 meq DAILY PO Last administered on 06/01/18 08:37; Start 05/15/18 at 09:00 Senna (Senokot) 1 tab DAILY@1200 PO Last administered on 05/31/18 13:18; Start 05/30/18 at 12:00 Senna (Senokot) 1 tab QHS PO Last administered on 05/13/18 20:43; Start 05/13/18 at 21:00; Stop 05/15/18 at 17:28; Status DC Senna (Senokot) 2 tab QHS PO Last administered on 05/19/18 21:04; Start 05/15/18 at 21:00; Stop 05/20/18 at 16:41; Status DC Senna/Docusate Sodium (Senokot S) 1 tab BID PO Last administered on 05/31/18 08:58; Start 05/30/18 at 09:00; Stop 05/31/18 at 14:31; Status DC Senna/Docusate Sodium (Senokot S) 2 tab BID PO ; Start 05/30/18 at 09:00; Stop 05/30/18 at 09:00; Status DC Senna/Docusate Sodium (Senokot S) 2 tab BID PO Last administered on 05/31/18 21:39; Start 05/31/18 at 21:00 Sodium Chloride (Sodium Chloride) 1 gm BID PO Last administered on 05/16/18 08:38; Start 05/15/18 at 11:00; Stop 05/16/18 at 15:45; Status DC Sodium Chloride (Sodium Chloride) 1 gm BID PO Last administered on 06/01/18 08:36; Start 05/29/18 at 21:00 Sodium Chloride (Sodium Chloride) 1 gm TID PO Last administered on 05/20/18 09:23; Start 05/16/18 at 16:00; Stop 05/20/18 at 11:13; Status DC Sodium Chloride (Sodium Chloride) 2 gm BID PO Last administered on 05/29/18 09:18; Start 05/20/18 at 21:00; Stop 05/29/18 at 15:45; Status DC Thiamine HCl (Thiamine HCl) 100 mg DAILY PO Last administered on 06/01/18 08:36; Start 05/14/18 at 09:00 Trazodone HCl (Desyrel) 50 mg QHSP PRN PO INSOMNIA Last administered on 05/31/18 21:44; Start 05/13/18 at 17:45 Vitamin D (Vitamin D) 1,000 units DAILY PO Last administered on 06/01/18 08:36; Start 05/14/18 at 09:00 BRUCE CARDOZA MD Jun 01, 2018 18:15
[2018-06-01 20:00] VITALS: BP 129/67
[2018-06-01] MEDS: traZODone 50 MG TAB PO PRN (21:18)
[2018-06-01] MEDS: DEXTROMETHORPHAN 60MG/10ML SUSP 90ML BTL(DELSYM) PO PRN (21:20)
[2018-06-01] MEDS: LIDOCAINE 5% (LIDODERM) PATCH TD SCH (21:20)
[2018-06-01] MEDS: diphenhydrAMINE 25 MG CAP PO PRN (23:44)
[2018-06-02 06:00] VITALS: BP 124/62
[2018-06-02 07:06] LABS: BLOOD UREA NITROGEN 13 MG/DL (7-18); CALCIUM LEVEL 8.6 MG/DL (8.8-10.2); CARBON DIOXIDE LEVEL 24 MEQ/L (21-32); CHLORIDE LEVEL 102 MEQ/L (98-107); GLOMERULAR FILTRATION RATE > 60.0 (>49); GLUCOSE, FASTING 102 MG/DL (70-100); POTASSIUM SERUM 4.2 MEQ/L (3.5-5.1); SODIUM LEVEL 133 MEQ/L (136-145)
[2018-06-02] MEDS: VITAMIN D 1,000 INTERNATIONAL UNITS TABLET PO SCH (08:00)
[2018-06-02] MEDS: POTASSIUM CHLORIDE 10 MEQ SR TABLET PO SCH (08:00)
[2018-06-02] MEDS: METOPROLOL SUCC (TopROL XL) 50MG **XL** TAB PO SCH (08:00)
[2018-06-02] MEDS: THIAMINE 100 MG TAB PO SCH (08:00)
[2018-06-02] MEDS: GABAPENTIN 300 MG CAP PO SCH ×3 (08:00→21:34)
[2018-06-02] MEDS: SODIUM CHLORIDE 1 GM TAB PO SCH ×2 (08:00→21:34)
[2018-06-02] MEDS: MIRALAX *UNIT DOSE* 17GM PACKET PO SCH (08:00)
[2018-06-02] MEDS: LISINOPRIL 10 MG TAB PO SCH (08:00)
[2018-06-02] MEDS: ASCORBIC ACID 500 MG TAB PO SCH (08:00)
[2018-06-02] MEDS: oxyCODONE 5MG TAB PO SCH ×3 (08:00→21:34)
[2018-06-02] MEDS: **NOTE PATIENT COMMENT** MISC XX SCH (08:00)
[2018-06-02] MEDS: PANTOPRAZOLE 40MG TAB (PROTONIX) PO SCH (08:00)
[2018-06-02] MEDS: ENOXAPARIN 40 MG/0.4 ML SYRINGE (J1650) SC SCH (08:00)
[2018-06-02] MEDS: SENOKOT S TAB PO SCH ×2 (08:00→21:35)
[2018-06-02] MEDS: ASPIRIN 81 MG ENTERIC TAB PO SCH (08:00)
[2018-06-02] MEDS: SENNA 8.6 MG TAB (SENOKOT) PO SCH (11:56)
--- NOTE | 2018-06-02 11:59 | IPNPDOC ---
Date Seen The patient was seen on 06/02/18. Progress Note HPI: 62year old M S/P T11-S1 posterior arthrodesis L1-S1 laminectomies05/08/[address] Liu [facility]. Transfered to the care of MARIEL Zamora [facility], 05/13/18. Pt currently working with therapy. States constipation resolved. Denies any abdominal pain. Denies any weakness, fatigue, Headache, Chest Pain, Shortness of breath, cough, palpitations, N/V/D or changes in bowel or bladder habits. PMHx: cervical stenosis Lumbar stenosis Thoracolumbar scoliosis Chronic neck pain/LE pain/Chronic pain GERD HTN PSHX: 05/08/18 T11-S1 posterior arthrodesis L1-S1 laminectomies. PE: GEN: 62yoM, appears stated age. No acute distress. Alert and oriented x 3. HEENT: Normocephalic, atraumatic. Sclera are nonicteric. Conjunctiva without injection. Moist mucous membranes. CHEST: Regular rate and rhythm, +S1, +S2 LUNGS: Clear to auscultation bilaterally. No wheezes, rales, or rhonchi. ABD: soft, NT, non-distended BS present. EXT: No lower extremity edema appreciated. SKIN: No rashes. NEURO: Alert and oriented x 3. No focal deficits appreciated. UC neg 05/14/18 FOB neg. U/S LEs No evidence for deep venous thrombosis. Electronically Signed by Adryan Cole MD 05/15/2018 05:36 A A&P: 62year old M S/P T11-S1 posterior arthrodesis L1-S1 laminectomies05/08/[address] Liu Temo [facility]. Transferred to the care of MARIEL Zamora [facility], 05/13/18. 1. S/P T11-S1 posterior arthrodesis L1-S1 laminectomies05/08/[address] Liu Temo [facility] PT/OT/ST as per MARIEL Zamora. Pain control as per MARIEL Zamora. Bowel care as per MARIEL Zamora. DVT prophylaxis as per MARIEL Zamora. Lovenox SQ. Outpt F/U with Dr Liu. Wearing TLSO brace as per Dr Liu. UC neg LE U/S neg. 2. S/P Influenza. Afebrile. BC x 2 neg. CXR NAD Completed Tamiflu 75 mg BID x 5 days. Nebs Robitussin as needed. Tylenol as needed. Repeat respiratory panel negative 05/25/18. 3. HTN. Toprol XL 100 mg po daily. Lisinopril 10 mg daily. Pt restarted ASA 81 mg daily 05/22/18. 4. Hypokalemia. Resolved. po Supplement daily. 4. Anemia. Hgb 9.6 Fe studies, B12, folate completed. FOB neg. Fe supplement BID added. Monitor need for transfusion. Monitor CBC 5. Hyponatremia. Na 133 this AM, trend 135-136. Ser Osm/Ur Osm/Ur Cr/NA/TSH/Mag noted. Fluid restriction added 06/02/[address] [place]. BMP 06/04/18. 6. GERD. Protonix. VS, I&O, 24H, Fishbone Vital Signs/I&O Vital Signs Date Time Temp Pulse Resp B/P (MAP) Pulse Ox O2 Delivery O2 Flow Rate FiO2 06/02/18 08:30 18 06/02/18 08:00 124/62 06/02/18 08:00 75 06/02/18 06:00 99.6 98 05/29/18 09:50 16.0 05/27/18 06:00 Room Air I&O- Last 24 Hours up to 6 AM 06/02/18 06:00 Intake Total 990 ml Output Total 650 ml Balance 340 ml Laboratory Data 24H LABS Laboratory Tests 2 06/02/18 06:39: Anion Gap 7L, Glomerular Filtration Rate > 60.0, Blood Urea Nitrogen 13, Creatinine 0.50L, Sodium Level 133L, Potassium Level 4.2, Chloride Level 102, Carbon Dioxide Level 24, Calcium Level 8.6L CBC/BMP Laboratory Tests 06/02/18 06:39 Calcium Level 8.6 L Microbiology Microbiology 05/25/18 Respiratory Virus Panel (PCR) ([facility]) - Final, Complete Olga Loja Jun 02, 2018 11:59
[2018-06-02 14:00] VITALS: BP 134/80
[2018-06-02 19:57] VITALS: BP 122/58
[2018-06-02] MEDS: LIDOCAINE 5% (LIDODERM) PATCH TD SCH (21:35)
[2018-06-02] MEDS: traZODone 50 MG TAB PO PRN (21:44)
[2018-06-02] MEDS: diphenhydrAMINE 25 MG CAP PO PRN (21:44)
[2018-06-03 05:30] VITALS: BP 126/63
[2018-06-03] MEDS: SODIUM CHLORIDE 1 GM TAB PO SCH ×2 (07:57→21:58)
[2018-06-03] MEDS: oxyCODONE 5MG TAB PO SCH ×3 (07:57→21:58)
[2018-06-03] MEDS: VITAMIN D 1,000 INTERNATIONAL UNITS TABLET PO SCH (07:58)
[2018-06-03] MEDS: LISINOPRIL 10 MG TAB PO SCH (07:58)
[2018-06-03] MEDS: THIAMINE 100 MG TAB PO SCH (07:58)
[2018-06-03] MEDS: GABAPENTIN 300 MG CAP PO SCH ×3 (07:58→21:58)
[2018-06-03] MEDS: ASCORBIC ACID 500 MG TAB PO SCH (07:58)
[2018-06-03] MEDS: METOPROLOL SUCC (TopROL XL) 50MG **XL** TAB PO SCH (07:58)
[2018-06-03] MEDS: PANTOPRAZOLE 40MG TAB (PROTONIX) PO SCH (07:58)
[2018-06-03] MEDS: POTASSIUM CHLORIDE 10 MEQ SR TABLET PO SCH (07:58)
[2018-06-03] MEDS: ASPIRIN 81 MG ENTERIC TAB PO SCH (07:58)
[2018-06-03] MEDS: MIRALAX *UNIT DOSE* 17GM PACKET PO SCH (07:59)
[2018-06-03] MEDS: **NOTE PATIENT COMMENT** MISC XX SCH (07:59)
[2018-06-03] MEDS: SENOKOT S TAB PO SCH ×2 (07:59→21:00)
[2018-06-03] MEDS: ENOXAPARIN 40 MG/0.4 ML SYRINGE (J1650) SC SCH (07:59)
--- NOTE | 2018-06-03 09:47 | IPNPDOC ---
PM&R Progress Note DATE OF SERVICE: Jun 02, 2018 [employer] Conveyor Operator Progress Note Subjective: Patient reports he is continuing to have loose stools, but feels much better following the enema. He is wondering how he will be transported to his neurosurgery appointment. REVIEW OF SYSTEMS: The following is a completed review of systems and has been reviewed. Review of systems otherwise unremarkable. PAIN: self reports non-radiating low back pain EYES: Negative for recent vision changes EARS, NOSE, & THROAT: Denied rhinorrhea, throat pain or dysphagia CARDIOVASCULAR: denies chest pain or palpitations PULMONARY: Negative. Denies shortness of breath GASTROINTESTINAL: Negative for diarrhea or constipation GENITOURINARY: Negative for dysuria or hematuria or incontinence MUSCULOSKELETAL: bilateral LE weakness L>R and Left shoulder pain and arm w eakness NEUROLOGICAL: LLE paralysis HEMATOLOGICAL: Negative for bruising SKIN: scab on bottom of left foot, lumbosacral sutures, otherwise intact. PSYCHIATRIC: Unremarkable All other review of systems found to be negative. PHYSICAL EXAMINATION: VITAL SIGNS: Please see below. GENERAL: Pleasant and cooperative. No acute distress. HEENT: PERRL. Extraocular movements intact. Clear conjunctiva, poor dentition CARDIOVASCULAR: Regular rate and rhythm. No murmurs, rubs, or gallops LUNGS: Clear to auscultation bilaterally. No wheezes. No rhonchi ABDOMEN: Soft, nontender, nondistended. Positive bowel sounds. Normal active bowel sounds NEUROLOGICAL: Alert and oriented times three. Cranial nerves II through XII grossly intact. Sensation to light touch in C-T2 dermatomes and L2-S2 dermatomes, and S3-5 regions to light touch +bilateral Babinski, 1+/4 patellar reflexes bilat 3+ bicep and brachioradialis reflexes EXTREMITIES: 5-\\5 strength right upper extremities. 3/5 left shoulder abduction pain limiting, and unable to fully test elbow extension given limited ROM, tinsmith helper 5/5 and elbow flexors 5-/5 3+/5 right hip flexors and knee extensors, 2+/5 ankle DF and EHL 2/5 left hip flexors and 3/5 knee extensors, 1/5 left ankle DF and EHL Left shoulder: +Neers and decreased internal rotation SKIN: lumbosacral incision c/d/i, no sacral ulcers, scab on bottom of left foot Lateral truncal ecchymosis ASSESSMENT:62-year-old M with past medical history of chronic low back pain who presents status post T11-S1 arthrodesis and laminectomy. PLAN: 1. rehab: PT/OT, assess for DME, working on [id number], able to performed wheelchair mobility well while in room,s/p flu, goal to work on stairs in PT 2. Ortho: s/p T11-S1 arthrodesis with laminectomy in setting of spinal stenosis with significant RLE paresis, TLSO brace when out of bed, Spinal precautions, monitor for myelopathy, at this time does have brisk reflexes in UE and +Babinksi most likely from cervical stenosis- -will reschedule outpatient follow-up with surgeon for 06-04-18 at 1:20 pm for possible suture removal at [facility] with neurosurgeon Dr. Liu, delayed from 05/21 given +flu -Left shoulder likely weak from cervical stenosis and impingement- will encourage ROM to prevent adhesive capsulitis - TLSO brace adjusted 05/15/18 3. Cardio: pmh HTN: continue Metoprolol and adjust prn- medicine consulted, restarted ASA on 05-22-18 4 GI: patient reports constipation with leakage, KUB 05/29/18 showed, "Moderately distended air filled loops of small and large bowel raise the possibility of ileus." discussed case with surgeon environmental resource specialist who recommended addition of bowel meds and to monitor clinical symptoms- s/p tap water enema 05/31/18 with improvement in constipation- continue bowel regimen 5. : monitor PVRs, admission UA and Ucx negative 6. Skin: dressing in place, change prn soil/drainage, multipodus boots while in bed to prevent heel cord contractures and heel ulcers 7. DVT ppx: continue Lovenox, admission dopplers negative 9. Pain: OXycodone and Tylenol, continue gabapentin 10. Electrolytes: Hyponatremia-resolved, will try to taper down salt tabs to 1mg BID and monitor- 133 today will start fluid restriction 1L 11. ID: fever resolved, w +Influenza, started on Tamiflu, s/p IVF monitor vitals -CXR negative for infiltrate -blood cultures sent, negative growth -s/p 7 days course Keflex for possible incision site infection,using silver- optifoam and healing well, no leukocytosis 12. Pain: continue standing oxycodone and prn, continue gabapentin 13. Dispo: Will request more time as patient given recent flu and will plan for 06/11 instead to allow more time for stair training Allergies Coded Allergies: No Known Drug Allergy (Verified Allergy, Unknown, 05/13/18) Vital Signs Vital Signs Date Time Temp Pulse Resp B/P (MAP) Pulse Ox O2 Delivery O2 Flow Rate FiO2 06/03/18 07:58 126/63 06/03/18 07:58 75 06/03/18 07:57 18 06/03/18 05:30 98.7 97 05/29/18 09:50 16.0 Microbiology Microbiology 05/25/18 Respiratory Virus Panel (PCR) (TENZIN) - Final, Complete Current Medications Current Medications Current Medications Acetaminophen (Tylenol Tab) 650 mg Q4HP PRN PO fever/MILD PAIN (PS 1-4) Last administered on 05/31/18at 03:07; Start 05/13/18 at 17:45 Albuterol/ Ipratropium (Duoneb (Ipr 0.5mg/Alb 2.5mg)) 3 ml RQID NEB Last administered on 05/27/18at 16:14; Start 05/22/18 at 16:00; Stop 05/28/18 at 13:42; Status DC Ascorbic Acid (Vitamin C) 1,000 mg DAILY PO Last administered on 06/03/18at 07:58; Start 05/14/18 at 09:00 Aspirin (Ecotrin) 81 mg DAILY PO Last administered on 06/03/18at 07:58; Start 05/22/18 at 09:00 Bisacodyl (Dulcolax Suppository) 10 mg ASDIRECTED PRN [place] IF NO BOWEL MOVEMENT; Start 05/14/18 at 18:00; Stop 05/30/18 at 08:45; Status DC Bisacodyl (Dulcolax Suppository) 10 mg DAILYPRN PRN [place] CONSTIPATION; Start 05/13/18 at 17:45; Stop 05/30/18 at 08:45; Status DC Cephalexin Monohydrate (Keflex) 500 mg QID PO Last administered on 05/25/18at 08:44; Start 05/18/18 at 13:00; Stop 05/25/18 at 10:36; Status DC Dextromethorphan (Delsym Af 12hr Susp) 30 mg Q12HP PRN PO COUGH Last administered on 06/01/18 21:20; Start 05/29/18 at 19:45 Dextromethorphan (ROBITUSSIN PEDIATRIC COUGH SYRUP 7.5mg/5ml) 5 ml Q8HP PRN PO COUGH Last administered on 05/26/18at 22:36; Start 05/20/18 at 23:30; Stop 05/29/18 at 19:39; Status DC Dicyclomine HCl (Bentyl) 10 mg Q6H PO Last administered on 05/30/18 06:30; Start 05/29/18 at 18:00; Stop 05/30/18 at 08:45; Status DC Diphenhydramine HCl (Benadryl) 25 mg QHSP PRN PO INSOMNIA Last administered on 06/02/18at 21:44; Start 05/21/18 at 20:00 Docusate Sodium (Colace) 100 mg BID PO Last administered on 05/19/18at 21:05; Start 05/13/18 at 21:00; Stop 05/20/18 at 16:41; Status DC Docusate Sodium (Colace) 100 mg BID PO Last administered on 05/29/18at 20:33; Start 05/29/18 at 21:00; Stop 05/30/18 at 08:45; Status DC Enoxaparin Sodium (Lovenox) 40 mg DAILY SC Last administered on 06/03/18at 07:59; Start 05/14/18 at 09:00 Ferrous Gluconate (Fergon) 324 mg BID PO Last administered on 05/29/18at 09:17; Start 05/15/18 at 21:00; Stop 05/29/18 at 15:44; Status DC Gabapentin (Neurontin) 100 mg TID PO ; Start 05/20/18 at 21:00; Stop 05/20/18 at 21:00; Status DC Gabapentin (Neurontin) 200 mg TID PO ; Start 05/13/18 at 21:00; Stop 05/13/18 at 21:00; Status DC Gabapentin (Neurontin) 300 mg TID PO Last administered on 06/03/18at 07:58; Start 05/20/18 at 21:00 Home Med (Med Rec Complete!) ASDIRECTED XX ; Start 05/13/18 at 18:15; Stop 05/13/18 at 18:16; Status DC Lidocaine (Lidoderm Patch) 1 patch DAILY@2100 TD Last administered on 06/02/18at 21:35; Start 05/14/18 at 21:00 Lisinopril (Prinivil) 10 mg DAILY PO Last administered on 06/03/18 07:58; Start 05/15/18 at 11:00 Magnesium Hydroxide (Milk Of Magnesia) 30 ml DAILYPRN PRN PO CONSTIPATION Last administered on 05/31/18 09:01; Start 05/13/18 at 17:45 Metoprolol Succinate (TopROL XL) 50 mg DAILY PO Last administered on 05/14/18at 09:39; Start 05/14/18 at 09:00; Stop 05/14/18 at 11:18; Status DC Metoprolol Succinate (TopROL XL) 100 mg DAILY PO Last administered on 06/03/18 07:58; Start 05/15/18 at 09:00 Miscellaneous (Unresolved Clarification Entry) SEE LABEL COMMENTS DAILY XX ; Start 05/20/18 at 09:00; Stop 05/20/18 at 11:16; Status DC Miscellaneous (Unresolved Clarification Entry) SEE LABEL COMMENTS DAILY XX ; Start 05/24/18 at 09:00; Stop 05/25/18 at 10:36; Status DC Miscellaneous (Unresolved Clarification Entry) SEE LABEL COMMENTS DAILY XX ; Start 05/31/18 at 09:00; Stop 06/01/18 at 07:06; Status DC Miscellaneous (Unresolved Clarification Entry) SEE LABEL COMMENTS DAILY XX Last administered on 06/01/18at 08:41; Start 06/01/18 at 09:00; Stop 06/01/18 at 11:29; Status DC Non-Formulary Medication ( See Comment Field Below ) REMOVE LIDODERM PATCH DAILY XX Last administered on 06/03/18 07:59; Start 05/15/18 at 09:00 Ondansetron HCl (Zofran) 4 mg Q6HP PRN PO NAUSEA; Start 05/13/18 at 17:45 Oseltamivir Phosphate (Tamiflu) 75 mg BID PO Last administered on 05/24/18at 08:58; Start 05/18/18 at 14:15; Stop 05/24/18 at 14:17; Status DC Oxycodone HCl (Roxicodone, Oxyir) 5 mg Q4HP PRN PO PAIN 4-7 Last administered on 05/31/18 03:07; Start 05/13/18 at 17:45 Oxycodone HCl (Roxicodone, Oxyir) 10 mg Q4HP PRN PO SEVERE PAIN (PS 8-10) Last administered on 05/14/18 09:54; Start 05/13/18 at 17:45; Stop 05/14/18 at 11:16; Status DC Oxycodone HCl (Roxicodone, Oxyir) 10 mg TID PO Last administered on 06/03/18 07:57; Start 05/14/18 at 16:00 Pantoprazole Sodium (Protonix) 40 mg DAILY PO Last administered on 06/03/18 07:58; Start 05/14/18 at 09:00 Polyethylene Glycol (Miralax) 1 pkt DAILY PO Last administered on 05/31/18 08:58; Start 05/30/18 at 09:00; Stop 05/31/18 at 14:31; Status DC Polyethylene Glycol (Miralax) 2 pkt DAILY PO Last administered on 06/02/18 08:00; Start 06/01/18 at 09:00 Potassium Chloride (Micro-K Extencaps) 20 meq DAILY PO Last administered on 06/03/18 07:58; Start 05/15/18 at 09:00 Senna (Senokot) 1 tab DAILY@1200 PO Last administered on 06/02/18 11:56; Start 05/30/18 at 12:00 Senna (Senokot) 1 tab QHS PO Last administered on 05/13/18 20:43; Start 05/13/18 at 21:00; Stop 05/15/18 at 17:28; Status DC Senna (Senokot) 2 tab QHS PO Last administered on 05/19/18 21:04; Start 05/15/18 at 21:00; Stop 05/20/18 at 16:41; Status DC Senna/Docusate Sodium (Senokot S) 1 tab BID PO Last administered on 05/31/18 08:58; Start 05/30/18 at 09:00; Stop 05/31/18 at 14:31; Status DC Senna/Docusate Sodium (Senokot S) 2 tab BID PO ; Start 05/30/18 at 09:00; Stop 05/30/18 at 09:00; Status DC Senna/Docusate Sodium (Senokot S) 2 tab BID PO Last administered on 06/02/18at 21:35; Start 05/31/18 at 21:00 Sodium Chloride (Sodium Chloride) 1 gm BID PO Last administered on 05/16/18at 08:38; Start 05/15/18 at 11:00; Stop 05/16/18 at 15:45; Status DC Sodium Chloride (Sodium Chloride) 1 gm BID PO Last administered on 06/03/18at 07:57; Start 05/29/18 at 21:00 Sodium Chloride (Sodium Chloride) 1 gm TID PO Last administered on 05/20/18at 09:23; Start 05/16/18 at 16:00; Stop 05/20/18 at 11:13; Status DC Sodium Chloride (Sodium Chloride) 2 gm BID PO Last administered on 05/29/18at 09:18; Start 05/20/18 at 21:00; Stop 05/29/18 at 15:45; Status DC Thiamine HCl (Thiamine HCl) 100 mg DAILY PO Last administered on 06/03/18at 07:58; Start 05/14/18 at 09:00 Trazodone HCl (Desyrel) 50 mg QHSP PRN PO INSOMNIA Last administered on 06/02/18 at 21:44; Start 05/13/18 at 17:45 Vitamin D (Vitamin D) 1,000 units DAILY PO Last administered on 06/03/18at 07:58; Start 05/14/18 at 09:00 BRUCE CARDOZA MD Jun 03, 2018 09:47
--- NOTE | 2018-06-03 09:48 | IPNPDOC ---
PM&R Progress Note DATE OF SERVICE: Jun 03, 2018 Signal System Testing Maintainer Progress Note Subjective: Patient seen in gym able to do sit to rubber covering machine operator parallel bars with minimal assistance and reports feeling stronger. REVIEW OF SYSTEMS: The following is a completed review of systems and has been reviewed. Review of systems otherwise unremarkable. PAIN: self reports non-radiating low back pain EYES: Negative for recent vision changes EARS, NOSE, & THROAT: Denied rhinorrhea, throat pain or dysphagia CARDIOVASCULAR: denies chest pain or palpitations PULMONARY: Negative. Denies shortness of breath GASTROINTESTINAL: Negative for diarrhea or constipation GENITOURINARY: Negative for dysuria or hematuria or incontinence MUSCULOSKELETAL: bilateral LE weakness L>R and Left shoulder pain and arm weakness NEUROLOGICAL: LLE paralysis HEMATOLOGICAL: Negative for bruising SKIN: scab on bottom of left foot, lumbosacral sutures, otherwise intact. PSYCHIATRIC: Unremarkable All other review of systems found to be negative. PHYSICAL EXAMINATION: VITAL SIGNS: Please see below. GENERAL: Pleasant and cooperative. No acute distress. HEENT: PERRL. Extraocular movements intact. Clear conjunctiva, poor dentition CARDIOVASCULAR: Regular rate and rhythm. No murmurs, rubs, or gallops LUNGS: Clear to auscultation bilaterally. No wheezes. No rhonchi ABDOMEN: Soft, nontender, nondistended. Positive bowel sounds. Normal active bowel sounds NEUROLOGICAL: Alert and oriented times three. Cranial nerves II through XII grossly intact. Sensation to light touch in C-T2 dermatomes and L2-S2 dermatomes, and S3-5 regions to light touch +bilateral Babinski, 1+/4 patellar reflexes bilat 3+ bicep and brachioradialis reflexes EXTREMITIES: 5-\\5 strength right upper extremities. 3/5 left shoulder abduction pain limiting, and unable to fully test elbow extension given limited ROM, transformer builder 5/5 and elbow flexors 5-/5 3+/5 right hip flexors and knee extensors, 2+/5 ankle DF and EHL 2/5 left hip flexors and 3/5 knee extensors, 1/5 left ankle DF and EHL Left shoulder: +Neers and decreased internal rotation SKIN: lumbosacral incision c/d/i, no sacral ulcers, scab on bottom of left foot Lateral truncal ecchymosis ASSESSMENT:62-year-old M with past medical history of chronic low back pain who presents status post T11-S1 arthrodesis and laminectomy. PLAN: 1. rehab: PT/OT, assess for DME, working on [id number], able to performed wheelchair mobility well while in room,s/p flu, goal to work on stairs in PT 2. Ortho: s/p T11-S1 arthrodesis with laminectomy in setting of spinal stenosis with significant RLE paresis, TLSO brace when out of bed, Spinal precautions, monitor for myelopathy, at this time does have brisk reflexes in UE and +Babinksi most likely from cervical stenosis- -will reschedule outpatient follow-up with surgeon for 06-04-18 at 1:20 pm for possible suture removal at [place] with neurosurgeon Dr. Liu, delayed from 05/21 given +flu -Left shoulder likely weak from cervical stenosis and impingement- will encourage ROM to prevent adhesive capsulitis - TLSO brace adjusted 05/15/18 3. Cardio: pmh HTN: continue Metoprolol and adjust prn- medicine consulted, restarted ASA on 05-22-18 4 GI: patient reports constipation with leakage, KUB 05/29/18 showed, "Moderately distended air filled loops of small and large bowel raise the possibility of ileus." discussed case with surgeon transmission superintendent who recommended addition of bowel meds and to monitor clinical symptoms- s/p tap water enema 05/31/18 with improvement in constipation- continue bowel regimen 5. : monitor PVRs, admission UA and Ucx negative 6. Skin: dressing in place, change prn soil/drainage, multipodus boots while in bed to prevent heel cord contractures and heel ulcers 7. DVT ppx: continue Lovenox, admission dopplers negative 9. Pain: OXycodone and Tylenol, continue gabapentin 10. Electrolytes: Hyponatremia-resolved, will try to taper down salt tabs to 1mg BID and monitor- 133 today will start fluid restriction 1L 11. ID: fever resolved, w +Influenza, started on Tamiflu, s/p IVF monitor vitals -CXR negative for infiltrate -blood cultures sent, negative growth -s/p 7 days course Keflex for possible incision site infection,using silver- optifoam and healing well, no leukocytosis 12. Pain: continue standing oxycodone and prn, continue gabapentin 13. Dispo: Will request more time as patient given recent flu and will plan for 06/11 instead to allow more time for stair training, progressing towards goals Allergies Coded Allergies: No Known Drug Allergy (Verified Allergy, Unknown, 05/13/18) Vital Signs Vital Signs Date Time Temp Pulse Resp B/P (MAP) Pulse Ox O2 Delivery O2 Flow Rate FiO2 06/03/18 07:58 126/63 06/03/18 07:58 75 06/03/18 07:57 18 06/03/18 05:30 98.7 97 05/29/18 09:50 16.0 Microbiology Microbiology 05/25/18 Respiratory Virus Panel (PCR) (TENZIN) - Final, Complete Current Medications Current Medications Current Medications Acetaminophen (Tylenol Tab) 650 mg Q4HP PRN PO fever/MILD PAIN (PS 1-4) Last administered on 05/31/18at 03:07; Start 05/13/18 at 17:45 Albuterol/ Ipratropium (Duoneb (Ipr 0.5mg/Alb 2.5mg)) 3 ml RQID NEB Last administered on 05/27/18at 16:14; Start 05/22/18 at 16:00; Stop 05/28/18 at 13:42; Status DC Ascorbic Acid (Vitamin C) 1,000 mg DAILY PO Last administered on 06/03/18at 07:58; Start 05/14/18 at 09:00 Aspirin (Ecotrin) 81 mg DAILY PO Last administered on 06/03/18at 07:58; Start 05/22/18 at 09:00 Bisacodyl (Dulcolax Suppository) 10 mg ASDIRECTED PRN [place] IF NO BOWEL MOVEMENT; Start 05/14/18 at 18:00; Stop 05/30/18 at 08:45; Status DC Bisacodyl (Dulcolax Suppository) 10 mg DAILYPRN PRN [place] CONSTIPATION; Start 05/13/18 at 17:45; Stop 05/30/18 at 08:45; Status DC Cephalexin Monohydrate (Keflex) 500 mg QID PO Last administered on 05/25/18at 08:44; Start 05/18/18 at 13:00; Stop 05/25/18 at 10:36; Status DC Dextromethorphan (Delsym Af 12hr Susp) 30 mg Q12HP PRN PO COUGH Last administered on 06/01/18 21:20; Start 05/29/18 at 19:45 Dextromethorphan (ROBITUSSIN PEDIATRIC COUGH SYRUP 7.5mg/5ml) 5 ml Q8HP PRN PO COUGH Last administered on 05/26/18at 22:36; Start 05/20/18 at 23:30; Stop 05/29/18 at 19:39; Status DC Dicyclomine HCl (Bentyl) 10 mg Q6H PO Last administered on 05/30/18 06:30; Start 05/29/18 at 18:00; Stop 05/30/18 at 08:45; Status DC Diphenhydramine HCl (Benadryl) 25 mg QHSP PRN PO INSOMNIA Last administered on 06/02/18 21:44; Start 05/21/18 at 20:00 Docusate Sodium (Colace) 100 mg BID PO Last administered on 05/19/18at 21:05; Start 05/13/18 at 21:00; Stop 05/20/18 at 16:41; Status DC Docusate Sodium (Colace) 100 mg BID PO Last administered on 05/29/18at 20:33; Start 05/29/18 at 21:00; Stop 05/30/18 at 08:45; Status DC Enoxaparin Sodium (Lovenox) 40 mg DAILY SC Last administered on 06/03/18at 07:59; Start 05/14/18 at 09:00 Ferrous Gluconate (Fergon) 324 mg BID PO Last administered on 05/29/18 09:17; Start 05/15/18 at 21:00; Stop 05/29/18 at 15:44; Status DC Gabapentin (Neurontin) 100 mg TID PO ; Start 05/20/18 at 21:00; Stop 05/20/18 at 21:00; Status DC Gabapentin (Neurontin) 200 mg TID PO ; Start 05/13/18 at 21:00; Stop 05/13/18 at 21:00; Status DC Gabapentin (Neurontin) 300 mg TID PO Last administered on 06/03/18at 07:58; Start 05/20/18 at 21:00 Home Med (Med Rec Complete!) ASDIRECTED XX ; Start 05/13/18 at 18:15; Stop 05/13/18 at 18:16; Status DC Lidocaine (Lidoderm Patch) 1 patch DAILY@2100 TD Last administered on 06/02/18 21:35; Start 05/14/18 at 21:00 Lisinopril (Prinivil) 10 mg DAILY PO Last administered on 06/03/18 07:58; Start 05/15/18 at 11:00 Magnesium Hydroxide (Milk Of Magnesia) 30 ml DAILYPRN PRN PO CONSTIPATION Last administered on 05/31/18 09:01; Start 05/13/18 at 17:45 Metoprolol Succinate (TopROL XL) 50 mg DAILY PO Last administered on 05/14/18 09:39; Start 05/14/18 at 09:00; Stop 05/14/18 at 11:18; Status DC Metoprolol Succinate (TopROL XL) 100 mg DAILY PO Last administered on 06/03/18 07:58; Start 05/15/18 at 09:00 Miscellaneous (Unresolved Clarification Entry) SEE LABEL COMMENTS DAILY XX ; Start 05/20/18 at 09:00; Stop 05/20/18 at 11:16; Status DC Miscellaneous (Unresolved Clarification Entry) SEE LABEL COMMENTS DAILY XX ; Start 05/24/18 at 09:00; Stop 05/25/18 at 10:36; Status DC Miscellaneous (Unresolved Clarification Entry) SEE LABEL COMMENTS DAILY XX ; Start 05/31/18 at 09:00; Stop 06/01/18 at 07:06; Status DC Miscellaneous (Unresolved Clarification Entry) SEE LABEL COMMENTS DAILY XX Last administered on 06/01/18at 08:41; Start 06/01/18 at 09:00; Stop 06/01/18 at 11:29; Status DC Non-Formulary Medication ( See Comment Field Below ) REMOVE LIDODERM PATCH DAILY XX Last administered on 06/03/18 07:59; Start 05/15/18 at 09:00 Ondansetron HCl (Zofran) 4 mg Q6HP PRN PO NAUSEA; Start 05/13/18 at 17:45 Oseltamivir Phosphate (Tamiflu) 75 mg BID PO Last administered on 05/24/18 08:58; Start 05/18/18 at 14:15; Stop 05/24/18 at 14:17; Status DC Oxycodone HCl (Roxicodone, Oxyir) 5 mg Q4HP PRN PO PAIN 4-7 Last administered on 05/31/18 03:07; Start 05/13/18 at 17:45 Oxycodone HCl (Roxicodone, Oxyir) 10 mg Q4HP PRN PO SEVERE PAIN (PS 8-10) Last administered on 05/14/18 09:54; Start 05/13/18 at 17:45; Stop 05/14/18 at 11:16; Status DC Oxycodone HCl (Roxicodone, Oxyir) 10 mg TID PO Last administered on 06/03/18 07:57; Start 05/14/18 at 16:00 Pantoprazole Sodium (Protonix) 40 mg DAILY PO Last administered on 06/03/18 07:58; Start 05/14/18 at 09:00 Polyethylene Glycol (Miralax) 1 pkt DAILY PO Last administered on 05/31/18 08:58; Start 05/30/18 at 09:00; Stop 05/31/18 at 14:31; Status DC Polyethylene Glycol (Miralax) 2 pkt DAILY PO Last administered on 06/02/18 08:00; Start 06/01/18 at 09:00 Potassium Chloride (Micro-K Extencaps) 20 meq DAILY PO Last administered on 06/03/18 07:58; Start 05/15/18 at 09:00 Senna (Senokot) 1 tab DAILY@1200 PO Last administered on 06/02/18 11:56; Start 05/30/18 at 12:00 Senna (Senokot) 1 tab QHS PO Last administered on 05/13/18at 20:43; Start 05/13/18 at 21:00; Stop 05/15/18 at 17:28; Status DC Senna (Senokot) 2 tab QHS PO Last administered on 05/19/18at 21:04; Start 05/15/18 at 21:00; Stop 05/20/18 at 16:41; Status DC Senna/Docusate Sodium (Senokot S) 1 tab BID PO Last administered on 05/31/18 08:58; Start 05/30/18 at 09:00; Stop 05/31/18 at 14:31; Status DC Senna/Docusate Sodium (Senokot S) 2 tab BID PO ; Start 05/30/18 at 09:00; Stop 05/30/18 at 09:00; Status DC Senna/Docusate Sodium (Senokot S) 2 tab BID PO Last administered on 06/02/18at 21:35; Start 05/31/18 at 21:00 Sodium Chloride (Sodium Chloride) 1 gm BID PO Last administered on 05/16/18at 08:38; Start 05/15/18 at 11:00; Stop 05/16/18 at 15:45; Status DC Sodium Chloride (Sodium Chloride) 1 gm BID PO Last administered on 06/03/18 07:57; Start 05/29/18 at 21:00 Sodium Chloride (Sodium Chloride) 1 gm TID PO Last administered on 05/20/18at 09:23; Start 05/16/18 at 16:00; Stop 05/20/18 at 11:13; Status DC Sodium Chloride (Sodium Chloride) 2 gm BID PO Last administered on 05/29/18 09:18; Start 05/20/18 at 21:00; Stop 05/29/18 at 15:45; Status DC Thiamine HCl (Thiamine HCl) 100 mg DAILY PO Last administered on 06/03/18 07:58; Start 05/14/18 at 09:00 Trazodone HCl (Desyrel) 50 mg QHSP PRN PO INSOMNIA Last administered on 06/02/18 21:44; Start 05/13/18 at 17:45 Vitamin D (Vitamin D) 1,000 units DAILY PO Last administered on 06/03/18 07:58; Start 05/14/18 at 09:00 BRUCE CARDOZA MD Jun 03, 2018 09:48
[2018-06-03] MEDS: SENNA 8.6 MG TAB (SENOKOT) PO SCH (11:20)
[2018-06-03 14:00] VITALS: BP 119/68
--- NOTE | 2018-06-03 14:53 | IPNPDOC ---
Date Seen The patient was seen on 06/03/18. Progress Note HPI: 62year old M S/P T11-S1 posterior arthrodesis L1-S1 laminectomies05/08/[address] Liu Temo [facility]. Transfered to the care of MARIEL Zamora [facility], 05/13/18. Pt states he continues to feel stronger. No verbalized complaints today. States constipation resolved. Denies any abdominal pain. Denies any weakness, fatigue, Headache, Chest Pain, Shortness of breath, cough, palpitations, N/V/D or changes in bowel or bladder habits. PMHx: cervical stenosis Lumbar stenosis Thoracolumbar scoliosis Chronic neck pain/LE pain/Chronic pain GERD HTN PSHX: 05/08/18 T11-S1 posterior arthrodesis L1-S1 laminectomies. PE: GEN: 62yoM, appears stated age. No acute distress. Alert and oriented x 3. HEENT: Normocephalic, atraumatic. Sclera are nonicteric. Conjunctiva without injection. Moist mucous membranes. CHEST: Regular rate and rhythm, +S1, +S2 LUNGS: Clear to auscultation bilaterally. No wheezes, rales, or rhonchi. ABD: soft, NT, non-distended BS present. EXT: No lower extremity edema appreciated. SKIN: No rashes. NEURO: Alert and oriented x 3. No focal deficits appreciated. UC neg 05/14/18 FOB neg. U/S LEs No evidence for deep venous thrombosis. Electronically Signed by Adryan Cole MD 05/15/2018 05:36 A A&P: 62year old M S/P T11-S1 posterior arthrodesis L1-S1 laminectomies05/08/[address] Alexa Plascencia [facility]. Transferred to the care of MARIEL Zamora [facility], 05/13/18. 1. S/P T11-S1 posterior arthrodesis L1-S1 laminectomies05/08/[address] Liu Temo [facility] PT/OT/ST as per MARIEL Zamora. Pain control as per MARIEL Zamora. Bowel care as per MARIEL Zamora. DVT prophylaxis as per MARIEL Zamora. Lovenox SQ. Outpt F/U with Dr Liu. Wearing TLSO brace as per Dr Liu. Has appt with Dr Liu scheduled 06/04/18. UC neg LE U/S neg. 2. S/P Influenza. Afebrile. BC x 2 neg. CXR NAD Completed Tamiflu 75 mg BID x 5 days. Nebs Robitussin as needed. Tylenol as needed. Repeat respiratory panel negative 05/25/18. 3. HTN. Toprol XL 100 mg po daily. Lisinopril 10 mg daily. Pt restarted ASA 81 mg daily 05/22/18. 4. Hypokalemia. Resolved. po Supplement daily. BMP 06/04/18 4. Anemia. Hgb 9.6 Fe studies, B12, folate completed. FOB neg. Fe supplement BID added. CBC 06/04/18. 5. Hyponatremia. Na trend 135-136. Ser Osm/Ur Osm/Ur Cr/NA/TSH/Mag noted. Fluid restriction added 06/02/[address] [place]. BMP 06/04/18. 6. GERD. Protonix. VS, I&O, 24H, Fishbone Vital Signs/I&O Vital Signs Date Time Temp Pulse Resp B/P (MAP) Pulse Ox O2 Delivery O2 Flow Rate FiO2 06/03/18 08:27 16 06/03/18 07:58 126/63 06/03/18 07:58 75 06/03/18 05:30 98.7 97 05/29/18 09:50 16.0 I&O- Last 24 Hours up to 6 AM 06/03/18 06:00 Intake Total 900 ml Output Total 1025 ml Balance -125 ml Laboratory Data Microbiology Microbiology 05/25/18 Respiratory Virus Panel (PCR) (TENZIN) - Final, Complete Olga Loja Jun 03, 2018 14:53
[2018-06-03 20:00] VITALS: BP 130/62
[2018-06-03] MEDS: traZODone 50 MG TAB PO PRN (21:59)
[2018-06-03] MEDS: diphenhydrAMINE 25 MG CAP PO PRN (22:04)
[2018-06-03] MEDS: ACETAMINOPHEN TAB 650MG DOSE (2X325MG) PO PRN (22:05)
[2018-06-03] MEDS: LIDOCAINE 5% (LIDODERM) PATCH TD SCH (22:06)
[2018-06-03] MEDS: DEXTROMETHORPHAN 60MG/10ML SUSP 90ML BTL(DELSYM) PO PRN (23:17)
[2018-06-04] MEDS: oxyCODONE 5MG TAB PO PRN (03:49)
[2018-06-04 06:00] VITALS: BP 125/71
[2018-06-04 06:47] LABS: BASO % 0.6 % (0.0-1.0); EOS # 0.2 10^3/uL (0.0-0.50); EOS % 3.2 % (0.0-3.0); HEMATOCRIT 28.4 % (42.0-52.0); HEMOGLOBIN 9.2 g/dl (13.5-17.5); LYMPH # 0.8 10^3/uL (1.5-4.5); LYMPH % 15.6 % (24.0-44.0); MEAN CORPUSCULAR HEMOGLOBIN 28.2 pg (27.0-33.0); MEAN CORPUSCULAR HGB CONC 32.4 g/dl (32.0-36.5); MEAN CORPUSCULAR VOLUME 87.1 fl (80.0-96.0); MONO # 0.8 10^3/uL (0.0-0.8); MONO % 15.1 % (0.0-5.0); NEUTROPHILS # 3.5 10^3/uL (1.8-7.7); NEUTROPHILS % 64.9 % (36.0-66.0); PLATELET COUNT, AUTOMATED 329 10^3/uL (150-450); RED BLOOD COUNT 3.26 10^6/uL (4.30-6.10); WHITE BLOOD COUNT 5.4 10^3/uL (4.0-10.0)
[2018-06-04 07:06] LABS: BLOOD UREA NITROGEN 14 MG/DL (7-18); CALCIUM LEVEL 8.8 MG/DL (8.8-10.2); CARBON DIOXIDE LEVEL 26 MEQ/L (21-32); CHLORIDE LEVEL 101 MEQ/L (98-107); CREATININE FOR GFR 0.52 MG/DL (0.70-1.30); GLOMERULAR FILTRATION RATE > 60.0 (>49); GLUCOSE, FASTING 100 MG/DL (70-100); SODIUM LEVEL 133 MEQ/L (136-145)
[2018-06-04] MEDS: MIRALAX *UNIT DOSE* 17GM PACKET PO SCH (09:00)
[2018-06-04] MEDS: **NOTE PATIENT COMMENT** MISC XX SCH (09:00)
[2018-06-04] MEDS: ENOXAPARIN 40 MG/0.4 ML SYRINGE (J1650) SC SCH (09:08)
[2018-06-04] MEDS: ASPIRIN 81 MG ENTERIC TAB PO SCH (09:09)
[2018-06-04] MEDS: ASCORBIC ACID 500 MG TAB PO SCH (09:09)
[2018-06-04] MEDS: SENOKOT S TAB PO SCH ×2 (09:09→21:00)
[2018-06-04] MEDS: POTASSIUM CHLORIDE 10 MEQ SR TABLET PO SCH (09:09)
[2018-06-04] MEDS: GABAPENTIN 300 MG CAP PO SCH ×3 (09:10→21:26)
[2018-06-04] MEDS: METOPROLOL SUCC (TopROL XL) 50MG **XL** TAB PO SCH (09:10)
[2018-06-04] MEDS: oxyCODONE 5MG TAB PO SCH ×3 (09:10→21:28)
[2018-06-04] MEDS: VITAMIN D 1,000 INTERNATIONAL UNITS TABLET PO SCH (09:10)
[2018-06-04] MEDS: SODIUM CHLORIDE 1 GM TAB PO SCH ×2 (09:11→21:25)
[2018-06-04] MEDS: PANTOPRAZOLE 40MG TAB (PROTONIX) PO SCH (09:11)
[2018-06-04] MEDS: LISINOPRIL 10 MG TAB PO SCH (09:11)
[2018-06-04] MEDS: THIAMINE 100 MG TAB PO SCH (09:11)
--- NOTE | 2018-06-04 11:43 | IPNPDOC ---
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 REVIEW OF SYSTEMS: The following is a completed review of systems and has been reviewed. Review of systems otherwise unremarkable. PAIN: self reports non-radiating low back pain EYES: Negative for recent vision changes EARS, NOSE, & THROAT: Denied rhinorrhea, throat pain or dysphagia CARDIOVASCULAR: denies chest pain or palpitations PULMONARY: Negative. Denies shortness of breath GASTROINTESTINAL: Negative for diarrhea or constipation GENITOURINARY: Negative for dysuria or hematuria or incontinence MUSCULOSKELETAL: bilateral LE weakness L>R and Left shoulder pain and arm weakness NEUROLOGICAL: LLE paralysis HEMATOLOGICAL: Negative for bruising SKIN: scab on bottom of left foot, lumbosacral sutures, otherwise intact. PSYCHIATRIC: Unremarkable All other review of systems found to be negative. PHYSICAL EXAMINATION: VITAL SIGNS: Please see below. GENERAL: Pleasant and cooperative. No acute distress. HEENT: PERRL. Extraocular movements intact. Clear conjunctiva, poor dentition CARDIOVASCULAR: Regular rate and rhythm. No murmurs, rubs, or gallops LUNGS: Clear to auscultation bilaterally. No wheezes. No rhonchi ABDOMEN: Soft, nontender, nondistended. Positive bowel sounds. Normal active bowel sounds NEUROLOGICAL: Alert and oriented times three. Cranial nerves II through XII grossly intact. Sensation to light touch in C-T2 dermatomes and L2-S2 dermato mes, and S3-5 regions to light touch +bilateral Babinski, 1+/4 patellar reflexes bilat 3+ bicep and brachioradialis reflexes EXTREMITIES: 5-\\5 strength right upper extremities. 3/5 left shoulder abduction pain limiting, and unable to fully test elbow extension given limited ROM, supplemental manager 5/5 and elbow flexors 5-/5 3+/5 right hip flexors and knee extensors, 2+/5 ankle DF and EHL 2/5 left hip flexors and 3/5 knee extensors, 1/5 left ankle DF and EHL Left shoulder: +Neers and decreased internal rotation SKIN: lumbosacral incision c/d/i, no sacral ulcers, scab on bottom of left foot Lateral truncal ecchymosis ASSESSMENT:62-year-old M with past medical history of chronic low back pain who presents status post T11-S1 arthrodesis and laminectomy. PLAN: 1. rehab: PT/OT, assess for DME, working on [id number], able to performed wheelchair mobility well while in room,s/p flu, goal to work on stairs in PT, able to advance his left leg without assist using RW today 2. Ortho: s/p T11-S1 arthrodesis with laminectomy in setting of spinal stenosis with significant RLE paresis, TLSO brace when out of bed, Spinal precautions, monitor for myelopathy, at this time does have brisk reflexes in UE and +Babinksi most likely from cervical stenosis- -will reschedule outpatient follow-up with surgeon for 06-04-18 at 1:20 pm for possible suture removal at [place] with neurosurgeon Dr. Liu, delayed from 05/21 given +flu -Left shoulder likely weak from cervical stenosis and impingement- will enc ourage ROM to prevent adhesive capsulitis - TLSO brace adjusted 05/15/18 3. Cardio: pmh HTN: continue Metoprolol and adjust prn- medicine consulted, restarted ASA on 05-22-18 4 GI: patient reports constipation with leakage, KUB 05/29/18 showed, "Moderately distended air filled loops of small and large bowel raise the possibility of ileus." discussed case with surgeon network operations manager who recommended addition of bowel meds and to monitor clinical symptoms- s/p tap water enema 05/31/18 with improvement in constipation- continue bowel regimen 5. : monitor PVRs, admission UA and Ucx negative 6. Skin: dressing in place, change prn soil/drainage, multipodus boots while in bed to prevent heel cord contractures and heel ulcers 7. DVT ppx: continue Lovenox, admission dopplers negative 9. Pain: OXycodone and Tylenol, continue gabapentin 10. Electrolytes: Hyponatremia-resolved, will try to taper down salt tabs to 1mg BID and monitor- 133 today will start fluid restriction 1L 11. ID: fever resolved, w +Influenza, started on Tamiflu, s/p IVF monitor vitals -CXR negative for infiltrate -blood cultures sent, negative growth -s/p 7 days course Keflex for possible incision site infection,using silver- optifoam and healing well, no leukocytosis 12. Pain: continue standing oxycodone and prn, continue gabapentin 13. Dispo: Will request more time as patient given recent flu and will plan for 06/11 instead to allow more time for stair training, progressing towards goals Allergies Coded Allergies: No Known Drug Allergy (Verified Allergy, Unknown, 05/13/18) Vital Signs Vital Signs Date Time Temp Pulse Resp B/P (MAP) Pulse Ox O2 Delivery O2 Flow Rate FiO2 06/04/18 09:45 18 06/04/18 09:10 74 125/71 06/04/18 06:00 97.5 98 05/29/18 09:50 16.0 Laboratory Data CBC/BMP Laboratory Tests 06/04/18 06:20 Red Blood Count 3.26 L, Mean Corpuscular Volume 87.1, Mean Corpuscular Hemoglobin 28.2, Mean Corpuscular Hemoglobin Concent 32.4, Red Cell Distribution Width 13.9, Neutrophils (%) (Auto) 64.9, Lymphocytes (%) (Auto) 15.6 L, Monocytes (%) (Auto) 15.1 H, Eosinophils (%) (Auto) 3.2 H, Basophils (%) (Auto) 0.6, Neutrophils # (Auto) 3.5, Lymphocytes # (Auto) 0.8 L, Monocytes # (Auto) 0.8, Eosinophils # (Auto) 0.2, Basophils # (Auto) 0.0, Calcium Level 8.8 Labs 24H Laboratory Tests 2 06/04/18 06:20: Immature Granulocyte % (Auto) 0.6, White Blood Count 5.4, Red Blood Count 3.26L, Hemoglobin 9.2L, Hematocrit 28.4L, Mean Corpuscular Volume 87.1, Mean Corpuscular Hemoglobin 28.2, Mean Corpuscular Hemoglobin Concent 32.4, Red Cell Distribution Width 13.9, Platelet Count 329, Neutrophils (%) (Auto) 64.9, Lymphocytes (%) (Auto) 15.6L, Monocytes (%) (Auto) 15.1H, Eosinophils (%) (Auto) 3.2H, Basophils (%) (Auto) 0.6, Neutrophils # (Auto) 3.5, Lymphocytes # (Auto) 0.8L, Monocytes # (Auto) 0.8, Eosinophils # (Auto) 0.2, Basophils # (Auto) 0.0, Nucleated Red Blood Cells % (auto) 0.0, Anion Gap 6L, Glomerular Filtration Rate > 60.0, Blood Urea Nitrogen 14, Creatinine 0.52L, Sodium Level 133L, Potassium Level 4.0, Chloride Level 101, Carbon Dioxide Level 26, Calcium Level 8.8 Microbiology Microbiology 05/25/18 Respiratory Virus Panel (PCR) (TENZIN) - Final, Complete Current Medications Current Medications Current Medications Acetaminophen (Tylenol Tab) 650 mg Q4HP PRN PO fever/MILD PAIN (PS 1-4) Last administered on 06/03/18at 22:05; Start 05/13/18 at 17:45 Albuterol/ Ipratropium (Duoneb (Ipr 0.5mg/Alb 2.5mg)) 3 ml RQID NEB Last administered on 05/27/18at 16:14; Start 05/22/18 at 16:00; Stop 05/28/18 at 13:42; Status DC Ascorbic Acid (Vitamin C) 1,000 mg DAILY PO Last administered on 06/04/18 09:09; Start 05/14/18 at 09:00 Aspirin (Ecotrin) 81 mg DAILY PO Last administered on 06/04/18 09:09; Start 05/22/18 at 09:00 Bisacodyl (Dulcolax Suppository) [address] IF NO BOWEL MOVEMENT; Start 05/14/18 at 18:00; Stop 05/30/18 at 08:45; Status DC Bisacodyl (Dulcolax Suppository) [address] CONSTIPATION; Start 05/13/18 at 17:45; Stop 05/30/18 at 08:45; Status DC Cephalexin Monohydrate (Keflex) 500 mg QID PO Last administered on 05/25/18at 08:44; Start 05/18/18 at 13:00; Stop 05/25/18 at 10:36; Status DC Dextromethorphan (Delsym Af 12hr Susp) 30 mg Q12HP PRN PO COUGH Last administered on 06/03/18at 23:17; Start 05/29/18 at 19:45 Dextromethorphan (ROBITUSSIN PEDIATRIC COUGH SYRUP 7.5mg/5ml) 5 ml Q8HP PRN PO COUGH Last administered on 1/29/19at 22:36; Start 05/20/18 at 23:30; Stop 05/29/18 at 19:39; Status DC Dicyclomine HCl (Bentyl) 10 mg Q6H PO Last administered on 05/30/18 06:30; Start 05/29/18 at 18:00; Stop 05/30/18 at 08:45; Status DC Diphenhydramine HCl (Benadryl) 25 mg QHSP PRN PO INSOMNIA Last administered on 06/03/18 22:04; Start 05/21/18 at 20:00 Docusate Sodium (Colace) 100 mg BID PO Last administered on 05/19/18 21:05; Start 05/13/18 at 21:00; Stop 05/20/18 at 16:41; Status DC Docusate Sodium (Colace) 100 mg BID PO Last administered on 05/29/18 20:33; Start 05/29/18 at 21:00; Stop 05/30/18 at 08:45; Status DC Enoxaparin Sodium (Lovenox) 40 mg DAILY SC Last administered on 06/04/18 09:08; Start 05/14/18 at 09:00 Ferrous Gluconate (Fergon) 324 mg BID PO Last administered on 05/29/18 09:17; Start 05/15/18 at 21:00; Stop 05/29/18 at 15:44; Status DC Gabapentin (Neurontin) 100 mg TID PO ; Start 05/20/18 at 21:00; Stop 05/20/18 at 21:00; Status DC Gabapentin (Neurontin) 200 mg TID PO ; Start 05/13/18 at 21:00; Stop 05/13/18 at 21:00; Status DC Gabapentin (Neurontin) 300 mg TID PO Last administered on 06/04/18 09:10; Start 05/20/18 at 21:00 Home Med (Med Rec Complete!) ASDIRECTED XX ; Start 05/13/18 at 18:15; Stop 05/13/18 at 18:16; Status DC Lidocaine (Lidoderm Patch) 1 patch DAILY@2100 TD Last administered on 06/03/18 22:06; Start 05/14/18 at 21:00 Lisinopril (Prinivil) 10 mg DAILY PO Last administered on 06/04/18 09:11; Start 05/15/18 at 11:00 Magnesium Hydroxide (Milk Of Magnesia) 30 ml DAILYPRN PRN PO CONSTIPATION Last administered on 05/31/18 09:01; Start 05/13/18 at 17:45 Metoprolol Succinate (TopROL XL) 50 mg DAILY PO Last administered on 05/14/18at 09:39; Start 05/14/18 at 09:00; Stop 05/14/18 at 11:18; Status DC Metoprolol Succinate (TopROL XL) 100 mg DAILY PO Last administered on 06/04/18 09:10; Start 05/15/18 at 09:00 Miscellaneous (Unresolved Clarification Entry) SEE LABEL COMMENTS DAILY XX ; Start 05/20/18 at 09:00; Stop 05/20/18 at 11:16; Status DC Miscellaneous (Unresolved Clarification Entry) SEE LABEL COMMENTS DAILY XX ; Start 05/24/18 at 09:00; Stop 05/25/18 at 10:36; Status DC Miscellaneous (Unresolved Clarification Entry) SEE LABEL COMMENTS DAILY XX ; S tart 05/31/18 at 09:00; Stop 06/01/18 at 07:06; Status DC Miscellaneous (Unresolved Clarification Entry) SEE LABEL COMMENTS DAILY XX Last administered on 06/01/18at 08:41; Start 06/01/18 at 09:00; Stop 06/01/18 at 11:29; Status DC Non-Formulary Medication ( See Comment Field Below ) REMOVE LIDODERM PATCH DAILY XX Last administered on 06/04/18 09:00; Start 05/15/18 at 09:00 Ondansetron HCl (Zofran) 4 mg Q6HP PRN PO NAUSEA; Start 05/13/18 at 17:45 Oseltamivir Phosphate (Tamiflu) 75 mg BID PO Last administered on 05/24/18at 08:58; Start 05/18/18 at 14:15; Stop 05/24/18 at 14:17; Status DC Oxycodone HCl (Roxicodone, Oxyir) 5 mg Q4HP PRN PO PAIN 4-7 Last administered on 06/04/18at 03:49; Start 05/13/18 at 17:45 Oxycodone HCl (Roxicodone, Oxyir) 10 mg Q4HP PRN PO SEVERE PAIN (PS 8-10) Last administered on 05/14/18 09:54; Start 05/13/18 at 17:45; Stop 05/14/18 at 11:16; Status DC Oxycodone HCl (Roxicodone, Oxyir) 10 mg TID PO Last administered on 06/04/18 09:10; Start 05/14/18 at 16:00 Pantoprazole Sodium (Protonix) 40 mg DAILY PO Last administered on 06/04/18 09:11; Start 05/14/18 at 09:00 Polyethylene Glycol (Miralax) 1 pkt DAILY PO Last administered on 05/31/18 08:58; Start 05/30/18 at 09:00; Stop 05/31/18 at 14:31; Status DC Polyethylene Glycol (Miralax) 2 pkt DAILY PO Last administered on 06/02/18 08:00; Start 06/01/18 at 09:00 Potassium Chloride (Micro-K Extencaps) 20 meq DAILY PO Last administered on 06/04/18 09:09; Start 05/15/18 at 09:00 Senna (Senokot) 1 tab DAILY@1200 PO Last administered on 06/02/18 11:56; Start 05/30/18 at 12:00 Senna (Senokot) 1 tab QHS PO Last administered on 05/13/18 20:43; Start 05/13/18 at 21:00; Stop 05/15/18 at 17:28; Status DC Senna (Senokot) 2 tab QHS PO Last administered on 05/19/18 21:04; Start 05/15/18 at 21:00; Stop 05/20/18 at 16:41; Status DC Senna/Docusate Sodium (Senokot S) 1 tab BID PO Last administered on 05/31/18 08:58; Start 05/30/18 at 09:00; Stop 05/31/18 at 14:31; Status DC Senna/Docusate Sodium (Senokot S) 2 tab BID PO ; Start 05/30/18 at 09:00; Stop 05/30/18 at 09:00; Status DC Senna/Docusate Sodium (Senokot S) 2 tab BID PO Last administered on 06/04/18 09:09; Start 05/31/18 at 21:00 Sodium Chloride (Sodium Chloride) 1 gm BID PO Last administered on 05/16/18 08:38; Start 05/15/18 at 11:00; Stop 05/16/18 at 15:45; Status DC Sodium Chloride (Sodium Chloride) 1 gm BID PO Last administered on 06/04/18 09:11; Start 05/29/18 at 21:00 Sodium Chloride (Sodium Chloride) 1 gm TID PO Last administered on 05/20/18 09:23; Start 05/16/18 at 16:00; Stop 05/20/18 at 11:13; Status DC Sodium Chloride (Sodium Chloride) 2 gm BID PO Last administered on 05/29/18 09:18; Start 05/20/18 at 21:00; Stop 05/29/18 at 15:45; Status DC Thiamine HCl (Thiamine HCl) 100 mg DAILY PO Last administered on 06/04/18 09 :11; Start 05/14/18 at 09:00 Trazodone HCl (Desyrel) 50 mg QHSP PRN PO INSOMNIA Last administered on 06/03/18 21:59; Start 05/13/18 at 17:45 Vitamin D (Vitamin D) 1,000 units DAILY PO Last administered on 06/04/18 09:10; Start 05/14/18 at 09:00 BRUCE CARDOZA MD Jun 04, 2018 11:43
[2018-06-04] MEDS: SENNA 8.6 MG TAB (SENOKOT) PO SCH (11:59)
[2018-06-04 15:30] VITALS: BP 103/65
[2018-06-04 20:00] VITALS: BP 119/59
[2018-06-04] MEDS: diphenhydrAMINE 25 MG CAP PO PRN (21:26)
[2018-06-04] MEDS: traZODone 50 MG TAB PO PRN (21:26)
[2018-06-04] MEDS: LIDOCAINE 5% (LIDODERM) PATCH TD SCH (21:29)
[2018-06-04] MEDS: ACETAMINOPHEN TAB 650MG DOSE (2X325MG) PO PRN (21:29)
[2018-06-04] MEDS: DEXTROMETHORPHAN 60MG/10ML SUSP 90ML BTL(DELSYM) PO PRN (22:42)
[2018-06-05] MEDS: oxyCODONE 5MG TAB PO PRN (03:32)
[2018-06-05 06:00] VITALS: BP 117/57
[2018-06-05] MEDS: SENOKOT S TAB PO SCH ×2 (09:00→21:51)
[2018-06-05] MEDS: **NOTE PATIENT COMMENT** MISC XX SCH (09:00)
[2018-06-05] MEDS: MIRALAX *UNIT DOSE* 17GM PACKET PO SCH (09:00)
[2018-06-05] MEDS: SODIUM CHLORIDE 1 GM TAB PO SCH ×2 (10:10→21:50)
[2018-06-05] MEDS: oxyCODONE 5MG TAB PO SCH ×3 (10:12→21:51)
[2018-06-05] MEDS: PANTOPRAZOLE 40MG TAB (PROTONIX) PO SCH (10:12)
[2018-06-05] MEDS: METOPROLOL SUCC (TopROL XL) 50MG **XL** TAB PO SCH (10:12)
[2018-06-05] MEDS: POTASSIUM CHLORIDE 10 MEQ SR TABLET PO SCH (10:14)
[2018-06-05] MEDS: VITAMIN D 1,000 INTERNATIONAL UNITS TABLET PO SCH (10:14)
[2018-06-05] MEDS: ASPIRIN 81 MG ENTERIC TAB PO SCH (10:14)
[2018-06-05] MEDS: ASCORBIC ACID 500 MG TAB PO SCH (10:14)
[2018-06-05] MEDS: THIAMINE 100 MG TAB PO SCH (10:14)
[2018-06-05] MEDS: GABAPENTIN 300 MG CAP PO SCH ×3 (10:15→21:51)
[2018-06-05] MEDS: LISINOPRIL 10 MG TAB PO SCH (10:15)
[2018-06-05] MEDS: ENOXAPARIN 40 MG/0.4 ML SYRINGE (J1650) SC SCH (10:16)
[2018-06-05] MEDS: SENNA 8.6 MG TAB (SENOKOT) PO SCH (12:00)
--- NOTE | 2018-06-05 13:35 | IPNPDOC ---
Date Seen The patient was seen on 06/05/18. Progress Note HPI: 62year old M S/P T11-S1 posterior arthrodesis L1-S1 laminectomies05/08/[address] Liu Temo [facility]. Transfered to the care of MARIEL Zamora [facility], 05/13/18. Pt states he continues to feel stronger. No verbalized complaints today. States constipation resolved. Denies any abdominal pain. Denies any weakness, fatigue, Headache, Chest Pain, Shortness of breath, cough, palpitations, N/V/D or changes in bowel or bladder habits. PMHx: cervical stenosis Lumbar stenosis Thoracolumbar scoliosis Chronic neck pain/LE pain/Chronic pain GERD HTN PSHX: 05/08/18 T11-S1 posterior arthrodesis L1-S1 laminectomies. PE: GEN: 62yoM, appears stated age. No acute distress. Alert and oriented x 3. HEENT: Normocephalic, atraumatic. Sclera are nonicteric. Conjunctiva without injection. Moist mucous membranes. CHEST: Regular rate and rhythm, +S1, +S2 LUNGS: Clear to auscultation bilaterally. No wheezes, rales, or rhonchi. ABD: soft, NT, non-distended BS present. EXT: No lower extremity edema appreciated. SKIN: No rashes. NEURO: Alert and oriented x 3. No focal deficits appreciated. UC neg 05/14/18 FOB neg. U/S LEs No evidence for deep venous thrombosis. Electronically Signed by Adryan Cole MD 05/15/2018 05:36 A A&P: 62year old M S/P T11-S1 posterior arthrodesis L1-S1 laminectomies05/08/[address] Alexa Plascencia [facility]. Transferred to the care of MARIEL Zamora [facility], 05/13/18. 1. S/P T11-S1 posterior arthrodesis L1-S1 laminectomies05/08/[address] Liu Temo [facility] PT/OT/ST as per MARIEL Zamora. Pain control as per MARIEL Zamora. Bowel care as per MARIEL Zamora. DVT prophylaxis as per MARIEL Zamora. Lovenox SQ. Outpt F/U with Dr Liu. Wearing TLSO brace as per Dr Liu. Had F/U appt with Dr Liu 06/04/18. UC neg LE U/S neg. 2. S/P Influenza. Afebrile. BC x 2 neg. CXR NAD Completed Tamiflu 75 mg BID x 5 days. Nebs Robitussin as needed. Tylenol as needed. Repeat respiratory panel negative 05/25/18. 3. HTN. Toprol XL 100 mg po daily. Lisinopril 10 mg daily. Pt restarted ASA 81 mg daily 05/22/18. 4. Hypokalemia. Resolved. po Supplement daily. BMP 06/04/18 4. Anemia. Hgb 9.2 Fe studies, B12, folate completed. FOB neg. Fe supplement BID added. CBC 06/04/18. 5. Hyponatremia. Na trend 133-135. Ser Osm/Ur Osm/Ur Cr/NA/TSH/Mag noted. Fluid restriction. Salt tab BID. Monitor. 6. GERD. Protonix. VS, I&O, 24H, Fishbone Vital Signs/I&O Vital Signs Date Time Temp Pulse Resp B/P (MAP) Pulse Ox O2 Delivery O2 Flow Rate FiO2 06/05/18 10:15 117/57 06/05/18 10:12 20 06/05/18 10:12 75 06/05/18 06:00 98.4 98 I&O- Last 24 Hours up to 6 AM 06/05/18 06:00 Intake Total 900 ml Output Total 1380 ml Balance -480 ml Olga Loja Jun 05, 2018 13:35
[2018-06-05 14:00] VITALS: BP 126/58
--- NOTE | 2018-06-05 14:09 | IPNPDOC ---
PM&R Progress Note DATE OF SERVICE: Jun 05, 2018 Safekeeping Clerk Progress Note Subjective: Patient enthusiastic today because he walked 40 feet total and was encouraged to aim for 120 feet. He reports his feet feel more swollen. REVIEW OF SYSTEMS: The following is a completed review of systems and has been reviewed. Review of systems otherwise unremarkable. PAIN: self reports non-radiating low back pain EYES: Negative for recent vision changes EARS, NOSE, & THROAT: Denied rhinorrhea, throat pain or dysphagia CARDIOVASCULAR: denies chest pain or palpitations PULMONARY: Negative. Denies shortness of breath GASTROINTESTINAL: Negative for diarrhea or constipation GENITOURINARY: Negative for dysuria or hematuria or incontinence MUSCULOSKELETAL: bilateral LE weakness L>R and Left shoulder pain and arm weakness NEUROLOGICAL: LLE paralysis HEMATOLOGICAL: Negative for bruising SKIN: scab on bottom of left foot, lumbosacral sutures, otherwise intact. PSYCHIATRIC: Unremarkable All other review of systems found to be negative. PHYSICAL EXAMINATION: VITAL SIGNS: Please see below. GENERAL: Pleasant and cooperative. No acute distress. HEENT: PERRL. Extraocular movements intact. Clear conjunctiva, poor dentition CARDIOVASCULAR: Regular rate and rhythm. No murmurs, rubs, or gallops LUNGS: Clear to auscultation bilaterally. No wheezes. No rhonchi ABDOMEN: Soft, nontender, nondistended. Positive bowel sounds. Normal active bowel sounds NEUROLOGICAL: Alert and oriented times three. Cranial nerves II through XII grossly intact. Sensation to light touch in C-T2 dermatomes and L2-S2 dermatomes, and S3-5 regions to light touch +bilateral Babinski, 1+/4 patellar reflexes bilat 3+ bicep and brachioradialis reflexes EXTREMITIES: 5-\\5 strength right upper extremities. 3/5 left shoulder abduction pain limiting, and unable to fully test elbow extension given limited ROM, oscillograph technician 5/5 and elbow flexors 5-/5 3+/5 right hip flexors and knee extensors, 2+/5 ankle DF and EHL 2/5 left hip flexors and 3/5 knee extensors, 1/5 left ankle DF and EHL Left shoulder: +Neers and decreased internal rotation bilateral mild foot edema SKIN: lumbosacral incision c/d/i, no sacral ulcers, scab on bottom of left foot Lateral truncal ecchymosis ASSESSMENT:62-year-old M with past medical history of chronic low back pain who presents status post T11-S1 arthrodesis and laminectomy. PLAN: 1. rehab: PT/OT, assess for DME, working on [id number], able to performed wheelchair mobility well while in room,s/p flu, goal to work on stairs in PT, able to advance his left leg without assist using RW, can ambulate 20ft x 2 CG with RW 2. Ortho: s/p T11-S1 arthrodesis with laminectomy in setting of spinal stenosis with significant RLE paresis, TLSO brace when out of bed, Spinal precautions, monitor for myelopathy, at this time does have brisk reflexes in UE and +Babinksi most likely from cervical stenosis- -s/p follow-up at [facility] with neurosurgeon Dr. Liu 06/04/18, no suture removal, has appointment in 2 weeks for removal -Left shoulder likely weak from cervical stenosis and impingement- will encourage ROM to prevent adhesive capsulitis-improving - TLSO brace adjusted 05/15/18 3. Cardio: pmh HTN: continue Metoprolol and adjust prn- medicine consulted, restarted ASA on 05-22-18 4 GI: patient reports constipation with leakage, KUB 05/29/18 showed, "Moderately distended air filled loops of small and large bowel raise the possibility of ileus." discussed case with surgeon economist research assistant who recommended addition of bowel meds and to monitor clinical symptoms- s/p tap water enema 05/31/18 with improvement in constipation- continue bowel regimen-patient reports feeling less bloated 5. : monitor PVRs, admission UA and Ucx negative 6. Skin: dressing in place, change prn soil/drainage, multipodus boots while in bed to prevent heel cord contractures and heel ulcers 7. DVT ppx: continue Lovenox, admission dopplers negative 9. Pain: OXycodone and Tylenol, continue gabapentin 10. Electrolytes: hyponatremia at 133, will d/c fluid restriction per patient request and increase salt tabs 11. ID: fever resolved, w +Influenza, started on Tamiflu, s/p IVF monitor vitals -CXR negative for infiltrate -blood cultures sent, negative growth -s/p 7 days course Keflex for possible incision site infection,using silver- optifoam and healing well, no leukocytosis 12. Pain: continue standing oxycodone and prn, continue gabapentin 13. Extremities: will acewrap bilateral feet and elevate 13. Dispo: Will request more time as patient given recent flu and will plan for 06/11 instead to allow more time for stair training, progressing towards goals Allergies Coded Allergies: No Known Drug Allergy (Verified Allergy, Unknown, 05/13/18) Vital Signs Vital Signs Date Time Temp Pulse Resp B/P (MAP) Pulse Ox O2 Delivery O2 Flow Rate FiO2 06/05/18 10:15 117/57 06/05/18 10:12 20 06/05/18 10:12 75 06/05/18 06:00 98.4 98 Current Medications Current Medications Current Medications Acetaminophen (Tylenol Tab) 650 mg Q4HP PRN PO fever/MILD PAIN (PS 1-4) Last administered on 06/04/18at 21:29; Start 05/13/18 at 17:45 Albuterol/ Ipratropium (Duoneb (Ipr 0.5mg/Alb 2.5mg)) 3 ml RQID NEB Last administered on 05/27/18at 16:14; Start 05/22/18 at 16:00; Stop 05/28/18 at 13:42; Status DC Ascorbic Acid (Vitamin C) 1,000 mg DAILY PO Last administered on 06/05/18 10:14; Start 05/14/18 at 09:00 Aspirin (Ecotrin) 81 mg DAILY PO Last administered on 06/05/18 10:14; Start 05/22/18 at 09:00 Bisacodyl (Dulcolax Suppository) 10 mg ASDIRECTED PRN MN IF NO BOWEL MOVEMENT; Start 05/14/18 at 18:00; Stop 05/30/18 at 08:45; Status DC Bisacodyl (Dulcolax Suppository) 10 mg DAILYPRN PRN MN CONSTIPATION; Start 05/13/18 at 17:45; Stop 05/30/18 at 08:45; Status DC Cephalexin Monohydrate (Keflex) 500 mg QID PO Last administered on 05/25/18at 08:44; Start 05/18/18 at 13:00; Stop 05/25/18 at 10:36; Status DC Dextromethorphan (Delsym Af 12hr Susp) 30 mg Q12HP PRN PO COUGH Last administered on 06/04/18 22:42; Start 05/29/18 at 19:45 Dextromethorphan (ROBITUSSIN PEDIATRIC COUGH SYRUP 7.5mg/5ml) 5 ml Q8HP PRN PO COUGH Last administered on 05/26/18 22:36; Start 05/20/18 at 23:30; Stop 05/29/18 at 19:39; Status DC Dicyclomine HCl (Bentyl) 10 mg Q6H PO Last administered on 05/30/18 06:30; Start 05/29/18 at 18:00; Stop 05/30/18 at 08:45; Status DC Diphenhydramine HCl (Benadryl) 25 mg QHSP PRN PO INSOMNIA Last administered on 06/04/18 21:26; Start 05/21/18 at 20:00 Docusate Sodium (Colace) 100 mg BID PO Last administered on 05/19/18 21:05; Start 05/13/18 at 21:00; Stop 05/20/18 at 16:41; Status DC Docusate Sodium (Colace) 100 mg BID PO Last administered on 05/29/18 20:33; Start 05/29/18 at 21:00; Stop 05/30/18 at 08:45; Status DC Enoxaparin Sodium (Lovenox) 40 mg DAILY SC Last administered on 06/05/18 10:16; Start 05/14/18 at 09:00 Ferrous Gluconate (Fergon) 324 mg BID PO Last administered on 05/29/18 09:17; Start 05/15/18 at 21:00; Stop 05/29/18 at 15:44; Status DC Gabapentin (Neurontin) 100 mg TID PO ; Start 05/20/18 at 21:00; Stop 05/20/18 at 21:00; Status DC Gabapentin (Neurontin) 200 mg TID PO ; Start 05/13/18 at 21:00; Stop 05/13/18 at 21:00; Status DC Gabapentin (Neurontin) 300 mg TID PO Last administered on 06/05/18at 10:15; Start 05/20/18 at 21:00 Home Med (Med Rec Complete!) ASDIRECTED XX ; Start 05/13/18 at 18:15; Stop 05/13/18 at 18:16; Status DC Lidocaine (Lidoderm Patch) 1 patch DAILY@2100 TD Last administered on 06/04/18 21:29; Start 05/14/18 at 21:00 Lisinopril (Prinivil) 10 mg DAILY PO Last administered on 06/05/18 10:15; Start 05/15/18 at 11:00 Magnesium Hydroxide (Milk Of Magnesia) 30 ml DAILYPRN PRN PO CONSTIPATION Last administered on 05/31/18 09:01; Start 05/13/18 at 17:45 Metoprolol Succinate (TopROL XL) 50 mg DAILY PO Last administered on 05/14/18 09:39; Start 05/14/18 at 09:00; Stop 05/14/18 at 11:18; Status DC Metoprolol Succinate (TopROL XL) 100 mg DAILY PO Last administered on 06/05/18 10:12; Start 05/15/18 at 09:00 Miscellaneous (Unresolved Clarification Entry) SEE LABEL COMMENTS DAILY XX ; Start 05/20/18 at 09:00; Stop 05/20/18 at 11:16; Status DC Miscellaneous (Unresolved Clarification Entry) SEE LABEL COMMENTS DAILY XX ; Start 05/24/18 at 09:00; Stop 05/25/18 at 10:36; Status DC Miscellaneous (Unresolved Clarification Entry) SEE LABEL COMMENTS DAILY XX ; Start 05/31/18 at 09:00; Stop 06/01/18 at 07:06; Status DC Miscellaneous (Unresolved Clarification Entry) SEE LABEL COMMENTS DAILY XX Last administered on 06/01/18at 08:41; Start 06/01/18 at 09:00; Stop 06/01/18 at 11:29; Status DC Non-Formulary Medication ( See Comment Field Below ) REMOVE LIDODERM PATCH DAILY XX Last administered on 06/05/18 09:00; Start 05/15/18 at 09:00 Ondansetron HCl (Zofran) 4 mg Q6HP PRN PO NAUSEA; Start 05/13/18 at 17:45 Oseltamivir Phosphate (Tamiflu) 75 mg BID PO Last administered on 05/24/18 08:58; Start 05/18/18 at 14:15; Stop 05/24/18 at 14:17; Status DC Oxycodone HCl (Roxicodone, Oxyir) 5 mg Q4HP PRN PO PAIN 4-7 Last administered on 06/05/18 03:32; Start 05/13/18 at 17:45 Oxycodone HCl (Roxicodone, Oxyir) 10 mg Q4HP PRN PO SEVERE PAIN (PS 8-10) Last administered on 05/14/18 09:54; Start 05/13/18 at 17:45; Stop 05/14/18 at 11:16; Status DC Oxycodone HCl (Roxicodone, Oxyir) 10 mg TID PO Last administered on 06/05/18 10:12; Start 05/14/18 at 16:00 Pantoprazole Sodium (Protonix) 40 mg DAILY PO Last administered on 06/05/18 10:12; Start 05/14/18 at 09:00 Polyethylene Glycol (Miralax) 1 pkt DAILY PO Last administered on 05/31/18 08:58; Start 05/30/18 at 09:00; Stop 05/31/18 at 14:31; Status DC Polyethylene Glycol (Miralax) 2 pkt DAILY PO Last administered on 06/02/18 08:00; Start 06/01/18 at 09:00 Potassium Chloride (Micro-K Extencaps) 20 meq DAILY PO Last administered on 06/05/18 10:14; Start 05/15/18 at 09:00 Senna (Senokot) 1 tab DAILY@1200 PO Last administered on 06/02/18 11:56; Start 05/30/18 at 12:00 Senna (Senokot) 1 tab QHS PO Last administered on 05/13/18at 20:43; Start 05/13/18 at 21:00; Stop 05/15/18 at 17:28; Status DC Senna (Senokot) 2 tab QHS PO Last administered on 05/19/18at 21:04; Start 05/15/18 at 21:00; Stop 05/20/18 at 16:41; Status DC Senna/Docusate Sodium (Senokot S) 1 tab BID PO Last administered on 05/31/18 08:58; Start 05/30/18 at 09:00; Stop 05/31/18 at 14:31; Status DC Senna/Docusate Sodium (Senokot S) 2 tab BID PO ; Start 05/30/18 at 09:00; Stop 05/30/18 at 09:00; Status DC Senna/Docusate Sodium (Senokot S) 2 tab BID PO Last administered on 06/04/18 09:09; Start 05/31/18 at 21:00 Sodium Chloride (Sodium Chloride) 1 gm BID PO Last administered on 05/16/18at 08:38; Start 05/15/18 at 11:00; Stop 05/16/18 at 15:45; Status DC Sodium Chloride (Sodium Chloride) 1 gm BID PO Last administered on 06/05/18 10:10; Start 05/29/18 at 21:00 Sodium Chloride (Sodium Chloride) 1 gm TID PO Last administered on 05/20/18 09:23; Start 05/16/18 at 16:00; Stop 05/20/18 at 11:13; Status DC Sodium Chloride (Sodium Chloride) 2 gm BID PO Last administered on 05/29/18 09:18; Start 05/20/18 at 21:00; Stop 05/29/18 at 15:45; Status DC Thiamine HCl (Thiamine HCl) 100 mg DAILY PO Last administered on 06/05/18 10:14; Start 05/14/18 at 09:00 Trazodone HCl (Desyrel) 50 mg QHSP PRN PO INSOMNIA Last administered on 06/04/18 21:26; Start 05/13/18 at 17:45 Vitamin D (Vitamin D) 1,000 units DAILY PO Last administered on 06/05/18 10:14; Start 05/14/18 at 09:00 BRUCE CARDOZA MD Jun 05, 2018 14:09
[2018-06-05 20:00] VITALS: BP 122/60
[2018-06-05] MEDS: diphenhydrAMINE 25 MG CAP PO PRN (21:51)
[2018-06-05] MEDS: traZODone 50 MG TAB PO PRN (21:51)
[2018-06-05] MEDS: LIDOCAINE 5% (LIDODERM) PATCH TD SCH (21:51)
[2018-06-06 06:00] VITALS: BP 112/62
[2018-06-06 06:57] LABS: HEMATOCRIT 28.3 % (42.0-52.0); HEMOGLOBIN 9.2 g/dl (13.5-17.5); MEAN CORPUSCULAR HEMOGLOBIN 28.1 pg (27.0-33.0); MEAN CORPUSCULAR HGB CONC 32.5 g/dl (32.0-36.5); MEAN CORPUSCULAR VOLUME 86.5 fl (80.0-96.0); PLATELET COUNT, AUTOMATED 318 10^3/uL (150-450); RED BLOOD COUNT 3.27 10^6/uL (4.30-6.10); WHITE BLOOD COUNT 5.4 10^3/uL (4.0-10.0)
[2018-06-06 07:22] LABS: ALBUMIN 2.7 GM/DL (3.2-5.2); ALT/SGPT 28 U/L (12-78); BILIRUBIN,TOTAL 0.2 MG/DL (0.2-1.0); BLOOD UREA NITROGEN 13 MG/DL (7-18); CALCIUM LEVEL 8.8 MG/DL (8.8-10.2); CARBON DIOXIDE LEVEL 24 MEQ/L (21-32); CHLORIDE LEVEL 103 MEQ/L (98-107); CREATININE FOR GFR 0.54 MG/DL (0.70-1.30); GLOMERULAR FILTRATION RATE > 60.0 (>49); GLUCOSE, FASTING 98 MG/DL (70-100); POTASSIUM SERUM 4.1 MEQ/L (3.5-5.1); SODIUM LEVEL 135 MEQ/L (136-145); TOTAL PROTEIN 6.4 GM/DL (6.4-8.2)
[2018-06-06] MEDS: THIAMINE 100 MG TAB PO SCH (08:54)
[2018-06-06] MEDS: SENOKOT S TAB PO SCH ×2 (08:54→22:02)
[2018-06-06] MEDS: GABAPENTIN 300 MG CAP PO SCH ×3 (08:55→22:03)
[2018-06-06] MEDS: VITAMIN D 1,000 INTERNATIONAL UNITS TABLET PO SCH (08:55)
[2018-06-06] MEDS: POTASSIUM CHLORIDE 10 MEQ SR TABLET PO SCH (08:55)
[2018-06-06] MEDS: METOPROLOL SUCC (TopROL XL) 50MG **XL** TAB PO SCH (08:55)
[2018-06-06] MEDS: PANTOPRAZOLE 40MG TAB (PROTONIX) PO SCH (08:55)
[2018-06-06] MEDS: ASCORBIC ACID 500 MG TAB PO SCH (08:55)
[2018-06-06] MEDS: SODIUM CHLORIDE 1 GM TAB PO SCH ×2 (08:56→22:04)
[2018-06-06] MEDS: **NOTE PATIENT COMMENT** MISC XX SCH (08:56)
[2018-06-06] MEDS: oxyCODONE 5MG TAB PO SCH ×3 (08:56→22:03)
[2018-06-06] MEDS: ENOXAPARIN 40 MG/0.4 ML SYRINGE (J1650) SC SCH (08:56)
[2018-06-06] MEDS: LISINOPRIL 10 MG TAB PO SCH (08:56)
[2018-06-06] MEDS: ASPIRIN 81 MG ENTERIC TAB PO SCH (08:56)
[2018-06-06] MEDS: MIRALAX *UNIT DOSE* 17GM PACKET PO SCH (08:57)
[2018-06-06] MEDS: SENNA 8.6 MG TAB (SENOKOT) PO SCH (11:54)
[2018-06-06 14:00] VITALS: BP 122/64
[2018-06-06 20:00] VITALS: BP 111/58
[2018-06-06] MEDS: diphenhydrAMINE 25 MG CAP PO PRN (22:03)
[2018-06-06] MEDS: traZODone 50 MG TAB PO PRN (22:03)
[2018-06-06] MEDS: LIDOCAINE 5% (LIDODERM) PATCH TD SCH (22:04)
[2018-06-07 06:00] VITALS: BP 120/56
[2018-06-07] MEDS: SODIUM CHLORIDE 1 GM TAB PO SCH ×2 (08:41→22:03)
[2018-06-07] MEDS: ASPIRIN 81 MG ENTERIC TAB PO SCH (08:41)
[2018-06-07] MEDS: GABAPENTIN 300 MG CAP PO SCH ×3 (08:41→22:02)
[2018-06-07] MEDS: LISINOPRIL 10 MG TAB PO SCH (08:41)
[2018-06-07] MEDS: ENOXAPARIN 40 MG/0.4 ML SYRINGE (J1650) SC SCH (08:41)
[2018-06-07] MEDS: ASCORBIC ACID 500 MG TAB PO SCH (08:41)
[2018-06-07] MEDS: POTASSIUM CHLORIDE 10 MEQ SR TABLET PO SCH (08:42)
[2018-06-07] MEDS: oxyCODONE 5MG TAB PO SCH ×3 (08:42→22:03)
[2018-06-07] MEDS: VITAMIN D 1,000 INTERNATIONAL UNITS TABLET PO SCH (08:42)
[2018-06-07] MEDS: THIAMINE 100 MG TAB PO SCH (08:42)
[2018-06-07] MEDS: SENOKOT S TAB PO SCH ×2 (08:43→21:00)
[2018-06-07] MEDS: PANTOPRAZOLE 40MG TAB (PROTONIX) PO SCH (08:43)
[2018-06-07] MEDS: **NOTE PATIENT COMMENT** MISC XX SCH (08:43)
[2018-06-07] MEDS: METOPROLOL SUCC (TopROL XL) 50MG **XL** TAB PO SCH (08:43)
[2018-06-07] MEDS: MIRALAX *UNIT DOSE* 17GM PACKET PO SCH (08:43)
[2018-06-07] MEDS: SENNA 8.6 MG TAB (SENOKOT) PO SCH (11:04)
[2018-06-07 14:00] VITALS: BP 99/56
[2018-06-07 20:00] VITALS: BP 116/61
[2018-06-07] MEDS: LIDOCAINE 5% (LIDODERM) PATCH TD SCH (22:03)
[2018-06-07] MEDS: traZODone 50 MG TAB PO PRN (22:05)
[2018-06-07] MEDS: diphenhydrAMINE 25 MG CAP PO PRN (22:05)
[2018-06-07] MEDS: ACETAMINOPHEN TAB 650MG DOSE (2X325MG) PO PRN (22:05)
[2018-06-08 06:00] VITALS: BP 113/62
[2018-06-08 06:54] LABS: BLOOD UREA NITROGEN 19 MG/DL (7-18); CALCIUM LEVEL 8.4 MG/DL (8.8-10.2); CARBON DIOXIDE LEVEL 23 MEQ/L (21-32); CHLORIDE LEVEL 105 MEQ/L (98-107); CREATININE FOR GFR 0.63 MG/DL (0.70-1.30); GLOMERULAR FILTRATION RATE > 60.0 (>49); GLUCOSE, FASTING 104 MG/DL (70-100); SODIUM LEVEL 135 MEQ/L (136-145)
[2018-06-08] MEDS: ASPIRIN 81 MG ENTERIC TAB PO SCH (08:52)
[2018-06-08] MEDS: PANTOPRAZOLE 40MG TAB (PROTONIX) PO SCH (08:52)
[2018-06-08] MEDS: VITAMIN D 1,000 INTERNATIONAL UNITS TABLET PO SCH (08:53)
[2018-06-08] MEDS: SENOKOT S TAB PO SCH ×2 (08:53→21:00)
[2018-06-08] MEDS: POTASSIUM CHLORIDE 10 MEQ SR TABLET PO SCH (08:53)
[2018-06-08] MEDS: SODIUM CHLORIDE 1 GM TAB PO SCH ×2 (08:53→22:23)
[2018-06-08] MEDS: ASCORBIC ACID 500 MG TAB PO SCH (08:53)
[2018-06-08] MEDS: THIAMINE 100 MG TAB PO SCH (08:53)
[2018-06-08] MEDS: GABAPENTIN 300 MG CAP PO SCH ×3 (08:53→22:23)
[2018-06-08] MEDS: MIRALAX *UNIT DOSE* 17GM PACKET PO SCH (08:54)
[2018-06-08] MEDS: LISINOPRIL 10 MG TAB PO SCH (08:54)
[2018-06-08] MEDS: ENOXAPARIN 40 MG/0.4 ML SYRINGE (J1650) SC SCH (08:54)
[2018-06-08] MEDS: METOPROLOL SUCC (TopROL XL) 50MG **XL** TAB PO SCH (08:55)
[2018-06-08] MEDS: oxyCODONE 5MG TAB PO SCH ×3 (08:57→22:22)
[2018-06-08] MEDS: **NOTE PATIENT COMMENT** MISC XX SCH (09:00)
--- NOTE | 2018-06-08 11:23 | IPNPDOC ---
Date Seen The patient was seen on 06/08/18. Progress Note HPI: 62year old M S/P T11-S1 posterior arthrodesis L1-S1 laminectomies05/08/[address] Liu [facility]. Transfered to the care of MARIEL Zamora [facility], 05/13/18. No verbalized complaints today. Denies any weakness, fatigue, Headache, Chest Pain, Shortness of breath, cough, palpitations, abdominal pain, N/V/D or changes in bowel or bladder habits. PMHx: cervical stenosis Lumbar stenosis Thoracolumbar scoliosis Chronic neck pain/LE pain/Chronic pain GERD HTN PSHX: 05/08/18 T11-S1 posterior arthrodesis L1-S1 laminectomies. PE: GEN: 62yoM, appears stated age. No acute distress. Alert and oriented x 3. HEENT: Normocephalic, atraumatic. Sclera are nonicteric. Conjunctiva without injection. Moist mucous membranes. CHEST: Regular rate and rhythm, +S1, +S2 LUNGS: Clear to auscultation bilaterally. No wheezes, rales, or rhonchi. ABD: soft, NT, non-distended BS present. EXT: No lower extremity edema appreciated. SKIN: No rashes. NEURO: Alert and oriented x 3. No focal deficits appreciated. UC neg 05/14/18 FOB neg. U/S LEs No evidence for deep venous thrombosis. Electronically Signed by Adryan Cole MD 05/15/2018 05:36 A A&P: 62year old M S/P T11-S1 posterior arthrodesis L1-S1 laminectomies05/08/[address] Liu Temo [facility]. Transferred to the care of MARIEL Zamora [facility], 05/13/18. 1. S/P T11-S1 posterior arthrodesis L1-S1 laminectomies05/08/[address] Liu [facility] PT/OT/ST as per MARIEL Zamora. Pain control as per MARIEL Zamora. Bowel care as per MARIEL Zamora. DVT prophylaxis as per MARIEL Zamora. Lovenox SQ. Outpt F/U with Dr Liu. Wearing TLSO brace as per Dr Liu. Had F/U appt with Dr Liu 06/04/18. UC neg LE U/S neg. 2. S/P Influenza. Afebrile. BC x 2 neg. CXR NAD Completed Tamiflu 75 mg BID x 5 days. . Tylenol as needed. Repeat respiratory panel negative 05/25/18. 3. HTN. Toprol XL 100 mg po daily. Lisinopril 10 mg daily. Pt restarted ASA 81 mg daily 05/22/18. 4. Hypokalemia. Resolved. po Supplement daily. 4. Anemia. Hgb 9.2 Fe studies, B12, folate completed. FOB neg. Fe supplement BID. 5. Hyponatremia. Na trend 133-135. Ser Osm/Ur Osm/Ur Cr/NA/TSH/Mag noted. Fluid restriction. Salt tab BID. Monitor. 6. GERD. Protonix. VS, I&O, 24H, Fishbone Vital Signs/I&O Vital Signs Date Time Temp Pulse Resp B/P (MAP) Pulse Ox O2 Delivery O2 Flow Rate FiO2 06/08/18 08:57 18 06/08/18 08:55 74 06/08/18 08:54 132/65 06/08/18 06:00 99.4 98 I&O- Last 24 Hours up to 6 AM 06/08/18 06:00 Intake Total 2040 ml Output Total 900 ml Balance 1140 ml Laboratory Data 24H LABS Laboratory Tests 2 06/08/18 06:00: Anion Gap 7L, Glomerular Filtration Rate > 60.0, Blood Urea Nitrogen 19H, Creatinine 0.63L, Sodium Level 135L, Potassium Level 4.0, Chloride Level 105, Carbon Dioxide Level 23, Calcium Level 8.4L CBC/BMP Laboratory Tests 06/08/18 06:00 Calcium Level 8.4 L Olga Loja Jun 08, 2018 11:23
[2018-06-08] MEDS: SENNA 8.6 MG TAB (SENOKOT) PO SCH (12:00)
[2018-06-08 14:00] VITALS: BP 131/61
[2018-06-08 20:00] VITALS: BP 103/59
[2018-06-08] MEDS: LIDOCAINE 5% (LIDODERM) PATCH TD SCH (22:21)
[2018-06-08] MEDS: traZODone 50 MG TAB PO PRN (22:23)
[2018-06-08] MEDS: diphenhydrAMINE 25 MG CAP PO PRN (22:23)
[2018-06-08] MEDS: ACETAMINOPHEN TAB 650MG DOSE (2X325MG) PO PRN (22:23)
[2018-06-09 06:00] VITALS: BP 111/59
[2018-06-09] MEDS: MIRALAX *UNIT DOSE* 17GM PACKET PO SCH (09:00)
[2018-06-09] MEDS: SENOKOT S TAB PO SCH ×2 (09:00→21:00)
[2018-06-09] MEDS: **NOTE PATIENT COMMENT** MISC XX SCH (09:00)
[2018-06-09] MEDS: METOPROLOL SUCC (TopROL XL) 50MG **XL** TAB PO SCH ×2 (09:00→09:10)
[2018-06-09] MEDS: ASCORBIC ACID 500 MG TAB PO SCH (09:07)
[2018-06-09] MEDS: ENOXAPARIN 40 MG/0.4 ML SYRINGE (J1650) SC SCH (09:07)
[2018-06-09] MEDS: POTASSIUM CHLORIDE 10 MEQ SR TABLET PO SCH (09:07)
[2018-06-09] MEDS: GABAPENTIN 300 MG CAP PO SCH ×3 (09:08→22:09)
[2018-06-09] MEDS: VITAMIN D 1,000 INTERNATIONAL UNITS TABLET PO SCH (09:08)
[2018-06-09] MEDS: PANTOPRAZOLE 40MG TAB (PROTONIX) PO SCH (09:09)
[2018-06-09] MEDS: THIAMINE 100 MG TAB PO SCH (09:09)
[2018-06-09] MEDS: SODIUM CHLORIDE 1 GM TAB PO SCH ×2 (09:09→22:07)
[2018-06-09] MEDS: LISINOPRIL 10 MG TAB PO SCH (09:09)
[2018-06-09] MEDS: oxyCODONE 5MG TAB PO SCH ×3 (09:09→22:07)
[2018-06-09] MEDS: ASPIRIN 81 MG ENTERIC TAB PO SCH (09:09)
[2018-06-09] MEDS: SENNA 8.6 MG TAB (SENOKOT) PO SCH (11:54)
--- NOTE | 2018-06-09 13:51 | IPNPDOC ---
Date Seen The patient was seen on 06/09/18. Progress Note HPI: 62year old M S/P T11-S1 posterior arthrodesis L1-S1 laminectomies05/08/[address] Liu [facility]. Transfered to the care of MARIEL Zamora [facility], 05/13/18. Patient states he continues to feel stronger. No verbalized complaints today. Denies any weakness, fatigue, Headache, Chest Pain, Shortness of breath, cough, palpitations, abdominal pain, N/V/D or changes in bowel or bladder habits. PMHx: cervical stenosis Lumbar stenosis Thoracolumbar scoliosis Chronic neck pain/LE pain/Chronic pain GERD HTN PSHX: 05/08/18 T11-S1 posterior arthrodesis L1-S1 laminectomies. PE: GEN: 62yoM, appears stated age. No acute distress. Alert and oriented x 3. HEENT: Normocephalic, atraumatic. Sclera are nonicteric. Conjunctiva without injection. Moist mucous membranes. CHEST: Regular rate and rhythm, +S1, +S2 LUNGS: Clear to auscultation bilaterally. No wheezes, rales, or rhonchi. ABD: soft, NT, non-distended BS present. EXT: No lower extremity edema appreciated. SKIN: No rashes. NEURO: Alert and oriented x 3. No focal deficits appreciated. UC neg 05/14/18 FOB neg. U/S LEs No evidence for deep venous thrombosis. Electronically Signed by Adryan Cole MD 05/15/2018 05:36 A A&P: 62year old M S/P T11-S1 posterior arthrodesis L1-S1 laminectomies05/08/[address] Alexa [facility]. Transferred to the care of MARIEL Zamora [facility], 05/13/18. 1. S/P T11-S1 posterior arthrodesis L1-S1 laminectomies05/08/[address] Liu [facility] PT/OT/ST as per MARIEL Zamora. Pain control as per MARIEL Zamora. Bowel care as per MARIEL Zamora. DVT prophylaxis as per MARIEL Zamora. Lovenox SQ. Outpt F/U with Dr Liu. Wearing TLSO brace as per Dr Liu. Had F/U appt with Dr Liu 06/04/18. UC neg LE U/S neg. 2. S/P Influenza. Resolved. Completed Tamiflu 75 mg BID x 5 days. Repeat respiratory panel negative 05/25/18. 3. HTN. Toprol XL 100 mg po daily. Lisinopril 10 mg daily. Pt restarted ASA 81 mg daily 05/22/18. 4. Hypokalemia. Resolved. po Supplement daily. 4. Anemia. Hgb 9.2 Fe studies, B12, folate completed. FOB neg. Fe supplement BID. 5. Hyponatremia. Na trend 133-135. Ser Osm/Ur Osm/Ur Cr/NA/TSH/Mag noted. Fluid restriction. Salt tab BID. Monitor. 6. GERD. Protonix. VS, I&O, 24H, Fishbone Vital Signs/I&O Vital Signs Date Time Temp Pulse Resp B/P (MAP) Pulse Ox O2 Delivery O2 Flow Rate FiO2 06/09/18 09:40 18 06/09/18 09:09 111/59 06/09/18 09:00 59 06/09/18 06:00 98.6 97 I&O- Last 24 Hours up to 6 AM 06/09/18 06:00 Intake Total 1200 ml Output Total 1300 ml Balance -100 ml Olga Loja Jun 09, 2018 13:51
[2018-06-09 14:00] VITALS: BP 103/57
--- NOTE | 2018-06-09 15:59 | IPNPDOC ---
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 REVIEW OF SYSTEMS: The following is a completed review of systems and has been reviewed. Review of systems otherwise unremarkable. PAIN: self reports non-radiating low back pain EYES: Negative for recent vision changes EARS, NOSE, & THROAT: Denied rhinorrhea, throat pain or dysphagia CARDIOVASCULAR: denies chest pain or palpitations PULMONARY: Negative. Denies shortness of breath GASTROINTESTINAL: Negative for diarrhea or constipation GENITOURINARY: Negative for dysuria or hematuria or incontinence MUSCULOSKELETAL: bilateral LE weakness L>R and Left shoulder pain and arm weakness NEUROLOGICAL: LLE paralysis HEMATOLOGICAL: Negative for bruising SKIN: scab on bottom of left foot, lumbosacral sutures, otherwise intact. PSYCHIATRIC: Unremarkable All other review of systems found to be negative. PHYSICAL EXAMINATION: VITAL SIGNS: Please see below. GENERAL: Pleasant and cooperative. No acute distress. HEENT: PERRL. Extraocular movements intact. Clear conjunctiva, poor dentition CARDIOVASCULAR: Regular rate and rhythm. No murmurs, rubs, or gallops LUNGS: Clear to auscultation bilaterally. No wheezes. No rhonchi ABDOMEN: Soft, nontender, nondistended. Positive bowel sounds. Normal active bowel sounds NEUROLOGICAL: Alert and oriented times three. Cranial nerves II through XII grossly intact. Sensation to light touch in C-T2 dermatomes and L2-S2 dermatomes, and S3-5 regions to light touch +bilateral Babinski, 1+/4 patellar reflexes bilat 3+ bicep and brachioradialis reflexes EXTREMITIES: 5-\\5 strength right upper extremities. 3/5 left shoulder abduction pain limiting, and unable to fully test elbow extension given limited ROM, airplane mechanic 5/5 and elbow flexors 5-/5 3+/5 right hip flexors and knee extensors, 2+/5 ankle DF and EHL 2/5 left hip flexors and 3/5 knee extensors, 1/5 left ankle DF and EHL Left shoulder: +Neers and decreased internal rotation bilateral mild foot edema SKIN: lumbosacral incision c/d/i, no sacral ulcers, scab on bottom of left foot Lateral truncal ecchymosis ASSESSMENT:62-year-old M with past medical history of chronic low back pain who presents status post T11-S1 arthrodesis and laminectomy. PLAN: 1. rehab: PT/OT, assess for DME, working on [id number], able to performed wheelchair mobility well while in room,s/p flu, goal to work on stairs in PT, able to advance his left leg without assist using RW, can ambulate 20ft x 2 CG with RW 2. Ortho: s/p T11-S1 arthrodesis with laminectomy in setting of spinal stenosis with significant RLE paresis, TLSO brace when out of bed, Spinal precautions, monitor for myelopathy, at this time does have brisk reflexes in UE and +Babinksi most likely from cervical stenosis- -s/p follow-up at [place] with neurosurgeon Dr. Liu 06/04/18, no suture removal, has appointment in 2 weeks for removal -Left shoulder likely weak from cervical stenosis and impingement- will encourage ROM to prevent adhesive capsulitis-improving - TLSO brace adjusted 05/15/18 3. Cardio: pmh HTN: continue Metoprolol and adjust prn- medicine consulted, restarted ASA on 05-22-18 4 GI: patient reports constipation with leakage, KUB 05/29/18 showed, "Moderately distended air filled loops of small and large bowel raise the possibility of il eus." discussed case with surgeon evaluation advisor who recommended addition of bowel meds and to monitor clinical symptoms- s/p tap water enema 05/31/18 with improvement in constipation- continue bowel regimen-patient reports feeling less bloated 5. : monitor PVRs, admission UA and Ucx negative 6. Skin: dressing in place, change prn soil/drainage, multipodus boots while in bed to prevent heel cord contractures and heel ulcers 7. DVT ppx: continue Lovenox, admission dopplers negative 9. Pain: OXycodone and Tylenol, continue gabapentin 10. Electrolytes: hyponatremia stable at around 135, continue salt tabs 11. ID: fever resolved, w +Influenza, started on Tamiflu, s/p IVF monitor vitals -CXR negative for infiltrate -blood cultures sent, negative growth -s/p 7 days course Keflex for possible incision site infection,using silver- optifoam and healing well, no leukocytosis 12. Pain: continue standing oxycodone and prn, continue gabapentin, will start to taper opioids 13. Extremities: will acewrap bilateral feet and elevate 13. Dispo: 06/15/18 progressing towards goals to home, ramp being built this weekend Allergies Coded Allergies: No Known Drug Allergy (Verified Allergy, Unknown, 05/13/18) Vital Signs Vital Signs Date Time Temp Pulse Resp B/P (MAP) Pulse Ox O2 Delivery O2 Flow Rate FiO2 06/09/18 14:00 98.2 80 17 103/57 (72) 100 Current Medications Current Medications Current Medications Acetaminophen (Tylenol Tab) 650 mg Q4HP PRN PO fever/MILD PAIN (PS 1-4) Last administered on 06/08/18at 22:23; Start 05/13/18 at 17:45 Albuterol/ Ipratropium (Duoneb (Ipr 0.5mg/Alb 2.5mg)) 3 ml RQID NEB Last administered on 05/27/18at 16:14; Start 05/22/18 at 16:00; Stop 05/28/18 at 13:42; Status DC Ascorbic Acid (Vitamin C) 1,000 mg DAILY PO Last administered on 06/09/18at 09:07; Start 05/14/18 at 09:00 Aspirin (Ecotrin) 81 mg DAILY PO Last administered on 06/09/18at 09:09; Start 05/22/18 at 09:00 Bisacodyl (Dulcolax Suppository) 10 mg ASDIRECTED PRN DC IF NO BOWEL MOVEMENT; Start 05/14/18 at 18:00; Stop 05/30/18 at 08:45; Status DC Bisacodyl (Dulcolax Suppository) 10 mg DAILYPRN PRN DC CONSTIPATION; Start 05/13/18 at 17:45; Stop 05/30/18 at 08:45; Status DC Cephalexin Monohydrate (Keflex) 500 mg QID PO Last administered on 05/25/18at 08:44; Start 05/18/18 at 13:00; Stop 05/25/18 at 10:36; Status DC Dextromethorphan (Delsym Af 12hr Susp) 30 mg Q12HP PRN PO COUGH Last a dministered on 06/04/18at 22:42; Start 05/29/18 at 19:45 Dextromethorphan (ROBITUSSIN PEDIATRIC COUGH SYRUP 7.5mg/5ml) 5 ml Q8HP PRN PO COUGH Last administered on 05/26/18at 22:36; Start 05/20/18 at 23:30; Stop 05/29/18 at 19:39; Status DC Dicyclomine HCl (Bentyl) 10 mg Q6H PO Last administered on 05/30/18 06:30; Start 05/29/18 at 18:00; Stop 05/30/18 at 08:45; Status DC Diphenhydramine HCl (Benadryl) 25 mg QHSP PRN PO INSOMNIA Last administered on 06/08/18at 22:23; Start 05/21/18 at 20:00 Docusate Sodium (Colace) 100 mg BID PO Last administered on 05/19/18at 21:05; Start 05/13/18 at 21:00; Stop 05/20/18 at 16:41; Status DC Docusate Sodium (Colace) 100 mg BID PO Last administered on 05/29/18at 20:33; Start 05/29/18 at 21:00; Stop 05/30/18 at 08:45; Status DC Enoxaparin Sodium (Lovenox) 40 mg DAILY SC Last administered on 06/09/18at 09:07; Start 05/14/18 at 09:00 Ferrous Gluconate (Fergon) 324 mg BID PO Last administered on 05/29/18 09:17; Start 05/15/18 at 21:00; Stop 05/29/18 at 15:44; Status DC Gabapentin (Neurontin) 100 mg TID PO ; Start 05/20/18 at 21:00; Stop 05/20/18 at 21:00; Status DC Gabapentin (Neurontin) 200 mg TID PO ; Start 05/13/18 at 21:00; Stop 05/13/18 at 21:00; Status DC Gabapentin (Neurontin) 300 mg TID PO Last administered on 06/09/18at 09:08; Start 05/20/18 at 21:00 Home Med (Med Rec Complete!) ASDIRECTED XX ; Start 05/13/18 at 18:15; Stop 05/13/18 at 18:16; Status DC Lidocaine (Lidoderm Patch) 1 patch DAILY@2100 TD Last administered on 06/08/18at 22:21; Start 05/14/18 at 21:00 Lisinopril (Prinivil) 10 mg DAILY PO Last administered on 06/09/18 09:09; Start 05/15/18 at 11:00 Magnesium Hydroxide (Milk Of Magnesia) 30 ml DAILYPRN PRN PO CONSTIPATION Last administered on 05/31/18 09:01; Start 05/13/18 at 17:45 Metoprolol Succinate (TopROL XL) 50 mg DAILY PO Last administered on 05/14/18at 09:39; Start 05/14/18 at 09:00; Stop 05/14/18 at 11:18; Status DC Metoprolol Succinate (TopROL XL) 100 mg DAILY PO Last administered on 06/08/18 08:55; Start 05/15/18 at 09:00 Miscellaneous (Unresolved Clarification Entry) SEE LABEL COMMENTS DAILY XX ; Start 05/20/18 at 09:00; Stop 05/20/18 at 11:16; Status DC Miscellaneous (Unresolved Clarification Entry) SEE LABEL COMMENTS DAILY XX ; Start 05/24/18 at 09:00; Stop 05/25/18 at 10:36; Status DC Miscellaneous (Unresolved Clarification Entry) SEE LABEL COMMENTS DAILY XX ; Start 05/31/18 at 09:00; Stop 06/01/18 at 07:06; Status DC Miscellaneous (Unresolved Clarification Entry) SEE LABEL COMMENTS DAILY XX Last administered on 06/01/18at 08:41; Start 06/01/18 at 09:00; Stop 06/01/18 at 11:29; Status DC Non-Formulary Medication ( See Comment Field Below ) REMOVE LIDODERM PATCH DAILY XX Last administered on 06/09/18at 09:00; Start 05/15/18 at 09:00 Ondansetron HCl (Zofran) 4 mg Q6HP PRN PO NAUSEA; Start 05/13/18 at 17:45 Oseltamivir Phosphate (Tamiflu) 75 mg BID PO Last administered on 05/24/18at 08:58; Start 05/18/18 at 14:15; Stop 05/24/18 at 14:17; Status DC Oxycodone HCl (Roxicodone, Oxyir) 5 mg Q4HP PRN PO PAIN 4-7 Last administered on 06/05/18at 03:32; Start 05/13/18 at 17:45; Stop 06/09/18 at 15:02; Status DC Oxycodone HCl (Roxicodone, Oxyir) 5 mg TID PO ; Start 06/09/18 at 16:00 Oxycodone HCl (Roxicodone, Oxyir) 10 mg Q4HP PRN PO SEVERE PAIN (PS 8-10) Last administered on 05/14/18 09:54; Start 05/13/18 at 17:45; Stop 05/14/18 at 11:16; Status DC Oxycodone HCl (Roxicodone, Oxyir) 10 mg TID PO Last administered on 06/09/18 09:09; Start 05/14/18 at 16:00; Stop 06/09/18 at 15:02; Status DC Pantoprazole Sodium (Protonix) 40 mg DAILY PO Last administered on 06/09/18 09:09; Start 05/14/18 at 09:00 Polyethylene Glycol (Miralax) 1 pkt DAILY PO Last administered on 05/31/18 08:58; Start 05/30/18 at 09:00; Stop 05/31/18 at 14:31; Status DC Polyethylene Glycol (Miralax) 2 pkt DAILY PO Last administered on 06/02/18 08:00; Start 06/01/18 at 09:00 Potassium Chloride (Micro-K Extencaps) 20 meq DAILY PO Last administered on 06/09/18 09:07; Start 05/15/18 at 09:00 Senna (Senokot) 1 tab DAILY@1200 PO Last administered on 06/02/18 11:56; Start 05/30/18 at 12:00 Senna (Senokot) 1 tab QHS PO Last administered on 05/13/18 20:43; Start 05/13/18 at 21:00; Stop 05/15/18 at 17:28; Status DC Senna (Senokot) 2 tab QHS PO Last administered on 05/19/18 21:04; Start 05/15/18 at 21:00; Stop 05/20/18 at 16:41; Status DC Senna/Docusate Sodium (Senokot S) 1 tab BID PO Last administered on 05/31/18 08:58; Start 05/30/18 at 09:00; Stop 05/31/18 at 14:31; Status DC Senna/Docusate Sodium (Senokot S) 2 tab BID PO ; Start 05/30/18 at 09:00; Stop 05/30/18 at 09:00; Status DC Senna/Docusate Sodium (Senokot S) 2 tab BID PO Last administered on 06/08/18 08:53; Start 05/31/18 at 21:00 Sodium Chloride (Sodium Chloride) 1 gm BID PO Last administered on 05/16/18at 08:38; Start 05/15/18 at 11:00; Stop 05/16/18 at 15:45; Status DC Sodium Chloride (Sodium Chloride) 1 gm BID PO Last administered on 06/05/18at 10:10; Start 05/29/18 at 21:00; Stop 06/05/18 at 14:06; Status DC Sodium Chloride (Sodium Chloride) 1 gm TID PO Last administered on 05/20/18 09:23; Start 05/16/18 at 16:00; Stop 05/20/18 at 11:13; Status DC Sodium Chloride (Sodium Chloride) 2 gm BID PO Last administered on 05/29/18 09:18; Start 05/20/18 at 21:00; Stop 05/29/18 at 15:45; Status DC Sodium Chloride (Sodium Chloride) 2 gm BID PO Last administered on 06/09/18 09:09; Start 06/05/18 at 21:00 Thiamine HCl (Thiamine HCl) 100 mg DAILY PO Last administered on 06/09/18 09:09; Start 05/14/18 at 09:00 Trazodone HCl (Desyrel) 50 mg QHSP PRN PO INSOMNIA Last administered on 06/08/18 22:23; Start 05/13/18 at 17:45 Vitamin D (Vitamin D) 1,000 units DAILY PO Last administered on 06/09/18 09:08; Start 05/14/18 at 09:00 BRUCE CARDOZA MD Jun 09, 2018 15:59
--- NOTE | 2018-06-09 16:01 | IPNPDOC ---
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 REVIEW OF SYSTEMS: The following is a completed review of systems and has been reviewed. Review of systems otherwise unremarkable. PAIN: self reports non-radiating low back pain EYES: Negative for recent vision changes EARS, NOSE, & THROAT: Denied rhinorrhea, throat pain or dysphagia CARDIOVASCULAR: denies chest pain or palpitations PULMONARY: Negative. Denies shortness of breath GASTROINTESTINAL: Negative for diarrhea or constipation GENITOURINARY: Negative for dysuria or hematuria or incontinence MUSCULOSKELETAL: bilateral LE weakness L>R and Left shoulder pain and arm weakness NEUROLOGICAL: LLE paralysis HEMATOLOGICAL: Negative for bruising SKIN: scab on bottom of left foot, lumbosacral sutures, otherwise intact. PSYCHIATRIC: Unremarkable All other review of systems found to be negative. PHYSICAL EXAMINATION: VITAL SIGNS: Please see below. GENERAL: Pleasant and cooperative. No acute distress. HEENT: PERRL. Extraocular movements intact. Clear conjunctiva, poor dentition CARDIOVASCULAR: Regular rate and rhythm. No murmurs, rubs, or gallops LUNGS: Clear to auscultation bilaterally. No wheezes. No rhonchi ABDOMEN: Soft, nontender, nondistended. Positive bowel sounds. Normal active bowel sounds NEUROLOGICAL: Alert and oriented times three. Cranial nerves II through XII grossly intact. Sensation to light touch in C-T2 dermatomes and L2-S2 dermatomes, and S3-5 regions to light touch +bilateral Babinski, 1+/4 patellar reflexes bilat 3+ bicep and brachioradialis reflexes EXTREMITIES: 5-\\5 strength right upper extremities. 3/5 left shoulder abduction pain limiting, and unable to fully test elbow extension given limited ROM, corporate scheduler 5/5 and elbow flexors 5-/5 3+/5 right hip flexors and knee extensors, 2+/5 ankle DF and EHL 2/5 left hip flexors and 3/5 knee extensors, 1/5 left ankle DF and EHL Left shoulder: +Neers and decreased internal rotation bilateral mild foot edema-improved SKIN: lumbosacral incision c/d/i, no sacral ulcers, scab on bottom of left foot Lateral truncal ecchymosis ASSESSMENT:62-year-old M with past medical history of chronic low back pain who presents status post T11-S1 arthrodesis and laminectomy. PLAN: 1. rehab: PT/OT, assess for DME, working on [id number], able to performed wheelchair mobility well while in room,s/p flu, goal to work on stairs in PT, able to advance his left leg without assist using RW, still requiring 2 people to climb stairs, will attempt to make progress with this over the weekend 2. Ortho: s/p T11-S1 arthrodesis with laminectomy in setting of spinal stenosis with significant RLE paresis, TLSO brace when out of bed, Spinal precautions, monitor for myelopathy, at this time does have brisk reflexes in UE and +Babinksi most likely from cervical stenosis- -s/p follow-up at [place] with neurosurgeon Dr. Liu 06/04/18, no suture removal, has appointment in 2 weeks for removal -Left shoulder likely weak from cervical stenosis and impingement- will encourage ROM to prevent adhesive capsulitis-improving - TLSO brace adjusted 05/15/18 3. Cardio: pmh HTN: continue Metoprolol and adjust prn- medicine consulted, restarted ASA on 05-22-18 4 GI: patient reports constipation with leakage, KUB 05/29/18 showed, "Moderately distended air filled loops of small and large bowel raise the possibility of ileus." discussed case with surgeon special education classroom aide who recommended addition of bowel meds and to monitor clinical symptoms- s/p tap water enema 05/31/18 with improvement in constipation- continue bowel regimen-patient reports feeling less bloated 5. : monitor PVRs, admission UA and Ucx negative 6. Skin: dressing in place, change prn soil/drainage, multipodus boots while in bed to prevent heel cord contractures and heel ulcers 7. DVT ppx: continue Lovenox, admission dopplers negative 9. Pain: decreased oxycodone standing dose, and stopped prns, continue Tylenol and gabapentin 10. Electrolytes: hyponatremia stable at around 135, continue salt tabs 11. ID: fever resolved, w +Influenza, started on Tamiflu, s/p IVF monitor vitals -CXR negative for infiltrate -blood cultures sent, negative growth -s/p 7 days course Keflex for possible incision site infection,using silver- optifoam and healing well, no leukocytosis 12. Pain: continue standing oxycodone and prn, continue gabapentin, will start to taper opioids 13. Extremities: will acewrap bilateral feet and elevate 13. Dispo: 06/15/18 progressing towards goals to home, ramp being built this weekend Allergies Coded Allergies: No Known Drug Allergy (Verified Allergy, Unknown, 05/13/18) Vital Signs Vital Signs Date Time Temp Pulse Resp B/P (MAP) Pulse Ox O2 Delivery O2 Flow Rate FiO2 06/09/18 14:00 98.2 80 17 103/57 (72) 100 Current Medications Current Medications Current Medications Acetaminophen (Tylenol Tab) 650 mg Q4HP PRN PO fever/MILD PAIN (PS 1-4) Last administered on 06/08/18at 22:23; Start 05/13/18 at 17:45 Albuterol/ Ipratropium (Duoneb (Ipr 0.5mg/Alb 2.5mg)) 3 ml RQID NEB Last administered on 05/27/18at 16:14; Start 05/22/18 at 16:00; Stop 05/28/18 at 13:42; Status DC Ascorbic Acid (Vitamin C) 1,000 mg DAILY PO Last administered on 06/09/18 09:07; Start 05/14/18 at 09:00 Aspirin (Ecotrin) 81 mg DAILY PO Last administered on 06/09/18at 09:09; Start 05/22/18 at 09:00 Bisacodyl (Dulcolax Suppository) 10 mg ASDIRECTED PRN WI IF NO BOWEL MOVEMENT; Start 05/14/18 at 18:00; Stop 05/30/18 at 08:45; Status DC Bisacodyl (Dulcolax Suppository) 10 mg DAILYPRN PRN WI CONSTIPATION; Start 05/13/18 at 17:45; Stop 05/30/18 at 08:45; Status DC Cephalexin Monohydrate (Keflex) 500 mg QID PO Last administered on 05/25/18at 08:44; Start 05/18/18 at 13:00; Stop 05/25/18 at 10:36; Status DC Dextromethorphan (Delsym Af 12hr Susp) 30 mg Q12HP PRN PO COUGH Last administered on 06/04/18at 22:42; Start 05/29/18 at 19:45 Dextromethorphan (ROBITUSSIN PEDIATRIC COUGH SYRUP 7.5mg/5ml) 5 ml Q8HP PRN PO COUGH Last administered on 05/26/18at 22:36; Start 05/20/18 at 23:30; Stop 05/29/18 at 19:39; Status DC Dicyclomine HCl (Bentyl) 10 mg Q6H PO Last administered on 05/30/18 06:30; Start 05/29/18 at 18:00; Stop 05/30/18 at 08:45; Status DC Diphenhydramine HCl (Benadryl) 25 mg QHSP PRN PO INSOMNIA Last administered on 06/08/18 22:23; Start 05/21/18 at 20:00 Docusate Sodium (Colace) 100 mg BID PO Last administered on 05/19/18at 21:05; Start 05/13/18 at 21:00; Stop 05/20/18 at 16:41; Status DC Docusate Sodium (Colace) 100 mg BID PO Last administered on 05/29/18at 20:33; Start 05/29/18 at 21:00; Stop 05/30/18 at 08:45; Status DC Enoxaparin Sodium (Lovenox) 40 mg DAILY SC Last administered on 06/09/18 09:07; Start 05/14/18 at 09:00 Ferrous Gluconate (Fergon) 324 mg BID PO Last administered on 05/29/18 09:17; Start 05/15/18 at 21:00; Stop 05/29/18 at 15:44; Status DC Gabapentin (Neurontin) 100 mg TID PO ; Start 05/20/18 at 21:00; Stop 05/20/18 at 21:00; Status DC Gabapentin (Neurontin) 200 mg TID PO ; Start 05/13/18 at 21:00; Stop 05/13/18 at 21:00; Status DC Gabapentin (Neurontin) 300 mg TID PO Last administered on 06/09/18at 09:08; Start 05/20/18 at 21:00 Home Med (Med Rec Complete!) ASDIRECTED XX ; Start 05/13/18 at 18:15; Stop 05/13/18 at 18:16; Status DC Lidocaine (Lidoderm Patch) 1 patch DAILY@2100 TD Last administered on 06/08/18at 22:21; Start 05/14/18 at 21:00 Lisinopril (Prinivil) 10 mg DAILY PO Last administered on 06/09/18at 09:09; Start 05/15/18 at 11:00 Magnesium Hydroxide (Milk Of Magnesia) 30 ml DAILYPRN PRN PO CONSTIPATION Last administered on 05/31/18 09:01; Start 05/13/18 at 17:45 Metoprolol Succinate (TopROL XL) 50 mg DAILY PO Last administered on 05/14/18at 09:39; Start 05/14/18 at 09:00; Stop 05/14/18 at 11:18; Status DC Metoprolol Succinate (TopROL XL) 100 mg DAILY PO Last administered on 06/08/18at 08:55; Start 05/15/18 at 09:00 Miscellaneous (Unresolved Clarification Entry) SEE LABEL COMMENTS DAILY XX ; Start 05/20/18 at 09:00; Stop 05/20/18 at 11:16; Status DC Miscellaneous (Unresolved Clarification Entry) SEE LABEL COMMENTS DAILY XX ; Start 05/24/18 at 09:00; Stop 05/25/18 at 10:36; Status DC Miscellaneous (Unresolved Clarification Entry) SEE LABEL COMMENTS DAILY XX ; Start 05/31/18 at 09:00; Stop 06/01/18 at 07:06; Status DC Miscellaneous (Unresolved Clarification Entry) SEE LABEL COMMENTS DAILY XX Last administered on 06/01/18at 08:41; Start 06/01/18 at 09:00; Stop 06/01/18 at 11:29; Status DC Non-Formulary Medication ( See Comment Field Below ) REMOVE LIDODERM PATCH DAILY XX Last administered on 06/09/18at 09:00; Start 05/15/18 at 09:00 Ondansetron HCl (Zofran) 4 mg Q6HP PRN PO NAUSEA; Start 05/13/18 at 17:45 Oseltamivir Phosphate (Tamiflu) 75 mg BID PO Last administered on 05/24/18at 08:58; Start 05/18/18 at 14:15; Stop 05/24/18 at 14:17; Status DC Oxycodone HCl (Roxicodone, Oxyir) 5 mg Q4HP PRN PO PAIN 4-7 Last administered on 06/05/18 03:32; Start 05/13/18 at 17:45; Stop 06/09/18 at 15:02; Status DC Oxycodone HCl (Roxicodone, Oxyir) 5 mg TID PO ; Start 06/09/18 at 16:00 Oxycodone HCl (Roxicodone, Oxyir) 10 mg Q4HP PRN PO SEVERE PAIN (PS 8-10) Last administered on 05/14/18 09:54; Start 05/13/18 at 17:45; Stop 05/14/18 at 11:16; Status DC Oxycodone HCl (Roxicodone, Oxyir) 10 mg TID PO Last administered on 06/09/18 09:09; Start 05/14/18 at 16:00; Stop 06/09/18 at 15:02; Status DC Pantoprazole Sodium (Protonix) 40 mg DAILY PO Last administered on 06/09/18 09:09; Start 05/14/18 at 09:00 Polyethylene Glycol (Miralax) 1 pkt DAILY PO Last administered on 05/31/18 08:58; Start 05/30/18 at 09:00; Stop 05/31/18 at 14:31; Status DC Polyethylene Glycol (Miralax) 2 pkt DAILY PO Last administered on 06/02/18 08:00; Start 06/01/18 at 09:00 Potassium Chloride (Micro-K Extencaps) 20 meq DAILY PO Last administered on 06/09/18 09:07; Start 05/15/18 at 09:00 Senna (Senokot) 1 tab DAILY@1200 PO Last administered on 06/02/18 11:56; Start 05/30/18 at 12:00 Senna (Senokot) 1 tab QHS PO Last administered on 05/13/18 20:43; Start 05/13/18 at 21:00; Stop 05/15/18 at 17:28; Status DC Senna (Senokot) 2 tab QHS PO Last administered on 05/19/18 21:04; Start 05/15/18 at 21:00; Stop 05/20/18 at 16:41; Status DC Senna/Docusate Sodium (Senokot S) 1 tab BID PO Last administered on 05/31/18 08:58; Start 05/30/18 at 09:00; Stop 05/31/18 at 14:31; Status DC Senna/Docusate Sodium (Senokot S) 2 tab BID PO ; Start 05/30/18 at 09:00; Stop 05/30/18 at 09:00; Status DC Senna/Docusate Sodium (Senokot S) 2 tab BID PO Last administered on 06/08/18 08:53; Start 05/31/18 at 21:00 Sodium Chloride (Sodium Chloride) 1 gm BID PO Last administered on 05/16/18 08:38; Start 05/15/18 at 11:00; Stop 05/16/18 at 15:45; Status DC Sodium Chloride (Sodium Chloride) 1 gm BID PO Last administered on 06/05/18 10:10; Start 05/29/18 at 21:00; Stop 06/05/18 at 14:06; Status DC Sodium Chloride (Sodium Chloride) 1 gm TID PO Last administered on 05/20/18 09:23; Start 05/16/18 at 16:00; Stop 05/20/18 at 11:13; Status DC Sodium Chloride (Sodium Chloride) 2 gm BID PO Last administered on 05/29/18 09: 18; Start 05/20/18 at 21:00; Stop 05/29/18 at 15:45; Status DC Sodium Chloride (Sodium Chloride) 2 gm BID PO Last administered on 06/09/18 09:09; Start 06/05/18 at 21:00 Thiamine HCl (Thiamine HCl) 100 mg DAILY PO Last administered on 06/09/18 09:09; Start 05/14/18 at 09:00 Trazodone HCl (Desyrel) 50 mg QHSP PRN PO INSOMNIA Last administered on 06/08/18 22:23; Start 05/13/18 at 17:45 Vitamin D (Vitamin D) 1,000 units DAILY PO Last administered on 06/09/18 09:08; Start 05/14/18 at 09:00 BRUCE CARDOZA MD Jun 09, 2018 16:01
[2018-06-09 20:00] VITALS: BP 118/61
[2018-06-09] MEDS: traZODone 50 MG TAB PO PRN (22:09)
[2018-06-09] MEDS: diphenhydrAMINE 25 MG CAP PO PRN (22:09)
[2018-06-09] MEDS: LIDOCAINE 5% (LIDODERM) PATCH TD SCH (22:10)
[2018-06-10 06:00] VITALS: BP 130/67
[2018-06-10] MEDS: MIRALAX *UNIT DOSE* 17GM PACKET PO SCH (09:00)
[2018-06-10] MEDS: **NOTE PATIENT COMMENT** MISC XX SCH (09:00)
[2018-06-10] MEDS: SENOKOT S TAB PO SCH ×2 (09:00→21:06)
[2018-06-10] MEDS: VITAMIN D 1,000 INTERNATIONAL UNITS TABLET PO SCH (09:20)
[2018-06-10] MEDS: ENOXAPARIN 40 MG/0.4 ML SYRINGE (J1650) SC SCH (09:20)
[2018-06-10] MEDS: ASCORBIC ACID 500 MG TAB PO SCH (09:21)
[2018-06-10] MEDS: oxyCODONE 5MG TAB PO SCH ×3 (09:21→21:04)
[2018-06-10] MEDS: THIAMINE 100 MG TAB PO SCH (09:21)
[2018-06-10] MEDS: ASPIRIN 81 MG ENTERIC TAB PO SCH (09:21)
[2018-06-10] MEDS: POTASSIUM CHLORIDE 10 MEQ SR TABLET PO SCH (09:21)
[2018-06-10] MEDS: METOPROLOL SUCC (TopROL XL) 50MG **XL** TAB PO SCH (09:21)
[2018-06-10] MEDS: SODIUM CHLORIDE 1 GM TAB PO SCH ×2 (09:21→21:02)
[2018-06-10] MEDS: LISINOPRIL 10 MG TAB PO SCH (09:22)
[2018-06-10] MEDS: GABAPENTIN 300 MG CAP PO SCH ×3 (09:22→21:04)
[2018-06-10] MEDS: PANTOPRAZOLE 40MG TAB (PROTONIX) PO SCH (09:22)
[2018-06-10] MEDS: SENNA 8.6 MG TAB (SENOKOT) PO SCH (11:05)
--- NOTE | 2018-06-10 11:19 | IPNPDOC ---
PM&R Progress Note DATE OF SERVICE: Jun 10, 2018 Licensed Massage Therapist Progress Note Subjective: Patient reports he would like to take a shower and is doing ok tapering his pain medications. REVIEW OF SYSTEMS: The following is a completed review of systems and has been reviewed. Review of systems otherwise unremarkable. PAIN: self reports non-radiating low back pain EYES: Negative for recent vision changes EARS, NOSE, & THROAT: Denied rhinorrhea, throat pain or dysphagia CARDIOVASCULAR: denies chest pain or palpitations PULMONARY: Negative. Denies shortness of breath GASTROINTESTINAL: Negative for diarrhea or constipation GENITOURINARY: Negative for dysuria or hematuria or incontinence MUSCULOSKELETAL: bilateral LE weakness L>R and Left shoulder pain and arm weakness NEUROLOGICAL: LLE paralysis HEMATOLOGICAL: Negative for bruising SKIN: scab on bottom of left foot, lumbosacral sutures, otherwise intact. PSYCHIATRIC: Unremarkable All other review of systems found to be negative. PHYSICAL EXAMINATION: VITAL SIGNS: Please see below. GENERAL: Pleasant and cooperative. No acute distress. HEENT: PERRL. Extraocular movements intact. Clear conjunctiva, poor dentition CARDIOVASCULAR: Regular rate and rhythm. No murmurs, rubs, or gallops LUNGS: Clear to auscultation bilaterally. No wheezes. No rhonchi ABDOMEN: Soft, nontender, nondistended. Positive bowel sounds. Normal active bowel sounds NEUROLOGICAL: Alert and oriented times three. Cranial nerves II through XII grossly intact. Sensation to light touch in C-T2 dermatomes and L2-S2 dermatomes, and S3-5 regions to light touch +bilateral Babinski, 1+/4 patellar reflexes bilat 3+ bicep and brachioradialis reflexes EXTREMITIES: 5-\\5 strength right upper extremities. 3/5 left shoulder abduction pain limiting, and unable to fully test elbow extension given limited ROM, manager rfid 5/5 and elbow flexors 5-/5 3+/5 right hip flexors and knee extensors, 2+/5 ankle DF and EHL 2/5 left hip flexors and 3/5 knee extensors, 1/5 left ankle DF and EHL Left shoulder: +Neers and decreased internal rotation bilateral mild foot edema-improved SKIN: lumbosacral incision c/d/i, no sacral ulcers, scab on bottom of left foot Lateral truncal ecchymosis ASSESSMENT:62-year-old M with past medical history of chronic low back pain who presents status post T11-S1 arthrodesis and laminectomy. PLAN: 1. rehab: PT/OT, assess for DME, working on [id number], able to performed wheelchair mobility well while in room,s/p flu, goal to work on stairs in PT, able to advance his left leg without assist using RW, still requiring 2 people to climb stairs, will attempt to make progress with this over the weekend 2. Ortho: s/p T11-S1 arthrodesis with laminectomy in setting of spinal stenosis with significant RLE paresis, TLSO brace when out of bed, Spinal precautions, monitor for myelopathy, at this time does have brisk reflexes in UE and +Babinksi most likely from cervical stenosis- reports prior to his surgery he had episodes of flatulence where he would have a bowel movement concurrently- reports he is able to push out the stool and has perianal sensation -s/p follow-up at [place] with neurosurgeon Dr. Liu 06/04/18, no suture removal, has appointment in 2 weeks for removal -Left shoulder likely weak from cervical stenosis and impingement- will encourage ROM to prevent adhesive capsulitis-improving - TLSO brace adjusted 05/15/18 3. Cardio: pmh HTN: continue Metoprolol and adjust prn- medicine consulted, restarted ASA on 05-22-18 4 GI: patient reports constipation with leakage, KUB 05/29/18 showed, "Moderately distended air filled loops of small and large bowel raise the possibility of ileus." discussed case with surgeon mine production engineer who recommended addition of bowel meds and to monitor clinical symptoms- s/p tap water enema 05/31/18 with improvement in constipation- continue bowel regimen-patient reports feeling less bloated 5. : monitor PVRs, admission UA and Ucx negative 6. Skin: dressing in place, change prn soil/drainage, multipodus boots while in bed to prevent heel cord contractures and heel ulcers 7. DVT ppx: continue Lovenox, admission dopplers negative 9. Pain: tapering oxycodone, continue Tylenol and gabapentin 10. Electrolytes: hyponatremia stable at around 135, continue salt tabs 11. ID: fever resolved, w +Influenza, started on Tamiflu, s/p IVF monitor vitals -CXR negative for infiltrate -blood cultures sent, negative growth -s/p 7 days course Keflex for possible incision site infection,using silver- optifoam and healing well, no leukocytosis-ok to shower 13. Extremities: will acewrap bilateral feet and elevate-improving 13. Dispo: 06/15/18 progressing towards goals to home, ramp being built this weekend DME: Patient will require an AFO on the left to assist with ambulation for his foot drop. He will need a wheelchair for use inside and outside of the home. He will also need a hospital bed in order to keep the head of the bed above 30 degrees for immediate repositioning given his bilateral lower extremity paresis. Allergies Coded Allergies: No Known Drug Allergy (Verified Allergy, Unknown, 05/13/18) Vital Signs Vital Signs Date Time Temp Pulse Resp B/P (MAP) Pulse Ox O2 Delivery O2 Flow Rate FiO2 06/10/18 09:51 16 06/10/18 09:22 130/67 06/10/18 09:21 76 06/10/18 06:00 98.7 96 Current Medications Current Medications Current Medications Acetaminophen (Tylenol Tab) 650 mg Q4HP PRN PO fever/MILD PAIN (PS 1-4) Last administered on 06/08/18at 22:23; Start 05/13/18 at 17:45 Albuterol/ Ipratropium (Duoneb (Ipr 0.5mg/Alb 2.5mg)) 3 ml RQID NEB Last administered on 05/27/18at 16:14; Start 05/22/18 at 16:00; Stop 05/28/18 at 13:42; Status DC Ascorbic Acid (Vitamin C) 1,000 mg DAILY PO Last administered on 06/10/18at 09:21; Start 05/14/18 at 09:00 Aspirin (Ecotrin) 81 mg DAILY PO Last administered on 06/10/18at 09:21; Start 05/22/18 at 09:00 Bisacodyl (Dulcolax Suppository) 10 mg ASDIRECTED PRN VT IF NO BOWEL MOVEMENT; Start 05/14/18 at 18:00; Stop 05/30/18 at 08:45; Status DC Bisacodyl (Dulcolax Suppository) 10 mg DAILYPRN PRN VT CONSTIPATION; Start 05/13/18 at 17:45; Stop 05/30/18 at 08:45; Status DC Cephalexin Monohydrate (Keflex) 500 mg QID PO Last administered on 05/25/18at 08:44; Start 05/18/18 at 13:00; Stop 05/25/18 at 10:36; Status DC Dextromethorphan (Delsym Af 12hr Susp) 30 mg Q12HP PRN PO COUGH Last administered on 06/04/18at 22:42; Start 05/29/18 at 19:45 Dextromethorphan (ROBITUSSIN PEDIATRIC COUGH SYRUP 7.5mg/5ml) 5 ml Q8HP PRN PO COUGH Last administered on 05/26/18at 22:36; Start 05/20/18 at 23:30; Stop 05/29/18 at 19:39; Status DC Dicyclomine HCl (Bentyl) 10 mg Q6H PO Last administered on 05/30/18 06:30; Start 05/29/18 at 18:00; Stop 05/30/18 at 08:45; Status DC Diphenhydramine HCl (Benadryl) 25 mg QHSP PRN PO INSOMNIA Last administered on 06/09/18at 22:09; Start 05/21/18 at 20:00 Docusate Sodium (Colace) 100 mg BID PO Last administered on 05/19/18at 21:05; Start 05/13/18 at 21:00; Stop 05/20/18 at 16:41; Status DC Docusate Sodium (Colace) 100 mg BID PO Last administered on 05/29/18at 20:33; Start 05/29/18 at 21:00; Stop 05/30/18 at 08:45; Status DC Enoxaparin Sodium (Lovenox) 40 mg DAILY SC Last administered on 06/10/18at 09:20; Start 05/14/18 at 09:00 Ferrous Gluconate (Fergon) 324 mg BID PO Last administered on 05/29/18at 09:17; Start 05/15/18 at 21:00; Stop 05/29/18 at 15:44; Status DC Gabapentin (Neurontin) 100 mg TID PO ; Start 05/20/18 at 21:00; Stop 05/20/18 at 21:00; Status DC Gabapentin (Neurontin) 200 mg TID PO ; Start 05/13/18 at 21:00; Stop 05/13/18 at 21:00; Status DC Gabapentin (Neurontin) 300 mg TID PO Last administered on 06/10/18 09:22; Start 05/20/18 at 21:00 Home Med (Med Rec Complete!) ASDIRECTED XX ; Start 05/13/18 at 18:15; Stop 05/13/18 at 18:16; Status DC Lidocaine (Lidoderm Patch) 1 patch DAILY@2100 TD Last administered on 06/09/18at 22:10; Start 05/14/18 at 21:00 Lisinopril (Prinivil) 10 mg DAILY PO Last administered on 06/10/18 09:22; Start 05/15/18 at 11:00 Magnesium Hydroxide (Milk Of Magnesia) 30 ml DAILYPRN PRN PO CONSTIPATION Last administered on 05/31/18 09:01; Start 05/13/18 at 17:45 Metoprolol Succinate (TopROL XL) 50 mg DAILY PO Last administered on 05/14/18at 09:39; Start 05/14/18 at 09:00; Stop 05/14/18 at 11:18; Status DC Metoprolol Succinate (TopROL XL) 100 mg DAILY PO Last administered on 06/10/18 09:21; Start 05/15/18 at 09:00 Miscellaneous (Unresolved Clarification Entry) SEE LABEL COMMENTS DAILY XX ; Start 05/20/18 at 09:00; Stop 05/20/18 at 11:16; Status DC Miscellaneous (Unresolved Clarification Entry) SEE LABEL COMMENTS DAILY XX ; Start 05/24/18 at 09:00; Stop 05/25/18 at 10:36; Status DC Miscellaneous (Unresolved Clarification Entry) SEE LABEL COMMENTS DAILY XX ; Start 05/31/18 at 09:00; Stop 06/01/18 at 07:06; Status DC Miscellaneous (Unresolved Clarification Entry) SEE LABEL COMMENTS DAILY XX Last administered on 06/01/18at 08:41; Start 06/01/18 at 09:00; Stop 06/01/18 at 11:29; Status DC Non-Formulary Medication ( See Comment Field Below ) REMOVE LIDODERM PATCH DAILY XX Last administered on 06/10/18at 09:00; Start 05/15/18 at 09:00 Ondansetron HCl (Zofran) 4 mg Q6HP PRN PO NAUSEA; Start 05/13/18 at 17:45 Oseltamivir Phosphate (Tamiflu) 75 mg BID PO Last administered on 05/24/18 08:58; Start 05/18/18 at 14:15; Stop 05/24/18 at 14:17; Status DC Oxycodone HCl (Roxicodone, Oxyir) 5 mg Q4HP PRN PO PAIN 4-7 Last administered on 06/05/18 03:32; Start 05/13/18 at 17:45; Stop 06/09/18 at 15:02; Status DC Oxycodone HCl (Roxicodone, Oxyir) 5 mg TID PO Last administered on 06/10/18 09:21; Start 06/09/18 at 16:00 Oxycodone HCl (Roxicodone, Oxyir) 10 mg Q4HP PRN PO SEVERE PAIN (PS 8-10) Last administered on 05/14/18 09:54; Start 05/13/18 at 17:45; Stop 05/14/18 at 11:16; Status DC Oxycodone HCl (Roxicodone, Oxyir) 10 mg TID PO Last administered on 06/09/18 09:09; Start 05/14/18 at 16:00; Stop 06/09/18 at 15:02; Status DC Pantoprazole Sodium (Protonix) 40 mg DAILY PO Last administered on 06/10/18 09:22; Start 05/14/18 at 09:00 Polyethylene Glycol (Miralax) 1 pkt DAILY PO Last administered on 05/31/18 08:58; Start 05/30/18 at 09:00; Stop 05/31/18 at 14:31; Status DC Polyethylene Glycol (Miralax) 2 pkt DAILY PO Last administered on 06/02/18 08:00; Start 06/01/18 at 09:00 Potassium Chloride (Micro-K Extencaps) 20 meq DAILY PO Last administered on 06/10/18 09:21; Start 05/15/18 at 09:00 Senna (Senokot) 1 tab DAILY@1200 PO Last administered on 06/02/18 11:56; Start 05/30/18 at 12:00 Senna (Senokot) 1 tab QHS PO Last administered on 05/13/18at 20:43; Start 05/13/18 at 21:00; Stop 05/15/18 at 17:28; Status DC Senna (Senokot) 2 tab QHS PO Last administered on 05/19/18at 21:04; Start 05/15/18 at 21:00; Stop 05/20/18 at 16:41; Status DC Senna/Docusate Sodium (Senokot S) 1 tab BID PO Last administered on 05/31/18 08:58; Start 05/30/18 at 09:00; Stop 05/31/18 at 14:31; Status DC Senna/Docusate Sodium (Senokot S) 2 tab BID PO ; Start 05/30/18 at 09:00; Stop 05/30/18 at 09:00; Status DC Senna/Docusate Sodium (Senokot S) 2 tab BID PO Last administered on 06/08/18 08:53; Start 05/31/18 at 21:00 Sodium Chloride (Sodium Chloride) 1 gm BID PO Last administered on 05/16/18at 08:38; Start 05/15/18 at 11:00; Stop 05/16/18 at 15:45; Status DC Sodium Chloride (Sodium Chloride) 1 gm BID PO Last administered on 06/05/18 10:10; Start 05/29/18 at 21:00; Stop 06/05/18 at 14:06; Status DC Sodium Chloride (Sodium Chloride) 1 gm TID PO Last administered on 05/20/18 09:23; Start 05/16/18 at 16:00; Stop 05/20/18 at 11:13; Status DC Sodium Chloride (Sodium Chloride) 2 gm BID PO Last administered on 05/29/18 09:18; Start 05/20/18 at 21:00; Stop 05/29/18 at 15:45; Status DC Sodium Chloride (Sodium Chloride) 2 gm BID PO Last administered on 06/10/18 09:21; Start 06/05/18 at 21:00 Thiamine HCl (Thiamine HCl) 100 mg DAILY PO Last administered on 06/10/18 09:21; Start 05/14/18 at 09:00 Trazodone HCl (Desyrel) 50 mg QHSP PRN PO INSOMNIA Last administered on 06/09/18at 22:09; Start 05/13/18 at 17:45 Vitamin D (Vitamin D) 1,000 units DAILY PO Last administered on 06/10/18at 09:20; Start 05/14/18 at 09:00 BRUCE CARDOZA MD Jun 10, 2018 11:18
[2018-06-10 14:00] VITALS: BP 116/68
[2018-06-10 20:00] VITALS: BP 120/63
[2018-06-10] MEDS: diphenhydrAMINE 25 MG CAP PO PRN (21:05)
[2018-06-10] MEDS: traZODone 50 MG TAB PO PRN (21:05)
[2018-06-10] MEDS: LIDOCAINE 5% (LIDODERM) PATCH TD SCH (21:06)
[2018-06-11 06:00] VITALS: BP 121/65
[2018-06-11] MEDS: **NOTE PATIENT COMMENT** MISC XX SCH (09:00)
[2018-06-11] MEDS: MIRALAX *UNIT DOSE* 17GM PACKET PO SCH (09:00)
[2018-06-11] MEDS: LISINOPRIL 10 MG TAB PO SCH (09:00)
[2018-06-11] MEDS: PANTOPRAZOLE 40MG TAB (PROTONIX) PO SCH (09:29)
[2018-06-11] MEDS: ASPIRIN 81 MG ENTERIC TAB PO SCH (09:29)
[2018-06-11] MEDS: POTASSIUM CHLORIDE 10 MEQ SR TABLET PO SCH (09:29)
[2018-06-11] MEDS: ASCORBIC ACID 500 MG TAB PO SCH (09:29)
[2018-06-11] MEDS: ENOXAPARIN 40 MG/0.4 ML SYRINGE (J1650) SC SCH (09:29)
[2018-06-11] MEDS: VITAMIN D 1,000 INTERNATIONAL UNITS TABLET PO SCH (09:29)
[2018-06-11] MEDS: GABAPENTIN 300 MG CAP PO SCH ×3 (09:29→21:39)
[2018-06-11] MEDS: METOPROLOL SUCC (TopROL XL) 50MG **XL** TAB PO SCH (09:30)
[2018-06-11] MEDS: SODIUM CHLORIDE 1 GM TAB PO SCH ×2 (09:30→21:40)
[2018-06-11] MEDS: oxyCODONE 5MG TAB PO SCH ×3 (09:31→21:41)
[2018-06-11] MEDS: THIAMINE 100 MG TAB PO SCH (09:31)
[2018-06-11] MEDS: SENOKOT S TAB PO SCH ×2 (09:31→21:40)
--- NOTE | 2018-06-11 10:29 | IPNPDOC ---
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 He was fitted for an AFO yesterday. REVIEW OF SYSTEMS: The following is a completed review of systems and has been reviewed. Review of systems otherwise unremarkable. PAIN: self reports non-radiating low back pain EYES: Negative for recent vision changes EARS, NOSE, & THROAT: Denied rhinorrhea, throat pain or dysphagia CARDIOVASCULAR: denies chest pain or palpitations PULMONARY: Negative. Denies shortness of breath GASTROINTESTINAL: Negative for diarrhea or constipation GENITOURINARY: Negative for dysuria or hematuria or incontinence MUSCULOSKELETAL: bilateral LE weakness L>R and Left shoulder pain and arm weakness NEUROLOGICAL: LLE paralysis HEMATOLOGICAL: Negative for bruising SKIN: scab on bottom of left foot, lumbosacral sutures, otherwise intact. PSYCHIATRIC: Unremarkable All other review of systems found to be negative. PHYSICAL EXAMINATION: VITAL SIGNS: Please see below. GENERAL: Pleasant and cooperative. No acute distress. HEENT: PERRL. Extraocular movements intact. Clear conjunctiva, poor dentition CARDIOVASCULAR: Regular rate and rhythm. No murmurs, rubs, or gallops LUNGS: Clear to auscultation bilaterally. No wheezes. No rhonchi ABDOMEN: Soft, nontender, nondistended. Positive bowel sounds. Normal active bowel sounds NEUROLOGICAL: Alert and oriented times three. Cranial nerves II through XII grossly intact. Sensation to light touch in C-T2 dermatomes and L2-S2 dermatomes, and S3-5 regions to light touch +bilateral Babinski, 1+/4 patellar reflexes bilat 3+ bicep and brachioradialis reflexes EXTREMITIES: 5-\\5 strength right upper extremities. 3/5 left shoulder abduction pain limiting, and unable to fully test elbow extension given limited ROM, insulation technician 5/5 and elbow flexors 5-/5 3+/5 right hip flexors and knee extensors, 2+/5 ankle DF and EHL 2/5 left hip flexors and 3/5 knee extensors, 1/5 left ankle DF and EHL Left shoulder: +Neers and decreased internal rotation bilateral mild foot edema-improved SKIN: lumbosacral incision c/d/i, no sacral ulcers, scab on bottom of left foot Lateral truncal ecchymosis ASSESSMENT:62-year-old M with past medical history of chronic low back pain who presents status post T11-S1 arthrodesis and laminectomy. PLAN: 1. rehab: PT/OT, assess for DME, working on [id number], able to performed wheelchair mobility well while in room,s/p flu, goal to work on stairs in PT, able to advance his left leg without assist using RW and ambulating 30 feet, still requiring 2 people to climb stairs, will attempt to make progress with this over the weekend prior to discharge 2. Ortho: s/p T11-S1 arthrodesis with laminectomy in setting of spinal stenosis with significant RLE paresis, TLSO brace when out of bed, Spinal precautions, monitor for myelopathy, at this time does have brisk reflexes in UE and +Babinksi most likely from cervical stenosis- reports prior to his surgery he had episodes of flatulence where he would have a bowel movement concurrently- reports he is able to push out the stool and has perianal sensation-this has improved in the past few days -s/p follow-up at [place] with neurosurgeon Dr. Liu 06/04/18, no suture removal, has appointment in 2 weeks for removal -Left shoulder likely weak from cervical stenosis and impingement- will encourage ROM to prevent adhesive capsulitis-improving - TLSO brace adjusted 05/15/18 3. Cardio: pmh HTN: continue Metoprolol and adjust prn- medicine consulted, restarted ASA on 05-22-18 4 GI: patient reports constipation with leakage, KUB 05/29/18 showed, "Moderately distended air filled loops of small and large bowel raise the possibility of ileus." discussed case with surgeon organizational research consultant who recommended addition of bowel meds and to monitor clinical symptoms- s/p tap water enema 05/31/18 with improvement in constipation- continue bowel regimen-patient reports feeling less bloated 5. : monitor PVRs, admission UA and Ucx negative 6. Skin: dressing in place, change prn soil/drainage, multipodus boots while in bed to prevent heel cord contractures and heel ulcers 7. DVT ppx: continue Lovenox, admission dopplers negative 9. Pain: tapering oxycodone, continue Tylenol and gabapentin 10. Electrolytes: hyponatremia stable, continue salt tabs 11. ID: fever resolved, w +Influenza, started on Tamiflu, s/p IVF monitor vitals -CXR negative for infiltrate -blood cultures sent, negative growth -s/p 7 days course Keflex for possible incision site infection,using silver- optifoam and healing well, no leukocytosis-ok to shower 13. Extremities: will acewrap bilateral feet and elevate-improving 13. Dispo: 06/15/18 progressing towards goals to home, ramp being built this weekend DME: Patient is ambulatory and will functionally benefit from a left custom made solid ankle AFO. He requires a custom molded AFO for medical reasons to stabilize his left foot and prevent skin breakdown. The AFO will support the foot and ankle in the sagittal plane preventing foot drop during swing phase and provide a floor reaction force to stabilize the knee. The orthosis will be required for more than 6 months. He currently has a documented neurological status (foot drop) that requires custom fabricating to prevent skin breakdown. He has a very prominent tibial crest and is at risk of skin breakdown. Due to this risk a custom tibial pad will need to be fabricated, He will need a wheelchair for use inside and outside of the home. He will also need a hospital bed in order to keep the head of the bed above 30 degrees for immediate repositioning given his bilateral lower extremity paresis. Allergies Coded Allergies: No Known Drug Allergy (Verified Allergy, Unknown, 05/13/18) Vital Signs Vital Signs Date Time Temp Pulse Resp B/P (MAP) Pulse Ox O2 Delivery O2 Flow Rate FiO2 06/11/18 09:31 18 06/11/18 09:30 72 121/65 06/11/18 06:00 98.6 99 Current Medications Current Medications Current Medications Acetaminophen (Tylenol Tab) 650 mg Q4HP PRN PO fever/MILD PAIN (PS 1-4) Last administered on 06/08/18at 22:23; Start 05/13/18 at 17:45 Albuterol/ Ipratropium (Duoneb (Ipr 0.5mg/Alb 2.5mg)) 3 ml RQID NEB Last administered on 05/27/18at 16:14; Start 05/22/18 at 16:00; Stop 05/28/18 at 13:42; Status DC Ascorbic Acid (Vitamin C) 1,000 mg DAILY PO Last administered on 06/11/18at 09:29; Start 05/14/18 at 09:00 Aspirin (Ecotrin) 81 mg DAILY PO Last administered on 06/11/18at 09:29; Start 05/22/18 at 09:00 Bisacodyl (Dulcolax Suppository) 10 mg ASDIRECTED PRN ME IF NO BOWEL MOVEMENT; Start 05/14/18 at 18:00; Stop 05/30/18 at 08:45; Status DC Bisacodyl (Dulcolax Suppository) 10 mg DAILYPRN PRN ME CONSTIPATION; Start 05/13/18 at 17:45; Stop 05/30/18 at 08:45; Status DC Cephalexin Monohydrate (Keflex) 500 mg QID PO Last administered on 05/25/18at 08:44; Start 05/18/18 at 13:00; Stop 05/25/18 at 10:36; Status DC Dextromethorphan (Delsym Af 12hr Susp) 30 mg Q12HP PRN PO COUGH Last administered on 06/04/18at 22:42; Start 05/29/18 at 19:45 Dextromethorphan (ROBITUSSIN PEDIATRIC COUGH SYRUP 7.5mg/5ml) 5 ml Q8HP PRN PO COUGH Last administered on 05/26/18at 22:36; Start 05/20/18 at 23:30; Stop 05/29/18 at 19:39; Status DC Dicyclomine HCl (Bentyl) 10 mg Q6H PO Last administered on 05/30/18at 06:30; Start 05/29/18 at 18:00; Stop 05/30/18 at 08:45; Status DC Diphenhydramine HCl (Benadryl) 25 mg QHSP PRN PO INSOMNIA Last administered on 06/10/18at 21:05; Start 05/21/18 at 20:00 Docusate Sodium (Colace) 100 mg BID PO Last administered on 05/19/18at 21:05; Start 05/13/18 at 21:00; Stop 05/20/18 at 16:41; Status DC Docusate Sodium (Colace) 100 mg BID PO Last administered on 05/29/18at 20:33; Start 05/29/18 at 21:00; Stop 05/30/18 at 08:45; Status DC Enoxaparin Sodium (Lovenox) 40 mg DAILY SC Last administered on 06/11/18 09:29; Start 05/14/18 at 09:00 Ferrous Gluconate (Fergon) 324 mg BID PO Last administered on 05/29/18 09:17; Start 05/15/18 at 21:00; Stop 05/29/18 at 15:44; Status DC Gabapentin (Neurontin) 100 mg TID PO ; Start 05/20/18 at 21:00; Stop 05/20/18 at 21:00; Status DC Gabapentin (Neurontin) 200 mg TID PO ; Start 05/13/18 at 21:00; Stop 05/13/18 at 21:00; Status DC Gabapentin (Neurontin) 300 mg TID PO Last administered on 06/11/18 09:29; Start 05/20/18 at 21:00 Home Med (Med Rec Complete!) ASDIRECTED XX ; Start 05/13/18 at 18:15; Stop 05/13/18 at 18:16; Status DC Lidocaine (Lidoderm Patch) 1 patch DAILY@2100 TD Last administered on 06/10/18at 21:06; Start 05/14/18 at 21:00 Lisinopril (Prinivil) 10 mg DAILY PO Last administered on 06/11/18 09:00; Start 05/15/18 at 11:00 Magnesium Hydroxide (Milk Of Magnesia) 30 ml DAILYPRN PRN PO CONSTIPATION Last administered on 05/31/18 09:01; Start 05/13/18 at 17:45 Metoprolol Succinate (TopROL XL) 50 mg DAILY PO Last administered on 05/14/18at 09:39; Start 05/14/18 at 09:00; Stop 05/14/18 at 11:18; Status DC Metoprolol Succinate (TopROL XL) 100 mg DAILY PO Last administered on 06/11/18 09:30; Start 05/15/18 at 09:00 Miscellaneous (Unresolved Clarification Entry) SEE LABEL COMMENTS DAILY XX ; Start 05/20/18 at 09:00; Stop 05/20/18 at 11:16; Status DC Miscellaneous (Unresolved Clarification Entry) SEE LABEL COMMENTS DAILY XX ; Start 05/24/18 at 09:00; Stop 05/25/18 at 10:36; Status DC Miscellaneous (Unresolved Clarification Entry) SEE LABEL COMMENTS DAILY XX ; Start 05/31/18 at 09:00; Stop 06/01/18 at 07:06; Status DC Miscellaneous (Unresolved Clarification Entry) SEE LABEL COMMENTS DAILY XX Last administered on 06/01/18 08:41; Start 06/01/18 at 09:00; Stop 06/01/18 at 11:29; Status DC Non-Formulary Medication ( See Comment Field Below ) REMOVE LIDODERM PATCH DAILY XX Last administered on 06/11/18 09:00; Start 05/15/18 at 09:00 Ondansetron HCl (Zofran) 4 mg Q6HP PRN PO NAUSEA; Start 05/13/18 at 17:45 Oseltamivir Phosphate (Tamiflu) 75 mg BID PO Last administered on 05/24/18 08:58; Start 05/18/18 at 14:15; Stop 05/24/18 at 14:17; Status DC Oxycodone HCl (Roxicodone, Oxyir) 5 mg Q4HP PRN PO PAIN 4-7 Last administered on 06/05/18 03:32; Start 05/13/18 at 17:45; Stop 06/09/18 at 15:02; Status DC Oxycodone HCl (Roxicodone, Oxyir) 5 mg TID PO Last administered on 06/11/18 09:31; Start 06/09/18 at 16:00 Oxycodone HCl (Roxicodone, Oxyir) 10 mg Q4HP PRN PO SEVERE PAIN (PS 8-10) Last administered on 05/14/18 09:54; Start 05/13/18 at 17:45; Stop 05/14/18 at 11:16; Status DC Oxycodone HCl (Roxicodone, Oxyir) 10 mg TID PO Last administered on 06/09/18 09:09; Start 05/14/18 at 16:00; Stop 06/09/18 at 15:02; Status DC Pantoprazole Sodium (Protonix) 40 mg DAILY PO Last administered on 06/11/18 09:29; Start 05/14/18 at 09:00 Polyethylene Glycol (Miralax) 1 pkt DAILY PO Last administered on 05/31/18 08:58; Start 05/30/18 at 09:00; Stop 05/31/18 at 14:31; Status DC Polyethylene Glycol (Miralax) 2 pkt DAILY PO Last administered on 06/02/18 08:00; Start 06/01/18 at 09:00 Potassium Chloride (Micro-K Extencaps) 20 meq DAILY PO Last administered on 06/11/18 09:29; Start 05/15/18 at 09:00 Senna (Senokot) 1 tab DAILY@1200 PO Last administered on 06/02/18 11:56; Start 05/30/18 at 12:00 Senna (Senokot) 1 tab QHS PO Last administered on 05/13/18 20:43; Start 05/13/18 at 21:00; Stop 05/15/18 at 17:28; Status DC Senna (Senokot) 2 tab QHS PO Last administered on 05/19/18at 21:04; Start 05/15/18 at 21:00; Stop 05/20/18 at 16:41; Status DC Senna/Docusate Sodium (Senokot S) 1 tab BID PO Last administered on 05/31/18 08:58; Start 05/30/18 at 09:00; Stop 05/31/18 at 14:31; Status DC Senna/Docusate Sodium (Senokot S) 2 tab BID PO ; Start 05/30/18 at 09:00; Stop 05/30/18 at 09:00; Status DC Senna/Docusate Sodium (Senokot S) 2 tab BID PO Last administered on 06/11/18 09:31; Start 05/31/18 at 21:00 Sodium Chloride (Sodium Chloride) 1 gm BID PO Last administered on 05/16/18at 08:38; Start 05/15/18 at 11:00; Stop 05/16/18 at 15:45; Status DC Sodium Chloride (Sodium Chloride) 1 gm BID PO Last administered on 06/05/18at 10:10; Start 05/29/18 at 21:00; Stop 06/05/18 at 14:06; Status DC Sodium Chloride (Sodium Chloride) 1 gm TID PO Last administered on 05/20/18 09:23; Start 05/16/18 at 16:00; Stop 05/20/18 at 11:13; Status DC Sodium Chloride (Sodium Chloride) 2 gm BID PO Last administered on 05/29/18 09:18; Start 05/20/18 at 21:00; Stop 05/29/18 at 15:45; Status DC Sodium Chloride (Sodium Chloride) 2 gm BID PO Last administered on 06/11/18 09:30; Start 06/05/18 at 21:00 Thiamine HCl (Thiamine HCl) 100 mg DAILY PO Last administered on 06/11/18 09:31; Start 05/14/18 at 09:00 Trazodone HCl (Desyrel) 50 mg QHSP PRN PO INSOMNIA Last administered on 06/10/18 21:05; Start 05/13/18 at 17:45 Vitamin D (Vitamin D) 1,000 units DAILY PO Last administered on 06/11/18 09:29; Start 05/14/18 at 09:00 BRUCE CARDOZA MD Jun 11, 2018 10:29
[2018-06-11] MEDS: SENNA 8.6 MG TAB (SENOKOT) PO SCH (12:40)
--- NOTE | 2018-06-11 13:08 | IPNPDOC ---
Date Seen The patient was seen on 06/11/18. Progress Note HPI: 62year old M S/P T11-S1 posterior arthrodesis L1-S1 laminectomies05/08/[address] Liu [facility]. Transfered to the care of MARIEL Zamora [facility], 05/13/18. Patient states he is continuing to gain strength. Eating and drinking well. No concerns at this time. Denies any weakness, fatigue, Headache, Chest Pain, Shortness of breath, cough, palpitations, abdominal pain, N/V/D or changes in bowel or bladder habits. PMHx: cervical stenosis Lumbar stenosis Thoracolumbar scoliosis Chronic neck pain/LE pain/Chronic pain GERD HTN PSHX: 05/08/18 T11-S1 posterior arthrodesis L1-S1 laminectomies. PE: GEN: 62yoM, appears stated age. No acute distress. Alert and oriented x 3. HEENT: Normocephalic, atraumatic. Sclera are nonicteric. Conjunctiva without injection. Moist mucous membranes. CHEST: Regular rate and rhythm, +S1, +S2 LUNGS: Clear to auscultation bilaterally. No wheezes, rales, or rhonchi. ABD: soft, NT, non-distended BS present. EXT: No lower extremity edema appreciated. SKIN: No rashes. NEURO: Alert and oriented x 3. No focal deficits appreciated. UC neg 05/14/18 FOB neg. U/S LEs No evidence for deep venous thrombosis. Electronically Signed by Adryan Cole MD 05/15/2018 05:36 A A&P: 62year old M S/P T11-S1 posterior arthrodesis L1-S1 laminectomies05/08/[address] Alexa Plascencia [facility]. Transferred to the care of MARIEL Zamora [facility], 05/13/18. 1. S/P T11-S1 posterior arthrodesis L1-S1 laminectomies05/08/[address] Liu [facility] PT/OT/ST as per MARIEL Zamora. Pain control as per MARIEL Zamora. Bowel care as per MARIEL Zamora. DVT prophylaxis as per MARIEL Zamora. Lovenox SQ. Outpt F/U with Dr Liu. Wearing TLSO brace as per Dr Liu. Had F/U appt with Dr Liu 06/04/18. 2. S/P Influenza. Resolved. Completed Tamiflu 75 mg BID x 5 days. Repeat respiratory panel negative 05/25/18. 3. HTN. Toprol XL 100 mg po daily. Lisinopril 10 mg daily. Pt restarted ASA 81 mg daily 05/22/18. 4. Hypokalemia. Resolved. po Supplement daily. 4. Anemia. Hgb 9.2 Fe studies, B12, folate completed. FOB neg. Fe supplement BID. 5. Hyponatremia. Na trend 133-135. Ser Osm/Ur Osm/Ur Cr/NA/TSH/Mag noted. Fluid restriction. Salt tab BID. Monitor. 6. GERD. Protonix. VS, I&O, 24H, Fishbone Vital Signs/I&O Vital Signs Date Time Temp Pulse Resp B/P (MAP) Pulse Ox O2 Delivery O2 Flow Rate FiO2 06/11/18 10:05 18 06/11/18 09:30 72 121/65 06/11/18 06:00 98.6 99 l I&O- Last 24 Hours up to 6 AM 06/11/18 06:00 Intake Total 1240 ml Output Total 1225 ml Balance 15 ml Olga Loja Jun 11, 2018 13:08
[2018-06-11 14:00] VITALS: BP 108/63
[2018-06-11 20:34] VITALS: BP 128/69
[2018-06-11] MEDS: LIDOCAINE 5% (LIDODERM) PATCH TD SCH (21:39)
[2018-06-11] MEDS: traZODone 50 MG TAB PO PRN (22:00)
[2018-06-11] MEDS: diphenhydrAMINE 25 MG CAP PO PRN (22:00)
[2018-06-12 05:52] VITALS: BP 135/63
[2018-06-12] MEDS: THIAMINE 100 MG TAB PO SCH (08:30)
[2018-06-12] MEDS: ASCORBIC ACID 500 MG TAB PO SCH (08:30)
[2018-06-12] MEDS: ASPIRIN 81 MG ENTERIC TAB PO SCH (08:30)
[2018-06-12] MEDS: ENOXAPARIN 40 MG/0.4 ML SYRINGE (J1650) SC SCH (08:30)
[2018-06-12] MEDS: LISINOPRIL 10 MG TAB PO SCH (08:30)
[2018-06-12] MEDS: VITAMIN D 1,000 INTERNATIONAL UNITS TABLET PO SCH (08:30)
[2018-06-12] MEDS: METOPROLOL SUCC (TopROL XL) 50MG **XL** TAB PO SCH (08:31)
[2018-06-12] MEDS: PANTOPRAZOLE 40MG TAB (PROTONIX) PO SCH (08:31)
[2018-06-12] MEDS: POTASSIUM CHLORIDE 10 MEQ SR TABLET PO SCH (08:31)
[2018-06-12] MEDS: SODIUM CHLORIDE 1 GM TAB PO SCH ×2 (08:31→21:51)
[2018-06-12] MEDS: GABAPENTIN 300 MG CAP PO SCH ×3 (08:32→21:51)
[2018-06-12] MEDS: oxyCODONE 5MG TAB PO SCH ×2 (08:32→15:28)
[2018-06-12] MEDS: SENOKOT S TAB PO SCH ×2 (08:32→21:00)
[2018-06-12] MEDS: MIRALAX *UNIT DOSE* 17GM PACKET PO SCH (08:33)
[2018-06-12] MEDS: **NOTE PATIENT COMMENT** MISC XX SCH (09:00)
[2018-06-12] MEDS: SENNA 8.6 MG TAB (SENOKOT) PO SCH (11:37)
[2018-06-12 14:00] VITALS: BP 122/69
--- NOTE | 2018-06-12 15:27 | IPNPDOC ---
PM&R Progress Note DATE OF SERVICE: Jun 12, 2018 [employer] Progress Note Subjective: Patient reports he would like to change his pain medication to as needed for the weekend as previously discussed. REVIEW OF SYSTEMS: The following is a completed review of systems and has been reviewed. Review of systems otherwise unremarkable. PAIN: self reports non-radiating low back pain EYES: Negative for recent vision changes EARS, NOSE, & THROAT: Denied rhinorrhea, throat pain or dysphagia CARDIOVASCULAR: denies chest pain or palpitations PULMONARY: Negative. Denies shortness of breath GASTROINTESTINAL: Negative for diarrhea or constipation GENITOURINARY: Negative for dysuria or hematuria or incontinence MUSCULOSKELETAL: bilateral LE weakness L>R and Left shoulder pain and arm weakness NEUROLOGICAL: LLE paralysis HEMATOLOGICAL: Negative for bruising SKIN: scab on bottom of left foot, lumbosacral sutures, otherwise intact. PSYCHIATRIC: Unremarkable All other review of systems found to be negative. PHYSICAL EXAMINATION: VITAL SIGNS: Please see below. GENERAL: Pleasant and cooperative. No acute distress. HEENT: PERRL. Extraocular movements intact. Clear conjunctiva, poor dentition CARDIOVASCULAR: Regular rate and rhythm. No murmurs, rubs, or gallops LUNGS: Clear to auscultation bilaterally. No wheezes. No rhonchi ABDOMEN: Soft, nontender, nondistended. Positive bowel sounds. Normal active bowel sounds NEUROLOGICAL: Alert and oriented times three. Cranial nerves II through XII grossly intact. Sensation to light touch in C-T2 dermatomes and L2-S2 dermatomes, and S3-5 regions to light touch +bilateral Babinski, 1+/4 patellar reflexes bilat 3+ bicep and brachioradialis reflexes EXTREMITIES: 5-\\5 strength right upper extremities. 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 PLAN: 1. rehab: PT/OT, assess for DME, working on [id number], able to performed wheelchair mobility well while in room,s/p flu, goal to work on stairs in PT, able to advance his left leg without assist using RW and ambulating further 2. Ortho: s/p T11-S1 arthrodesis with laminectomy in setting of spinal stenosis with significant RLE paresis, TLSO brace when out of bed, Spinal precautions, mo nitor for myelopathy, at this time does have brisk reflexes in UE and +Babinksi most likely from cervical stenosis- reports prior to his surgery he had episodes of flatulence where he would have a bowel movement concurrently- reports he is able to push out the stool and has perianal sensation-this has improved in the past few days -s/p follow-up at [place] with neurosurgeon Dr. Liu 06/04/18, no suture removal, has appointment in 2 weeks for removal -Left shoulder likely weak from cervical stenosis and impingement- will encourage ROM to prevent adhesive capsulitis-improving - TLSO brace adjusted 05/15/18 3. Cardio: pmh HTN: continue Metoprolol and adjust prn- medicine consulted, restarted ASA on 05-22-18 4 GI: patient reports constipation with leakage, KUB 05/29/18 showed, "Moderately distended air filled loops of small and large bowel raise the possibility of ileus." discussed case with surgeon personnel analyst who recommended addition of bowel meds and to monitor clinical symptoms- s/p tap water enema 05/31/18 with improvement in constipation- continue bowel regimen-patient reports feeling less bloated-resolved 5. : monitor PVRs, admission UA and Ucx negative 6. Skin: dressing in place, change prn soil/drainage, multipodus boots while in bed to prevent heel cord contractures and heel ulcers 7. DVT ppx: continue Lovenox, admission dopplers negative 9. Pain: tapering oxycodone, continue Tylenol and gabapentin 10. Electrolytes: hyponatremia stable, continue salt tabs 11. ID: fever resolved, w +Influenza, started on Tamiflu, s/p IVF monitor vitals -CXR negative for infiltrate -blood cultures sent, negative growth -s/p 7 days course Keflex for possible incision site infection,using silver- optifoam and healing well, no leukocytosis-ok to shower 13. Extremities: will acewrap bilateral feet and elevate-improving 13. Dispo: 06/15/18 progressing towards goals to home, ramp being built this weekend DME: Patient is ambulatory and will functionally benefit from a left custom made solid ankle AFO. He requires a custom molded AFO for medical reasons to stabilize his left foot and prevent skin breakdown. The AFO will support the foot and ankle in the sagittal plane preventing foot drop during swing phase and provide a floor reaction force to stabilize the knee. The orthosis will be required for more than 6 months. He currently has a documented neurological status (foot drop) that requires custom fabricating to prevent skin breakdown. He has a very prominent tibial crest and is at risk of skin breakdown. Due to this risk a custom tibial pad will need to be fabricated, He will need a wheelchair for use inside and outside of the home. He will also need a hospital bed in order to keep the head of the bed above 30 degrees for immediate repositioning given his bilateral lower extremity paresis. Allergies Coded Allergies: No Known Drug Allergy (Verified Allergy, Unknown, 05/13/18) Vital Signs Vital Signs Date Time Temp Pulse Resp B/P (MAP) Pulse Ox O2 Delivery O2 Flow Rate FiO2 06/12/18 09:02 16 06/12/18 08:31 72 135/63 06/12/18 05:52 98.4 99 Current Medications Current Medications Current Medications Acetaminophen (Tylenol Tab) 650 mg Q4HP PRN PO fever/MILD PAIN (PS 1-4) Last administered on 06/08/18at 22:23; Start 05/13/18 at 17:45 Albuterol/ Ipratropium (Duoneb (Ipr 0.5mg/Alb 2.5mg)) 3 ml RQID NEB Last administered on 05/27/18at 16:14; Start 05/22/18 at 16:00; Stop 05/28/18 at 13:42; Status DC Ascorbic Acid (Vitamin C) 1,000 mg DAILY PO Last administered on 06/12/18at 08:30; Start 05/14/18 at 09:00 Aspirin (Ecotrin) 81 mg DAILY PO Last administered on 06/12/18at 08:30; Start 05/22/18 at 09:00 Bisacodyl (Dulcolax Suppository) 10 mg ASDIRECTED PRN SC IF NO BOWEL MOVEMENT; Start 05/14/18 at 18:00; Stop 05/30/18 at 08:45; Status DC Bisacodyl (Dulcolax Suppository) 10 mg DAILYPRN PRN SC CONSTIPATION; Start 05/13/18 at 17:45; Stop 05/30/18 at 08:45; Status DC Cephalexin Monohydrate (Keflex) 500 mg QID PO Last administered on 05/25/18at 08:44; Start 05/18/18 at 13:00; Stop 05/25/18 at 10:36; Status DC Dextromethorphan (Delsym Af 12hr Susp) 30 mg Q12HP PRN PO COUGH Last administered on 06/04/18at 22:42; Start 05/29/18 at 19:45 Dextromethorphan (ROBITUSSIN PEDIATRIC COUGH SYRUP 7.5mg/5ml) 5 ml Q8HP PRN PO COUGH Last administered on 05/26/18at 22:36; Start 05/20/18 at 23:30; Stop 05/29/18 at 19:39; Status DC Dicyclomine HCl (Bentyl) 10 mg Q6H PO Last administered on 05/30/18at 06:30; Start 05/29/18 at 18:00; Stop 05/30/18 at 08:45; Status DC Diphenhydramine HCl (Benadryl) 25 mg QHSP PRN PO INSOMNIA Last administered on 06/11/18at 22:00; Start 05/21/18 at 20:00 Docusate Sodium (Colace) 100 mg BID PO Last administered on 05/19/18at 21:05; Start 05/13/18 at 21:00; Stop 05/20/18 at 16:41; Status DC Docusate Sodium (Colace) 100 mg BID PO Last administered on 05/29/18at 20:33; Start 05/29/18 at 21:00; Stop 05/30/18 at 08:45; Status DC Enoxaparin Sodium (Lovenox) 40 mg DAILY SC Last administered on 06/12/18at 08:30; Start 05/14/18 at 09:00 Ferrous Gluconate (Fergon) 324 mg BID PO Last administered on 05/29/18at 09:17; Start 05/15/18 at 21:00; Stop 05/29/18 at 15:44; Status DC Gabapentin (Neurontin) 100 mg TID PO ; Start 05/20/18 at 21:00; Stop 05/20/18 at 21:00; Status DC Gabapentin (Neurontin) 200 mg TID PO ; Start 05/13/18 at 21:00; Stop 05/13/18 at 21:00; Status DC Gabapentin (Neurontin) 300 mg TID PO Last administered on 06/12/18at 08:32; Start 05/20/18 at 21:00 Home Med (Med Rec Complete!) ASDIRECTED XX ; Start 05/13/18 at 18:15; Stop 05/13/18 at 18:16; Status DC Lidocaine (Lidoderm Patch) 1 patch DAILY@2100 TD Last administered on 06/11/18at 21:39; Start 05/14/18 at 21:00 Lisinopril (Prinivil) 10 mg DAILY PO Last administered on 06/12/18at 08:30; Start 05/15/18 at 11:00 Magnesium Hydroxide (Milk Of Magnesia) 30 ml DAILYPRN PRN PO CONSTIPATION Last administered on 05/31/18at 09:01; Start 05/13/18 at 17:45 Metoprolol Succinate (TopROL XL) 50 mg DAILY PO Last administered on 05/14/18at 09:39; Start 05/14/18 at 09:00; Stop 05/14/18 at 11:18; Status DC Metoprolol Succinate (TopROL XL) 100 mg DAILY PO Last administered on 06/12/18at 08:31; Start 05/15/18 at 09:00 Miscellaneous (Unresolved Clarification Entry) SEE LABEL COMMENTS DAILY XX ; Start 05/20/18 at 09:00; Stop 05/20/18 at 11:16; Status DC Miscellaneous (Unresolved Clarification Entry) SEE LABEL COMMENTS DAILY XX ; Start 05/24/18 at 09:00; Stop 05/25/18 at 10:36; Status DC Miscellaneous (Unresolved Clarification Entry) SEE LABEL COMMENTS DAILY XX ; Start 06/11/18 at 09:00; Stop 06/12/18 at 08:01; Status DC Miscellaneous (Unresolved Clarification Entry) SEE LABEL COMMENTS DAILY XX ; Start 06/12/18 at 09:00 Miscellaneous (Unresolved Clarification Entry) SEE LABEL COMMENTS DAILY XX ; Start 05/31/18 at 09:00; Stop 06/01/18 at 07:06; Status DC Miscellaneous (Unresolved Clarification Entry) SEE LABEL COMMENTS DAILY XX Last administered on 06/01/18at 08:41; Start 06/01/18 at 09:00; Stop 06/01/18 at 11:29; Status DC Non-Formulary Medication ( See Comment Field Below ) REMOVE LIDODERM PATCH DAILY XX Last administered on 06/12/18at 09:00; Start 05/15/18 at 09:00 Ondansetron HCl (Zofran) 4 mg Q6HP PRN PO NAUSEA; Start 05/13/18 at 17:45 Oseltamivir Phosphate (Tamiflu) 75 mg BID PO Last administered on 05/24/18at 08:58; Start 05/18/18 at 14:15; Stop 05/24/18 at 14:17; Status DC Oxycodone HCl (Roxicodone, Oxyir) 5 mg Q4HP PRN PO PAIN 4-7 Last administered on 06/05/18at 03:32; Start 05/13/18 at 17:45; Stop 06/09/18 at 15:02; Status DC Oxycodone HCl (Roxicodone, Oxyir) 5 mg TID PO Last administered on 06/12/18at 08:32; Start 06/09/18 at 16:00 Oxycodone HCl (Roxicodone, Oxyir) 10 mg Q4HP PRN PO SEVERE PAIN (PS 8-10) Last administered on 05/14/18at 09:54; Start 05/13/18 at 17:45; Stop 05/14/18 at 11:16; Status DC Oxycodone HCl (Roxicodone, Oxyir) 10 mg TID PO Last administered on 06/09/18at 09:09; Start 05/14/18 at 16:00; Stop 06/09/18 at 15:02; Status DC Pantoprazole Sodium (Protonix) 40 mg DAILY PO Last administered on 06/12/18at 08:31; Start 05/14/18 at 09:00 Polyethylene Glycol (Miralax) 1 pkt DAILY PO Last administered on 05/31/18 08:58; Start 05/30/18 at 09:00; Stop 05/31/18 at 14:31; Status DC Polyethylene Glycol (Miralax) 2 pkt DAILY PO Last administered on 06/02/18 08:00; Start 06/01/18 at 09:00 Potassium Chloride (Micro-K Extencaps) 20 meq DAILY PO Last administered on 06/12/18 08:31; Start 05/15/18 at 09:00 Senna (Senokot) 1 tab DAILY@1200 PO Last administered on 06/11/18 12:40; Start 05/30/18 at 12:00 Senna (Senokot) 1 tab QHS PO Last administered on 05/13/18 20:43; Start 05/13/18 at 21:00; Stop 05/15/18 at 17:28; Status DC Senna (Senokot) 2 tab QHS PO Last administered on 05/19/18at 21:04; Start 05/15/18 at 21:00; Stop 05/20/18 at 16:41; Status DC Senna/Docusate Sodium (Senokot S) 1 tab BID PO Last administered on 05/31/18 08:58; Start 05/30/18 at 09:00; Stop 05/31/18 at 14:31; Status DC Senna/Docusate Sodium (Senokot S) 2 tab BID PO ; Start 05/30/18 at 09:00; Stop 05/30/18 at 09:00; Status DC Senna/Docusate Sodium (Senokot S) 2 tab BID PO Last administered on 06/11/18 21:40; Start 05/31/18 at 21:00 Sodium Chloride (Sodium Chloride) 1 gm BID PO Last administered on 05/16/18 08:38; Start 05/15/18 at 11:00; Stop 05/16/18 at 15:45; Status DC Sodium Chloride (Sodium Chloride) 1 gm BID PO Last administered on 06/05/18 10:10; Start 05/29/18 at 21:00; Stop 06/05/18 at 14:06; Status DC Sodium Chloride (Sodium Chloride) 1 gm TID PO Last administered on 05/20/18 09:23; Start 05/16/18 at 16:00; Stop 05/20/18 at 11:13; Status DC Sodium Chloride (Sodium Chloride) 2 gm BID PO Last administered on 05/29/18 09:18; Start 05/20/18 at 21:00; Stop 05/29/18 at 15:45; Status DC Sodium Chloride (Sodium Chloride) 2 gm BID PO Last administered on 06/12/18 08:31; Start 06/05/18 at 21:00 Thiamine HCl (Thiamine HCl) 100 mg DAILY PO Last administered on 06/12/18 08:30; Start 05/14/18 at 09:00 Trazodone HCl (Desyrel) 50 mg QHSP PRN PO INSOMNIA Last administered on 06/11/18 22:00; Start 05/13/18 at 17:45 Vitamin D (Vitamin D) 1,000 units DAILY PO Last administered on 06/12/18 08:30; Start 05/14/18 at 09:00 BRUCE CARDOZA MD Jun 12, 2018 15:27
[2018-06-12 20:00] VITALS: BP 121/64
[2018-06-12] MEDS: traZODone 50 MG TAB PO PRN (21:51)
[2018-06-12] MEDS: diphenhydrAMINE 25 MG CAP PO PRN (21:51)
[2018-06-12] MEDS: ACETAMINOPHEN TAB 650MG DOSE (2X325MG) PO PRN (21:52)
[2018-06-12] MEDS: oxyCODONE 5MG TAB PO PRN (21:52)
[2018-06-12] MEDS: LIDOCAINE 5% (LIDODERM) PATCH TD SCH (21:53)
[2018-06-13 06:00] VITALS: BP 109/65
[2018-06-13 06:46] LABS: HEMATOCRIT 32.5 % (42.0-52.0); HEMOGLOBIN 10.3 g/dl (13.5-17.5); MEAN CORPUSCULAR HEMOGLOBIN 27.6 pg (27.0-33.0); MEAN CORPUSCULAR HGB CONC 31.7 g/dl (32.0-36.5); MEAN CORPUSCULAR VOLUME 87.1 fl (80.0-96.0); PLATELET COUNT, AUTOMATED 285 10^3/uL (150-450); RED BLOOD COUNT 3.73 10^6/uL (4.30-6.10); WHITE BLOOD COUNT 5.6 10^3/uL (4.0-10.0)
[2018-06-13 07:15] LABS: BLOOD UREA NITROGEN 16 MG/DL (7-18); CALCIUM LEVEL 8.9 MG/DL (8.8-10.2); CARBON DIOXIDE LEVEL 25 MEQ/L (21-32); CHLORIDE LEVEL 104 MEQ/L (98-107); CREATININE FOR GFR 0.62 MG/DL (0.70-1.30); GLOMERULAR FILTRATION RATE > 60.0 (>49); GLUCOSE, FASTING 97 MG/DL (70-100); MAGNESIUM LEVEL 1.7 MG/DL (1.8-2.4); POTASSIUM SERUM 4.1 MEQ/L (3.5-5.1); SODIUM LEVEL 136 MEQ/L (136-145)
[2018-06-13] MEDS: MIRALAX *UNIT DOSE* 17GM PACKET PO SCH (09:00)
[2018-06-13] MEDS: LISINOPRIL 10 MG TAB PO SCH (09:00)
[2018-06-13] MEDS: METOPROLOL SUCC (TopROL XL) 50MG **XL** TAB PO SCH (09:00)
[2018-06-13] MEDS: **NOTE PATIENT COMMENT** MISC XX SCH (09:00)
[2018-06-13] MEDS: MOM 30ML SUSPENSION UDC PO PRN (10:09)
[2018-06-13] MEDS: ACETAMINOPHEN TAB 650MG DOSE (2X325MG) PO PRN ×2 (10:11→21:45)
[2018-06-13] MEDS: ENOXAPARIN 40 MG/0.4 ML SYRINGE (J1650) SC SCH (10:12)
[2018-06-13] MEDS: SENOKOT S TAB PO SCH ×2 (10:14→21:00)
[2018-06-13] MEDS: SODIUM CHLORIDE 1 GM TAB PO SCH ×2 (10:14→21:44)
[2018-06-13] MEDS: ASPIRIN 81 MG ENTERIC TAB PO SCH (10:15)
[2018-06-13] MEDS: GABAPENTIN 300 MG CAP PO SCH ×3 (10:15→21:44)
[2018-06-13] MEDS: VITAMIN D 1,000 INTERNATIONAL UNITS TABLET PO SCH (10:16)
[2018-06-13] MEDS: ASCORBIC ACID 500 MG TAB PO SCH (10:17)
[2018-06-13] MEDS: POTASSIUM CHLORIDE 10 MEQ SR TABLET PO SCH (10:17)
[2018-06-13] MEDS: THIAMINE 100 MG TAB PO SCH (10:17)
[2018-06-13] MEDS: PANTOPRAZOLE 40MG TAB (PROTONIX) PO SCH (10:17)
[2018-06-13 10:22] VITALS: BP 109/65
[2018-06-13] MEDS: SENNA 8.6 MG TAB (SENOKOT) PO SCH (12:00)
[2018-06-13 14:00] VITALS: BP 106/66
[2018-06-13] MEDS: MAGNESIUM OXIDE 400 MG TAB (MAG-OX) PO SCH ×2 (15:15→21:44)
--- NOTE | 2018-06-13 15:38 | IPN ---
DATE: 06/13/2018 Patient seen and examined. No acute events overnight. Feeling comfortable. Denies any chest pain, pressure, or discomfort. Denies any fevers or chills. VITAL SIGNS: Temperature 98.1, pulse 73, respirations 18, blood pressure 106/66, pulse oximetry 99% on room air. LABORATORY DATA: WBC 5.6, hemoglobin and hematocrit 10.3/32.5, platelets 285. Chemistry: Sodium 136, potassium 4.1, chloride 104, bicarbonate 25, BUN 16, creatinine 0.62. PHYSICAL EXAMINATION: GENERAL: Patient comfortable in no acute distress. HEENT: Normocephalic, atraumatic. PULMONARY: Bilaterally clear. CARDIAC: Regular, S1, S2. ABDOMEN: Soft, nontender. Positive bowel sounds. EXTREMITIES: No clubbing, cyanosis, or edema. Bilateral lower extremity weakness. ASSESSMENT AND PLAN: This is a 62-year-old male patient with underlying medical history of cervical stenosis, lumbar stenosis, thoracolumbar scoliosis, chronic neck pain, gastroesophageal reflux disease (GERD), hypertension, status post T11-S1 arthrodesis with L1-S1 laminectomy on 05/08/2018 at [facility], transferred to acute rehabilitation for further care. 1. Status post T11-S1 posterior arthrodesis with L1-S2 laminectomy on 05/08/2018 at [facility]. Physical therapy (PT)/occupational therapy (OT) as per acute rehabilitation provider. Pain control as per acute rehabilitation provider. Bowel care as per Dr. Guevara. 2. Deep vein thrombosis (DVT) prophylaxis. Patient on Lovenox subcutaneous as per acute rehabilitation provider. Outpatient followup with Mr. Liu at [place]. Bracing as per Dr. Liu. 3. Influenza, resolved. Completed Tamiflu. 4. Hypertension. Continue Toprol-XL. Continue lisinopril. Patient on aspirin. 5. Hypokalemia, resolved. Oral supplementation 6. Anemia. Monitor hemoglobin and hematocrit. Fecal occult negative. Iron supplementation. 7. Hyponatremia. Fluid restriction. Sodium chloride tablet. Will monitor closely. 8. Gastroesophageal reflux disease (GERD). Continue proton pump inhibitor (PPI). 9. Deep vein thrombosis (DVT) prophylaxis, Lovenox subcutaneous. DISPOSITION: As per acute rehabilitation provider.
[2018-06-13 20:00] VITALS: BP 121/63
[2018-06-13] MEDS: traZODone 50 MG TAB PO PRN (21:44)
[2018-06-13] MEDS: diphenhydrAMINE 25 MG CAP PO PRN (21:44)
[2018-06-14 06:00] VITALS: BP 120/64
[2018-06-14 07:46] LABS: HEMATOCRIT 33.7 % (42.0-52.0); HEMOGLOBIN 10.8 g/dl (13.5-17.5); MEAN CORPUSCULAR HEMOGLOBIN 27.6 pg (27.0-33.0); PLATELET COUNT, AUTOMATED 290 10^3/uL (150-450); RED BLOOD COUNT 3.92 10^6/uL (4.30-6.10); WHITE BLOOD COUNT 6.8 10^3/uL (4.0-10.0)
[2018-06-14] MEDS: MIRALAX *UNIT DOSE* 17GM PACKET PO SCH (09:00)
[2018-06-14] MEDS: SENOKOT S TAB PO SCH ×2 (09:00→20:33)
[2018-06-14] MEDS: ENOXAPARIN 40 MG/0.4 ML SYRINGE (J1650) SC SCH (10:11)
[2018-06-14] MEDS: PANTOPRAZOLE 40MG TAB (PROTONIX) PO SCH (10:11)
[2018-06-14] MEDS: POTASSIUM CHLORIDE 10 MEQ SR TABLET PO SCH (10:12)
[2018-06-14] MEDS: SODIUM CHLORIDE 1 GM TAB PO SCH ×2 (10:12→20:33)
[2018-06-14] MEDS: METOPROLOL SUCC (TopROL XL) 50MG **XL** TAB PO SCH (10:12)
[2018-06-14] MEDS: VITAMIN D 1,000 INTERNATIONAL UNITS TABLET PO SCH (10:13)
[2018-06-14] MEDS: MAGNESIUM OXIDE 400 MG TAB (MAG-OX) PO SCH ×2 (10:13→20:33)
[2018-06-14] MEDS: GABAPENTIN 300 MG CAP PO SCH ×3 (10:13→20:33)
[2018-06-14] MEDS: ASCORBIC ACID 500 MG TAB PO SCH (10:13)
[2018-06-14] MEDS: THIAMINE 100 MG TAB PO SCH (10:13)
[2018-06-14] MEDS: ASPIRIN 81 MG ENTERIC TAB PO SCH (10:14)
[2018-06-14] MEDS: LISINOPRIL 10 MG TAB PO SCH (10:14)
[2018-06-14] MEDS: SENNA 8.6 MG TAB (SENOKOT) PO SCH (10:15)
[2018-06-14 14:00] VITALS: BP 136/63
--- NOTE | 2018-06-14 16:18 | IPNPDOC ---
Text Note Date of Service The patient was seen on 06/14/18. NOTE Patient seen and examined. No acute events overnight. Feeling comfortable. Denies any chest pain, pressure, or discomfort. Denies any fevers or chills.no sig pain. PHYSICAL EXAMINATION: GENERAL: Patient comfortable in no acute distress. HEENT: Normocephalic, atraumatic. PULMONARY: Bilaterally clear. CARDIAC: Regular, S1, S2. ABDOMEN: Soft, nontender. Positive bowel sounds. EXTREMITIES: No clubbing, cyanosis, or edema. Bilateral lower extremity weakness. ASSESSMENT AND PLAN: This is a 62-year-old male patient with underlying medical history of cervical stenosis, lumbar stenosis, thoracolumbar scoliosis, chronic neck pain, gastroesophageal reflux disease (GERD), hypertension, status post T11-S1 arthrodesis with L1-S1 laminectomy on 05/08/2018 at [facility] transferred to acute rehabilitation for further care. 1. Status post T11-S1 posterior arthrodesis with L1-S2 laminectomy on 05/08/2018 at [facility] Physical therapy (PT)/occupational therapy (OT) as per acute rehabilitation provider. Pain control as per acute rehabilitation provider. Bowel care as per Dr. Guevara. 2. Deep vein thrombosis (DVT) prophylaxis. Patient on Lovenox subcutaneous as per acute rehabilitation provider. Outpatient followup with Mr. Liu at [place]. Bracing as per Dr. Liu. 3. Influenza, resolved. Completed Tamiflu. 4. Hypertension. Continue Toprol-XL. Continue lisinopril. Patient on aspirin. 5. Hypokalemia, resolved. Oral supplementation 6. Anemia. Monitor hemoglobin and hematocrit. Fecal occult negative. Iron supplementation. 7. Hyponatremia. Fluid restriction. Sodium chloride tablet. Will monitor closely. 8. Gastroesophageal reflux disease (GERD). Continue proton pump inhibitor (PPI). 9. Deep vein thrombosis (DVT) prophylaxis, Lovenox subcutaneous. DISPOSITION: As per acute rehabilitation provider. VS,Leda, I+O VS, Leda, I+O Laboratory Tests 06/14/18 07:19 Red Blood Count 3.92 L, Mean Corpuscular Volume 86.0, Mean Corpuscular Hemoglobin 27.6, Mean Corpuscular Hemoglobin Concent 32.0, Red Cell Distribution Width 14.5 Vital Signs Date Time Temp Pulse Resp B/P (MAP) Pulse Ox O2 Delivery O2 Flow Rate FiO2 06/14/18 14:00 99.2 80 18 136/63 (87) 100 06/13/18 10:22 16.0 I&O- Last 24 Hours up to 6 AM 06/14/18 06:00 Intake Total 1000 ml Output Total 1025 ml Balance -25 ml ELIAZAR JURADO MD Jun 14, 2018 16:18
[2018-06-14] MEDS: ACETAMINOPHEN TAB 650MG DOSE (2X325MG) PO PRN ×2 (17:13→22:04)
[2018-06-14 20:00] VITALS: BP 122/66
[2018-06-14] MEDS: diphenhydrAMINE 25 MG CAP PO PRN (22:04)
[2018-06-14] MEDS: traZODone 50 MG TAB PO PRN (22:04)
[2018-06-15 06:00] VITALS: BP 136/68
[2018-06-15 08:59] VITALS: BP 145/72
[2018-06-15] MEDS: GABAPENTIN 300 MG CAP PO SCH (09:00)
[2018-06-15] MEDS: ASPIRIN 81 MG ENTERIC TAB PO SCH (09:00)
[2018-06-15] MEDS: SENOKOT S TAB PO SCH (09:00)
[2018-06-15] MEDS: SODIUM CHLORIDE 1 GM TAB PO SCH (09:00)
[2018-06-15] MEDS: MIRALAX *UNIT DOSE* 17GM PACKET PO SCH (09:00)
[2018-06-15] MEDS: PANTOPRAZOLE 40MG TAB (PROTONIX) PO SCH (09:01)
[2018-06-15] MEDS: METOPROLOL SUCC (TopROL XL) 50MG **XL** TAB PO SCH (09:01)
[2018-06-15] MEDS: MAGNESIUM OXIDE 400 MG TAB (MAG-OX) PO SCH (09:01)
[2018-06-15 09:02] VITALS: BP 145/72
[2018-06-15] MEDS: VITAMIN D 1,000 INTERNATIONAL UNITS TABLET PO SCH (09:02)
[2018-06-15] MEDS: LISINOPRIL 10 MG TAB PO SCH (09:02)
[2018-06-15] MEDS: ASCORBIC ACID 500 MG TAB PO SCH (09:02)
[2018-06-15] MEDS: THIAMINE 100 MG TAB PO SCH (09:02)
[2018-06-15] MEDS: POTASSIUM CHLORIDE 10 MEQ SR TABLET PO SCH (09:02)
[2018-06-15] MEDS: ENOXAPARIN 40 MG/0.4 ML SYRINGE (J1650) SC SCH (09:03)
[2018-06-15] MEDS ORDERED: VITA500T PO (09:06)
[2018-06-15] MEDS ORDERED: GABA-843 PO (09:06)
[2018-06-15] MEDS ORDERED: VITAD1000T PO (09:06)
[2018-06-15] MEDS ORDERED: SODI1TA PO (09:06)
[2018-06-15] MEDS ORDERED: LISI10TA4 PO (09:06)
[2018-06-15] MEDS ORDERED: KLOR10TA76 PO (09:06)
[2018-06-15] MEDS ORDERED: ASPI81TAEC PO (09:06)
[2018-06-15] MEDS ORDERED: METO1TAB7 PO (09:06)
[2018-06-15] MEDS ORDERED: MAG400TA PO (09:06)
[2018-06-15] MEDS ORDERED: OXYCO5TA PO (09:06)
[2018-06-15] MEDS ORDERED: PANT40TA3 PO (09:06)
[2018-06-15] MEDS ORDERED: THIA100TA PO (09:06)
--- NOTE | 2018-06-15 11:34 | IPNPDOC ---
Date Seen The patient was seen on 06/15/18. Progress Note HPI: 62year old M S/P T11-S1 posterior arthrodesis L1-S1 laminectomies05/08/[address] Liu [facility]. Transfered to the care of MARIEL Zamora [facility], 05/13/18. Patient reports no concerns at this time. Denies any weakness, fatigue, Headache, Chest Pain, Shortness of breath, cough, palpitations, abdominal pain, N/V/D or changes in bowel or bladder habits. PMHx: cervical stenosis Lumbar stenosis Thoracolumbar scoliosis Chronic neck pain/LE pain/Chronic pain GERD HTN PSHX: 05/08/18 T11-S1 posterior arthrodesis L1-S1 laminectomies. PE: GEN: 62yoM, appears stated age. No acute distress. Alert and oriented x 3. HEENT: Normocephalic, atraumatic. Sclera are nonicteric. Conjunctiva without injection. Moist mucous membranes. CHEST: Regular rate and rhythm, +S1, +S2 LUNGS: Clear to auscultation bilaterally. No wheezes, rales, or rhonchi. ABD: soft, NT, non-distended BS present. EXT: No lower extremity edema appreciated. SKIN: No rashes. NEURO: Alert and oriented x 3. No focal deficits appreciated. UC neg 05/14/18 FOB neg. U/S LEs No evidence for deep venous thrombosis. Electronically Signed by Adryan Cole MD 05/15/2018 05:36 A A&P: 62year old M S/P T11-S1 posterior arthrodesis L1-S1 laminectomies05/08/[address] Liu [facility]. Transferred to the care of MARILE Zamora [facility], 05/13/18. 1. S/P T11-S1 posterior arthrodesis L1-S1 laminectomies05/08/[address] Liu [facility] PT/OT/ST as per MARIEL Zamora. Pain control as per MARIEL Zamora. Bowel care as per MARIEL Zamora. DVT prophylaxis as per MARIEL Zamora. Lovenox SQ. Outpt F/U with Dr Liu. Wearing TLSO brace as per Dr Liu. Had F/U appt with Dr Liu 06/04/18. 2. S/P Influenza. Resolved. Completed Tamiflu 75 mg BID x 5 days. Repeat respiratory panel negative 05/25/18. 3. HTN. Toprol XL 100 mg po daily. Lisinopril 10 mg daily. Pt restarted ASA 81 mg daily 05/22/18. 4. Hypokalemia. Resolved. po Supplement daily. 4. Anemia. Hgb 10.2 Fe studies, B12, folate completed. FOB neg. Fe supplement BID. 5. Hyponatremia. Na trend 133-135. Ser Osm/Ur Osm/Ur Cr/NA/TSH/Mag noted. Fluid restriction. Salt tab BID. Monitor. 6. GERD. Protonix. 7. Hypomagnesemia. Continue with supplement. VS, I&O, 24H, Fishbone Vital Signs/I&O Vital Signs Date Time Temp Pulse Resp B/P (MAP) Pulse Ox O2 Delivery O2 Flow Rate FiO2 06/15/18 09:02 145/72 06/15/18 09:01 78 06/15/18 06:00 98.4 18 98 06/13/18 10:22 16.0 I&O- Last 24 Hours up to 6 AM 06/15/18 06:00 Intake Total 1680 ml Output Total 900 ml Balance 780 ml Olga Loja Jun 15, 2018 11:34
--- NOTE | 2018-06-15 11:44 | IPNPDOC ---
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 REVIEW OF SYSTEMS: The following is a completed review of systems and has been reviewed. Review of systems otherwise unremarkable. PAIN: self reports non-radiating low back pain EYES: Negative for recent vision changes EARS, NOSE, & THROAT: Denied rhinorrhea, throat pain or dysphagia CARDIOVASCULAR: denies chest pain or palpitations PULMONARY: Negative. Denies shortness of breath GASTROINTESTINAL: Negative for diarrhea or constipation GENITOURINARY: Negative for dysuria or hematuria or incontinence MUSCULOSKELETAL: bilateral LE weakness L>R and Left shoulder pain and arm weakness NEUROLOGICAL: LLE paralysis HEMATOLOGICAL: Negative for bruising SKIN: scab on bottom of left foot, lumbosacral sutures, otherwise intact. PSYCHIATRIC: Unremarkable All other review of systems found to be negative. PHYSICAL EXAMINATION: VITAL SIGNS: Please see below. GENERAL: Pleasant and cooperative. No acute distress. HEENT: PERRL. Extraocular movements intact. Clear conjunctiva, poor dentition CARDIOVASCULAR: Regular rate and rhythm. No murmurs, rubs, or gallops LUNGS: Clear to auscultation bilaterally. No wheezes. No rhonchi ABDOMEN: Soft, nontender, nondistended. Positive bowel sounds. Normal active bowel sounds NEUROLOGICAL: Alert and oriented times three. Cranial nerves II through XII grossly intact. Sensation to light touch in C-T2 dermatomes and L2-S2 dermatomes, and S3-5 regions to light touch +bilateral Babinski, 1+/4 patellar reflexes bilat 3+ bicep and brachioradialis reflexes EXTREMITIES: 5-\\5 strength right upper extremities. 3/5 left shoulder abduction pain limiting, and unable to fully test elbow extension given limited ROM, director of enterprise strategy 5/5 and elbow flexors 5-/5 3+/5 right hip flexors and knee extensors, 2+/5 ankle DF and EHL 2/5 left hip flexors and 3/5 knee extensors, 1/5 left ankle DF and EHL Left shoulder: +Neers and decreased internal rotation bilateral mild foot edema-improved SKIN: lumbosacral incision c/d/i, no sacral ulcers, scab on bottom of left foot Lateral truncal ecchymosis Left foot- MTP and dorsum of D1 blanchable erythema without tenderness or warmth ASSESSMENT:62-year-old M with past medical history of chronic low back pain who presents status post T11-S1 arthrodesis and laminectomy. PLAN: 1. rehab: PT/OT, assess for DME, working on [id number], able to performed wheelchair mobility well while in room,s/p flu, goal to work on stairs in PT, able to advance his left leg without assist using RW and ambulating further 2. Ortho: s/p T11-S1 arthrodesis with laminectomy in setting of spinal stenosis with significant RLE paresis, TLSO brace when out of bed, Spinal precautions, monitor for myelopathy, at this time does have brisk reflexes in UE and +Babinksi most likely from cervical stenosis- reports prior to his surgery he had episodes of flatulence where he would have a bowel movement concurrently- reports he is able to push out the stool and has perianal sensation-this has improved in the past few days -s/p follow-up at [place] with neurosurgeon Dr. Liu 06/04/18, no suture removal, has appointment in 2 weeks for removal -Left shoulder likely weak from cervical stenosis and impingement- will encourage ROM to prevent adhesive capsulitis-improving - TLSO brace adjusted 05/15/18 3. 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 : monitor PVRs, admission UA and Ucx negative 6. Skin: dressing in place, change prn soil/drainage, multipodus boots while in bed to prevent heel cord contractures and heel ulcers 7. DVT ppx: continue Lovenox, admission dopplers negative 9. Pain: tapering oxycodone, continue Tylenol and gabapentin 10. Electrolytes: hyponatremia stable, continue salt tabs 11. ID: fever resolved, w +Influenza, started on Tamiflu, s/p IVF monitor vitals -CXR negative for infiltrate -blood cultures sent, negative growth -s/p 7 days course Keflex for possible incision site infection,using silver- optifoam and healing well, no leukocytosis-ok to shower 13. Extremities/Skin: will acewrap bilateral feet and elevate for edema- improving -left foot MTP and dorsum of 1st digit swelling and stage one pressure ulcers, likely from his new AFO, patient instructed to not wear the AFO until his visit with Mr. Malcolm on 06/17/18 to have it adjusted- non-tender, no warmth, not concerned for cellulitis or gout 13. Dispo: 06/15/18 progressing towards goals to home, ramp built Allergies Coded Allergies: No Known Drug Allergy (Verified Allergy, Unknown, 05/13/18) Vital Signs Vital Signs Date Time Temp Pulse Resp B/P (MAP) Pulse Ox O2 Delivery O2 Flow Rate FiO2 06/15/18 09:02 145/72 06/15/18 09:01 78 06/15/18 06:00 98.4 18 98 06/13/18 10:22 16.0 Current Medications Current Medications Current Medications Acetaminophen (Tylenol Tab) 650 mg Q4HP PRN PO fever/MILD PAIN (PS 1-4) Last administered on 06/14/18at 22:04; Start 05/13/18 at 17:45 Albuterol/ Ipratropium (Duoneb (Ipr 0.5mg/Alb 2.5mg)) 3 ml RQID NEB Last administered on 05/27/18at 16:14; Start 05/22/18 at 16:00; Stop 05/28/18 at 13:42; Status DC Ascorbic Acid (Vitamin C) 1,000 mg DAILY PO Last administered on 06/15/18at 09:02; Start 05/14/18 at 09:00 Aspirin (Ecotrin) 81 mg DAILY PO Last administered on 06/15/18at 09:00; Start 05/22/18 at 09:00 Bisacodyl (Dulcolax Suppository) 10 mg ASDIRECTED PRN TN IF NO BOWEL MOVEMENT; Start 05/14/18 at 18:00; Stop 05/30/18 at 08:45; Status DC Bisacodyl (Dulcolax Suppository) 10 mg DAILYPRN PRN TN CONSTIPATION; Start 05/13/18 at 17:45; Stop 05/30/18 at 08:45; Status DC Cephalexin Monohydrate (Keflex) 500 mg QID PO Last administered on 05/25/18at 08:44; Start 05/18/18 at 13:00; Stop 05/25/18 at 10:36; Status DC Dextromethorphan (Delsym Af 12hr Susp) 30 mg Q12HP PRN PO COUGH Last administered on 06/04/18at 22:42; Start 05/29/18 at 19:45 Dextromethorphan (ROBITUSSIN PEDIATRIC COUGH SYRUP 7.5mg/5ml) 5 ml Q8HP PRN PO COUGH Last administered on 05/26/18at 22:36; Start 05/20/18 at 23:30; Stop 05/29/18 at 19:39; Status DC Dicyclomine HCl (Bentyl) 10 mg Q6H PO Last administered on 05/30/18at 06:30; Start 05/29/18 at 18:00; Stop 05/30/18 at 08:45; Status DC Diphenhydramine HCl (Benadryl) 25 mg QHSP PRN PO INSOMNIA Last administered on 06/14/18at 22:04; Start 05/21/18 at 20:00 Docusate Sodium (Colace) 100 mg BID PO Last administered on 05/19/18at 21:05; Start 05/13/18 at 21:00; Stop 05/20/18 at 16:41; Status DC Docusate Sodium (Colace) 100 mg BID PO Last administered on 05/29/18at 20:33; Start 05/29/18 at 21:00; Stop 05/30/18 at 08:45; Status DC Enoxaparin Sodium (Lovenox) 40 mg DAILY SC Last administered on 06/13/18at 10:12; Start 05/14/18 at 09:00; Stop 06/13/18 at 12:40; Status DC Enoxaparin Sodium (Lovenox) 40 mg DAILY SC Last administered on 06/15/18at 09:03; Start 06/14/18 at 09:00 Ferrous Gluconate (Fergon) 324 mg BID PO Last administered on 05/29/18 09:17; Start 05/15/18 at 21:00; Stop 05/29/18 at 15:44; Status DC Gabapentin (Neurontin) 100 mg TID PO ; Start 05/20/18 at 21:00; Stop 05/20/18 at 21:00; Status DC Gabapentin (Neurontin) 200 mg TID PO ; Start 05/13/18 at 21:00; Stop 05/13/18 at 21:00; Status DC Gabapentin (Neurontin) 300 mg TID PO Last administered on 06/15/18at 09:00; Start 05/20/18 at 21:00 Home Med (Med Rec Complete!) ASDIRECTED XX ; Start 05/13/18 at 18:15; Stop 05/13/18 at 18:16; Status DC Lidocaine (Lidoderm Patch) 1 patch DAILY@2100 TD Last administered on 06/12/18 21:53; Start 05/14/18 at 21:00; Stop 06/13/18 at 12:53; Status DC Lisinopril (Prinivil) 10 mg DAILY PO Last administered on 06/15/18at 09:02; Start 05/15/18 at 11:00 Magnesium Hydroxide (Milk Of Magnesia) 30 ml DAILYPRN PRN PO CONSTIPATION Last administered on 06/13/18 10:09; Start 05/13/18 at 17:45 Magnesium Oxide (Mag-Ox) 400 mg BID PO Last administered on 06/15/18 09:01; Start 06/13/18 at 14:00; Stop 06/16/18 at 13:59 Metoprolol Succinate (TopROL XL) 50 mg DAILY PO Last administered on 05/14/18at 09:39; Start 05/14/18 at 09:00; Stop 05/14/18 at 11:18; Status DC Metoprolol Succinate (TopROL XL) 100 mg DAILY PO Last administered on 06/15/18at 09:01; Start 05/15/18 at 09:00 Miscellaneous (Unresolved Clarification Entry) SEE LABEL COMMENTS DAILY XX ; Start 05/20/18 at 09:00; Stop 05/20/18 at 11:16; Status DC Miscellaneous (Unresolved Clarification Entry) SEE LABEL COMMENTS DAILY XX ; Start 05/24/18 at 09:00; Stop 05/25/18 at 10:36; Status DC Miscellaneous (Unresolved Clarification Entry) SEE LABEL COMMENTS DAILY XX ; Start 06/11/18 at 09:00; Stop 06/12/18 at 08:01; Status DC Miscellaneous (Unresolved Clarification Entry) SEE LABEL COMMENTS DAILY XX ; Start 06/12/18 at 09:00; Stop 06/13/18 at 07:09; Status DC Miscellaneous (Unresolved Clarification Entry) SEE LABEL COMMENTS DAILY XX ; Start 06/13/18 at 09:00; Stop 06/13/18 at 12:58; Status DC Miscellaneous (Unresolved Clarification Entry) SEE LABEL COMMENTS DAILY XX ; Start 05/31/18 at 09:00; Stop 06/01/18 at 07:06; Status DC Miscellaneous (Unresolved Clarification Entry) SEE LABEL COMMENTS DAILY XX Last administered on 06/01/18at 08:41; Start 06/01/18 at 09:00; Stop 06/01/18 at 11:29; Status DC Non-Formulary Medication ( See Comment Field Below ) REMOVE LIDODERM PATCH DAILY XX Last administered on 06/13/18at 09:00; Start 05/15/18 at 09:00; Stop 06/13/18 at 12:53; Status DC Ondansetron HCl (Zofran) 4 mg Q6HP PRN PO NAUSEA; Start 05/13/18 at 17:45 Oseltamivir Phosphate (Tamiflu) 75 mg BID PO Last administered on 05/24/18at 08:58; Start 05/18/18 at 14:15; Stop 05/24/18 at 14:17; Status DC Oxycodone HCl (Roxicodone, Oxyir) 5 mg Q4HP PRN PO PAIN 4-7 Last administered on 06/05/18at 03:32; Start 05/13/18 at 17:45; Stop 06/09/18 at 15:02; Status DC Oxycodone HCl (Roxicodone, Oxyir) 5 mg TID PO Last administered on 06/12/18at 15:28; Start 06/09/18 at 16:00; Stop 06/12/18 at 15:28; Status DC Oxycodone HCl (Roxicodone, Oxyir) 5 mg TID PRN PO PAIN SCALE 6-10 Last administered on 06/12/18at 21:52; Start 06/12/18 at 15:30 Oxycodone HCl (Roxicodone, Oxyir) 10 mg Q4HP PRN PO SEVERE PAIN (PS 8-10) Last administered on 05/14/18 09:54; Start 05/13/18 at 17:45; Stop 05/14/18 at 11:16; Status DC Oxycodone HCl (Roxicodone, Oxyir) 10 mg TID PO Last administered on 06/09/18 09:09; Start 05/14/18 at 16:00; Stop 06/09/18 at 15:02; Status DC Pantoprazole Sodium (Protonix) 40 mg DAILY PO Last administered on 06/15/18 09:01; Start 05/14/18 at 09:00 Polyethylene Glycol (Miralax) 1 pkt DAILY PO Last administered on 05/31/18 08:58; Start 05/30/18 at 09:00; Stop 05/31/18 at 14:31; Status DC Polyethylene Glycol (Miralax) 2 pkt DAILY PO Last administered on 06/02/18 08:00; Start 06/01/18 at 09:00 Potassium Chloride (Micro-K Extencaps) 20 meq DAILY PO Last administered on 06/15/18 09:02; Start 05/15/18 at 09:00 Senna (Senokot) 1 tab DAILY@1200 PO Last administered on 06/11/18at 12:40; Start 05/30/18 at 12:00 Senna (Senokot) 1 tab QHS PO Last administered on 05/13/18at 20:43; Start 05/13/18 at 21:00; Stop 05/15/18 at 17:28; Status DC Senna (Senokot) 2 tab QHS PO Last administered on 05/19/18at 21:04; Start 05/15/18 at 21:00; Stop 05/20/18 at 16:41; Status DC Senna/Docusate Sodium (Senokot S) 1 tab BID PO Last administered on 05/31/18 08:58; Start 05/30/18 at 09:00; Stop 05/31/18 at 14:31; Status DC Senna/Docusate Sodium (Senokot S) 2 tab BID PO ; Start 05/30/18 at 09:00; Stop 05/30/18 at 09:00; Status DC Senna/Docusate Sodium (Senokot S) 2 tab BID PO Last administered on 06/13/18at 10:14; Start 05/31/18 at 21:00 Sodium Chloride (Sodium Chloride) 1 gm BID PO Last administered on 05/16/18at 08:38; Start 05/15/18 at 11:00; Stop 05/16/18 at 15:45; Status DC Sodium Chloride (Sodium Chloride) 1 gm BID PO Last administered on 06/05/18at 10:10; Start 05/29/18 at 21:00; Stop 06/05/18 at 14:06; Status DC Sodium Chloride (Sodium Chloride) 1 gm TID PO Last administered on 05/20/18 09:23; Start 05/16/18 at 16:00; Stop 05/20/18 at 11:13; Status DC Sodium Chloride (Sodium Chloride) 2 gm BID PO Last administered on 05/29/18 09:18; Start 05/20/18 at 21:00; Stop 05/29/18 at 15:45; Status DC Sodium Chloride (Sodium Chloride) 2 gm BID PO Last administered on 06/15/18 09:00; Start 06/05/18 at 21:00 Thiamine HCl (Thiamine HCl) 100 mg DAILY PO Last administered on 06/15/18 09:02; Start 05/14/18 at 09:00 Trazodone HCl (Desyrel) 50 mg QHSP PRN PO INSOMNIA Last administered on 06/14/18 22:04; Start 05/13/18 at 17:45 Vitamin D (Vitamin D) 1,000 units DAILY PO Last administered on 06/15/18 09:02; Start 05/14/18 at 09:00 BRUCE CARDOZA MD Jun 15, 2018 11:44
[2018-06-15] MEDS: SENNA 8.6 MG TAB (SENOKOT) PO SCH (11:46)
[2018-06-15] MEDS: oxyCODONE 5MG TAB PO PRN (12:40)
--- NOTE | 2018-06-18 10:35 | PMRDS ---
DATE OF ADMISSION: 05/13/2018 DATE OF DISCHARGE: 06/15/2018 CHIEF COMPLAINT/DISCHARGE DIAGNOSIS: Lumbar stenosis status post laminectomy. HISTORY OF PRESENT ILLNESS: This is a 62-year-old male with past medical history of hypertension and chronic neck pain and scoliosis with low back pain who developed a worsening lower extremity weakness especially affecting his left lower extremity which worsened in August 2017 leading him to the rolling walker and require assistance with stairs. He was evaluated at [facility] where he underwent a T11-S1 posterior arthrodesis and L1, L2, L3, L4, L5, S1 laminectomy for a diagnosis of severe lumbar stenosis with neurogenic claudication performed by Dr. Liu. He denied having any urinary or fecal incontinence prior to or following the surgery and had a slight gain in strength in his left lower extremity. He denies ever having had spinal injections prior to his surgery and was managed by pain specialist. Postop CT lumbar spine revealed "dextroconvex scoliosis of the lumbar spine. Expected recent postsurgical changes...multilevel degenerative changes...at L2-L3...moderate left and mild right foraminal narrowing. At L3-L4...there is a moderate to severe bilateral foraminal narrowing left greater than right. At L4-L5...moderate to severe bilateral foraminal narrowing...at L5-S1...moderate to severe bilateral foraminal narrowing, right greater than left". His pain was controlled. Aspirin held until May 22 and TLSO brace provided for lumbar stabilization. He was evaluated by therapy and found to have significant gait and activity of daily living (ADL) impairments and deemed medically appropriate for discharge to ARU on 05/13/2018. PAST MEDICAL HISTORY: Hypertension. Low back pain. Cervical and lumbar stenosis. HOSPITAL COURSE: The patient was admitted and enrolled in a comprehensive physical therapy (PT), occupational therapy (OT) program. He received 24 hour nursing supervision and weekly team meetings were held to discuss his progress. Upon arrival, patient had a runny nose and developed a fever and was found to have the flu which slowed down his initial progress in therapy. Chest x-ray was ordered which was negative for infiltrate and blood cultures were also sent which were negative for growth. He received a 7 day course of Keflex for possible incision site infection. His dressings were changed to Silver Optifoam and healed well. His pain was managed with oxycodone, Tylenol and gabapentin. He was found to have hyponatremia for which fluid restriction and salt tablets were used and he remained stable around 133-135 during his hospital course. He was maintained on Lovenox for deep venous thrombosis (DVT) prophylaxis and admission Dopplers were negative. Admission UA and urine culture were negative. Patient reported constipation with leakage and KUB on 05/29/2018 showed "moderately distended air filled loops of small and large bowel raises possibility of ileus". Case discussed with surgery who recommended additional bowel medications and he received tap water enema on 05/31/2018 which improved his constipation and abdominal bloating. Patient had followup appointment with Dr. Liu on 06/04/2018. His sutures were not removed at the time and he was ordered to have a followup in 2 weeks for suture removal. He was fitted for a left AFO for his left ankle drop and developed stage I pressure ulcers on the left MTP joint and the dorsum of the first toe joint. Upon day of discharge, patient was instructed to not wear the AFO until his followup appointment with Mr. Malcolm on 06/17/2018 for adjustment. Overall patient did very well. He made functional gains and was deemed functionally and medically stable to return to home with home services. DISCHARGE MEDICATIONS: - vitamin C - aspirin - gabapentin - lisinopril - magnesium - metoprolol - oxycodone - potassium chloride - Colace Upon discharge, patient was min assist for functional transfers excluding supine to sit for which he was moderate assist. He was able to ambulate 37 feet contact guard assist followed by 32 feet with a rolling walker. He was able to propel his wheelchair 300 feet stand by assist. His was trained and he was deemed functionally and medically stable to return to home with home services. Thank you for this referral.
== END 2018-06-15 12:45 | disposition home health service (06) | DRG 347 ==
LOC: M PM&R 17:26
PROVIDERS: ADMIT Physical Medicine & Rehabilitation; ATTEND Physical Medicine & Rehabilitation
DX: M48.062 Spinal stenosis, lumbar region with neurogenic claudication (principal); G81.91 Hemiplegia, unspecified affecting right dominant side; E87.1 Hypo-osmolality and hyponatremia; L89.891 Pressure ulcer of other site, stage 1; K56.7 Ileus, unspecified; I10 Essential (primary) hypertension; M48.02 Spinal stenosis, cervical region; K59.00 Constipation, unspecified; M25.512 Pain in left shoulder; Z79.899 Other long term (current) drug therapy; K21.9 Gastro-esophageal reflux disease without esophagitis; E87.6 Hypokalemia; D64.9 Anemia, unspecified; M75.42 Impingement syndrome of left shoulder; J11.1 Influenza due to unidentified influenza virus with other respiratory manifestations

== ENCOUNTER 2019-01-12 10:01 | Inpatient (IN) | payer OTHER ==
[~2019-01-12] VITALS: Ht 180.3 cm; Wt 66.9 kg
[~2019-01-12 10:01] MED LIST: ACET1TAB55 PEG; ASPI81TAEC PO; CHOL100029 PO; COLA100C5 PEG; GABA-843 PO; KLOR10TA76 PO; LISI10TA4 PO; MAG400TA PO; METO1TAB7 PO; OXYC10TA12 PO; OXYCO5TA PO; PANT40TA3 PEG; PANT40TA3 PO; SENO8.6T5 PO; SODI1TAB12 PO; THIA100TA PO; TOPR50TA PO; VITA-122 PEG; VITA100T89 PO; VITA500C24 PEG; VITA500T PO; VITMTA PEG
[2019-01-12 14:00] VITALS: BP 167/78
[2019-01-12] MEDS ORDERED: LEVA1.25 INH (14:18)
[2019-01-12] MEDS ORDERED: GABA600T4 PEG (14:18)
[2019-01-12] MEDS ORDERED: METO1TAB7 PEG (14:18)
[2019-01-12] MEDS ORDERED: POTA20PW PEG (14:18)
[2019-01-12] MEDS ORDERED: OXYC-517 PEG (14:22)
[2019-01-12] MEDS ORDERED: AUGM500T34 PEG (14:24)
[2019-01-12] MEDS ORDERED: ACET-908 PEG (14:25)
[2019-01-12] MEDS ORDERED: ASCO500T PEG (14:28)
[2019-01-12] MEDS ORDERED: LISI10TA4 PEG (14:29)
[2019-01-12] MEDS ORDERED: MOM 30ML SUSPENSION UDC GT PRN (16:15)
[2019-01-12] MEDS ORDERED: ONDANSETRON 4 MG ORAL DISINTEGRATING TAB (Q0162 PER 1MG) GT PRN (16:15)
[2019-01-12] MEDS ORDERED: BISACODYL 10 MG SUPP PR PRN (16:15)
[2019-01-12] MEDS: oxyCODONE 5MG TAB GT PRN ×2 (17:08→21:26)
--- NOTE | 2019-01-12 17:18 | CR ---
DATE OF CONSULTATION: 01/12/2019 REFERRING PHYSICIAN: Dr. Bourne REASON FOR CONSULTATION: Management of chronic hypertension. HISTORY OF PRESENT ILLNESS: This is a 63-year-old male who has a history of hypertension, cervical and lumbar stenosis, chronic back pain, and feeding tube, admitted to acute rehabilitation unit due to recent laminectomy for lumbar stenosis in C3 to T3 decompression. The patient is currently on a feeding tube. Blood pressure medications have been placed down the percutaneous endoscopic gastrostomy (PEG) tube, including metoprolol and Lisinopril. The patient has had a history of scoliosis with complaints of lower extremity weakness,previously admitted to [facility] and discharged to acute rehabilitationunit in April. At that time, the patient underwent arthrodesis and laminectomy with some claudication. He did receive spinal injections in the past by the pain clinic and was admitted to PM R in April 2018 at [facility] and was subsequently discharged in May 2018. PAST MEDICAL HISTORY: Hypertension Lumbar and cervical stenosis. PAST SURGICAL HISTORY: 1. Lumbar stenosis and status post laminectomy C3 to T3 decompression. 2. Feeding tube placement. 3. Right hip total replacement. ALLERGIES: No known drug allergies. HOSPITAL MEDICATIONS: - vitamin C 500 daily - vitamin D 1000 units in the morning - Lisinopril 10 mg daily - multivitamin one tablet daily - heparin subcutaneous 5000 units every 8 hours - Senokot one tablet at night - Augmentin 500 mg every 12 hours - gabapentin 600 mg three times a day - metoprolol 50 mg twice a day - Xopenex three times a day - Dulcolax 10 mg as needed daily - milk of magnesia 30 mL daily as needed - Zofran 4 mg every 6 hours as needed - Tylenol 650 mg every 4 hours as needed - OxyIR 10 mg as needed LABORATORY DATA: None. ASSESSMENT AND PLAN: This is a 63-year-old with chronic neck and low back pain, hypertension, cervical decompression and lumbar laminectomy feeding tube placed, admitted to the rehabilitation unit for services. Cervical myelopathy with feeding tube placement. 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 Hypertension. Continue on Lopressor 50 mg twice a day, Lisinopril 10 mg daily. Vitamin D deficiency. 1000 units daily. Recent cervical decompression and lumbar laminectomy. Still on Augmentin 500 mg every 12 hours. Pain. On Gabapentin, OxyIR and Tylenol. Bowel care. On milk of magnesia as needed and Dulcolax. Deep vein thrombosis (DVT) prophylaxis with subcutaneous heparin. MTDD
--- NOTE | 2019-01-12 19:37 | REP ---
PORTABLE CHEST: AP portable view of the chest is performed and compared to prior study of 05/18/2018. There is consolidating infiltrate in the left lung base. No infiltrate is seen on the right. The heart does not appear to be significantly enlarged. There is calcification of the thoracic aorta. Metallic fixation is seen in the region of the cervical spine. IMPRESSION: Infiltrate left base. Electronically Signed by Carlos Bowden MD 01/14/2019 04:36 P
[2019-01-12 20:00] VITALS: BP 142/83
[2019-01-12] MEDS: LEVALBUTEROL 1.25 MG/0.5 ML CONCENTRATE NEB INH SCH (20:34)
[2019-01-12] MEDS: METOPROLOL TART 50 MG TAB GT SCH (21:25)
[2019-01-12] MEDS: SENNA 8.6 MG TAB (SENOKOT) GT SCH (21:26)
[2019-01-12] MEDS: GABAPENTIN 300 MG CAP GT SCH (21:26)
[2019-01-12] MEDS: HEPARIN SOD (PORCINE) 5000 UNITS/ML VIAL SC SCH (21:26)
[2019-01-12] MEDS: guaiFENesin SYRUP 200 MG/10 ML UDC PO SCH (21:26)
[2019-01-12] MEDS: AUGMENTIN SUSP POWDER 250MG/5ML BTL 75ML PEG SCH (21:27)
[2019-01-13] MEDS: oxyCODONE 5MG TAB GT PRN ×6 (01:58→22:00)
[2019-01-13] MEDS: HEPARIN SOD (PORCINE) 5000 UNITS/ML VIAL SC SCH ×3 (06:03→20:35)
[2019-01-13 06:04] VITALS: BP 136/65
[2019-01-13 06:16] LABS: BASO % 0.2 % (0.0-1.0); EOS # 0.2 10^3/uL (0.0-0.5); EOS % 2.6 % (0.0-3.0); HEMATOCRIT 27.7 % (42.0-52.0); HEMOGLOBIN 8.9 g/dl (13.5-17.5); LYMPH # 0.8 10^3/uL (1.5-5.0); LYMPH % 10.1 % (24.0-44.0); MEAN CORPUSCULAR HEMOGLOBIN 29.9 pg (27.0-33.0); MEAN CORPUSCULAR HGB CONC 32.1 g/dl (32.0-36.5); MONO # 0.8 10^3/uL (0.0-0.8); MONO % 9.6 % (0.0-5.0); NEUTROPHILS # 6.1 10^3/uL (1.5-8.5); NEUTROPHILS % 75.3 % (36.0-66.0); PLATELET COUNT, AUTOMATED 364 10^3/uL (150-450); RED BLOOD COUNT 2.98 10^6/uL (4.30-6.10); WHITE BLOOD COUNT 8.2 10^3/uL (4.0-10.0)
[2019-01-13 06:47] LABS: ALBUMIN 2.3 GM/DL (3.2-5.2); ALT/SGPT 24 U/L (12-78); BILIRUBIN,TOTAL 0.2 MG/DL (0.2-1.0); BLOOD UREA NITROGEN 7 MG/DL (7-18); CALCIUM LEVEL 8.6 MG/DL (8.8-10.2); CARBON DIOXIDE LEVEL 26 MEQ/L (21-32); CHLORIDE LEVEL 100 MEQ/L (98-107); CREATININE FOR GFR 0.34 MG/DL (0.70-1.30); GLOMERULAR FILTRATION RATE > 60.0 (>49); GLUCOSE, FASTING 125 MG/DL (70-100); SODIUM LEVEL 135 MEQ/L (136-145); TOTAL PROTEIN 5.8 GM/DL (6.4-8.2)
[2019-01-13] MEDS: LEVALBUTEROL 1.25 MG/0.5 ML CONCENTRATE NEB INH SCH ×3 (07:48→19:29)
[2019-01-13] MEDS: METOPROLOL TART 50 MG TAB GT SCH ×2 (08:18→20:35)
[2019-01-13] MEDS: VITAMIN D 1,000 INTERNATIONAL UNITS TABLET GT SCH (08:18)
[2019-01-13] MEDS: GABAPENTIN 300 MG CAP GT SCH ×3 (08:19→20:33)
[2019-01-13] MEDS: MULTIVITAMINS/MINERALS THERAP 1 TAB GT SCH (08:19)
[2019-01-13] MEDS: LISINOPRIL 10 MG TAB GT SCH (08:19)
[2019-01-13] MEDS: guaiFENesin SYRUP 200 MG/10 ML UDC PO SCH ×4 (08:20→20:35)
[2019-01-13] MEDS: AUGMENTIN SUSP POWDER 250MG/5ML BTL 75ML PEG SCH ×2 (08:21→20:37)
[2019-01-13] MEDS: ASCORBIC ACID 500 MG TAB GT SCH (08:21)
--- NOTE | 2019-01-13 13:00 | HPEPDOC ---
Manager Applied Note DATE OF ADMISSION: 01/12/19 SOURCE OF ADMISSION INFORMATION: [facility] and patient CHIEF COMPLAINT: ALS s/p cervical decompression and fusion surgery HISTORY OF PRESENT ILLNESS: 63M pmh lumbar stenosis s/p T11-S1 posterior arthrodesis and L1-S1 laminectomy w rodrigue underwent inpatient rehabilitation in April 2018, with cervical stenosis with myelopathy and worsening weakness in his bilateral arms and legs with a decline in speech production underwent a C3-T3 posterior arthrodesis, C3-T1 laminectomies for stenosis, with posterior fusion on 12/31/18 at [facility]. 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 He underwent an EMG at [facility] which confirmed the diagnosis of ALS with a bulbar component, he underwent PEG placement on 01/08/19, and was started on IV antibiotics for aspiration pneumonia. He had a page placed for retention, evaluated by therapy noted to be below his prior level of function for mobility and ADLs and deemed medically appropriate for discharge to ARU on 01/12/19. REVIEW OF SYSTEMS: The following is a completed review of systems and has been reviewed. Review of systems otherwise unremarkable. PAIN: Patient self reports neck and low back pain EYES: No recent vision changes EARS, NOSE, & THROAT: +dysphagia CARDIOVASCULAR: Denies chest pain or palpitations PULMONARY: +cough GASTROINTESTINAL:+diarrhea GENITOURINARY: +Page for retention MUSCULOSKELETAL: cervical and lumbar stenosis NEUROLOGICAL: +myelopathy, with weakness and fasciculations HEMATOLOGICAL: no easy bruising SKIN: neck incision PSYCHIATRIC: Unremarkable All other review of systems found to be negative. PAST MEDICAL HISTORY: as per HPI PAST SURGICAL HISTORY: as per HPI ALLERGIES: Please see below. MEDICATIONS: Please see below. SOCIAL HISTORY: +ETOH, +smoking, no illicit drugs DIET: NPO PHYSICAL EXAMINATION: VITAL SIGNS: Please see below. GENERAL: Pleasant and cooperative. No acute distress. HEENT: PERRL. Extraocular movements intact. Clear conjunctiva CARDIOVASCULAR: Regular rate and rhythm. No murmurs, rubs, or gallops LUNGS: +scattered rhonchi, poor inspiratory ABDOMEN: Soft, nontender, nondistended. Positive bowel sounds. Normal active celeste wel sounds +PEG NEUROLOGICAL: Alert and oriented times three. Cranial nerves II through XII grossly intact, except IX and X. Sensation grossly intact in all 4 extremities to light touch +fasciculations noted bilat UE and tongue, dysarthria EXTREMITIES: 4\5 right upper extremities, however unable to extend fingers, 2/5 left elbow flexor and extension, 3/5 advertising editor, 2/5 wrist extension, unable to extend finger, 3/5 strength right lower extremity except 1/5 ankle EHL and DF, 2/5 PF 2/5 strength left lower extremity except 0/5 ankle EHL and DF, 2/5 PF SKIN:cervical incision and PEG incision c/d/i LABORATORY DATA: Please see below. IMAGING: Imaging documentation personally reviewed by record FUNCTIONAL STATUS: Premorbid: Wheelchair bound, contact guard-min assist for functional transfer and bed mobility, requiring assistance for ADLs On Admission: Maximum assistance for bathing, upper body dressing, bed chair and wheelchair transfers, toilet transfers, ambulation. GOALS: Contact guard- min assist for functional transfers and bed mobility, Mod- assist for dressing, bathing, toileting, caregiver training, medical optimization. ASSESSMENT:63-year-old M with past medical history of cervical stenosis with myelopathy who presents status post C3-T3 decompressiona dn fusion with new diagnosis of Amyotrophic Lateral Sclerosis. PLAN: 1. Rehab: PT- strengthen, maintain ROM bilat LE, advance functional transfers, utilize energy conservation techniques OT-strengthen, maintain ROM bilat UE, c/u to use resting hand splints, advance bed mobilty and ADL management, utilize energy conservation techniques- DOCUMENT CONTROLLER- evaluate for dysphagia and advance diet if safe 2. Neuro: s/p C3-T3 decompression and fusion with functional tetraplegia- cerv ical collar to be worn at all times, f/u with neurosurgeon Dr. Liu -new diagnosis of ALS with bulbar features, continue to provide respiratory support and monitor for decline , f/u with patient's neurologist in [place] 3. Cardio: pmh HTN c/u bp Meds, medicine consulted to assist in management 4. Resp: c/u Augmentin for aspiration pneumonia, admission CXR positive for LLL infiltrate, no leukocytosis, Xoepenex, Guaifenasis -oral care -will order vital capacity in setting of ALS and monitor weekly, will consider pulmonology consult 5. : question of urinary retention, patient requesting to keep page as he lacks coordination in his right hand at this time to use the urinal- will readdress 6. GI: avoid bowel meds given recent hx of loose stools 7. Pain: Gabapentin, oxycodone, tylenol 8. Psych: patient not endorsing depression at this time and is optimistic about his rehab stay, will continue to assess and address prn POST ADMISSION PHYSICIAN EVALUATION: Medical and functional status: Description of medical status, medical assessment: As above. Rehabilitation diagnosis and current and prior cold morbid medical conditions as above. Risk of complications and plans to mitigate them as above. Description of functional status current status is as above. Prior status as above. Status compared to preadmission: There are no clinically significant differences between the patient's current status and the information described on the preadmission screening document. Treatment plan anticipated: Treatment plan is as described above. Required disciplines including physical therapy, occupational therapy, others as noted above Intensity of services: 3 hours a day, 6 days a week. Special considerations: [here are no specific special or safety considerations that would likely preclude immediate implementation of an intensive rehabilitation program or subsequently influence the plan of care ATTESTATION: Considering all the information above, it is my best judgment that this patient requires intensive rehabilitation therapy as described above and an inpatient hospital environment due to the complexity of nursing, medical, and rehabilitation needs required by the patient. Furthermore, this patient can reasonably be expected to participate in an benefit from an inpatient rehabilitation stay with an interdisciplinary team approach to the delivery of r ehabilitation care under the direction and supervision of rehabilitation physician PROGNOSIS: guarded ESTIMATED LENGTH OF STAY:18-21 days. PROJECTED DISCHARGE DESTINATION: Home with family support and any durable medical equipment required to increase functional safety and mobility TIME SPENT COUNSELING AND COORDINATING INITIAL CARE: Greater than 70 minutes. Vital Signs Vital Sign - Last 24 Hours 01/12/19 01/12/19 01/12/19 01/12/19 14:00 17:08 20:00 21:25 Temp 99.2 97.7 Pulse 89 118 118 Resp 20 18 18 B/P (MAP) 167/78 (107) 142/83 (102) 143/83 Pulse Ox 100 97 01/12/19 01/13/19 01/13/19 01/13/19 21:26 01:58 06:04 06:04 Temp 97.9 Pulse 102 Resp 18 18 18 18 B/P (MAP) 136/65 (88) Pulse Ox 97 01/13/19 01/13/19 01/13/19 01/13/19 08:18 08:19 08:50 12:23 Pulse 90 Resp 18 B/P (MAP) 136/65 Laboratory Data CBC/BMP Laboratory Tests 01/13/19 05:51 Red Blood Count 2.98 L, Mean Corpuscular Volume 93.0, Mean Corpuscular Hemoglobin 29.9, Mean Corpuscular Hemoglobin Concent 32.1, Red Cell Distribution Width 14.1, Neutrophils (%) (Auto) 75.3 H, Lymphocytes (%) (Auto) 10.1 L, Monocytes (%) (Auto) 9.6 H, Eosinophils (%) (Auto) 2.6, Basophils (%) (Auto) 0.2, Neutrophils # (Auto) 6.1, Lymphocytes # (Auto) 0.8 L, Monocytes # (Auto) 0.8, Eosinophils # (Auto) 0.2, Basophils # (Auto) 0.0, Calcium Level 8.6 L, Aspartate Amino Transf (AST/SGOT) 10, Alanine Aminotransferase (ALT/SGPT) 24, Alkaline Phosphatase 80, Total Bilirubin 0.2, Total Protein 5.8 L, Albumin 2.3 L Labs 24H Laboratory Tests 2 01/13/19 05:51: Immature Granulocyte % (Auto) 2.2, White Blood Count 8.2, Red Blood Count 2.98L, Hemoglobin 8.9L, Hematocrit 27.7L, Mean Corpuscular Volume 93.0, Mean Corpuscular Hemoglobin 29.9, Mean Corpuscular Hemoglobin Concent 32.1, Red Cell Distribution Width 14.1, Platelet Count 364, Neutrophils (%) (Auto) 75.3H, Lymphocytes (%) (Auto) 10.1L, Monocytes (%) (Auto) 9.6H, Eosinophils (%) (Auto) 2.6, Basophils (%) (Auto) 0.2, Neutrophils # (Auto) 6.1, Lymphocytes # (Auto) 0.8L, Monocytes # (Auto) 0.8, Eosinophils # (Auto) 0.2, Basophils # (Auto) 0.0, Nucleated Red Blood Cells % (auto) 0.0, Anion Gap 9, Glomerular Filtration Rate > 60.0, Blood Urea Nitrogen 7, Creatinine 0.34L, Sodium Level 135L, Potassium Level 4.0, Chloride Level 100, Carbon Dioxide Level 26, Calcium Level 8.6L, Aspartate Amino Transf (AST/SGOT) 10, Alanine Aminotransferase (ALT/SGPT) 24, Alkaline Phosphatase 80, Total Bilirubin 0.2, Total Protein 5.8L, Albumin 2.3L, Albumin/Globulin Ratio 0.66L Home Medications Scheduled Acetaminophen (Acetaminophen) 325 Mg Tablet, 975 MG PEG QHS, (Reported) Amoxicillin/Potassium Clav (Augmentin 500-125 Tablet) 1 Each Tablet, 1 TAB PEG BID, (Reported) Ascorbic Acid (Ascorbic Acid) 500 Mg Tablet, 1,000 MG PEG DAILY, (Reported) Cholecalciferol (Vitamin D3) (Vitamin D3) 1,000 Unit Tab, 1,000 UNIT PEG DAILY, (Reported) Gabapentin (Gabapentin) 600 Mg Tablet, 600 MG PEG TID, (Reported) Levalbuterol HCl (Levalbuterol Concentrate) 1.25 Mg/0.5 Ml Vial.neb, 1.25 MG INH TID, (Reported) Lisinopril (Lisinopril) 10 Mg Tablet, 10 MG PEG DAILY, (Reported) Metoprolol Succinate (Metoprolol Succinate) 50 Mg Tab.er.24h, 50 MG PEG BID, (Reported) Multivitamins (Thera M Plus Tablet) 1 Tab Tab, 1 TAB PEG DAILY, (Reported) Pantoprazole Sodium (Pantoprazole Sodium) 40 Mg Tab, 40 MG PEG DAILY, (Reported) Potassium Chloride (Potassium Chloride) 20 Meq Packet, 40 MEQ PEG DAILY, (Reported) WAS GIVEN AT [facility] Scheduled PRN Acetaminophen (Acetaminophen) 325 Mg Tab, 650 MG PEG Q4H PRN for PAIN, (Reported) Docusate Sodium (Colace) 100 Mg Cap, 100 MG PEG BID PRN for CONSTIPATION, (Reported) Oxycodone HCl (Oxycodone HCl) 5 Mg Tablet, 10 MG PEG Q4H PRN for PAIN, (Reported) Allergies Coded Allergies: No Known Drug Allergies (Verified Allergy, Unknown, 01/12/19) A-FIB/CHADSVASC A-FIB History Current/History of A-Fib/PAF?: No BRUCE CARDOZA MD Jan 13, 2019 13:00
[2019-01-13 14:00] VITALS: BP 135/78
--- NOTE | 2019-01-13 16:17 | IPNPDOC ---
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 He reports he has a weak cough still, denies fevers or chills. REVIEW OF SYSTEMS: The following is a completed review of systems and has been reviewed. Review of systems otherwise unremarkable. PAIN: Patient self reports neck and low back pain EYES: No recent vision changes EARS, NOSE, & THROAT: +dysphagia CARDIOVASCULAR: Denies chest pain or palpitations PULMONARY: +cough GASTROINTESTINAL:+diarrhea GENITOURINARY: +Page for retention MUSCULOSKELETAL: cervical and lumbar stenosis NEUROLOGICAL: +myelopathy, with weakness and fasciculations HEMATOLOGICAL: no easy bruising SKIN: neck incision PSYCHIATRIC: Unremarkable All other review of systems found to be negative. PHYSICAL EXAMINATION: VITAL SIGNS: Please see below. GENERAL: Pleasant and cooperative. No acute distress. HEENT: PERRL. Extraocular movements intact. Clear conjunctiva CARDIOVASCULAR: Regular rate and rhythm. No murmurs, rubs, or gallops LUNGS: +scattered rhonchi, poor inspiratory ABDOMEN: Soft, nontender, nondistended. Positive bowel sounds. Normal active bowel sounds +PEG NEUROLOGICAL: Alert and oriented times three. Cranial nerves II through XII grossly intact, except IX and X. Sensation grossly intact in all 4 extremities to light touch +fasciculations noted bilat UE and tongue, dysarthria EXTREMITIES: 4\5 right upper extremities, however unable to extend fingers, 2/5 left elbow flexor and extension, 3/5 shop fitter, 2/5 wrist extension, unable to extend finger, 3/5 strength right lower extremity except 1/5 ankle EHL and DF, 2/5 PF 2/5 strength left lower extremity except 0/5 ankle EHL and DF, 2/5 PF SKIN:cervical incision and PEG incision c/d/i ASSESSMENT:63-year-old M with past medical history of cervical stenosis with myelopathy who presents status post C3-T3 decompressiona dn fusion with new diagnosis of Amyotrophic Lateral Sclerosis. PLAN: 1. Rehab: PT- strengthen, maintain ROM bilat LE, advance functional transfers, utilize energy conservation techniques OT-strengthen, maintain ROM bilat UE, c/u to use resting hand splints, advance bed mobilty and ADL management, utilize energy conservation techniques- MANAGER CIVIL- evaluate for dysphagia and advance diet if safe 2. Neuro: s/p C3-T3 decompression and fusion with functional tetraplegia- cervical collar to be worn at all times, f/u with neurosurgeon Dr. Liu -new diagnosis of ALS with bulbar features, continue to provide respiratory support and monitor for decline , f/u with patient's neurologist in [place] 3. Cardio: pmh HTN c/u bp Meds, medicine consulted to assist in management 4. Resp: c/u Augmentin for aspiration pneumonia, admission CXR positive for LLL infiltrate, no leukocytosis, Xoepenex, Guaifenesin -oral care, will add scopolamine for increased oral secretions -vital capacity 01/13/19 1.3 L and NIF -30, will order ABG to rule out hypercapnea and repeat VC and NIF levels tomorrow, if no change or worse will discuss possible need for NIMV- nocturnal 02 ordered -planning to consult pulmonology tomorrow, patient clinically appears stable now and comfortable breathing 5. : question of urinary retention, patient requesting to keep page as he lacks coordination in his right hand at this time to use the urinal- will readdress 6. GI: avoid bowel meds given recent hx of loose stools 7. Pain: Gabapentin, oxycodone, tylenol 8. Psych: patient not endorsing depression at this time and is optimistic about his rehab stay, will continue to assess and address prn Allergies Coded Allergies: No Known Drug Allergies (Verified Allergy, Unknown, 01/12/19) Vital Signs Vital Signs Date Time Temp Pulse Resp B/P (MAP) Pulse Ox O2 Delivery O2 Flow Rate FiO2 01/13/19 14:00 98.0 82 19 135/78 (97) 93 Laboratory Data CBC/BMP Laboratory Tests 01/13/19 05:51 Red Blood Count 2.98 L, Mean Corpuscular Volume 93.0, Mean Corpuscular Hemoglobin 29.9, Mean Corpuscular Hemoglobin Concent 32.1, Red Cell Distribution Width 14.1, Neutrophils (%) (Auto) 75.3 H, Lymphocytes (%) (Auto) 10.1 L, Monocytes (%) (Auto) 9.6 H, Eosinophils (%) (Auto) 2.6, Basophils (%) (Auto) 0.2, Neutrophils # (Auto) 6.1, Lymphocytes # (Auto) 0.8 L, Monocytes # (Auto) 0.8, Eosinophils # (Auto) 0.2, Basophils # (Auto) 0.0, Calcium Level 8.6 L, Aspartate Amino Transf (AST/SGOT) 10, Alanine Aminotransferase (ALT/SGPT) 24, Alkaline Phosphatase 80, Total Bilirubin 0.2, Total Protein 5.8 L, Albumin 2.3 L Labs 24H Laboratory Tests 2 01/13/19 05:51: Immature Granulocyte % (Auto) 2.2, White Blood Count 8.2, Red Blood Count 2.98L, Hemoglobin 8.9L, Hematocrit 27.7L, Mean Corpuscular Volume 93.0, Mean Corpuscular Hemoglobin 29.9, Mean Corpuscular Hemoglobin Concent 32.1, Red Cell Distribution Width 14.1, Platelet Count 364, Neutrophils (%) (Auto) 75.3H, Lymphocytes (%) (Auto) 10.1L, Monocytes (%) (Auto) 9.6H, Eosinophils (%) (Auto) 2.6, Basophils (%) (Auto) 0.2, Neutrophils # (Auto) 6.1, Lymphocytes # (Auto) 0.8L, Monocytes # (Auto) 0.8, Eosinophils # (Auto) 0.2, Basophils # (Auto) 0.0, Nucleated Red Blood Cells % (auto) 0.0, Anion Gap 9, Glomerular Filtration Rate > 60.0, Blood Urea Nitrogen 7, Creatinine 0.34L, Sodium Level 135L, Potassium Level 4.0, Chloride Level 100, Carbon Dioxide Level 26, Calcium Level 8.6L, Aspartate Amino Transf (AST/SGOT) 10, Alanine Aminotransferase (ALT/SGPT) 24, Alkaline Phosphatase 80, Total Bilirubin 0.2, Total Protein 5.8L, Albumin 2.3L, Albumin/Globulin Ratio 0.66L Current Medications Current Medications Current Medications Medications (Trade) Dose Ordered Sig/Kaylen Route PRN Reason Start Time Stop Time Status Last Admin Dose Admin Acetaminophen (Tylenol Tab) 650 mg Q4HP PRN PO MILD PAIN (PS 1-4) 01/12/19 16:15 Albuterol/ Ipratropium (Duoneb (Ipr 0.5mg/Alb 2.5mg)) 3 ml TID NEB 01/13/19 21:00 UNV Amoxicillin/ Clavulanate Potassium (Augmentin 250 Mg/5 ml Susp) 500 mg Q12H PEG 01/12/19 21:00 01/15/19 09:01 01/13/19 08:21 Ascorbic Acid (Vitamin C) 500 mg DAILY GT 01/13/19 09:00 01/13/19 08:21 Bisacodyl (Dulcolax Suppository) 10 mg DAILYPRN PRN [place] CONSTIPATION 01/12/19 16:15 Gabapentin (Neurontin) 600 mg TID GT 01/12/19 21:00 01/13/19 08:19 Guaifenesin (Robitussin) 5 ml QID PO 01/12/19 21:00 01/13/19 12:22 Heparin Sodium (Porcine) (Heparin) 5,000 units Q8H SC 01/12/19 22:00 01/13/19 13:55 Home Med (Med Rec Complete!) ASDIRECTED XX 01/12/19 14:45 01/12/19 14:45 DC Levalbuterol HCl (Xopenex Neb) 1.25 mg RTID INH 01/12/19 20:00 01/13/19 14:08 Lisinopril (Prinivil) 10 mg DAILY GT 01/13/19 09:00 01/13/19 08:19 Magnesium Hydroxide (Milk Of Magnesia) 30 ml DAILYPRN PRN GT CONSTIPATION 01/12/19 16:15 Metoprolol Tartrate (Lopressor) 50 mg BID GT 01/12/19 21:00 01/13/19 08:18 Multivitamins (Theragram-M) 1 tab DAILY GT 01/13/19 09:00 01/13/19 08:19 Ondansetron HCl (Zofran Odt) 4 mg Q6HP PRN GT NAUSEA 01/12/19 16:15 Oxycodone HCl (Roxicodone, Oxyir) 10 mg Q4HP PRN GT SEVERE PAIN (PS 8-10) 01/12/19 16:15 01/13/19 12:23 Scopolamine (Scopolamine) 1 mg Q72H TOP 01/13/19 16:15 UNV Senna (Senokot) 1 tab QHS GT 01/12/19 21:00 01/12/19 21:26 Vitamin D (Vitamin D) 1,000 units QAM GT 01/13/19 09:00 01/13/19 08:18 BRUCE CARDOZA MD Jan 13, 2019 16:17
[2019-01-13] MEDS: SCOPOLAMINE 1MG TRANSDERMAL PATCH TOP SCH (17:42)
[2019-01-13 18:15] LABS: ABG BASE EXCESS 3.5 (-2.0-2.0); ABG HCO3 26.5 MEQ/L (22.0-26.0); ABG O2 SATURATION 97.9 % (95.0-99.0); ABG PARTIAL PRESSURE CO2 33.6 mmHg (35.0-45.0); ABG PARTIAL PRESSURE O2 97.3 mmHg (75.0-100.0); ABG STANDARD HCO3 27.6 MEQ/L (22.0-26.0); ABG TOTAL CO2 27.5 MEQ/L (23.0-31.0); ABG pH (ARTERIAL) 7.514 UNITS (7.350-7.450)
[2019-01-13] MEDS: SENNA 8.6 MG TAB (SENOKOT) GT SCH (20:33)
[2019-01-13] MEDS ORDERED: IPRATROPIUM 0.5MG/ALBUTEROL 2.5MG INH SOL UD 3ML (DUONEB)(J7620) NEB SCH (21:00)
[2019-01-14] MEDS: oxyCODONE 5MG TAB GT PRN ×4 (02:05→19:53)
[2019-01-14 04:00] VITALS: BP 135/62
[2019-01-14] MEDS: HEPARIN SOD (PORCINE) 5000 UNITS/ML VIAL SC SCH ×3 (05:05→21:17)
[2019-01-14 07:08] LABS: BASO % 0.3 % (0.0-1.0); EOS # 0.2 10^3/uL (0.0-0.5); EOS % 2.4 % (0.0-3.0); HEMOGLOBIN 8.1 g/dl (13.5-17.5); LYMPH # 0.9 10^3/uL (1.5-5.0); LYMPH % 11.1 % (24.0-44.0); MEAN CORPUSCULAR HEMOGLOBIN 30.2 pg (27.0-33.0); MEAN CORPUSCULAR HGB CONC 32.4 g/dl (32.0-36.5); MEAN CORPUSCULAR VOLUME 93.3 fl (80.0-96.0); MONO % 12.2 % (0.0-5.0); NEUTROPHILS # 5.6 10^3/uL (1.5-8.5); NEUTROPHILS % 71.4 % (36.0-66.0); PLATELET COUNT, AUTOMATED 356 10^3/uL (150-450); RED BLOOD COUNT 2.68 10^6/uL (4.30-6.10); WHITE BLOOD COUNT 7.8 10^3/uL (4.0-10.0)
[2019-01-14 07:39] LABS: BLOOD UREA NITROGEN 11 MG/DL (7-18); CALCIUM LEVEL 8.5 MG/DL (8.8-10.2); CARBON DIOXIDE LEVEL 26 MEQ/L (21-32); CHLORIDE LEVEL 98 MEQ/L (98-107); CREATININE FOR GFR 0.43 MG/DL (0.70-1.30); GLOMERULAR FILTRATION RATE > 60.0 (>49); GLUCOSE, FASTING 140 MG/DL (70-100); POTASSIUM SERUM 4.1 MEQ/L (3.5-5.1); SODIUM LEVEL 133 MEQ/L (136-145)
[2019-01-14] MEDS: LEVALBUTEROL 1.25 MG/0.5 ML CONCENTRATE NEB INH SCH ×3 (07:56→20:34)
[2019-01-14] MEDS ORDERED: FLUBLOK(EGG FREE)(QUAD)INFLUENZA VACC 0.5ML SYRINGE (90682)18YRS&OLDER IM ONE (09:00)
[2019-01-14] MEDS: SALIVA SUBSTITUTE(MOUTHKOTE) BTL MT SCH ×4 (09:00→21:00)
[2019-01-14] MEDS: AUGMENTIN SUSP POWDER 250MG/5ML BTL 75ML PEG SCH ×2 (10:44→19:53)
[2019-01-14] MEDS: METOPROLOL TART 50 MG TAB GT SCH ×2 (10:44→19:53)
[2019-01-14] MEDS: ASCORBIC ACID 500 MG TAB GT SCH (10:44)
[2019-01-14] MEDS: GABAPENTIN 300 MG CAP GT SCH ×3 (10:44→19:53)
[2019-01-14] MEDS: VITAMIN D 1,000 INTERNATIONAL UNITS TABLET GT SCH (10:44)
[2019-01-14] MEDS: MULTIVITAMINS/MINERALS THERAP 1 TAB GT SCH (10:44)
[2019-01-14] MEDS: guaiFENesin SYRUP 200 MG/10 ML UDC PO SCH ×4 (10:45→19:52)
[2019-01-14] MEDS: LISINOPRIL 10 MG TAB GT SCH (10:45)
--- NOTE | 2019-01-14 11:34 | IPNPDOC ---
PM&R Progress Note DATE OF SERVICE: Jan 14, 2019 Negative Cleaner Progress Note Subjective: Patient reporting seen sitting up in therapy, stating he feels ok. He reports his oral secretions are better with the scopolamine and his gargled speech also a little better. REVIEW OF SYSTEMS: The following is a completed review of systems and has been reviewed. Review of systems otherwise unremarkable. PAIN: Patient self reports neck and low back pain EYES: No recent vision changes EARS, NOSE, & THROAT: +dysphagia CARDIOVASCULAR: Denies chest pain or palpitations PULMONARY: + weak cough GASTROINTESTINAL:+diarrhea GENITOURINARY: +Page for retention MUSCULOSKELETAL: cervical and lumbar stenosis NEUROLOGICAL: +myelopathy, with weakness and fasciculations HEMATOLOGICAL: no easy bruising SKIN: neck incision PSYCHIATRIC: Unremarkable All other review of systems found to be negative. PHYSICAL EXAMINATION: VITAL SIGNS: Please see below. GENERAL: Pleasant and cooperative. No acute distress. HEENT: PERRL. Extraocular movements intact. Clear conjunctiva CARDIOVASCULAR: Regular rate and rhythm. No murmurs, rubs, or gallops LUNGS: +scattered rhonchi, poor inspiratory effort, able to speak in full sentences ABDOMEN: Soft, nontender, nondistended. Positive bowel sounds. Normal active bowel sounds +PEG NEUROLOGICAL: Alert and oriented times three. Cranial nerves II through XII grossly intact, except IX and X. 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 PLAN: 1. 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 Neuro: s/p C3-T3 decompression and fusion with functional tetraplegia- cervical collar to be worn at all times, f/u with neurosurgeon Dr. Liu -new diagnosis of ALS with bulbar features, continue to provide respiratory supp ort and monitor for decline , f/u with patient's neurologist in [place] 3. Cardio: pmh HTN c/u bp Meds, medicine consulted to assist in management 4. Resp: c/u Augmentin for aspiration pneumonia, admission CXR positive for LLL infiltrate, no leukocytosis, Xoepenex, Guaifenesin -c/u oral care -c/u scopolamine for increased oral secretions, will add saliva substitute to balance xerostomia -vital capacity 01/13/19 1.3 L and NIF -30, ABG 01/13/19 with a paCO2 33, pH 7.5 correlating with a respiratory alkalosis in the setting of hyperventilation, - - -today VC 1.4L and NIF still -30, stable -pulmonolgy consulted to assist in management and help considering need for NIMV at this time -nocturnal 02 ordered -patient clinically appears stable now and comfortable breathing 5. : question of urinary retention, patient requesting to keep page as he lacks coordination in his right hand at this time to use the urinal- will readdress 6. GI: avoid bowel meds given recent hx of loose stools 7. Pain: Gabapentin, oxycodone, tylenol 8. Psych: patient not endorsing depression at this time and is optimistic about his rehab stay, will continue to assess and address prn Allergies Coded Allergies: No Known Drug Allergies (Verified Allergy, Unknown, 01/12/19) Vital Signs Vital Signs Date Time Temp Pulse Resp B/P (MAP) Pulse Ox O2 Delivery O2 Flow Rate FiO2 01/14/19 10:55 16 01/14/19 10:45 135/62 01/14/19 10:44 102 01/14/19 04:00 99.2 96 Laboratory Data CBC/BMP Laboratory Tests 01/14/19 06:42 Red Blood Count 2.68 L, Mean Corpuscular Volume 93.3, Mean Corpuscular Hemoglobin 30.2, Mean Corpuscular Hemoglobin Concent 32.4, Red Cell Distribution Width 14.2, Neutrophils (%) (Auto) 71.4 H, Lymphocytes (%) (Auto) 11.1 L, Monocytes (%) (Auto) 12.2 H, Eosinophils (%) (Auto) 2.4, Basophils (%) (Auto) 0.3, Neutrophils # (Auto) 5.6, Lymphocytes # (Auto) 0.9 L, Monocytes # (Auto) 1.0 H, Eosinophils # (Auto) 0.2, Basophils # (Auto) 0.0, Calcium Level 8.5 L Labs 24H Laboratory Tests 2 01/13/19 17:51: Blood Gas Bicarbonate Standard 27.6H, Arterial Blood pH 7.514H, Arterial Blood Partial Pressure CO2 33.6L, Arterial Blood Partial Pressure O2 97.3, Arterial Blood Total CO2 27.5, Arterial Blood HCO3 26.5H, Arterial Blood Base Excess 3.5H, Arterial Blood Oxygen Saturation 97.9 01/14/19 06:42: Immature Granulocyte % (Auto) 2.6, White Blood Count 7.8, Red Blood Count 2.68L, Hemoglobin 8.1L, Hematocrit 25.0L, Mean Corpuscular Volume 93.3, Mean Corpuscular Hemoglobin 30.2, Mean Corpuscular Hemoglobin Concent 32.4, Red Cell Distribution Width 14.2, Platelet Count 356, Neutrophils (%) (Auto) 71.4H, Lymphocytes (%) (Auto) 11.1L, Monocytes (%) (Auto) 12.2H, Eosinophils (%) (Auto) 2.4, Basophils (%) (Auto) 0.3, Neutrophils # (Auto) 5.6, Lymphocytes # (Auto) 0.9L, Monocytes # (Auto) 1.0H, Eosinophils # (Auto) 0.2, Basophils # (Auto) 0.0, Nucleated Red Blood Cells % (auto) 0.0, Anion Gap 9, Glomerular Filtration Rate > 60.0, Blood Urea Nitrogen 11#, Creatinine 0.43L, Sodium Level 133L, Potassium Level 4.1, Chloride Level 98, Carbon Dioxide Level 26, Calcium Level 8.5L Current Medications Current Medications Current Medications Medications (Trade) Dose Ordered Sig/Kaylen Route PRN Reason Start Time Stop Time Status Last Admin Dose Admin Acetaminophen (Tylenol Tab) 650 mg Q4HP PRN PO MILD PAIN (PS 1-4) 01/12/19 16:15 Albuterol/ Ipratropium (Duoneb (Ipr 0.5mg/Alb 2.5mg)) 3 ml TID NEB 01/13/19 21:00 Cancel Amoxicillin/ Clavulanate Potassium (Augmentin 250 Mg/5 ml Susp) 500 mg Q12H PEG 01/12/19 21:00 01/15/19 09:01 01/14/19 10:44 Ascorbic Acid (Vitamin C) 500 mg DAILY GT 01/13/19 09:00 01/14/19 10:44 Bisacodyl (Dulcolax Suppository) 10 mg DAILYPRN PRN AL CONSTIPATION 01/12/19 16:15 Gabapentin (Neurontin) 600 mg TID GT 01/12/19 21:00 01/14/19 10:44 Guaifenesin (Robitussin) 5 ml QID PO 01/12/19 21:00 01/14/19 10:45 Heparin Sodium (Porcine) (Heparin) 5,000 units Q8H SC 01/12/19 22:00 01/14/19 05:05 Home Med (Med Rec Complete!) ASDIRECTED XX 01/12/19 14:45 01/12/19 14:45 DC Levalbuterol HCl (Xopenex Neb) 1.25 mg RTID INH 01/12/19 20:00 01/14/19 07:56 Lisinopril (Prinivil) 10 mg DAILY GT 01/13/19 09:00 01/14/19 10:45 Magnesium Hydroxide (Milk Of Magnesia) 30 ml DAILYPRN PRN GT CONSTIPATION 01/12/19 16:15 Menthol/Methyl Salicylate (Bengay Cream) apply to bilateral shoulders TID TOP 01/14/19 09:00 Metoprolol Tartrate (Lopressor) 50 mg BID GT 01/12/19 21:00 01/14/19 10:44 Multivitamins (Theragram-M) 1 tab DAILY GT 01/13/19 09:00 01/14/19 10:44 Ondansetron HCl (Zofran Odt) 4 mg Q6HP PRN GT NAUSEA 01/12/19 16:15 Oxycodone HCl (Roxicodone, Oxyir) 10 mg Q4HP PRN GT SEVERE PAIN (PS 8-10) 01/12/19 16:15 01/14/19 10:55 Saliva Substitute (Mouthkote) 2 sprays QID WI 01/14/19 09:00 Scopolamine (Scopolamine) 1 mg Q72H [facility] 01/13/19 16:15 01/13/19 17:42 Senna (Senokot) 1 tab Q GT 01/12/19 21:00 01/13/19 20:33 Vitamin D (Vitamin D) 1,000 units [facility] 01/13/19 09:00 01/14/19 10:44 BRUCE CARDOZA MD Jan 14, 2019 11:34
[2019-01-14 12:05] LABS: ABG BASE EXCESS 2.3 (-2.0-2.0); ABG PARTIAL PRESSURE CO2 36.5 mmHg (35.0-45.0); ABG PARTIAL PRESSURE O2 88.2 mmHg (75.0-100.0); ABG STANDARD HCO3 26.5 MEQ/L (22.0-26.0); ABG TOTAL CO2 27.1 MEQ/L (23.0-31.0)
[2019-01-14] MEDS: ANALGESIC BALM CRM 120 GM TOP SCH ×3 (13:11→19:55)
[2019-01-14 14:00] VITALS: BP 119/58
[2019-01-14] MEDS: SENNA 8.6 MG TAB (SENOKOT) GT SCH (19:52)
[2019-01-14 20:00] VITALS: BP 110/58
[2019-01-15] MEDS: oxyCODONE 5MG TAB GT PRN ×5 (00:07→18:19)
[2019-01-15] MEDS: HEPARIN SOD (PORCINE) 5000 UNITS/ML VIAL SC SCH ×3 (05:25→22:14)
[2019-01-15 06:00] VITALS: BP 125/58
[2019-01-15] MEDS: LEVALBUTEROL 1.25 MG/0.5 ML CONCENTRATE NEB INH SCH ×3 (08:00→20:14)
[2019-01-15 08:55] LABS: BASO % 0.3 % (0.0-1.0); EOS # 0.2 10^3/uL (0.0-0.5); EOS % 1.5 % (0.0-3.0); HEMATOCRIT 27.1 % (42.0-52.0); HEMOGLOBIN 8.7 g/dl (13.5-17.5); LYMPH # 0.8 10^3/uL (1.5-5.0); LYMPH % 7.5 % (24.0-44.0); MEAN CORPUSCULAR HEMOGLOBIN 30.1 pg (27.0-33.0); MEAN CORPUSCULAR HGB CONC 32.1 g/dl (32.0-36.5); MEAN CORPUSCULAR VOLUME 93.8 fl (80.0-96.0); MONO # 1.3 10^3/uL (0.0-0.8); MONO % 12.5 % (0.0-5.0); NEUTROPHILS # 7.7 10^3/uL (1.5-8.5); NEUTROPHILS % 75.8 % (36.0-66.0); PLATELET COUNT, AUTOMATED 407 10^3/uL (150-450); RED BLOOD COUNT 2.89 10^6/uL (4.30-6.10); WHITE BLOOD COUNT 10.1 10^3/uL (4.0-10.0)
[2019-01-15 09:18] LABS: BLOOD UREA NITROGEN 10 MG/DL (7-18); CALCIUM LEVEL 8.8 MG/DL (8.8-10.2); CARBON DIOXIDE LEVEL 28 MEQ/L (21-32); CHLORIDE LEVEL 96 MEQ/L (98-107); CREATININE FOR GFR 0.39 MG/DL (0.70-1.30); GLOMERULAR FILTRATION RATE > 60.0 (>49); GLUCOSE, FASTING 124 MG/DL (70-100); POTASSIUM SERUM 4.6 MEQ/L (3.5-5.1); SODIUM LEVEL 132 MEQ/L (136-145)
[2019-01-15] MEDS: MULTIVITAMINS/MINERALS THERAP 1 TAB GT SCH (09:25)
[2019-01-15] MEDS: GABAPENTIN 300 MG CAP GT SCH ×3 (09:25→22:14)
[2019-01-15] MEDS: VITAMIN D 1,000 INTERNATIONAL UNITS TABLET GT SCH (09:25)
[2019-01-15] MEDS: guaiFENesin SYRUP 200 MG/10 ML UDC PO SCH ×4 (09:26→22:13)
[2019-01-15] MEDS: METOPROLOL TART 50 MG TAB GT SCH ×2 (09:26→22:13)
[2019-01-15] MEDS: LISINOPRIL 10 MG TAB GT SCH (09:26)
[2019-01-15] MEDS: AUGMENTIN SUSP POWDER 250MG/5ML BTL 75ML PEG SCH (09:27)
[2019-01-15] MEDS: ASCORBIC ACID 500 MG TAB GT SCH (09:27)
[2019-01-15] MEDS: ANALGESIC BALM CRM 120 GM TOP SCH ×3 (09:27→22:15)
[2019-01-15] MEDS: SALIVA SUBSTITUTE(MOUTHKOTE) BTL MT SCH ×4 (09:36→22:14)
[2019-01-15] MEDS ORDERED: MOXIFLOXACIN 400 MG TAB PO ONE (12:00)
--- NOTE | 2019-01-15 13:16 | IPN ---
DATE: 01/15/2019 The patient seen and examined at the bedside. The chart has been reviewed. OBJECTIVE: The patient denies any fever or chills. He appears to be slightly congested. Cervical collar in place. Lungs diminished with coarse breath sounds. Heart: S1 and S2, regular rate and rhythm. Abdomen is soft, nontender, nondistended. Positive bowel sounds. Feeding tube in place. Extremities with no cyanosis or clubbing. Neurologically, the patient is awake, alert and oriented to person, answering questions appropriately. Sensation is intact bilateral upper and lower extremities. HOSPITAL MEDICATIONS: Avelox, BenGay, scopolamine, vitamin C, vitamin D, lisinopril, Theragran, heparin, senna, gabapentin, metoprolol, Robitussin, Xopenex, bisacodyl, milk of magnesium, Zofran, Tylenol and oxycodone. LABORATORY DATA: White count 10, hemoglobin 8.7, hematocrit 27, platelet count 407. Sodium 132, potassium 4.6, chloride 96, bicarbonate 28, BUN 10, creatinine 0.39, glucose 124. IMAGING STUDIES: Chest x-ray on 01/12/2019 shows left basilar infiltrate. ASSESSMENT AND PLAN: This is 63-year-old male with history of hypertension, cervical lumbar stenosis, chronic back pain, feeding tube, with myelopathy status post C3 to T3 decompression and fusion and diagnosis of a amyotrophic lateral sclerosis. Current Issues: 1. Left basal infiltrate. Status post Augmentin 01/12/2019 to 01/15/2019. Afebrile. No significant cough. No shortness of breath. will monitor with serial CXR. 2. New diagnosis of amyotrophic lateral sclerosis (ALS) and prior C3 to T3 decompressive surgery and fusion with functional tetraplegia. The patient has a cervical collar at all times per Dr. Liu, neurosurgery. 3. ALS. Monitoring for any respiratory issues. At this time, the patient is followed by a neurologist in [place].Rn Lactation, Dr. Evans to assess vital capacity. 4. Hypertension. Currently stable. To be continued on lisinopril 10 mg daily, metoprolol 50 mg twice a day. 5. Nutrition. Via feeding tube. MTDD
--- NOTE | 2019-01-15 18:36 | IPN ---
DATE: 01/15/2019 Dictating an addendum to the note already dictated by the resident. I personally reviewed the history and physical, performed my own history and physical and agree with the outlined assessment and plan. 1. Respiratory Weakness in the face of progressive neurologic decline. Ramses is an unfortunate 63-year-old male with progressive neurologic disease. Recently reportedly diagnosed with amyotrophic lateral sclerosis (ALS). Currently, he states his breathing is fine. He has no evidence of hypercarbia. At this point in time, there is no evidence of ventilatory failure although has negative inspiratory forces approximately negative 30 mL of water pressure. He is able to clear his secretions for the most part, but has difficulty swallowing. He had a lengthy discussion regarding if this truly is ALS, he will have progression over time and he should be considering whether or not he wants to have such interventions as noninvasive ventilation or tracheostomy and mechanical ventilation. I have explained different options and he has not made any decisions at this point in time. At this point in time, he has no signs of acute ventilatory failure. He should be monitored over time and he is already established with Dr. Alva in [place]. Dr. Alva can monitor him with spirometry, arterial blood gases, and symptoms to monitor for ongoing progressive respiratory failure. Early initiation of noninvasive ventilation may be warranted if the patient is interested in pursuing this route; however, it will increase his risk of aspiration. 2. Abnormal chest x-ray with left costophrenic blunting. This is on a portable film. Will obtain a PA and lateral to ensure this is resolved. Currently, his lung cameron are clear on my exam; although when my resident reported his exam, it was hours earlier than when I examined the patient and there was some rhonchi present. He should continue towards mucociliary clearance. There remains a possibility of chronic basilar atelectasis. MTDD
--- NOTE | 2019-01-15 19:39 | REP ---
CHEST, TWO VIEWS: Two views of the chest are performed and compared to prior study of 01/12/2019. Infiltrate is again seen in the left lung base, possibly mildly improved. There also appears to be a small left pleural effusion. Right lung is clear. The heart is not enlarged. Mediastinal silhouette is unchanged. Metallic fixation is again seen in the upper thoracic spine. IMPRESSION: Left basilar infiltrate appears somewhat improved. There is a small left effusion as well. Electronically Signed by Carlos Bowden MD 01/15/2019 09:30 P
[2019-01-15 20:00] VITALS: BP 141/74
[2019-01-15] MEDS: SENNA 8.6 MG TAB (SENOKOT) GT SCH (22:14)
[2019-01-16] MEDS: oxyCODONE 5MG TAB GT PRN ×4 (02:31→21:44)
[2019-01-16 04:00] VITALS: BP 138/66
[2019-01-16] MEDS ORDERED: MOXIFLOXACIN 400 MG TAB PO SCH (06:00)
[2019-01-16] MEDS: HEPARIN SOD (PORCINE) 5000 UNITS/ML VIAL SC SCH ×3 (06:05→21:42)
[2019-01-16 07:10] LABS: BASO % 0.3 % (0.0-1.0); EOS # 0.1 10^3/uL (0.0-0.5); EOS % 1.2 % (0.0-3.0); HEMATOCRIT 25.1 % (42.0-52.0); HEMOGLOBIN 8.1 g/dl (13.5-17.5); LYMPH # 0.8 10^3/uL (1.5-5.0); LYMPH % 10.2 % (24.0-44.0); MEAN CORPUSCULAR HEMOGLOBIN 29.5 pg (27.0-33.0); MEAN CORPUSCULAR HGB CONC 32.3 g/dl (32.0-36.5); MEAN CORPUSCULAR VOLUME 91.3 fl (80.0-96.0); MONO # 1.2 10^3/uL (0.0-0.8); MONO % 15.4 % (0.0-5.0); NEUTROPHILS # 5.4 10^3/uL (1.5-8.5); PLATELET COUNT, AUTOMATED 392 10^3/uL (150-450); RED BLOOD COUNT 2.75 10^6/uL (4.30-6.10); WHITE BLOOD COUNT 7.5 10^3/uL (4.0-10.0)
[2019-01-16] MEDS: LEVALBUTEROL 1.25 MG/0.5 ML CONCENTRATE NEB INH SCH ×3 (07:28→20:45)
[2019-01-16 07:31] LABS: BLOOD UREA NITROGEN 9 MG/DL (7-18); CALCIUM LEVEL 8.8 MG/DL (8.8-10.2); CARBON DIOXIDE LEVEL 26 MEQ/L (21-32); CHLORIDE LEVEL 96 MEQ/L (98-107); CREATININE FOR GFR 0.36 MG/DL (0.70-1.30); GLOMERULAR FILTRATION RATE > 60.0 (>49); GLUCOSE, FASTING 133 MG/DL (70-100); POTASSIUM SERUM 3.9 MEQ/L (3.5-5.1); SODIUM LEVEL 131 MEQ/L (136-145)
[2019-01-16] MEDS: guaiFENesin SYRUP 200 MG/10 ML UDC PO SCH ×4 (08:07→21:45)
[2019-01-16] MEDS: VITAMIN D 1,000 INTERNATIONAL UNITS TABLET GT SCH (08:08)
[2019-01-16] MEDS: ASCORBIC ACID 500 MG TAB GT SCH (08:08)
[2019-01-16] MEDS: GABAPENTIN 300 MG CAP GT SCH ×3 (08:08→21:45)
[2019-01-16] MEDS: LISINOPRIL 10 MG TAB GT SCH (08:08)
[2019-01-16] MEDS: SALIVA SUBSTITUTE(MOUTHKOTE) BTL MT SCH ×4 (08:09→21:43)
[2019-01-16] MEDS: METOPROLOL TART 50 MG TAB GT SCH ×2 (08:09→21:45)
[2019-01-16] MEDS: MULTIVITAMINS/MINERALS THERAP 1 TAB GT SCH (08:09)
[2019-01-16] MEDS: ANALGESIC BALM CRM 120 GM TOP SCH ×3 (08:10→21:43)
--- NOTE | 2019-01-16 11:48 | CR ---
DATE OF CONSULTATION: 01/15/2019 HISTORY OF PRESENT ILLNESS: Antonio Salgado is a 63-year-old male with pertinent past medical history of lumbar stenosis status post T11-S1 posterior arthrodesis and L1-S1 laminectomy requiring inpatient rehab following April 2018, who presented after undergoing surgery on 12/31/2018 in [place] for chronic cervical stenosis with myelopathy and worsening weakness in bilateral arms and legs. Surgery earlier this month consisted of a C3 to T3 posterior arthrodesis and C3-T1 laminectomy with posterior fusion. Surgery occurred at [facility]. After the surgery, the patient states that he continued to have left leg and arm weakness and dysphagia. He underwent an electromyogram (EMG) study at [facility] that confirmed a diagnosis of amyotrophic lateral sclerosis (ALS). He subsequently underwent a percutaneous endoscopic gastrostomy (PEG) placement and began intravenous (IV) antibiotics in the form of Augmentin for aspiration pneumonia. A Wisdom catheter was also placed and he was admitted to the [facility] acute rehab unit on 01/12/2019, due to loss of mobility, function and activities of daily living. PAST MEDICAL HISTORY: Cervical stenosis with myelopathy, status post 12/31/2018 arthrodesis and laminectomies as noted above. Chronic lumbar stenosis with lumbar and sacral procedures as noted above. Essential hypertension. ALS. PAST SURGICAL HISTORY: Cervical and lumbar surgeries as noted above. Patient reports he had a left total knee replacement as well as a right total hip replacement. FAMILY HISTORY: Aphagia (father), nonspecific lung disease (mother). SOCIAL HISTORY: The patient states he smokes roughly two cigars a day and has done so for many years. He does not smoke any cigarettes. The patient drinks a few beers every day. The patient denies any use currently or previously of illicit drugs. MEDICATIONS: - Bengay cream - saliva substitute - scopolamine - gabapentin - Lopressor - Robitussin - Xopenex - Tylenol as needed for moderate pain - oxycodone as needed for severe pain - gastrostomy (G) tube supplementation with vitamin C, vitamin D, multivitamin, Senna, Dulcolax, Milk of Magnesia, Zofran HOME MEDICATIONS: - gabapentin - Xopenex - lisinopril - metoprolol succinate - Protonix - potassium chloride - oxycodone - Recently finished a series of Augmentin. ALLERGIES: NO KNOWN DRUG ALLERGIES. REVIEW OF SYSTEMS: GENERAL: Endorses cold intolerance; denies fever, unintentional change in weight, night sweats. SKIN: Endorses recent right forearm rash without discharge, without scabbing and with pruritus. HEAD: Denies headache, denies recent trauma. EYES: Denies recent change in vision, diplopia, blurry vision, eye pain. EARS: Denies tinnitus, ear pain, recent change in urine. NOSE, SINUS: Denies sinus pressure, denies nasal discharge or rhinorrhea. MOUTH: Endorses dry mouth. THROAT: Denies sore throat, endorses dysphagia. CARDIAC: Denies chest pressure, denies chest pain, denies palpitations, denies lower extremity edema. RESPIRATORY: Denies shortness of breath, pleuritic chest pain; endorses cough that is productive at times with moderately thick sputum. GASTROINTESTINAL: The patient denies abdominal pain, nausea, vomiting; patient is using bed hastings and has PEG tube in place. URINARY: Denies dysuria, hematuria; Wisdom catheter is in place. VASCULAR: Denies bilateral leg edema. MUSCULOSKELETAL: Endorses weakness of bilateral shoulders, left arm, and left leg, and is unable to extend fingers of left hand and struggles to extend fingers of right hand. NEUROLOGIC: Endorses right root paraesthesias. HEMATOLOGIC: Denies easy bleeding, easy bruising. ENDOCRINE: Denies polyuria, denies polydipsia. PSYCHIATRIC: The patient states he is aware of his current illness and is doing his best to "take it day by day." VITAL SIGNS: Maximum temperature (Tmax) 98.8, heart rate 85, blood pressure 125/58 (MAP of 80), respiratory rate of 17, SpO2 96% on room air. Intake and output through midnight of 01/14/2019: Intake (I) of 2220, output (O) of 2300 with net negative 80. Since midnight this morning the patient has received 950 mL via tube feed. GENERAL: The patient is seated upright in bed with a cervical collar in place. There is also a left mid forearm and wrist splint. The patient is alert and interactive responding to questions and commands appropriately. He is cooperative and pleasant. He appears older than stated age. He is able speak in full sentences but his speech is somewhat slower paced. SKIN: Dry skin of lower extremities bilaterally; area of erythema on right forearm. HEAD: Normocephalic, atraumatic. EYES: Pupils are equal, round, reactive to light and accommodation, extraocular motion is intact. NOSE: Nares are patent bilaterally with no signs of active drainage. SINUSES: The patient is nontender to palpation of macular and frontal sinuses. MOUTH: Poor dentition with dry, pink mucous membranes. THROAT: No palpable cervical or supraclavicular lymphadenopathy, trachea appears midline but exam somewhat obscured by cervical (C) collar in place. CARDIOVASCULAR: Regular rate and rhythm with normal S1 and S2. No rubs or gallops or murmurs are appreciated. LUNGS: Chest wall expansion is symmetric with mildly diminished tidal volume. There are coarse bronchovesicular breath sounds posteriorly in the apex with faint end expiratory wheezes appreciated in the left lower lung base. The patient is exhibiting appropriate chest and abdominal muscle use with respiration. There are no retractions or accessory muscle use. ABDOMEN: PEG tube is in place with normoactive bowel sounds auscultated. There is no tenderness to palpation, no rebound, no guarding or rigidity. GENITOURINARY: Wisdom catheter is in place yielding kimber-yellow urine approximately 100 mL at time of exam. MUSCULOSKELETAL: 3/5 muscle strength testing of right upper extremity and right lower extremity. 1/5 muscle strength testing of left lower extremity and left upper extremity. Difficulty extending fingers of right hand and left hand. The patient can lift his right upper extremity and right lower extremity on command and is able to wiggle his fingers of the right hand a bit on command. NEUROLOGIC: The patient reports intact sensation to light touch of bilateral upper extremity and lower extremity. The patient is awake, alert and oriented times three. Cranial nerves II-XII exam showed deficits of cranial nerve VII and VIII with phonation and swallowing as well as a deficit of cranial nerve XII with left decreased shoulder shrug otherwise grossly intact. Vesiculations are visualized of left upper extremity and tongue. DATA: LABS CBC - white blood cell count 10.1, hemoglobin 8.7, hematocrit 27.1, platelets 407. Electrolytes - sodium 132, potassium 4.6, chloride 96, CO2 28, BUN 10, creatinine 0.39, GFR greater than 60%, fasting blood glucose 124. ABG (from 01/14/2019) pH 7.47, pCO2 36.5, pO2 88. Negative inspiratory force -30, vital capacity 1.4. IMAGING: Chest x-ray, 01/12/2019 - portable showing blunting of the left costophrenic angle with likely tissue density pathology but image is cut off before full left costophrenic angle can be visualized. PROBLEM LIST: 1. Amyotrophic lateral sclerosis with associated upper and lower extremity weakness at risk for respiratory decline. - The patient reports being diagnosed by an outpatient neurologist and EMG results in [place]. 2. Abnormal chest x-ray with blunting of left costophrenic angle. - At this point in time, the patient does not appear to have ventilatory failure. We discussed at length with the patient advanced directives pertaining to his respiratory status. If the patient does in fact have ALS, it is a progressive condition in which his respiratory status will slowly begin to fail. Patient verbalized acknowledgment this fact. We covered options for respiratory treatment in the form of noninvasive mechanical ventilation and when he is unable to breathe on his own, whether or not he would like to be comfort measures only or be placed on a ventilator. Patient was made aware that recurrence of infections are common with long-term ventilator use and that it is a very challenging existence for the patient. The patient is unsure at this time what he ultimately will decide. The patient follows as outpatient with Dr. 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 The patient is encouraged to followup for continuity of his care with Dr. Alva, who can manage his respiratory status. - Chest x-ray will be ordered for tomorrow morning (01/16/2019) in the form of a two view (PA and lateral) to show complete visualization of left costophrenic angle. - We will check the patient's oxygen saturation overnight via a nocturnal pulse oximetry. Thank you for your consultation in the care of Mr. Salgado. We will continue to be available for help as primary team deem fit or warranted and will update with any new information if it arises. The patient was seen from 9:45 a.m. to 10:24 a.m. on 01/14/2019. B[facility]LEY
[2019-01-16 14:00] VITALS: BP 134/71
[2019-01-16] MEDS: SCOPOLAMINE 1MG TRANSDERMAL PATCH TOP SCH (16:33)
[2019-01-16 20:00] VITALS: BP 156/71
[2019-01-16] MEDS: SENNA 8.6 MG TAB (SENOKOT) GT SCH (21:58)
[2019-01-17 04:00] VITALS: BP 162/74
[2019-01-17] MEDS: oxyCODONE 5MG TAB GT PRN ×4 (04:21→21:06)
[2019-01-17] MEDS: HEPARIN SOD (PORCINE) 5000 UNITS/ML VIAL SC SCH ×3 (05:33→21:06)
--- NOTE | 2019-01-17 07:57 | IPNPDOC ---
Date Seen The patient was seen on 01/17/19. Progress Note SUBJECTIVE: c/o difficult night. c/o lots of secretions, and has been suctioning himself this morning on the stretcher chair. no fever, chills. some cough, with thick sputum. no nausea, abd pain. OBJECTIVE: PHYSICAL EXAMINATION: VITALS: PLS SEE BELOW GEN: Cervical collar in place. suctioning himself. able to speak. fluent speech. Lungs diminished coarse rhonchi b/l Heart: S1 and S2, regular rate and rhythm. Abdomen is soft, nontender, nondistended. Positive bowel sounds. Feeding tube in place. Extremities with no cyanosis or clubbing. Neurologically, the patient is awake, alert and oriented to person, answering questions appropriately. Sensation is intact bilateral upper and lower extremities. HOSPITAL MEDICATIONS: BenGay, scopolamine, vitamin C, vitamin D, lisinopril, Theragran, heparin, senna, gabapentin, metoprolol, Robitussin, Xopenex, bisacodyl, milk of magnesium, Zofran, Tylenol and oxycodone. LABORATORY DATA: reviewed IMAGING STUDIES: Chest x-ray on 01/12/2019 shows left basilar infiltrate. ASSESSMENT AND PLAN: This is 63-year-old male with history of hypertension, cervical lumbar stenosis, chronic back pain, feeding tube, with myelopathy status post C3 to T3 decompression and fusion and diagnosis of a amyotrophic lateral sclerosis. Current Issues: 1. Left basal infiltrate. Status post Augmentin 01/12/2019 to 01/15/2019. Afebrile. No significant cough. No shortness of breath. will monitor with serial CXR. per pulm, Dr. evans, no need for any antibiotics for now. 2. New diagnosis of amyotrophic lateral sclerosis (ALS) and prior C3 to T3 decompressive surgery and fusion with functional tetraplegia. The patient has a cervical collar at all times per Dr. Liu, neurosurgery. pulm assessed the pt, and vital capacity will be monitored. 3. ALS. Monitoring for any respiratory issues. At this time, the patient is followed by a neurologist in [place].[employer], Dr. Evansconsulted 4. Hypertension. Currently stable. To be continued on lisinopril 10 mg daily, metoprolol 50 mg twice a day. 5. Nutrition. Via feeding tube. VS, I&O, 24H, Fishbone Vital Signs/I&O Vital Signs Date Time Temp Pulse Resp B/P (MAP) Pulse Ox O2 Delivery O2 Flow Rate FiO2 01/17/19 05:00 18 01/17/19 04:00 98.2 109 162/74 (103) 95 I&O- Last 24 Hours up to 6 AM 01/17/19 06:00 Intake Total 2180 ml Output Total 1650 ml Balance 530 ml Laboratory Data Microbiology Microbiology 01/15/19 Blood Culture - Preliminary, Resulted No growth after 24 hours . All specim... TIFFANY SCOTT MD Jan 17, 2019 07:32
[2019-01-17] MEDS: LISINOPRIL 10 MG TAB GT SCH (08:12)
[2019-01-17] MEDS: ASCORBIC ACID 500 MG TAB GT SCH (08:12)
[2019-01-17] MEDS: guaiFENesin SYRUP 200 MG/10 ML UDC PO SCH ×4 (08:12→21:05)
[2019-01-17] MEDS: VITAMIN D 1,000 INTERNATIONAL UNITS TABLET GT SCH (08:12)
[2019-01-17] MEDS: MULTIVITAMINS/MINERALS THERAP 1 TAB GT SCH (08:12)
[2019-01-17] MEDS: GABAPENTIN 300 MG CAP GT SCH ×3 (08:12→21:05)
[2019-01-17] MEDS: METOPROLOL TART 50 MG TAB GT SCH ×2 (08:13→21:00)
[2019-01-17] MEDS: SALIVA SUBSTITUTE(MOUTHKOTE) BTL MT SCH ×4 (08:14→21:00)
[2019-01-17] MEDS: ANALGESIC BALM CRM 120 GM TOP SCH ×3 (08:23→21:00)
[2019-01-17] MEDS: LEVALBUTEROL 1.25 MG/0.5 ML CONCENTRATE NEB INH SCH ×3 (08:49→19:37)
--- NOTE | 2019-01-17 10:55 | NOCOX ---
DATE OF PROCEDURE: 01/16 to 01/17/2019 The patient was on room air during the test. INDICATION FOR TESTING: ALS with neuromuscular weakness. Resting oxygen saturation was 97% on room air with a heart rate of 95. Heart rate ranged from 89-129. The lowest oxygen saturation recorded was 84%. The total time spent with an oxygen saturation less than 88% was 26 seconds. For the most part the oxygen saturation remained well above 90% and there was minimal variation. There was one desaturation event at 4:30 a.m. which did correspond with appropriate heart rate variability. IMPRESSION: Minimal oxygen saturation variability without significantly prolonged hypoxia.
[2019-01-17 14:00] VITALS: BP 166/76
[2019-01-17 20:00] VITALS: BP 176/76
[2019-01-17] MEDS ORDERED: LABETALOL 200 MG TAB GT ONE (20:30)
[2019-01-17] MEDS: SENNA 8.6 MG TAB (SENOKOT) GT SCH (21:00)
[2019-01-17 22:30] VITALS: BP 150/80
[2019-01-17] MEDS ORDERED: diphenhydrAMINE 12.5MG/5ML ELIXIR UDC GT PRN (22:45)
[2019-01-17 23:22] LABS: BLOOD UREA NITROGEN 14 MG/DL (7-18); CALCIUM LEVEL 8.2 MG/DL (8.8-10.2); CARBON DIOXIDE LEVEL 27 MEQ/L (21-32); CHLORIDE LEVEL 121 MEQ/L (98-107); CK-MB VALUE MASS 3.4 NG/ML (<3.6); CPK CREATINE PHOSPHOKINASE 73 U/L (39-308); GLOMERULAR FILTRATION RATE > 60.0 (>49); GLUCOSE, FASTING 153 MG/DL (70-100); MB/CK RELATIVE INDEX 4.66 (< OR =4); POTASSIUM SERUM 3.2 MEQ/L (3.5-5.1); SODIUM LEVEL 156 MEQ/L (136-145); TROPONIN I < 0.02 NG/ML (< 0.10)
[2019-01-17] MEDS ORDERED: POTASSIUM CHLORIDE 10% LIQ 20 MEQ/15 ML UDC GT ONE (23:30)
[2019-01-17] MEDS: ACETAMINOPHEN TAB 650MG DOSE (2X325MG) PO PRN (23:49)
--- NOTE | 2019-01-17 23:57 | ECGEPIP ---
[facility] Test Date: 2019-01-17 Pat Name: ABUNDIO SPEARS Department: Room: [place] [address] Gender: Male Director Of Anesthesia Services: : 1955 Requested By: JUAN NORTON Order Number: [id number] Reading MD: Irving Funk Measurements Intervals [place] Rate: 136 P: 51 [place]: 126 QRS: 24 QRSD: 89 T: 66 QT: 290 QTc: 437 Interpretive Statements SINUS TACHYCARDIA Nonspecific ST-T wave abnormalities Baseline artifact Electronically Signed on 01-17-2019 23:57:32 EDT by Irving Funk
[2019-01-18] MEDS: oxyCODONE 5MG TAB GT PRN ×4 (02:56→20:39)
[2019-01-18 06:00] VITALS: BP 167/77
[2019-01-18] MEDS: HEPARIN SOD (PORCINE) 5000 UNITS/ML VIAL SC SCH ×3 (06:13→21:00)
[2019-01-18 06:49] LABS: HEMATOCRIT 25.1 % (42.0-52.0); HEMOGLOBIN 7.6 g/dl (13.5-17.5); MEAN CORPUSCULAR HEMOGLOBIN 29.3 pg (27.0-33.0); MEAN CORPUSCULAR HGB CONC 30.3 g/dl (32.0-36.5); MEAN CORPUSCULAR VOLUME 96.9 fl (80.0-96.0); PLATELET COUNT, AUTOMATED 430 10^3/uL (150-450); RED BLOOD COUNT 2.59 10^6/uL (4.30-6.10); WHITE BLOOD COUNT 7.2 10^3/uL (4.0-10.0)
[2019-01-18 07:17] LABS: BLOOD UREA NITROGEN 15 MG/DL (7-18); CALCIUM LEVEL 8.9 MG/DL (8.8-10.2); CARBON DIOXIDE LEVEL 28 MEQ/L (21-32); CHLORIDE LEVEL 121 MEQ/L (98-107); CREATININE FOR GFR 0.38 MG/DL (0.70-1.30); GLOMERULAR FILTRATION RATE > 60.0 (>49); GLUCOSE, FASTING 134 MG/DL (70-100); POTASSIUM SERUM 3.6 MEQ/L (3.5-5.1); SODIUM LEVEL 155 MEQ/L (136-145)
[2019-01-18] MEDS: LEVALBUTEROL 1.25 MG/0.5 ML CONCENTRATE NEB INH SCH ×3 (07:37→20:24)
[2019-01-18] MEDS: guaiFENesin SYRUP 200 MG/10 ML UDC PO SCH ×4 (09:17→20:40)
[2019-01-18] MEDS: GABAPENTIN 300 MG CAP GT SCH ×3 (09:18→20:39)
[2019-01-18] MEDS: LISINOPRIL 10 MG TAB GT SCH (09:18)
[2019-01-18] MEDS: MULTIVITAMINS/MINERALS THERAP 1 TAB GT SCH (09:18)
[2019-01-18] MEDS: VITAMIN D 1,000 INTERNATIONAL UNITS TABLET GT SCH (09:18)
[2019-01-18] MEDS: ASCORBIC ACID 500 MG TAB GT SCH (09:18)
[2019-01-18] MEDS: METOPROLOL TART 50 MG TAB GT SCH ×2 (09:19→20:39)
[2019-01-18] MEDS: ANALGESIC BALM CRM 120 GM TOP SCH ×3 (09:21→20:40)
[2019-01-18] MEDS: SALIVA SUBSTITUTE(MOUTHKOTE) BTL MT SCH ×4 (09:22→20:40)
[2019-01-18] MEDS ORDERED: NS 0.45% 1,000 ML IV ONE (10:45)
[2019-01-18 14:00] VITALS: BP 177/81
--- NOTE | 2019-01-18 14:36 | IPNPDOC ---
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 REVIEW OF SYSTEMS: The following is a completed review of systems and has been reviewed. Review of systems otherwise unremarkable. PAIN: Patient self reports neck and low back pain EYES: No recent vision changes EARS, NOSE, & THROAT: +dysphagia CARDIOVASCULAR: Denies chest pain or palpitations PULMONARY: + weak cough GASTROINTESTINAL:+diarrhea GENITOURINARY: +Page for retention MUSCULOSKELETAL: cervical and lumbar stenosis NEUROLOGICAL: +myelopathy, with weakness and fasciculations HEMATOLOGICAL: no easy bruising SKIN: neck incision PSYCHIATRIC: Unremarkable All other review of systems found to be negative. PHYSICAL EXAMINATION: VITAL SIGNS: Please see below. GENERAL: Pleasant and cooperative. No acute distress. HEENT: PERRL. Extraocular movements intact. Clear conjunctiva CARDIOVASCULAR: Regular rate and rhythm. No murmurs, rubs, or gallops LUNGS: +scattered rhonchi, poor inspiratory effort, able to speak in full sentences ABDOMEN: Soft, nontender, nondistended. Positive bowel sounds. Normal active bowel sounds +PEG NEUROLOGICAL: Alert and oriented times three. Cranial nerves II through XII grossly intact, except IX and X. Sensation grossly intact in all 4 extremities to light touch +fasciculations noted bilat UE and tongue, dysarthria EXTREMITIES: 4\5 right upper extremities, however unable to extend fingers, 2/5 left elbow flexor and extension, 3/5 website designer, 2/5 wrist extension, unable to extend finger, 3/5 strength right lower extremity except 1/5 ankle EHL and DF, 2/5 PF 2/5 strength left lower extremity except 0/5 ankle EHL and DF, 2/5 PF SKIN:cervical incision and PEG incision c/d/i ASSESSMENT:63-year-old M with past medical history of cervical stenosis with myelopathy who presents status post C3-T3 decompression and fusion with new diagnosis of Amyotrophic Lateral Sclerosis. PLAN: 1. 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 Neuro: s/p C3-T3 decompression and fusion with functional tetraplegia- cervical collar to be worn at all times, f/u with neurosurgeon Dr. Liu -new diagnosis of ALS with bulbar features, continue to provide respiratory support and monitor for decline , f/u with patient's neurologist in [place] 3. Cardio: pmh HTN c/u bp Meds, medicine consulted to assist in management 4. Resp: c/u Augmentin for aspiration pneumonia, admission CXR positive for LLL infiltrate, no leukocytosis, Xoepenex, Guaifenesin -c/u oral care -c/u scopolamine for increased oral secretions, will add saliva substitute to balance xerostomia -vital capacity and NIF low, pulmonology consulted to assist in management and h elp considering need for NIMV at this time -nocturnal 02 ordered -patient clinically appears stable now and comfortable breathing 5. : question of urinary retention, patient requesting to keep page as he lacks coordination in his right hand at this time to use the urinal- will readdress 6. GI: avoid bowel meds given recent hx of loose stools 7. Pain: Gabapentin, oxycodone, tylenol 8. Hyponatremia: continue chicken broth bolus recheck BMP tomorrow 8. Psych: patient not endorsing depression at this time and is optimistic about his rehab stay, will continue to assess and address prn Allergies Coded Allergies: No Known Drug Allergies (Verified Allergy, Unknown, 01/12/19) Vital Signs Vital Signs Date Time Temp Pulse Resp B/P (MAP) Pulse Ox O2 Delivery O2 Flow Rate FiO2 01/18/19 14:07 16 01/18/19 09:19 110 170/86 01/18/19 06:00 98.4 97 Laboratory Data CBC/BMP Laboratory Tests 01/17/19 22:44 Calcium Level 8.2 L, Total Creatine Kinase 73 01/18/19 06:26 Calcium Level 8.9, Red Blood Count 2.59 L, Mean Corpuscular Volume 96.9 H, Mean Corpuscular Hemoglobin 29.3, Mean Corpuscular Hemoglobin Concent 30.3 L, Red Cell Distribution Width 14.2 Labs 24H Laboratory Tests 2 01/17/19 22:44: Anion Gap 8, Glomerular Filtration Rate > 60.0, Blood Urea Nitrogen 14#, Creatinine 0.40L, Sodium Level 156#H, Potassium Level 3.2L, Chloride Level 121H, Carbon Dioxide Level 27, Calcium Level 8.2L, Total Creatine Kinase 73, Creatine Kinase MB 3.4, Creatine Kinase MB Relative Index 4.66H, Troponin I < 0.02 01/18/19 00:21: 01/18/19 06:26: Anion Gap 6L, Glomerular Filtration Rate > 60.0, Blood Urea Nitrogen 15, Creatinine 0.38L, Sodium Level 155H, Potassium Level 3.6, Chloride Level 121H, Carbon Dioxide Level 28, Calcium Level 8.9, Nucleated Red Blood Cells % (auto) 0.0 Microbiology Microbiology 01/15/19 Blood Culture - Preliminary, Resulted No Growth after 72 hours. All specime... Current Medications Current Medications Current Medications Medications (Trade) Dose Ordered Sig/Kaylen Route PRN Reason Start Time Stop Time Status Last Admin Dose Admin Acetaminophen (Tylenol Tab) 650 mg Q4HP PRN PO MILD PAIN (PS 1-4) 01/12/19 16:15 01/17/19 23:49 Albuterol/ Ipratropium (Duoneb (Ipr 0.5mg/Alb 2.5mg)) 3 ml TID NEB 01/13/19 21:00 Cancel Amoxicillin/ Clavulanate Potassium (Augmentin 250 Mg/5 ml Susp) 500 mg Q12H PEG 01/12/19 21:00 01/15/19 09:01 DC 01/15/19 09:27 Ascorbic Acid (Vitamin C) 500 mg DAILY GT 01/13/19 09:00 01/18/19 09:18 Bisacodyl (Dulcolax Suppository) 10 mg DAILYPRN PRN ID CONSTIPATION 01/12/19 16:15 Diphenhydramine HCl (Benadryl Elixir) 25 mg QHSP PRN GT INSOMNIA 01/17/19 22:45 01/18/19 10:35 DC 01/17/19 23:49 Gabapentin (Neurontin) 600 mg TID GT 01/12/19 21:00 01/18/19 09:18 Guaifenesin (Robitussin) 5 ml QID PO 01/12/19 21:00 01/18/19 12:33 Heparin Sodium (Porcine) (Heparin) 5,000 units Q8H SC 01/12/19 22:00 01/18/19 06:13 Home Med (Med Rec Complete!) ASDIRECTED XX 01/12/19 14:45 01/12/19 14:45 DC Levalbuterol HCl (Xopenex Neb) 1.25 mg RTID INH 01/12/19 20:00 01/18/19 13:35 Lisinopril (Prinivil) 10 mg DAILY GT 01/13/19 09:00 01/18/19 09:18 Magnesium Hydroxide (Milk Of Magnesia) 30 ml DAILYPRN PRN GT CONSTIPATION 01/12/19 16:15 Menthol/Methyl Salicylate (Bengay Cream) apply to bilateral shoulders TID TOP 01/14/19 09:00 01/18/19 09:21 Metoprolol Tartrate (Lopressor) 50 mg BID GT 01/12/19 21:00 Future hold 01/18/19 09:19 Moxifloxacin HCl (Avelox) 400 mg DAILY@06 PO 01/16/19 06:00 01/16/19 06:00 DC Multivitamins (Theragram-M) 1 tab DAILY GT 01/13/19 09:00 01/18/19 09:18 Ondansetron HCl (Zofran Odt) 4 mg Q6HP PRN GT NAUSEA 01/12/19 16:15 Oxycodone HCl (Roxicodone, Oxyir) 10 mg Q4HP PRN GT SEVERE PAIN (PS 8-10) 01/12/19 16:15 01/18/19 14:07 Saliva Substitute (Mouthkote) 2 sprays QID WI 01/14/19 09:00 01/18/19 12:34 Scopolamine (Scopolamine) 1 mg Q72H TOP 01/13/19 16:15 01/18/19 09:30 DC 01/16/19 16:33 Senna (Senokot) 1 tab QHS GT 01/12/19 21:00 01/16/19 21:58 Vitamin D (Vitamin D) 1,000 units QAM GT 01/13/19 09:00 01/18/19 09:18 BRUCE CARDOZA MD Jan 18, 2019 14:36
--- NOTE | 2019-01-18 14:45 | IPNPDOC ---
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 REVIEW OF SYSTEMS: The following is a completed review of systems and has been reviewed. Review of systems otherwise unremarkable. PAIN: Patient self reports neck and low back pain EYES: No recent vision changes EARS, NOSE, & THROAT: +dysphagia CARDIOVASCULAR: Denies chest pain or palpitations PULMONARY: + weak cough GASTROINTESTINAL:+diarrhea GENITOURINARY: +Page for retention MUSCULOSKELETAL: cervical and lumbar stenosis NEUROLOGICAL: +myelopathy, with weakness and fasciculations HEMATOLOGICAL: no easy bruising SKIN: neck incision PSYCHIATRIC: Unremarkable All other review of systems found to be negative. PHYSICAL EXAMINATION: VITAL SIGNS: Please see below. GENERAL: Pleasant and cooperative. No acute distress. HEENT: PERRL. Extraocular movements intact. Clear conjunctiva CARDIOVASCULAR: Regular rate and rhythm. No murmurs, rubs, or gallops LUNGS: +scattered rhonchi, poor inspiratory effort, able to speak in full sentences ABDOMEN: Soft, nontender, nondistended. Positive bowel sounds. Normal active bowel sounds +PEG NEUROLOGICAL: Alert and oriented times three. Cranial nerves II through XII grossly intact, except IX and X. Sensation grossly intact in all 4 extremities to light touch +fasciculations noted bilat UE and tongue, dysarthria EXTREMITIES: 4\5 right upper extremities, however unable to extend fingers, 2/5 left elbow flexor and extension, 3/5 frame fixer, 2/5 wrist extension, unable to extend finger, 3/5 strength right lower extremity except 1/5 ankle EHL and DF, 2/5 PF 2/5 strength left lower extremity except 0/5 ankle EHL and DF, 2/5 PF SKIN:cervical incision and PEG incision c/d/i ASSESSMENT:63-year-old M with past medical history of cervical stenosis with myelopathy who presents status post C3-T3 decompression and fusion with new diagnosis of Amyotrophic Lateral Sclerosis. PLAN: 1. 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 Neuro: s/p C3-T3 decompression and fusion with functional tetraplegia- cervical collar to be worn at all times, f/u with neurosurgeon Dr. Liu -new diagnosis of ALS with bulbar features, continue to provide respiratory support and monitor for decline , f/u with patient's neurologist in [place] 3. Cardio: pmh HTN c/u bp Meds, medicine consulted to assist in management 4. Resp: s/p course Augmentin for aspiration pneumonia, admission CXR positive for LLL infiltrate, no leukocytosis, Xoepenex, Guaifenesin -c/u oral care -will hold scopolamine for increased oral secretions as improved today and co ntinue saliva substitute to balance xerostomia -vital capacity and NIF low, pulmonology recs appreciated, no obvious need for NIMV at this time, will continue to asses and address prn -nocturnal 02 ordered -patient clinically appears stable now and comfortable breathing 5. : question of urinary retention, patient requesting to keep page as he lacks coordination in his right hand at this time to use the urinal- will readdress 6. GI: avoid bowel meds given recent hx of loose stools 7. Pain: Gabapentin, oxycodone, tylenol 8. Hypernatremia: 131 to 156 from the to the , switched back to H20 boluses per medicine, still 155 today, will start 1/2 NS at 75cc/hr and check BMP throughout the day, goal to decrease by 0.5 meQ/L/h- no seizure activity, patient alert and oriented 8. Psych: patient not endorsing depression at this time and is optimistic about his rehab stay, will continue to assess and address prn Allergies Coded Allergies: No Known Drug Allergies (Verified Allergy, Unknown, 01/12/19) Vital Signs Vital Signs Date Time Temp Pulse Resp B/P (MAP) Pulse Ox O2 Delivery O2 Flow Rate FiO2 01/18/19 14:07 16 01/18/19 09:19 110 170/86 01/18/19 06:00 98.4 97 Laboratory Data CBC/BMP Laboratory Tests 01/17/19 22:44 Calcium Level 8.2 L, Total Creatine Kinase 73 01/18/19 06:26 Calcium Level 8.9, Red Blood Count 2.59 L, Mean Corpuscular Volume 96.9 H, Mean Corpuscular Hemoglobin 29.3, Mean Corpuscular Hemoglobin Concent 30.3 L, Red Cell Distribution Width 14.2 Labs 24H Laboratory Tests 2 01/17/19 22:44: Anion Gap 8, Glomerular Filtration Rate > 60.0, Blood Urea Nitrogen 14#, Creatinine 0.40L, Sodium Level 156#H, Potassium Level 3.2L, Chloride Level 121H, Carbon Dioxide Level 27, Calcium Level 8.2L, Total Creatine Kinase 73, Creatine Kinase MB 3.4, Creatine Kinase MB Relative Index 4.66H, Troponin I < 0.02 01/18/19 00:21: 01/18/19 06:26: Anion Gap 6L, Glomerular Filtration Rate > 60.0, Blood Urea Nitrogen 15, Creatinine 0.38L, Sodium Level 155H, Potassium Level 3.6, Chloride Level 121H, Carbon Dioxide Level 28, Calcium Level 8.9, Nucleated Red Blood Cells % (auto) 0.0 Microbiology Microbiology 01/15/19 Blood Culture - Preliminary, Resulted No Growth after 72 hours. All specime... Current Medications Current Medications Current Medications Medications (Trade) Dose Ordered Sig/Kaylen Route PRN Reason Start Time Stop Time Status Last Admin Dose Admin Acetaminophen (Tylenol Tab) 650 mg Q4HP PRN PO MILD PAIN (PS 1-4) 01/12/19 16:15 01/17/19 23:49 Albuterol/ Ipratropium (Duoneb (Ipr 0.5mg/Alb 2.5mg)) 3 ml TID NEB 01/13/19 21:00 Cancel Amoxicillin/ Clavulanate Potassium (Augmentin 250 Mg/5 ml Susp) 500 mg Q12H PEG 01/12/19 21:00 01/15/19 09:01 DC 01/15/19 09:27 Ascorbic Acid (Vitamin C) 500 mg DAILY GT 01/13/19 09:00 01/18/19 09:18 Bisacodyl (Dulcolax Suppository) 10 mg DAILYPRN PRN WI CONSTIPATION 01/12/19 16:15 Diphenhydramine HCl (Benadryl Elixir) 25 mg QHSP PRN GT INSOMNIA 01/17/19 22:45 01/18/19 10:35 DC 01/17/19 23:49 Gabapentin (Neurontin) 600 mg TID GT 01/12/19 21:00 9/23/19 09:18 Guaifenesin (Robitussin) 5 ml QID PO 01/12/19 21:00 01/18/19 12:33 Heparin Sodium (Porcine) (Heparin) 5,000 units Q8H SC 01/12/19 22:00 01/18/19 06:13 Home Med (Med Rec Complete!) ASDIRECTED XX 01/12/19 14:45 01/12/19 14:45 DC Levalbuterol HCl (Xopenex Neb) 1.25 mg RTID INH 01/12/19 20:00 01/18/19 13:35 Lisinopril (Prinivil) 10 mg DAILY GT 01/13/19 09:00 01/18/19 09:18 Magnesium Hydroxide (Milk Of Magnesia) 30 ml DAILYPRN PRN GT CONSTIPATION 01/12/19 16:15 Menthol/Methyl Salicylate (Bengay Cream) apply to bilateral shoulders TID TOP 01/14/19 09:00 01/18/19 09:21 Metoprolol Tartrate (Lopressor) 50 mg BID GT 01/12/19 21:00 Future hold 01/18/19 09:19 Moxifloxacin HCl (Avelox) 400 mg DAILY@06 PO 01/16/19 06:00 01/16/19 06:00 DC Multivitamins (Theragram-M) 1 tab DAILY GT 01/13/19 09:00 01/18/19 09:18 Ondansetron HCl (Zofran Odt) 4 mg Q6HP PRN GT NAUSEA 01/12/19 16:15 Oxycodone HCl (Roxicodone, Oxyir) 10 mg Q4HP PRN GT SEVERE PAIN (PS 8-10) 01/12/19 16:15 01/18/19 14:07 Saliva Substitute (Mouthkote) 2 sprays QID MT 01/14/19 09:00 01/18/19 12:34 Scopolamine (Scopolamine) 1 mg Q72H TOP 01/13/19 16:15 01/18/19 09:30 DC 01/16/19 16:33 Senna (Senokot) 1 tab QHS GT 01/12/19 21:00 01/16/19 21:58 Vitamin D (Vitamin D) 1,000 units QAM GT 01/13/19 09:00 01/18/19 09:18 BRUCE CARDOZA MD Jan 18, 2019 14:45
[2019-01-18 15:29] LABS: BLOOD UREA NITROGEN 15 MG/DL (7-18); CALCIUM LEVEL 9.2 MG/DL (8.8-10.2); CARBON DIOXIDE LEVEL 28 MEQ/L (21-32); CHLORIDE LEVEL 115 MEQ/L (98-107); CREATININE FOR GFR 0.39 MG/DL (0.70-1.30); GLOMERULAR FILTRATION RATE > 60.0 (>49); GLUCOSE, FASTING 112 MG/DL (70-100); POTASSIUM SERUM 3.4 MEQ/L (3.5-5.1); SODIUM LEVEL 150 MEQ/L (136-145)
[2019-01-18] MEDS ORDERED: POTASSIUM CHLORIDE 10 MEQ SR TABLET PO ONE (17:00)
[2019-01-18] MEDS ORDERED: POTASSIUM CHLORIDE 10% LIQ 20 MEQ/15 ML UDC PO ONE (19:30)
[2019-01-18 20:00] VITALS: BP_SYST 118; BP_SYST 163; BP_DIAS 73; BP_DIAS 75
[2019-01-18 20:40] VITALS: BP 168/70
[2019-01-18] MEDS: SENNA 8.6 MG TAB (SENOKOT) GT SCH (20:59)
[2019-01-18 23:16] LABS: BLOOD UREA NITROGEN 16 MG/DL (7-18); CALCIUM LEVEL 8.4 MG/DL (8.8-10.2); CARBON DIOXIDE LEVEL 28 MEQ/L (21-32); CHLORIDE LEVEL 113 MEQ/L (98-107); CREATININE FOR GFR 0.39 MG/DL (0.70-1.30); GLOMERULAR FILTRATION RATE > 60.0 (>49); GLUCOSE, FASTING 110 MG/DL (70-100); SODIUM LEVEL 147 MEQ/L (136-145)
[2019-01-19] MEDS: oxyCODONE 5MG TAB GT PRN ×4 (01:59→22:40)
[2019-01-19] MEDS: ACETAMINOPHEN TAB 650MG DOSE (2X325MG) PO PRN ×2 (01:59→22:40)
[2019-01-19 06:00] VITALS: BP_SYST 150; BP_SYST 159; BP_DIAS 72; BP_DIAS 92
[2019-01-19] MEDS: HEPARIN SOD (PORCINE) 5000 UNITS/ML VIAL SC SCH ×3 (06:32→22:38)
[2019-01-19] MEDS: LEVALBUTEROL 1.25 MG/0.5 ML CONCENTRATE NEB INH SCH ×3 (07:33→20:16)
[2019-01-19 07:57] LABS: BASO % 0.5 % (0.0-1.0); EOS # 0.1 10^3/uL (0.0-0.5); EOS % 1.5 % (0.0-3.0); HEMATOCRIT 23.7 % (42.0-52.0); HEMOGLOBIN 7.1 g/dl (13.5-17.5); LYMPH # 1.3 10^3/uL (1.5-5.0); LYMPH % 14.5 % (24.0-44.0); MEAN CORPUSCULAR HEMOGLOBIN 28.2 pg (27.0-33.0); MONO # 0.7 10^3/uL (0.0-0.8); MONO % 7.7 % (0.0-5.0); NEUTROPHILS # 6.6 10^3/uL (1.5-8.5); NEUTROPHILS % 75.1 % (36.0-66.0); PLATELET COUNT, AUTOMATED 411 10^3/uL (150-450); RED BLOOD COUNT 2.52 10^6/uL (4.30-6.10); WHITE BLOOD COUNT 8.7 10^3/uL (4.0-10.0)
[2019-01-19 08:16] LABS: BLOOD UREA NITROGEN 16 MG/DL (7-18); CARBON DIOXIDE LEVEL 28 MEQ/L (21-32); CHLORIDE LEVEL 111 MEQ/L (98-107); CREATININE FOR GFR 0.35 MG/DL (0.70-1.30); GLOMERULAR FILTRATION RATE > 60.0 (>49); GLUCOSE, FASTING 101 MG/DL (70-100); MAGNESIUM LEVEL 1.9 MG/DL (1.8-2.4); POTASSIUM SERUM 3.8 MEQ/L (3.5-5.1); SODIUM LEVEL 145 MEQ/L (136-145)
[2019-01-19] MEDS: ASCORBIC ACID 500 MG TAB GT SCH (09:39)
[2019-01-19] MEDS: MULTIVITAMINS/MINERALS THERAP 1 TAB GT SCH (09:39)
[2019-01-19] MEDS: GABAPENTIN 300 MG CAP GT SCH ×3 (09:39→22:38)
[2019-01-19] MEDS: guaiFENesin SYRUP 200 MG/10 ML UDC PO SCH ×4 (09:39→22:37)
[2019-01-19] MEDS: LISINOPRIL 10 MG TAB GT SCH (09:39)
[2019-01-19] MEDS: VITAMIN D 1,000 INTERNATIONAL UNITS TABLET GT SCH (09:40)
[2019-01-19] MEDS: METOPROLOL TART 50 MG TAB GT SCH ×3 (09:40→22:39)
[2019-01-19] MEDS: ANALGESIC BALM CRM 120 GM TOP SCH ×3 (09:41→22:40)
[2019-01-19] MEDS: SALIVA SUBSTITUTE(MOUTHKOTE) BTL MT SCH ×4 (09:41→22:41)
--- NOTE | 2019-01-19 10:30 | IPNPDOC ---
Text Note Date of Service The patient was seen on 01/19/19. NOTE HPI: Pt is a 63 yo male with PMH of ALS, HTN, cervical stenosis, and lumbar stenosis who is currently in acute rehab after cervical and thoracic spine surgery on 12/31/2018 in [facility] for chronic cervical stenosis with myelopathy and worsening weakness in bilateral arms and legs. It is noted after the his C3 to T3 posterior arthrodesis and C3-T1 laminectomy with posterior fusion procedure, pt reported continuous left leg and arm weakness as well as dysphagia. He underwent an EMG study at [facility] which confirmed a diagnosis of amyotrophic lateral sclerosis. He subsequently had a PEG tube placement and was on IV Augmentin for aspiration pneumonia. Pt was admitted to [facility] acute rehab unit on 01/12/2019, due to loss of mobility, function and activities of daily living. It is noted that he had prior lumbar stenosis status post T11-S1 posterior arthrodesis and L1-S1 laminectomy requiring inpatient rehab. It is noted that pt had Hg of 7.1 this morning, and is going receive 2 units of blood transfusion. Pt was examined while sitting on the chair. He denies any symptoms except for neck pain; denies any dyspnea, chest pain/pleuritic chest pain. No fever or c hills were noted. Physical exam: Vital signs: HR 81, blood celdryfc877/72(MAP of 98), RR 20, SpO2 96% on room air. Intake and output through midnight of 01/14/2019: Intake of 1100, output of 475 with net negative 725. Since midnight this morning the patient had received 900 mL via tube feed. GENERAL: Patient is alert and cooperative. The patient is seated upright in chair with a cervical collar in place. There is also a left mid forearm and wrist splint. The patient is alert; he is quiet with mild slowed speech but able to speak in full sentences; he responds to questions and follows commands appropriately. He appears older than stated age. He is able speak in full sentences HEENT: Normocephalic, atraumatic. pupils are equal and round. Nares patent bilaterally. Mucous membranes appears to be pink and mildly dry. Trachea appears midline but exam somewhat obscured by cervical (C) collar in place. Cardiovascular: Regular rate and rhythm with normal S1 and S2. No rubs or gallops or murmurs are appreciated. Lungs: Chest wall expansion symmetrically; Bilateral thonchi moted bilaterally while auscu.anteriorly. No pleuritic chest pain, retractions, or accessory muscle use. Abdomen: PEG tube is in place with normoactive bowel sounds auscultated. There is no rebound, no guarding, rigidity, or distention. Musculoskeletal: 3/5 muscle strength in RUE and RLE strength. LUE 1/5 muscle strength. LLE 2/5 muscle strength Neurologic: Memory and cognitive fxn appears grossly intact Assessment and Plan: 1. ALS -Pt reported progressive worsening of weakness for about a year. Pt is able to follow commands attempting to move extremities; he reported that the muscle weakness was stable -No dyspnea, pt continued to sat well on RA 2. Abnormal chest x-ray with blunting of left costophrenic angle. - Pt does not appear to have ventilatory failure. He continues to sat well in RA with pulse ox this morning 96% on RA. His ox sat cont to be greater than 96% on RA since 01/18/19 -Pt follows as outpatient with Dr. Alva, manager infrastructure in [place]. The patient is encouraged to followup for continuity of his care with Dr. Alva for further resp status management after discharge - PA and lateral CXR 01/16/2019 showed small left pleural effusion; left bibasil ar infiltrate improved compared to prior. - We will check the patient's oxygen saturation overnight via a nocturnal pulse oximetry. VS,Fishbone, I+O VS, Fishbone, I+O Laboratory Tests 01/18/19 14:45 Calcium Level 9.2 01/18/19 22:50 Calcium Level 8.4 L 01/19/19 07:30 Calcium Level 9.0, Red Blood Count 2.52 L, Mean Corpuscular Volume 94.0, Mean Corpuscular Hemoglobin 28.2, Mean Corpuscular Hemoglobin Concent 30.0 L, Red Cell Distribution Width 14.3, Neutrophils (%) (Auto) 75.1 H, Lymphocytes (%) (Auto) 14.5 L, Monocytes (%) (Auto) 7.7 H, Eosinophils (%) (Auto) 1.5, Basophils (%) (Auto) 0.5, Neutrophils # (Auto) 6.6, Lymphocytes # (Auto) 1.3 L, Monocytes # (Auto) 0.7, Eosinophils # (Auto) 0.1, Basophils # (Auto) 0.0 Vital Signs Date Time Temp Pulse Resp B/P (MAP) Pulse Ox O2 Delivery O2 Flow Rate FiO2 01/19/19 09:40 102 150/72 01/19/19 07:02 18 01/19/19 06:00 98.2 96 I&O- Last 24 Hours up to 6 AM 01/19/19 06:00 Intake Total 2000 ml Output Total 475 ml Balance 1525 ml SAKSHI ORTIZ DO Jan 19, 2019 10:30
[2019-01-19] MEDS ORDERED: diphenhydrAMINE 25 MG CAP PO ONE (10:45)
[2019-01-19] MEDS ORDERED: ACETAMINOPHEN TAB 650MG DOSE (2X325MG) PO ONE (10:45)
[2019-01-19 14:00] VITALS: BP 138/67
[2019-01-19 20:00] VITALS: BP 135/71
[2019-01-19] MEDS: SENNA 8.6 MG TAB (SENOKOT) GT SCH (21:00)
[2019-01-19] MEDS: diphenhydrAMINE 25 MG CAP PEG SCH (22:38)
[2019-01-20] MEDS: oxyCODONE 5MG TAB GT PRN ×2 (04:16→21:38)
[2019-01-20 06:00] VITALS: BP 147/72
[2019-01-20] MEDS: HEPARIN SOD (PORCINE) 5000 UNITS/ML VIAL SC SCH ×3 (06:53→21:38)
[2019-01-20] MEDS: LEVALBUTEROL 1.25 MG/0.5 ML CONCENTRATE NEB INH SCH ×3 (07:13→19:05)
[2019-01-20] MEDS: LISINOPRIL 10 MG TAB GT SCH (09:25)
[2019-01-20] MEDS: ASCORBIC ACID 500 MG TAB GT SCH (09:25)
[2019-01-20] MEDS: GABAPENTIN 300 MG CAP GT SCH ×3 (09:25→21:38)
[2019-01-20] MEDS: MULTIVITAMINS/MINERALS THERAP 1 TAB GT SCH (09:25)
[2019-01-20] MEDS: guaiFENesin SYRUP 200 MG/10 ML UDC PO SCH ×4 (09:25→21:35)
[2019-01-20] MEDS: VITAMIN D 1,000 INTERNATIONAL UNITS TABLET GT SCH (09:25)
[2019-01-20] MEDS: METOPROLOL TART 50 MG TAB GT SCH ×3 (09:26→21:38)
[2019-01-20] MEDS: ANALGESIC BALM CRM 120 GM TOP SCH ×3 (09:27→21:39)
[2019-01-20] MEDS: SALIVA SUBSTITUTE(MOUTHKOTE) BTL MT SCH ×4 (09:27→21:39)
[2019-01-20 11:18] LABS: BASO # 0.1 10^3/uL (0.0-0.2); BASO % 0.5 % (0.0-1.0); EOS # 0.2 10^3/uL (0.0-0.5); EOS % 2.3 % (0.0-3.0); HEMATOCRIT 32.3 % (42.0-52.0); LYMPH # 0.9 10^3/uL (1.5-5.0); LYMPH % 9.6 % (24.0-44.0); MEAN CORPUSCULAR HEMOGLOBIN 28.8 pg (27.0-33.0); MEAN CORPUSCULAR HGB CONC 32.5 g/dl (32.0-36.5); MEAN CORPUSCULAR VOLUME 88.5 fl (80.0-96.0); MONO # 0.7 10^3/uL (0.0-0.8); MONO % 7.3 % (0.0-5.0); NEUTROPHILS # 7.3 10^3/uL (1.5-8.5); NEUTROPHILS % 79.6 % (36.0-66.0); PLATELET COUNT, AUTOMATED 432 10^3/uL (150-450); RED BLOOD COUNT 3.65 10^6/uL (4.30-6.10); WHITE BLOOD COUNT 9.2 10^3/uL (4.0-10.0)
[2019-01-20 11:26] LABS: HEMOGLOBIN 10.5 g/dl (13.5-17.5)
[2019-01-20 11:53] LABS: BLOOD UREA NITROGEN 15 MG/DL (7-18); CALCIUM LEVEL 8.6 MG/DL (8.8-10.2); CARBON DIOXIDE LEVEL 25 MEQ/L (21-32); CHLORIDE LEVEL 101 MEQ/L (98-107); CREATININE FOR GFR 0.38 MG/DL (0.70-1.30); GLOMERULAR FILTRATION RATE > 60.0 (>49); GLUCOSE, FASTING 113 MG/DL (70-100); SODIUM LEVEL 135 MEQ/L (136-145)
[2019-01-20] MEDS: FERROUS SULFATE 300MG/5ML UDC LIQUID PEG SCH ×2 (12:23→21:35)
[2019-01-20 14:00] VITALS: BP 152/84
[2019-01-20 14:18] LABS: BODY FLUID CULTURE Not Indicated (.); LEGIONELLA ANTIGEN URINE Negative (Negative); ORGANISM ID Not indicated. (.); SPECIMEN SOURCE Urine (.); URINE STREP PNEUMONIAE ANTIGEN Negative (Negative)
--- NOTE | 2019-01-20 16:30 | REP ---
Examination Requested: Cookie Swallow Reason For Exam: Dysphasia The procedure was performed by MARISOL Bryant, under the direct supervision of Dr. Conde. The procedure was performed with Constance Damon from speech pathology present. 5 ml aliquots of thin, pudding, nectar, honey and crushed pill consistency barium was administered. Aspiration was visualized with thin consistency barium. The detailed report of this examination will be provided by speech pathology. 2.1 minutes of fluoroscopy time was utilized for this procedure. Reviewed by MARISOL Rowell 01/20/2019 03:21 P Electronically Signed by Carlos Conde MD 01/20/2019 04:21 P
--- NOTE | 2019-01-20 18:44 | IPNPDOC ---
PM&R Progress Note DATE OF SERVICE: Jan 19, 2019 Remodeler Progress Note Subjective: Patient seen this morning and agrees to get a blood transfusion. He says his mouth feels better since stopping the scopolamine and he is agreeable to doing the free water protocol. REVIEW OF SYSTEMS: The following is a completed review of systems and has been reviewed. Review of systems otherwise unremarkable. PAIN: Patient self reports neck and low back pain EYES: No recent vision changes EARS, NOSE, & THROAT: +dysphagia CARDIOVASCULAR: Denies chest pain or palpitations PULMONARY: + weak cough GASTROINTESTINAL:+diarrhea GENITOURINARY: +Page for retention MUSCULOSKELETAL: cervical and lumbar stenosis NEUROLOGICAL: +myelopathy, with weakness and fasciculations HEMATOLOGICAL: no easy bruising SKIN: neck incision PSYCHIATRIC: Unremarkable All other review of systems found to be negative. PHYSICAL EXAMINATION: VITAL SIGNS: Please see below. GENERAL: Pleasant and cooperative. No acute distress. HEENT: PERRL. Extraocular movements intact. Clear conjunctiva CARDIOVASCULAR: Regular rate and rhythm. No murmurs, rubs, or gallops LUNGS: +scattered rhonchi, poor inspiratory effort, able to speak in full sentences ABDOMEN: Soft, nontender, nondistended. Positive bowel sounds. Normal active bowel sounds +PEG NEUROLOGICAL: Alert and oriented times three. Cranial nerves II through XII grossly intact, except IX and X. Sensation grossly intact in all 4 extremities to light touch +fasciculations noted bilat UE and tongue, dysarthria EXTREMITIES: 4\5 right upper extremities, however unable to extend fingers, 2/5 left elbow flexor and extension, 3/5 freight manager, 2/5 wrist extension, unable to extend finger, 3/5 strength right lower extremity except 1/5 ankle EHL and DF, 2/5 PF 2/5 strength left lower extremity except 0/5 ankle EHL and DF, 2/5 PF SKIN:cervical incision and PEG incision c/d/i ASSESSMENT:63-year-old M with past medical history of cervical stenosis with myelopathy who presents status post C3-T3 decompression and fusion with new diagnosis of Amyotrophic Lateral Sclerosis. PLAN: 1. 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 Neuro: s/p C3-T3 decompression and fusion with functional tetraplegia- cervical collar to be worn at all times, f/u with neurosurgeon Dr. Liu -new diagnosis of ALS with bulbar features, continue to provide respiratory support and monitor for decline , f/u with patient's neurologist in [place] -patient and asking to start Riluzole, instructed patient's to pick up driver Riluzole from his pharmacy since it is not carried here, explained it may prolong his life by a few months, however has a side of effect of causing interstitial lung disease which needs to be monitored closely especially in the setting of restrictive lung disease with recent PNA 3. Cardio: pmh HTN c/u bp Meds, medicine consulted to assist in management 4. Resp: s/p course Augmentin for aspiration pneumonia, admission CXR positive for LLL infiltrate, no leukocytosis, Xoepenex, Guaifenesin -c/u oral care -will hold scopolamine for increased oral secretions, continue saliva substitute -vital capacity and NIF low, pulmonology recs appreciated, no obvious need for NIMV at this time, will continue to asses and address prn -nocturnal 02 ordered -patient clinically appears stable now and comfortable breathing 5. : question of urinary retention, patient requesting to keep page as he lacks coordination in his right hand at this time to use the urinal- will readdress 6. GI: avoid bowel meds given recent hx of loose stools 7. Pain: Gabapentin, oxycodone, tylenol 8. Heme: Hgb 7.1 will give 2 units of blodd, check FOBT and start iron 9. Hypernatremia: resolved with slow, gentle hydration, will c/u to monitor 10. Psych: 01/26/19 to home with , patient not endorsing depression at this time and is optimistic about his rehab stay, will continue to assess and address prn Allergies Coded Allergies: No Known Drug Allergies (Verified Allergy, Unknown, 01/12/19) Vital Signs Vital Signs Date Time Temp Pulse Resp B/P (MAP) Pulse Ox O2 Delivery O2 Flow Rate FiO2 01/20/19 17:27 86 155/81 01/20/19 14:00 97.8 18 99 Laboratory Data CBC/BMP Laboratory Tests 01/20/19 10:46 Red Blood Count 3.65 L, Mean Corpuscular Volume 88.5, Mean Corpuscular Hemoglobin 28.8, Mean Corpuscular Hemoglobin Concent 32.5, Red Cell Distribution Width 14.9 H, Neutrophils (%) (Auto) 79.6 H, Lymphocytes (%) (Auto) 9.6 L, Monocytes (%) (Auto) 7.3 H, Eosinophils (%) (Auto) 2.3, Basophils (%) (Auto) 0.5, Neutrophils # (Auto) 7.3, Lymphocytes # (Auto) 0.9 L, Monocytes # (Auto) 0.7, Eosinophils # (Auto) 0.2, Basophils # (Auto) 0.1, Calcium Level 8.6 L Labs 24H Laboratory Tests 2 01/20/19 10:46: Immature Granulocyte % (Auto) 0.7, White Blood Count 9.2, Red Blood Count 3.65L, Hemoglobin 10.5#L, Hematocrit 32.3L, Mean Corpuscular Volume 88.5, Mean Corpuscular Hemoglobin 28.8, Mean Corpuscular Hemoglobin Concent 32.5, Red Cell Distribution Width 14.9H, Platelet Count 432, Neutrophils (%) (Auto) 79.6H, Lymphocytes (%) (Auto) 9.6L, Monocytes (%) (Auto) 7.3H, Eosinophils (%) (Auto) 2.3, Basophils (%) (Auto) 0.5, Neutrophils # (Auto) 7.3, Lymphocytes # (Auto) 0.9L, Monocytes # (Auto) 0.7, Eosinophils # (Auto) 0.2, Basophils # (Auto) 0.1, Nucleated Red Blood Cells % (auto) 0.0, Anion Gap 9, Glomerular Filtration Rate > 60.0, Blood Urea Nitrogen 15, Creatinine 0.38L, Sodium Level 135#L, Potassium Level 4.0, Chloride Level 101, Carbon Dioxide Level 25, Calcium Level 8.6L Microbiology Microbiology 01/15/19 Blood Culture - Final, Complete NO GROWTH AFTER 5 DAYS Current Medications Current Medications Current Medications Medications (Trade) Dose Ordered Sig/Kaylen Route PRN Reason Start Time Stop Time Status Last Admin Dose Admin Acetaminophen (Tylenol Tab) 650 mg Q4HP PRN PO MILD PAIN (PS 1-4) 01/12/19 16:15 01/19/19 22:40 Albuterol/ Ipratropium (Duoneb (Ipr 0.5mg/Alb 2.5mg)) 3 ml TID NEB 01/13/19 21:00 Cancel Amoxicillin/ Clavulanate Potassium (Augmentin 250 Mg/5 ml Susp) 500 mg Q12H PEG 01/12/19 21:00 01/15/19 09:01 DC 01/15/19 09:27 Ascorbic Acid (Vitamin C) 500 mg DAILY GT 01/13/19 09:00 01/20/19 09:25 Bisacodyl (Dulcolax Suppository) 10 mg DAILYPRN PRN [place] CONSTIPATION 01/12/19 16:15 Diphenhydramine HCl (Benadryl Elixir) 25 mg QHSP PRN GT INSOMNIA 01/17/19 22:45 01/18/19 10:35 DC 01/17/19 23:49 Diphenhydramine HCl (Benadryl) 25 mg QHS PEG 01/19/19 21:00 01/19/19 22:38 Ferrous Sulfate (Ferrous Sulfate) 300 mg BID PEG 01/20/19 09:00 01/20/19 12:23 Gabapentin (Neurontin) 600 mg TID GT 01/12/19 21:00 01/20/19 17:26 Guaifenesin (Robitussin) 5 ml QID PO 01/12/19 21:00 01/20/19 17:26 Heparin Sodium (Porcine) (Heparin) 5,000 units Q8H SC 01/12/19 22:00 01/20/19 14:33 Home Med (Med Rec Complete!) ASDIRECTED XX 01/12/19 14:45 01/12/19 14:45 DC Levalbuterol HCl (Xopenex Neb) 1.25 mg RTID INH 01/12/19 20:00 01/20/19 13:46 Lisinopril (Prinivil) 10 mg DAILY GT 01/13/19 09:00 01/20/19 09:25 Magnesium Hydroxide (Milk Of Magnesia) 30 ml DAILYPRN PRN GT CONSTIPATION 01/12/19 16:15 Menthol/Methyl Salicylate (Bengay Cream) apply to bilateral shoulders TID TOP 01/14/19 09:00 01/20/19 17:28 Metoprolol Tartrate (Lopressor) 50 mg BID GT 01/12/19 21:00 01/19/19 12:03 DC 01/19/19 09:40 Metoprolol Tartrate (Lopressor) 50 mg TID GT 01/19/19 16:00 01/20/19 17:27 Miscellaneous (Unresolved Patient Own Med Order) SEE LABEL COMMENTS DAILY XX 01/20/19 09:00 Moxifloxacin HCl (Avelox) 400 mg DAILY@06 PO 01/16/19 06:00 01/16/19 06:00 DC Multivitamins (Theragram-M) 1 tab DAILY GT 01/13/19 09:00 01/20/19 09:25 Ondansetron HCl (Zofran Odt) 4 mg Q6HP PRN GT NAUSEA 01/12/19 16:15 Oxycodone HCl (Roxicodone, Oxyir) 10 mg Q4HP PRN GT SEVERE PAIN (PS 8-10) 01/12/19 16:15 01/20/19 04:16 Patient Own Medication (Patient'S Own Med) 50 ea BID GT 01/20/19 21:00 UNV Saliva Substitute (Mouthkote) 2 sprays QID NM 01/14/19 09:00 01/20/19 17:28 Scopolamine (Scopolamine) 1 mg Q72H [facility] 01/13/19 16:15 01/18/19 09:30 DC 01/16/19 16:33 Senna (Senokot) 1 tab QHS GT 01/12/19 21:00 01/16/19 21:58 Vitamin D (Vitamin D) 1,000 units QAM 01/13/19 09:00 01/20/19 09:25 BRUCE CARDOZA MD Jan 20, 2019 18:44
--- NOTE | 2019-01-20 18:48 | IPNPDOC ---
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 He still has back pain and would like muscle rub. REVIEW OF SYSTEMS: The following is a completed review of systems and has been reviewed. Review of systems otherwise unremarkable. PAIN: Patient self reports neck and low back pain EYES: No recent vision changes EARS, NOSE, & THROAT: +dysphagia CARDIOVASCULAR: Denies chest pain or palpitations PULMONARY: + weak cough GASTROINTESTINAL:+diarrhea GENITOURINARY: +Page for retention MUSCULOSKELETAL: cervical and lumbar stenosis NEUROLOGICAL: +myelopathy, with weakness and fasciculations HEMATOLOGICAL: no easy bruising SKIN: neck incision PSYCHIATRIC: Unremarkable All other review of systems found to be negative. PHYSICAL EXAMINATION: VITAL SIGNS: Please see below. GENERAL: Pleasant and cooperative. No acute distress. HEENT: PERRL. Extraocular movements intact. Clear conjunctiva CARDIOVASCULAR: Regular rate and rhythm. No murmurs, rubs, or gallops LUNGS: +scattered rhonchi, poor inspiratory effort, able to speak in full sentences ABDOMEN: Soft, nontender, nondistended. Positive bowel sounds. Normal active bowel sounds +PEG NEUROLOGICAL: Alert and oriented times three. Cranial nerves II through XII grossly intact, except IX and X. Sensation grossly intact in all 4 extremities to light touch +fasciculations noted bilat UE and tongue, dysarthria EXTREMITIES: 4\5 right upper extremities, however unable to extend fingers, 2/5 left elbow flexor and extension, 3/5 promotional advertising assistant, 2/5 wrist extension, unable to extend finger, 3/5 strength right lower extremity except 1/5 ankle EHL and DF, 2/5 PF 2/5 strength left lower extremity except 0/5 ankle EHL and DF, 2/5 PF SKIN:cervical incision and PEG incision c/d/i ASSESSMENT:63-year-old M with past medical history of cervical stenosis with myelopathy who presents status post C3-T3 decompression and fusion with new diagnosis of Amyotrophic Lateral Sclerosis. PLAN: 1. 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 Neuro: s/p C3-T3 decompression and fusion with functional tetraplegia- cervical collar to be worn at all times, f/u with neurosurgeon Dr. Liu -new diagnosis of ALS with bulbar features, continue to provide respiratory support and monitor for decline , f/u with patient's neurologist in [place] -patient and asking to start Riluzole, instructed patient's to pickle sorter Riluzole from his pharmacy since it is not carried here, explained it may prolong his life by a few months, however has a side of effect of causing interstitial lung disease which needs to be monitored closely especially in the setting of restrictive lung disease with recent PNA -will start today Riluzole 50mg BID 3. Cardio: pmh HTN c/u bp Meds, medicine consulted to assist in management 4. Resp: s/p course Augmentin for aspiration pneumonia, admission CXR positive for LLL infiltrate, no leukocytosis, Xoepenex, Guaifenesin -c/u oral care -will hold scopolamine for increased oral secretions, continue saliva substitute -vital capacity and NIF low, pulmonology recs appreciated, no obvious need for NIMV at this time, will continue to asses and address prn -nocturnal 02 ordered -patient clinically appears stable now and comfortable breathing 5. : question of urinary retention, patient requesting to keep page as he lacks coordination in his right hand at this time to use the urinal- will readdress 6. GI: avoid bowel meds given recent hx of loose stools 7. Pain: Gabapentin, oxycodone, tylenol 8. Heme: 01/19/19 Hgb 7.1 s/p 2 units of blood, today 10.5, check FOBT and c/u iron 9. Hypernatremia: resolved with slow, gentle hydration, will c/u to monitor (recent hx of hyponatremia) 10. Psych: 01/26/19 to home with , patient not endorsing depression at this time and is optimistic about his rehab stay, will continue to assess and add ress prn Allergies Coded Allergies: No Known Drug Allergies (Verified Allergy, Unknown, 01/12/19) Vital Signs Vital Signs Date Time Temp Pulse Resp B/P (MAP) Pulse Ox O2 Delivery O2 Flow Rate FiO2 01/20/19 17:27 86 155/81 01/20/19 14:00 97.8 18 99 Laboratory Data CBC/BMP Laboratory Tests 01/20/19 10:46 Red Blood Count 3.65 L, Mean Corpuscular Volume 88.5, Mean Corpuscular Hemoglobin 28.8, Mean Corpuscular Hemoglobin Concent 32.5, Red Cell Distribution Width 14.9 H, Neutrophils (%) (Auto) 79.6 H, Lymphocytes (%) (Auto) 9.6 L, Monocytes (%) (Auto) 7.3 H, Eosinophils (%) (Auto) 2.3, Basophils (%) (Auto) 0.5, Neutrophils # (Auto) 7.3, Lymphocytes # (Auto) 0.9 L, Monocytes # (Auto) 0.7, Eosinophils # (Auto) 0.2, Basophils # (Auto) 0.1, Calcium Level 8.6 L Labs 24H Laboratory Tests 2 01/20/19 10:46: Immature Granulocyte % (Auto) 0.7, White Blood Count 9.2, Red Blood Count 3.65L, Hemoglobin 10.5#L, Hematocrit 32.3L, Mean Corpuscular Volume 88.5, Mean Corpuscular Hemoglobin 28.8, Mean Corpuscular Hemoglobin Concent 32.5, Red Cell Distribution Width 14.9H, Platelet Count 432, Neutrophils (%) (Auto) 79.6H, Lymphocytes (%) (Auto) 9.6L, Monocytes (%) (Auto) 7.3H, Eosinophils (%) (Auto) 2.3, Basophils (%) (Auto) 0.5, Neutrophils # (Auto) 7.3, Lymphocytes # (Auto) 0.9L, Monocytes # (Auto) 0.7, Eosinophils # (Auto) 0.2, Basophils # (Auto) 0.1, Nucleated Red Blood Cells % (auto) 0.0, Anion Gap 9, Glomerular Filtration Rate > 60.0, Blood Urea Nitrogen 15, Creatinine 0.38L, Sodium Level 135#L, Potassium Level 4.0, Chloride Level 101, Carbon Dioxide Level 25, Calcium Level 8.6L Microbiology Microbiology 01/15/19 Blood Culture - Final, Complete NO GROWTH AFTER 5 DAYS Current Medications Current Medications Current Medications Medications (Trade) Dose Ordered Sig/Kaylen Route PRN Reason Start Time Stop Time Status Last Admin Dose Admin Acetaminophen (Tylenol Tab) 650 mg Q4HP PRN PO MILD PAIN (PS 1-4) 01/12/19 16:15 01/19/19 22:40 Albuterol/ Ipratropium (Duoneb (Ipr 0.5mg/Alb 2.5mg)) 3 ml TID NEB 01/13/19 21:00 Cancel Amoxicillin/ Clavulanate Potassium (Augmentin 250 Mg/5 ml Susp) 500 mg Q12H PEG 01/12/19 21:00 01/15/19 09:01 DC 01/15/19 09:27 Ascorbic Acid (Vitamin C) 500 mg DAILY GT 01/13/19 09:00 01/20/19 09:25 Bisacodyl (Dulcolax Suppository) 10 mg DAILYPRN PRN [place] CONSTIPATION 01/12/19 16:15 Diphenhydramine HCl (Benadryl Elixir) 25 mg QHSP PRN GT INSOMNIA 01/17/19 22:45 01/18/19 10:35 DC 01/17/19 23:49 Diphenhydramine HCl (Benadryl) 25 mg QHS PEG 01/19/19 21:00 01/19/19 22:38 Ferrous Sulfate (Ferrous Sulfate) 300 mg BID PEG 01/20/19 09:00 01/20/19 12:23 Gabapentin (Neurontin) 600 mg TID GT 01/12/19 21:00 01/20/19 17:26 Guaifenesin (Robitussin) 5 ml QID PO 01/12/19 21:00 01/20/19 17:26 Heparin Sodium (Porcine) (Heparin) 5,000 units Q8H SC 01/12/19 22:00 01/20/19 14:33 Home Med (Med Rec Complete!) ASDIRECTED XX 01/12/19 14:45 01/12/19 14:45 DC Levalbuterol HCl (Xopenex Neb) 1.25 mg RTID INH 01/12/19 20:00 01/20/19 13:46 Lisinopril (Prinivil) 10 mg DAILY GT 01/13/19 09:00 01/20/19 09:25 Magnesium Hydroxide (Milk Of Magnesia) 30 ml DAILYPRN PRN GT CONSTIPATION 01/12/19 16:15 Menthol/Methyl Salicylate (Bengay Cream) apply to bilateral shoulders TID TOP 01/14/19 09:00 01/20/19 17:28 Metoprolol Tartrate (Lopressor) 50 mg BID GT 01/12/19 21:00 01/19/19 12:03 DC 01/19/19 09:40 Metoprolol Tartrate (Lopressor) 50 mg TID GT 01/19/19 16:00 01/20/19 17:27 Miscellaneous (Unresolved Patient Own Med Order) SEE LABEL COMMENTS DAILY XX 01/20/19 09:00 Moxifloxacin HCl (Avelox) 400 mg DAILY@06 PO 01/16/19 06:00 01/16/19 06:00 DC Multivitamins (Theragram-M) 1 tab DAILY GT 01/13/19 09:00 01/20/19 09:25 Ondansetron HCl (Zofran Odt) 4 mg Q6HP PRN GT NAUSEA 01/12/19 16:15 Oxycodone HCl (Roxicodone, Oxyir) 10 mg Q4HP PRN GT SEVERE PAIN (PS 8-10) 01/12/19 16:15 01/20/19 04:16 Patient Own Medication (Patient'S Own Med) 50 ea BID GT 01/20/19 21:00 UNV Saliva Substitute (Mouthkote) 2 sprays QID MT 01/14/19 09:00 01/20/19 17:28 Scopolamine (Scopolamine) 1 mg Q72H TOP 01/13/19 16:15 01/18/19 09:30 DC 01/16/19 16:33 Senna (Senokot) 1 tab QHS GT 01/12/19 21:00 01/16/19 21:58 Vitamin D (Vitamin D) 1,000 units QAM GT 01/13/19 09:00 01/20/19 09:25 BRUCE CARDOZA MD Jan 20, 2019 18:47
[2019-01-20 20:00] VITALS: BP 130/77
[2019-01-20] MEDS: SENNA 8.6 MG TAB (SENOKOT) GT SCH (21:36)
[2019-01-20] MEDS: RILUZOLE 50 MG GT SCH (21:36)
[2019-01-20] MEDS: diphenhydrAMINE 25 MG CAP PEG SCH (21:38)
[2019-01-21] MEDS: oxyCODONE 5MG TAB GT PRN ×4 (02:36→21:35)
[2019-01-21 04:00] VITALS: BP 171/85
[2019-01-21] MEDS: HEPARIN SOD (PORCINE) 5000 UNITS/ML VIAL SC SCH ×3 (06:02→21:33)
[2019-01-21 08:02] LABS: BLOOD UREA NITROGEN 11 MG/DL (7-18); CALCIUM LEVEL 8.7 MG/DL (8.8-10.2); CARBON DIOXIDE LEVEL 26 MEQ/L (21-32); CHLORIDE LEVEL 99 MEQ/L (98-107); CREATININE FOR GFR 0.39 MG/DL (0.70-1.30); GLOMERULAR FILTRATION RATE > 60.0 (>49); GLUCOSE, FASTING 110 MG/DL (70-100); POTASSIUM SERUM 3.7 MEQ/L (3.5-5.1); SODIUM LEVEL 135 MEQ/L (136-145)
[2019-01-21] MEDS: LEVALBUTEROL 1.25 MG/0.5 ML CONCENTRATE NEB INH SCH ×3 (08:05→19:13)
[2019-01-21] MEDS: FERROUS SULFATE 300MG/5ML UDC LIQUID PEG SCH ×2 (08:47→21:33)
[2019-01-21] MEDS: VITAMIN D 1,000 INTERNATIONAL UNITS TABLET GT SCH (08:48)
[2019-01-21] MEDS: guaiFENesin SYRUP 200 MG/10 ML UDC PO SCH ×4 (08:48→21:33)
[2019-01-21] MEDS: ASCORBIC ACID 500 MG TAB GT SCH (08:48)
[2019-01-21] MEDS: MULTIVITAMINS/MINERALS THERAP 1 TAB GT SCH (08:48)
[2019-01-21] MEDS: SALIVA SUBSTITUTE(MOUTHKOTE) BTL MT SCH ×4 (08:49→21:36)
[2019-01-21] MEDS: LISINOPRIL 10 MG TAB GT SCH (08:49)
[2019-01-21] MEDS: GABAPENTIN 300 MG CAP GT SCH ×3 (08:49→21:34)
[2019-01-21] MEDS: METOPROLOL TART 50 MG TAB GT SCH (08:49)
[2019-01-21] MEDS: RILUZOLE 50 MG GT SCH ×2 (08:49→21:38)
[2019-01-21] MEDS: ANALGESIC BALM CRM 120 GM TOP SCH ×3 (08:50→21:37)
[2019-01-21 14:00] VITALS: BP 146/69
[2019-01-21] MEDS: METOPROLOL TART 25 MG TABLET GT SCH ×2 (17:42→21:34)
[2019-01-21 20:00] VITALS: BP 137/79
[2019-01-21] MEDS: diphenhydrAMINE 25 MG CAP PEG SCH (21:36)
[2019-01-21] MEDS: SENNA 8.6 MG TAB (SENOKOT) GT SCH (21:36)
[2019-01-22] MEDS: oxyCODONE 5MG TAB GT PRN ×3 (01:39→21:32)
[2019-01-22] MEDS: HEPARIN SOD (PORCINE) 5000 UNITS/ML VIAL SC SCH ×3 (05:55→21:31)
[2019-01-22 06:00] VITALS: BP 144/71
[2019-01-22 06:54] LABS: BASO % 0.4 % (0.0-1.0); EOS # 0.2 10^3/uL (0.0-0.5); HEMATOCRIT 34.9 % (42.0-52.0); HEMOGLOBIN 11.3 g/dl (13.5-17.5); LYMPH % 13.1 % (24.0-44.0); MEAN CORPUSCULAR HEMOGLOBIN 29.4 pg (27.0-33.0); MEAN CORPUSCULAR HGB CONC 32.4 g/dl (32.0-36.5); MEAN CORPUSCULAR VOLUME 90.6 fl (80.0-96.0); MONO # 0.6 10^3/uL (0.0-0.8); MONO % 8.2 % (0.0-5.0); NEUTROPHILS # 5.5 10^3/uL (1.5-8.5); NEUTROPHILS % 74.5 % (36.0-66.0); PLATELET COUNT, AUTOMATED 347 10^3/uL (150-450); RED BLOOD COUNT 3.85 10^6/uL (4.30-6.10); WHITE BLOOD COUNT 7.4 10^3/uL (4.0-10.0)
[2019-01-22 07:10] LABS: BLOOD UREA NITROGEN 9 MG/DL (7-18); CALCIUM LEVEL 9.5 MG/DL (8.8-10.2); CARBON DIOXIDE LEVEL 26 MEQ/L (21-32); CHLORIDE LEVEL 101 MEQ/L (98-107); CREATININE FOR GFR 0.34 MG/DL (0.70-1.30); GLOMERULAR FILTRATION RATE > 60.0 (>49); GLUCOSE, FASTING 113 MG/DL (70-100); POTASSIUM SERUM 3.8 MEQ/L (3.5-5.1); SODIUM LEVEL 134 MEQ/L (136-145)
[2019-01-22] MEDS: LEVALBUTEROL 1.25 MG/0.5 ML CONCENTRATE NEB INH SCH ×3 (07:42→18:35)
[2019-01-22] MEDS: ANALGESIC BALM CRM 120 GM TOP SCH ×3 (09:00→21:36)
[2019-01-22] MEDS: FERROUS SULFATE 300MG/5ML UDC LIQUID PEG SCH ×2 (09:41→21:29)
[2019-01-22] MEDS: guaiFENesin SYRUP 200 MG/10 ML UDC PO SCH ×4 (09:43→21:30)
[2019-01-22] MEDS: GABAPENTIN 300 MG CAP GT SCH ×3 (09:44→21:32)
[2019-01-22] MEDS: ASCORBIC ACID 500 MG TAB GT SCH (09:44)
[2019-01-22] MEDS: VITAMIN D 1,000 INTERNATIONAL UNITS TABLET GT SCH (09:44)
[2019-01-22] MEDS: LISINOPRIL 20 MG TAB GT SCH (09:44)
[2019-01-22] MEDS: RILUZOLE 50 MG GT SCH ×2 (09:44→21:38)
[2019-01-22] MEDS: MULTIVITAMINS/MINERALS THERAP 1 TAB GT SCH (09:44)
[2019-01-22] MEDS: METOPROLOL TART 25 MG TABLET GT SCH ×3 (09:45→21:35)
[2019-01-22] MEDS: SALIVA SUBSTITUTE(MOUTHKOTE) BTL MT SCH ×4 (09:45→21:36)
--- NOTE | 2019-01-22 13:17 | IPNPDOC ---
PM&R Progress Note DATE OF SERVICE: Jan 21, 2019 Environmental Permitting Specialist Progress Note Subjective: Patient seen this morning stating he is agreeable to starting to try ad void on his own, but would like to try tomorrow. REVIEW OF SYSTEMS: The following is a completed review of systems and has been reviewed. Review of systems otherwise unremarkable. PAIN: Patient self reports neck and low back pain EYES: No recent vision changes EARS, NOSE, & THROAT: +dysphagia CARDIOVASCULAR: Denies chest pain or palpitations PULMONARY: + weak cough GASTROINTESTINAL:+loose stools GENITOURINARY: +Page for retention MUSCULOSKELETAL: cervical and lumbar stenosis NEUROLOGICAL: +myelopathy, with weakness and fasciculations HEMATOLOGICAL: no easy bruising SKIN: neck incision PSYCHIATRIC: Unremarkable All other review of systems found to be negative. PHYSICAL EXAMINATION: VITAL SIGNS: Please see below. GENERAL: Pleasant and cooperative. No acute distress. HEENT: PERRL. Extraocular movements intact. Clear conjunctiva CARDIOVASCULAR: Regular rate and rhythm. No murmurs, rubs, or gallops LUNGS: +scattered rhonchi, poor inspiratory effort, able to speak in full sentences ABDOMEN: Soft, nontender, nondistended. Positive bowel sounds. Normal active bowel sounds +PEG NEUROLOGICAL: Alert and oriented times three. Cranial nerves II through XII grossly intact, except IX and X. Sensation grossly intact in all 4 extremities to light touch +fasciculations noted bilat UE and tongue, dysarthria EXTREMITIES: 4\5 right upper extremities, however unable to extend fingers, 2/5 left elbow flexor and extension, 3/5 supervisor production managing, 2/5 wrist extension, unable to extend finger, 3/5 strength right lower extremity except 1/5 ankle EHL and DF, 2/5 PF 2/5 strength left lower extremity except 0/5 ankle EHL and DF, 2/5 PF SKIN:cervical incision and PEG incision c/d/i ASSESSMENT:63-year-old M with past medical history of cervical stenosis with myelopathy who presents status post C3-T3 decompression and fusion with new diagnosis of Amyotrophic Lateral Sclerosis. PLAN: 1. Rehab: PT- strengthen, maintain ROM bilat LE, advance functional transfers, utilize energy conservation techniques OT-strengthen, maintain ROM bilat UE, c/u to use resting hand splints, advance bed mobility and ADL management, utilize energy conservation techniques- PERSONNEL SECURITY ASSISTANT- -c/u free water protocol, [facility] 9/25/19, as per PERSONNEL SECURITY ASSISTANT will avoid pleasure feeds as he is inconsistent with even wetter puree foods, c/u free water protocol, to be trained next week by PERSONNEL SECURITY ASSISTANT prior to discharge 2. Neuro: s/p C3-T3 decompression and fusion with functional tetraplegia- cervical collar to be worn at all times, f/u with neurosurgeon Dr. Liu -new diagnosis of ALS with bulbar features, continue to provide respiratory support and monitor for decline , f/u with patient's neurologist in [place] -patient and asking to start Riluzole, instructed patient's to last picker Riluzole from his pharmacy since it is not carried here, explained it may prolong his life by a few months, however has a side of effect of causing interstitial lung disease which needs to be monitored closely especially in the setting of restrictive lung disease with recent PNA -c/u Riluzole 50mg BID 3. Cardio: pmh HTN c/u bp Meds, medicine consulted to assist in management 4. Resp: s/p course Augmentin for aspiration pneumonia, admission CXR positive for LLL infiltrate, no leukocytosis, Xoepenex, Guaifenesin -c/u oral care -will hold scopolamine for increased oral secretions, continue saliva substitute -vital capacity and NIF low, pulmonology recs appreciated, no obvious need for NIMV at this time, will continue to asses and address prn -nocturnal 02 ordered -patient clinically appears stable now and comfortable breathing 5. : question of urinary retention, discussed with patient will trial without page starting tomorrow and work on coordination in his right hand to use the urinal- 6. GI: avoid bowel meds given recent hx of loose stools 7. Pain: Gabapentin, oxycodone, tylenol 8. Heme: 01/19/19 Hgb 7.1 s/p 2 units up to 10.5, check FOBT and c/u iron-stable 9. Hypernatremia: resolved with slow, gentle hydration, will c/u to monitor now with borderline hyponatremia- will decrease h20 flushes 10. Psych: 01/26/19 to home with , patient not endorsing depression at this time and is optimistic about his rehab stay, will continue to assess and address prn Allergies Coded Allergies: No Known Drug Allergies (Verified Allergy, Unknown, 01/12/19) Vital Signs Vital Signs Date Time Temp Pulse Resp B/P (MAP) Pulse Ox O2 Delivery O2 Flow Rate FiO2 01/22/19 12:34 16 01/22/19 09:44 124/86 01/22/19 06:00 98.8 74 96 01/21/19 19:14 Room Air Laboratory Data CBC/BMP Laboratory Tests 01/22/19 06:23 Red Blood Count 3.85 L, Mean Corpuscular Volume 90.6, Mean Corpuscular Hemoglobin 29.4, Mean Corpuscular Hemoglobin Concent 32.4, Red Cell Distribution Width 14.8 H, Neutrophils (%) (Auto) 74.5 H, Lymphocytes (%) (Auto) 13.1 L, Monocytes (%) (Auto) 8.2 H, Eosinophils (%) (Auto) 2.0, Basophils (%) (Auto) 0.4, Neutrophils # (Auto) 5.5, Lymphocytes # (Auto) 1.0 L, Monocytes # (Auto) 0.6, Eosinophils # (Auto) 0.2, Basophils # (Auto) 0.0, Calcium Level 9.5 Labs 24H Laboratory Tests 2 01/22/19 06:23: Immature Granulocyte % (Auto) 1.8, White Blood Count 7.4, Red Blood Count 3.85L, Hemoglobin 11.3L, Hematocrit 34.9L, Mean Corpuscular Volume 90.6, Mean Corpuscular Hemoglobin 29.4, Mean Corpuscular Hemoglobin Concent 32.4, Red Cell Distribution Width 14.8H, Platelet Count 347, Neutrophils (%) (Auto) 74.5H, Lymphocytes (%) (Auto) 13.1L, Monocytes (%) (Auto) 8.2H, Eosinophils (%) (Auto) 2.0, Basophils (%) (Auto) 0.4, Neutrophils # (Auto) 5.5, Lymphocytes # (Auto) 1.0L, Monocytes # (Auto) 0.6, Eosinophils # (Auto) 0.2, Basophils # (Auto) 0.0, Nucleated Red Blood Cells % (auto) 0.0, Anion Gap 7L, Glomerular Filtration Rate > 60.0, Blood Urea Nitrogen 9, Creatinine 0.34L, Sodium Level 134L, Potassium Level 3.8, Chloride Level 101, Carbon Dioxide Level 26, Calcium Level 9.5 Microbiology Microbiology 01/15/19 Blood Culture - Final, Complete NO GROWTH AFTER 5 DAYS Current Medications Current Medications Current Medications Medications (Trade) Dose Ordered Sig/Kaylen Route PRN Reason Start Time Stop Time Status Last Admin Dose Admin Acetaminophen (Tylenol Tab) 650 mg Q4HP PRN PO MILD PAIN (PS 1-4) 01/12/19 16:15 01/19/19 22:40 Albuterol/ Ipratropium (Duoneb (Ipr 0.5mg/Alb 2.5mg)) 3 ml TID NEB 01/13/19 21:00 Cancel Amoxicillin/ Clavulanate Potassium (Augmentin 250 Mg/5 ml Susp) 500 mg Q12H PEG 01/12/19 21:00 01/15/19 09:01 DC 01/15/19 09:27 Ascorbic Acid (Vitamin C) 500 mg DAILY GT 01/13/19 09:00 01/22/19 09:44 Bisacodyl (Dulcolax Suppository) 10 mg DAILYPRN PRN [place] CONSTIPATION 01/12/19 16:15 Diphenhydramine HCl (Benadryl Elixir) 25 mg QHSP PRN GT INSOMNIA 01/17/19 22:45 01/18/19 10:35 DC 01/17/19 23:49 Diphenhydramine HCl (Benadryl) 25 mg QHS PEG 01/19/19 21:00 01/21/19 21:36 Ferrous Sulfate (Ferrous Sulfate) 300 mg BID PEG 01/20/19 09:00 01/22/19 09:41 Gabapentin (Neurontin) 600 mg TID GT 01/12/19 21:00 01/22/19 09:44 Guaifenesin (Robitussin) 5 ml QID PO 01/12/19 21:00 01/22/19 12:33 Heparin Sodium (Porcine) (Heparin) 5,000 units Q8H SC 01/12/19 22:00 01/22/19 05:55 Home Med (Med Rec Complete!) ASDIRECTED XX 01/12/19 14:45 01/12/19 14:45 DC Levalbuterol HCl (Xopenex Neb) 1.25 mg RTID INH 01/12/19 20:00 01/22/19 13:05 Lisinopril (Prinivil) 10 mg DAILY GT 01/13/19 09:00 01/21/19 15:08 DC 01/21/19 08:49 Lisinopril (Prinivil) 20 mg DAILY GT 01/22/19 09:00 01/22/19 09:44 Magnesium Hydroxide (Milk Of Magnesia) 30 ml DAILYPRN PRN [place] CONSTIPATION 01/12/19 16:15 Menthol/Methyl Salicylate (Bengay Cream) apply to bilateral shoulders TID TOP 01/14/19 09:00 01/22/19 09:00 Metoprolol Tartrate (Lopressor) 50 mg BID GT 01/12/19 21:00 01/19/19 12:03 DC 01/19/19 09:40 Metoprolol Tartrate (Lopressor) 50 mg TID GT 01/19/19 16:00 01/21/19 15:08 DC 01/21/19 08:49 Metoprolol Tartrate (Lopressor) 75 mg TID GT 01/21/19 16:00 01/22/19 09:45 Miscellaneous (Unresolved Patient Own Med Order) SEE LABEL COMMENTS DAILY XX 01/20/19 09:00 01/20/19 20:14 DC Moxifloxacin HCl (Avelox) 400 mg DAILY@06 PO 01/16/19 06:00 01/16/19 06:00 DC Multivitamins (Theragram-M) 1 tab DAILY GT 01/13/19 09:00 01/22/19 09:44 Ondansetron HCl (Zofran Odt) 4 mg Q6HP PRN GT NAUSEA 01/12/19 16:15 Oxycodone HCl (Roxicodone, Oxyir) 10 mg Q4HP PRN GT SEVERE PAIN (PS 8-10) 01/12/19 16:15 01/22/19 12:34 Patient Own Medication (Patient'S Own Med) 50MG BID GT 01/20/19 21:00 01/22/19 09:44 Saliva Substitute (Mouthkote) 2 sprays QID [place] 01/14/19 09:00 01/22/19 12:33 Scopolamine (Scopolamine) 1 mg Q72H TOP 01/13/19 16:15 01/18/19 09:30 DC 01/16/19 16:33 Senna (Senokot) 1 tab [facility] 01/12/19 21:00 01/21/19 21:36 Vitamin D (Vitamin D) 1,000 units [facility] 01/13/19 09:00 01/22/19 09:44 BRUCE CARDOZA MD Jan 22, 2019 13:17
--- NOTE | 2019-01-22 13:27 | IPNPDOC ---
PM&R Progress Note DATE OF SERVICE: Jan 22, 2019 Director Of Finance Progress Note Subjective: Patient seen this morning reporting he is in good spirits, is ready for the voiding trial today and is asking for a beer. REVIEW OF SYSTEMS: The following is a completed review of systems and has been reviewed. Review of systems otherwise unremarkable. PAIN: Patient self reports neck and low back pain EYES: No recent vision changes EARS, NOSE, & THROAT: +dysphagia CARDIOVASCULAR: Denies chest pain or palpitations PULMONARY: + weak cough GASTROINTESTINAL:+loose stools GENITOURINARY: +Page for retention MUSCULOSKELETAL: cervical and lumbar stenosis NEUROLOGICAL: +myelopathy, with weakness and fasciculations HEMATOLOGICAL: no easy bruising SKIN: neck incision PSYCHIATRIC: Unremarkable All other review of systems found to be negative. PHYSICAL EXAMINATION: VITAL SIGNS: Please see below. GENERAL: Pleasant and cooperative. No acute distress. HEENT: PERRL. Extraocular movements intact. Clear conjunctiva CARDIOVASCULAR: Regular rate and rhythm. No murmurs, rubs, or gallops LUNGS: +scattered rhonchi, poor inspiratory effort, able to speak in full sentences ABDOMEN: Soft, nontender, nondistended. Positive bowel sounds. Normal active bowel sounds +PEG NEUROLOGICAL: Alert and oriented times three. Cranial nerves II through XII grossly intact, except IX and X. Sensation grossly intact in all 4 extremities to light touch +fasciculations noted bilat UE and tongue, dysarthria EXTREMITIES: 4\5 right upper extremities, however unable to extend fingers, 2/5 left elbow flexor and extension, 3/5 spray dry operator, 2/5 wrist extension, unable to extend finger, 3/5 strength right lower extremity except 1/5 ankle EHL and DF, 2/5 PF 2/5 strength left lower extremity except 0/5 ankle EHL and DF, 2/5 PF SKIN:cervical incision and PEG incision c/d/i ASSESSMENT:63-year-old M with past medical history of cervical stenosis with myelopathy who presents status post C3-T3 decompression and fusion with new diagnosis of Amyotrophic Lateral Sclerosis. PLAN: 1. Rehab: PT- strengthen, maintain ROM bilat LE, advance functional transfers, utilize energy conservation techniques OT-strengthen, maintain ROM bilat UE, c/u to use resting hand splints, advance bed mobility and ADL management, utilize energy conservation techniques- HOSPICE LIAISON- -c/u free water protocol, [facility] 01/20/19, as per HOSPICE LIAISON will avoid pleasure feeds as he is inconsistent with even wetter puree foods, c/u free water protocol, to be trained next week by HOSPICE LIAISON prior to discharge 2. Neuro: s/p C3-T3 decompression and fusion with functional tetraplegia- cervical collar to be worn at all times, f/u with neurosurgeon Dr. Liu -new diagnosis of ALS with bulbar features, continue to provide respiratory support and monitor for decline , f/u with patient's neurologist in [place] -patient and asking to start Riluzole, instructed patient's to pickle processor Riluzole from his pharmacy since it is not carried here, explained it may prolong his life by a few months, however has a side of effect of causing interstitial lung disease which needs to be monitored closely especially in the setting of restrictive lung disease with recent PNA -c/u Riluzole 50mg BID 3. Cardio: pmh HTN c/u bp Meds, medicine consulted to assist in management 4. Resp: s/p course Augmentin for aspiration pneumonia, admission CXR positive for LLL infiltrate, no leukocytosis, Xoepenex, Guaifenesin -c/u oral care -will hold scopolamine for increased oral secretions, continue saliva substitute -vital capacity and NIF low, pulmonology recs appreciated, no obvious need for NIMV at this time, will continue to asses and address prn -nocturnal 02 ordered -patient clinically appears stable now and comfortable breathing 5. : question of urinary retention, d/c page today will address coordination of his right hand to use the urinal in therapy- 6. GI: avoid bowel meds given recent hx of loose stools 7. Pain: Gabapentin, oxycodone, tylenol 8. Heme: 01/19/19 Hgb 7.1 s/p 2 units up to 10.5, check FOBT and c/u iron-stable 9. Hypernatremia: resolved with slow, gentle hydration, will c/u to monitor now with borderline hyponatremia- will decrease h20 flushes 10. Psych: 01/26/19 to home with , patient not endorsing depression at this time and is optimistic about his rehab stay, will continue to assess and a ddress prn Allergies Coded Allergies: No Known Drug Allergies (Verified Allergy, Unknown, 01/12/19) Vital Signs Vital Signs Date Time Temp Pulse Resp B/P (MAP) Pulse Ox O2 Delivery O2 Flow Rate FiO2 01/22/19 13:04 16 01/22/19 09:44 124/86 01/22/19 06:00 98.8 74 96 01/21/19 19:14 Room Air Laboratory Data CBC/BMP Laboratory Tests 01/22/19 06:23 Red Blood Count 3.85 L, Mean Corpuscular Volume 90.6, Mean Corpuscular Hemoglobin 29.4, Mean Corpuscular Hemoglobin Concent 32.4, Red Cell Distribution Width 14.8 H, Neutrophils (%) (Auto) 74.5 H, Lymphocytes (%) (Auto) 13.1 L, Monocytes (%) (Auto) 8.2 H, Eosinophils (%) (Auto) 2.0, Basophils (%) (Auto) 0.4, Neutrophils # (Auto) 5.5, Lymphocytes # (Auto) 1.0 L, Monocytes # (Auto) 0.6, Eosinophils # (Auto) 0.2, Basophils # (Auto) 0.0, Calcium Level 9.5 Labs 24H Laboratory Tests 2 01/22/19 06:23: Immature Granulocyte % (Auto) 1.8, White Blood Count 7.4, Red Blood Count 3.85L, Hemoglobin 11.3L, Hematocrit 34.9L, Mean Corpuscular Volume 90.6, Mean Corpusc ular Hemoglobin 29.4, Mean Corpuscular Hemoglobin Concent 32.4, Red Cell Distribution Width 14.8H, Platelet Count 347, Neutrophils (%) (Auto) 74.5H, Lymphocytes (%) (Auto) 13.1L, Monocytes (%) (Auto) 8.2H, Eosinophils (%) (Auto) 2.0, Basophils (%) (Auto) 0.4, Neutrophils # (Auto) 5.5, Lymphocytes # (Auto) 1.0L, Monocytes # (Auto) 0.6, Eosinophils # (Auto) 0.2, Basophils # (Auto) 0.0, Nucleated Red Blood Cells % (auto) 0.0, Anion Gap 7L, Glomerular Filtration Rate > 60.0, Blood Urea Nitrogen 9, Creatinine 0.34L, Sodium Level 134L, Potassium Level 3.8, Chloride Level 101, Carbon Dioxide Level 26, Calcium Level 9.5 Microbiology Microbiology 9/20/19 Blood Culture - Final, Complete NO GROWTH AFTER 5 DAYS Current Medications Current Medications Current Medications Medications (Trade) Dose Ordered Sig/Kaylen Route PRN Reason Start Time Stop Time Status Last Admin Dose Admin Acetaminophen (Tylenol Tab) 650 mg Q4HP PRN PO MILD PAIN (PS 1-4) 01/12/19 16:15 01/19/19 22:40 Albuterol/ Ipratropium (Duoneb (Ipr 0.5mg/Alb 2.5mg)) 3 ml TID NEB 01/13/19 21:00 Cancel Amoxicillin/ Clavulanate Potassium (Augmentin 250 Mg/5 ml Susp) 500 mg Q12H PEG 01/12/19 21:00 01/15/19 09:01 DC 01/15/19 09:27 Ascorbic Acid (Vitamin C) 500 mg DAILY GT 01/13/19 09:00 01/22/19 09:44 Bisacodyl (Dulcolax Suppository) 10 mg DAILYPRN PRN [place] CONSTIPATION 01/12/19 16:15 Diphenhydramine HCl (Benadryl Elixir) 25 mg QHSP PRN GT INSOMNIA 01/17/19 22:45 01/18/19 10:35 DC 01/17/19 23:49 Diphenhydramine HCl (Benadryl) 25 mg QHS PEG 01/19/19 21:00 01/21/19 21:36 Ferrous Sulfate (Ferrous Sulfate) 300 mg BID PEG 01/20/19 09:00 01/22/19 09:41 Gabapentin (Neurontin) 600 mg TID GT 01/12/19 21:00 01/22/19 09:44 Guaifenesin (Robitussin) 5 ml QID PO 01/12/19 21:00 01/22/19 12:33 Heparin Sodium (Porcine) (Heparin) 5,000 units Q8H SC 01/12/19 22:00 01/22/19 05:55 Home Med (Med Rec Complete!) ASDIRECTED XX 01/12/19 14:45 01/12/19 14:45 DC Levalbuterol HCl (Xopenex Neb) 1.25 mg RTID INH 01/12/19 20:00 01/22/19 13:05 Lisinopril (Prinivil) 10 mg DAILY GT 01/13/19 09:00 01/21/19 15:08 DC 01/21/19 08:49 Lisinopril (Prinivil) 20 mg DAILY GT 01/22/19 09:00 01/22/19 09:44 Magnesium Hydroxide (Milk Of Magnesia) 30 ml DAILYPRN PRN [place] CONSTIPATION 01/12/19 16:15 Menthol/Methyl Salicylate (Bengay Cream) apply to bilateral shoulders TID TOP 01/14/19 09:00 01/22/19 09:00 Metoprolol Tartrate (Lopressor) 50 mg BID GT 01/12/19 21:00 01/19/19 12:03 DC 01/19/19 09:40 Metoprolol Tartrate (Lopressor) 50 mg TID GT 01/19/19 16:00 01/21/19 15:08 DC 01/21/19 08:49 Metoprolol Tartrate (Lopressor) 75 mg TID GT 01/21/19 16:00 01/22/19 09:45 Miscellaneous (Unresolved Patient Own Med Order) SEE LABEL COMMENTS DAILY XX 01/20/19 09:00 01/20/19 20:14 DC Moxifloxacin HCl (Avelox) 400 mg DAILY@06 PO 01/16/19 06:00 01/16/19 06:00 DC Multivitamins (Theragram-M) 1 tab DAILY GT 01/13/19 09:00 01/22/19 09:44 Ondansetron HCl (Zofran Odt) 4 mg Q6HP PRN GT NAUSEA 01/12/19 16:15 Oxycodone HCl (Roxicodone, Oxyir) 10 mg Q4HP PRN GT SEVERE PAIN (PS 8-10) 01/12/19 16:15 01/22/19 12:34 Patient Own Medication (Patient'S Own Med) 50MG BID GT 01/20/19 21:00 01/22/19 09:44 Saliva Substitute (Mouthkote) 2 sprays QID [place] 01/14/19 09:00 01/22/19 12:33 Scopolamine (Scopolamine) 1 mg Q72H TOP 01/13/19 16:15 01/18/19 09:30 DC 01/16/19 16:33 Senna (Senokot) 1 tab QHS GT 01/12/19 21:00 01/21/19 21:36 Vitamin D (Vitamin D) 1,000 units [facility] 01/13/19 09:00 01/22/19 09:44 BRUCE CARDOZA MD Jan 22, 2019 13:27
[2019-01-22 13:35] VITALS: BP 124/71
[2019-01-22 20:00] VITALS: BP 163/76
[2019-01-22] MEDS: diphenhydrAMINE 25 MG CAP PEG SCH (21:33)
[2019-01-22] MEDS: SENNA 8.6 MG TAB (SENOKOT) GT SCH (21:35)
[2019-01-23] MEDS: oxyCODONE 5MG TAB GT PRN ×4 (02:34→20:49)
[2019-01-23 04:00] VITALS: BP 164/72
[2019-01-23] MEDS: HEPARIN SOD (PORCINE) 5000 UNITS/ML VIAL SC SCH ×3 (06:10→20:50)
[2019-01-23 07:21] LABS: BLOOD UREA NITROGEN 11 MG/DL (7-18); CALCIUM LEVEL 9.2 MG/DL (8.8-10.2); CARBON DIOXIDE LEVEL 25 MEQ/L (21-32); CHLORIDE LEVEL 99 MEQ/L (98-107); CREATININE FOR GFR 0.38 MG/DL (0.70-1.30); GLOMERULAR FILTRATION RATE > 60.0 (>49); GLUCOSE, FASTING 112 MG/DL (70-100); POTASSIUM SERUM 3.6 MEQ/L (3.5-5.1); SODIUM LEVEL 132 MEQ/L (136-145)
[2019-01-23] MEDS: LEVALBUTEROL 1.25 MG/0.5 ML CONCENTRATE NEB INH SCH ×3 (07:45→19:58)
[2019-01-23] MEDS: MULTIVITAMINS/MINERALS THERAP 1 TAB GT SCH (09:31)
[2019-01-23] MEDS: LISINOPRIL 20 MG TAB GT SCH (09:31)
[2019-01-23] MEDS: ASCORBIC ACID 500 MG TAB GT SCH (09:31)
[2019-01-23] MEDS: VITAMIN D 1,000 INTERNATIONAL UNITS TABLET GT SCH (09:31)
[2019-01-23] MEDS: GABAPENTIN 300 MG CAP GT SCH ×3 (09:31→20:47)
[2019-01-23] MEDS: FERROUS SULFATE 300MG/5ML UDC LIQUID PEG SCH ×2 (09:32→20:47)
[2019-01-23] MEDS: METOPROLOL TART 25 MG TABLET GT SCH ×3 (09:32→20:50)
[2019-01-23] MEDS: ANALGESIC BALM CRM 120 GM TOP SCH ×3 (09:32→20:49)
[2019-01-23] MEDS: SALIVA SUBSTITUTE(MOUTHKOTE) BTL MT SCH ×4 (09:32→20:49)
[2019-01-23] MEDS: guaiFENesin SYRUP 200 MG/10 ML UDC PO SCH ×4 (09:32→20:47)
[2019-01-23] MEDS: RILUZOLE 50 MG GT SCH ×2 (09:33→20:47)
[2019-01-23 14:00] VITALS: BP 111/62
[2019-01-23] MEDS: SODIUM CHLORIDE 1 GM TAB GT SCH ×2 (16:01→20:48)
[2019-01-23 20:00] VITALS: BP 147/70
[2019-01-23] MEDS: SENNA 8.6 MG TAB (SENOKOT) GT SCH (20:49)
[2019-01-23] MEDS: diphenhydrAMINE 25 MG CAP PEG SCH (20:49)
[2019-01-24] MEDS: oxyCODONE 5MG TAB GT PRN ×3 (00:45→16:50)
[2019-01-24] MEDS: HEPARIN SOD (PORCINE) 5000 UNITS/ML VIAL SC SCH ×3 (06:05→22:11)
[2019-01-24] MEDS: LEVALBUTEROL 1.25 MG/0.5 ML CONCENTRATE NEB INH SCH ×3 (07:10→19:48)
[2019-01-24] MEDS: GABAPENTIN 300 MG CAP GT SCH ×3 (08:27→22:08)
[2019-01-24] MEDS: guaiFENesin SYRUP 200 MG/10 ML UDC PO SCH ×4 (08:27→22:10)
[2019-01-24] MEDS: FERROUS SULFATE 300MG/5ML UDC LIQUID PEG SCH ×2 (08:27→21:00)
[2019-01-24] MEDS: ASCORBIC ACID 500 MG TAB GT SCH (08:27)
[2019-01-24] MEDS: VITAMIN D 1,000 INTERNATIONAL UNITS TABLET GT SCH (08:27)
[2019-01-24] MEDS: SODIUM CHLORIDE 1 GM TAB GT SCH ×3 (08:28→22:09)
[2019-01-24] MEDS: METOPROLOL TART 25 MG TABLET GT SCH ×3 (08:28→22:08)
[2019-01-24] MEDS: MULTIVITAMINS/MINERALS THERAP 1 TAB GT SCH (08:28)
[2019-01-24] MEDS: ANALGESIC BALM CRM 120 GM TOP SCH ×3 (08:28→22:10)
[2019-01-24] MEDS: LISINOPRIL 20 MG TAB GT SCH (08:28)
[2019-01-24] MEDS: RILUZOLE 50 MG GT SCH ×2 (08:29→22:09)
[2019-01-24] MEDS: SALIVA SUBSTITUTE(MOUTHKOTE) BTL MT SCH ×4 (08:29→22:09)
--- NOTE | 2019-01-24 10:17 | IPNPDOC ---
Text Note Date of Service The patient was seen on 01/20/19. NOTE SUBJECTIVE: Says ok other than extremely weak and hardly able to move his hands. Received 2 units of PRBC. No fever or chills. OBJECTIVE: PHYSICAL EXAMINATION: VITALS: PLS SEE BELOW GEN: Cervical collar in place. suctioning himself. able to speak. fluent speech. Lungs diminished coarse rhonchi b/l Heart: S1 and S2, regular rate and rhythm. Abdomen is soft, nontender, nondistended. Positive bowel sounds. Feeding tube in place. Extremities with no cyanosis or clubbing. Neurologically, the patient is awake, alert and oriented to person, answering questions appropriately. Sensation is intact bilateral upper and lower extremities. HOSPITAL MEDICATIONS: BenGay, scopolamine, vitamin C, vitamin D, lisinopril, Theragran, heparin, senna, gabapentin, metoprolol, Robitussin, Xopenex, bisacodyl, milk of magnesium, Zofran, Tylenol and oxycodone. LABORATORY DATA: reviewed IMAGING STUDIES: Chest x-ray on 01/12/2019 shows left basilar infiltrate. ASSESSMENT AND PLAN: This is a 63 yo male with PMH of Newly diagnosed ALS, HTN, cervical stenosis with myelopathy, and Prior lumbar stenosis status post T11-S1 posterior arthrodesis and L1-S1 laminectomy, who is currently in acute rehab after cervical and thoracic spine surgery on 12/31/2018 in [facility] for chronic cervical stenosis with myelopathy and worsening weakness in bilateral arms and legs. It is noted after the his C3 to T3 posterior arthrodesis and C3- T1 laminectomy with posterior fusion procedure, pt reported continuous left leg and arm weakness as well as dysphagia. He underwent an EMG study at [facility] which confirmed a diagnosis of amyotrophic lateral sclerosis. He subsequently had a PEG tube placement and was on IV Augmentin for aspiration pneumonia. Pt was admitted to [facility] acute rehab unit on 01/12/2019, due to loss of mobility, function and activities of daily living. It is noted that he had prior lumbar stenosis status post T11-S1 posterior arthrodesis and L1-S1 laminectomy requiring inpatient rehab. Left basal infiltrate/ aspiration Pneumonia finished course of antibiotic. New diagnosis of amyotrophic lateral sclerosis (ALS) and prior Cervical stenosis with myelopathy s/p C3 to T3 decompressive surgery and fusion with functional quadruplegia. The patient has a cervical collar at all times per Dr. Liu, neurosurgery. pulm assessed the pt, and vital capacity will be monitored. ALS. Monitoring for any respiratory issues. At this time, the patient is followed by a neurologist in [place].[employer], Dr. Evans following Hypertension. Currently stable. Nutrition. Via feeding tube. VS,Fishbone, I+O VS, Fishbone, I+O Laboratory Tests 01/20/19 10:46 Red Blood Count 3.65 L, Mean Corpuscular Volume 88.5, Mean Corpuscular Hemoglobin 28.8, Mean Corpuscular Hemoglobin Concent 32.5, Red Cell Distribution Width 14.9 H, Neutrophils (%) (Auto) 79.6 H, Lymphocytes (%) (Auto) 9.6 L, Monocytes (%) (Auto) 7.3 H, Eosinophils (%) (Auto) 2.3, Basophils (%) (Auto) 0.5, Neutrophils # (Auto) 7.3, Lymphocytes # (Auto) 0.9 L, Monocytes # (Auto) 0.7, Eosinophils # (Auto) 0.2, Basophils # (Auto) 0.1, Calcium Level 8.6 L Vital Signs Date Time Temp Pulse Resp B/P (MAP) Pulse Ox O2 Delivery O2 Flow Rate FiO2 01/20/19 21:38 78 130/77 01/20/19 21:38 18 01/20/19 20:00 100.0 95 01/20/19 19:06 Room Air I&O- Last 24 Hours up to 6 AM 01/20/19 06:00 Intake Total 1001 ml Output Total 1100 ml Balance -99 ml MIKAYLA AGUILAR MD Jan 20, 2019 22:15
--- NOTE | 2019-01-24 10:40 | IPNPDOC ---
Text Note Date of Service The patient was seen on 01/24/19. NOTE SUBJECTIVE: Says ok other than extremely weak and hardly able to move his hands. No fever or chills. No cough or phlegm, no nausea or vomiting or diarrhea. OBJECTIVE: PHYSICAL EXAMINATION: VITALS: PLS SEE BELOW GEN: Cervical collar in place. suctioning himself. able to speak. fluent speech. Lungs diminished coarse rhonchi b/l Heart: S1 and S2, regular rate and rhythm. Abdomen is soft, nontender, nondistended. Positive bowel sounds. Feeding tube in place. Extremities with no cyanosis or clubbing. Neurologically, the patient is awake, alert and oriented to person, answering questions appropriately. Sensation is intact bilateral upper and lower extremities. LABORATORY DATA: reviewed ASSESSMENT AND PLAN: This is a 63 yo male with PMH of Newly diagnosed ALS, HTN, cervical stenosis with myelopathy, and Prior lumbar stenosis status post T11-S1 posterior arthrodesis and L1-S1 laminectomy, who is currently in acute rehab after cervical and thoracic spine surgery on 12/31/[address] [facility] for chronic cervical stenosis with myelopathy and worsening weakness in bilateral arms and legs. It is noted after the his C3 to T3 posterior arthrodesis and C3- T1 laminectomy with posterior fusion procedure, pt reported continuous left leg and arm weakness as well as dysphagia. He underwent an EMG study at [facility] which confirmed a diagnosis of amyotrophic lateral sclerosis. He subsequently had a PEG tube placement and was on IV Augmentin for aspiration pneumonia. Pt was admitted to [facility] acute rehab unit on 01/12/2019, due to loss of mobility, function and activities of daily living. It is noted that he had prior lumbar stenosis status post T11-S1 posterior arthrodesis and L1-S1 laminectomy requiring inpatient rehab. S/p aspiration Pneumonia finished course of Augmentin Cervical stenosis with myelopathy s/p s/p C3 to T3 decompressive surgery and fusion on 12/31/18 with quadriplegia and h/o lumber stenosis with T11 to S1 posterior arthrodesis and L1-S1 laminectomy who underwent inpatient rehabilitation in April 2018, The patient has a cervical collar at all times per Dr. Liu, neurosurgery. Pain: Gabapentin, oxycodone, tylenol New diagnosis of amyotrophic lateral sclerosis (ALS) while hospitalized for cervical surgery Monitoring for any respiratory issues. At this time, the patient is followed by a neurologist in [place].[facility] [place], Dr. Evans following pulm assessed the pt, and vital capacity is being monitored. on nocturnal oxygen On Riluzole 50mg BID Hypertension. Currently stable. on lisinopril and metoprolol Hyponatremia on salt tabs. Free watr through PEG tube has been adjusted. Anemia received 2 units of prbc, on iron. Nutrition. Via feeding tube. H/o Urinary retention page was removed last week VS,Fishbone, I+O VS, Fishbone, I+O Vital Signs Date Time Temp Pulse Resp B/P (MAP) Pulse Ox O2 Delivery O2 Flow Rate FiO2 01/24/19 08:28 147/70 01/24/19 06:36 18 01/23/19 20:50 76 01/23/19 20:00 98.0 98 01/21/19 19:14 Room Air I&O- Last 24 Hours up to 6 AM 01/24/19 06:00 Intake Total 1690 ml Output Total 2275 ml Balance -585 ml MIKAYLA AGUILAR MD Jan 24, 2019 10:40
[2019-01-24 14:00] VITALS: BP 142/72
[2019-01-24 20:00] VITALS: BP 155/80
[2019-01-24] MEDS: diphenhydrAMINE 25 MG CAP PEG SCH (22:08)
[2019-01-24] MEDS: SENNA 8.6 MG TAB (SENOKOT) GT SCH (22:08)
[2019-01-25] MEDS: oxyCODONE 5MG TAB GT PRN ×4 (04:11→20:11)
[2019-01-25 06:00] VITALS: BP 122/65
[2019-01-25 06:50] LABS: BASO % 0.4 % (0.0-1.0); EOS # 0.1 10^3/uL (0.0-0.5); EOS % 1.3 % (0.0-3.0); HEMATOCRIT 39.6 % (42.0-52.0); HEMOGLOBIN 12.8 g/dl (13.5-17.5); LYMPH # 0.8 10^3/uL (1.5-5.0); LYMPH % 9.5 % (24.0-44.0); MEAN CORPUSCULAR HEMOGLOBIN 29.9 pg (27.0-33.0); MEAN CORPUSCULAR HGB CONC 32.3 g/dl (32.0-36.5); MEAN CORPUSCULAR VOLUME 92.5 fl (80.0-96.0); MONO # 0.4 10^3/uL (0.0-0.8); MONO % 4.4 % (0.0-5.0); NEUTROPHILS # 6.6 10^3/uL (1.5-8.5); NEUTROPHILS % 82.9 % (36.0-66.0); PLATELET COUNT, AUTOMATED 256 10^3/uL (150-450); RED BLOOD COUNT 4.28 10^6/uL (4.30-6.10); WHITE BLOOD COUNT 7.9 10^3/uL (4.0-10.0)
[2019-01-25] MEDS: LEVALBUTEROL 1.25 MG/0.5 ML CONCENTRATE NEB INH SCH ×3 (07:15→20:00)
[2019-01-25 07:24] LABS: BLOOD UREA NITROGEN 13 MG/DL (7-18); CALCIUM LEVEL 9.3 MG/DL (8.8-10.2); CARBON DIOXIDE LEVEL 23 MEQ/L (21-32); CHLORIDE LEVEL 99 MEQ/L (98-107); CREATININE FOR GFR 0.46 MG/DL (0.70-1.30); GLOMERULAR FILTRATION RATE > 60.0 (>49); GLUCOSE, FASTING 124 MG/DL (70-100); POTASSIUM SERUM 4.2 MEQ/L (3.5-5.1); SODIUM LEVEL 132 MEQ/L (136-145)
[2019-01-25] MEDS: VITAMIN D 1,000 INTERNATIONAL UNITS TABLET GT SCH (08:56)
[2019-01-25] MEDS: HEPARIN SOD (PORCINE) 5000 UNITS/ML VIAL SC SCH ×3 (08:56→20:14)
[2019-01-25] MEDS: SODIUM CHLORIDE 1 GM TAB GT SCH ×3 (08:56→20:08)
[2019-01-25] MEDS: MULTIVITAMINS/MINERALS THERAP 1 TAB GT SCH (08:56)
[2019-01-25] MEDS: FERROUS SULFATE 300MG/5ML UDC LIQUID PEG SCH ×2 (08:56→20:07)
[2019-01-25] MEDS: GABAPENTIN 300 MG CAP GT SCH ×3 (08:56→20:10)
[2019-01-25] MEDS: guaiFENesin SYRUP 200 MG/10 ML UDC PO SCH ×4 (08:56→20:09)
[2019-01-25] MEDS: LISINOPRIL 20 MG TAB GT SCH (08:57)
[2019-01-25] MEDS: ASCORBIC ACID 500 MG TAB GT SCH (08:57)
[2019-01-25] MEDS: METOPROLOL TART 25 MG TABLET GT SCH ×3 (08:57→20:10)
[2019-01-25] MEDS: RILUZOLE 50 MG GT SCH ×2 (08:58→20:08)
[2019-01-25] MEDS: SALIVA SUBSTITUTE(MOUTHKOTE) BTL MT SCH ×4 (08:58→20:11)
[2019-01-25] MEDS: ANALGESIC BALM CRM 120 GM TOP SCH ×3 (08:59→20:12)
[2019-01-25] MEDS ORDERED: TAMSULOSIN 0.4 MG CAP PO SCH (11:00)
[2019-01-25 14:00] VITALS: BP 138/75
[2019-01-25 19:54] VITALS: BP 130/78
[2019-01-25] MEDS: SENNA 8.6 MG TAB (SENOKOT) GT SCH (20:09)
[2019-01-25] MEDS: diphenhydrAMINE 25 MG CAP PEG SCH (20:11)
[2019-01-26] MEDS: oxyCODONE 5MG TAB GT PRN ×4 (00:11→13:45)
[2019-01-26] MEDS: ACETAMINOPHEN TAB 650MG DOSE (2X325MG) PO PRN (00:11)
[2019-01-26 05:30] VITALS: BP 126/60
[2019-01-26] MEDS: HEPARIN SOD (PORCINE) 5000 UNITS/ML VIAL SC SCH ×2 (06:39→13:45)
[2019-01-26] MEDS: LEVALBUTEROL 1.25 MG/0.5 ML CONCENTRATE NEB INH SCH ×2 (07:24→13:57)
[2019-01-26] MEDS: FERROUS SULFATE 300MG/5ML UDC LIQUID PEG SCH (08:57)
[2019-01-26] MEDS: VITAMIN D 1,000 INTERNATIONAL UNITS TABLET GT SCH (08:57)
[2019-01-26] MEDS: ASCORBIC ACID 500 MG TAB GT SCH (08:57)
[2019-01-26] MEDS: MULTIVITAMINS/MINERALS THERAP 1 TAB GT SCH (08:57)
[2019-01-26] MEDS: guaiFENesin SYRUP 200 MG/10 ML UDC PO SCH ×2 (08:57→13:45)
[2019-01-26 08:58] VITALS: BP 126/60
[2019-01-26] MEDS: SODIUM CHLORIDE 1 GM TAB GT SCH (08:58)
[2019-01-26] MEDS: METOPROLOL TART 25 MG TABLET GT SCH (08:58)
[2019-01-26] MEDS: GABAPENTIN 300 MG CAP GT SCH (08:58)
[2019-01-26] MEDS: LISINOPRIL 20 MG TAB GT SCH (08:58)
[2019-01-26] MEDS: SALIVA SUBSTITUTE(MOUTHKOTE) BTL MT SCH ×2 (09:01→13:00)
[2019-01-26] MEDS: ANALGESIC BALM CRM 120 GM TOP SCH (09:02)
[2019-01-26] MEDS: RILUZOLE 50 MG GT SCH (09:02)
--- NOTE | 2019-01-26 09:57 | IPNPDOC ---
PM&R Progress Note DATE OF SERVICE: Jan 25, 2019 [employer] Progress Note Subjective: Patient seen this morning stating he is frustrated by his retaining urine and after discussing with his will opt for replacement of the Page. REVIEW OF SYSTEMS: The following is a completed review of systems and has been reviewed. Review of systems otherwise unremarkable. PAIN: Patient self reports neck and low back pain EYES: No recent vision changes EARS, NOSE, & THROAT: +dysphagia CARDIOVASCULAR: Denies chest pain or palpitations PULMONARY: + weak cough GASTROINTESTINAL:+loose stools GENITOURINARY: +Page for retention MUSCULOSKELETAL: cervical and lumbar stenosis NEUROLOGICAL: +myelopathy, with weakness and fasciculations HEMATOLOGICAL: no easy bruising SKIN: neck incision PSYCHIATRIC: Unremarkable All other review of systems found to be negative. PHYSICAL EXAMINATION: VITAL SIGNS: Please see below. GENERAL: Pleasant and cooperative. No acute distress. HEENT: PERRL. Extraocular movements intact. Clear conjunctiva CARDIOVASCULAR: Regular rate and rhythm. No murmurs, rubs, or gallops LUNGS: +scattered rhonchi, poor inspiratory effort, able to speak in full sentences ABDOMEN: Soft, nontender, nondistended. Positive bowel sounds. Normal active bowel sounds +PEG NEUROLOGICAL: Alert and oriented times three. Cranial nerves II through XII grossly intact, except IX and X. Sensation grossly intact in all 4 extremities to light touch +fasciculations noted bilat UE and tongue, dysarthria EXTREMITIES: 4\5 right upper extremities, however unable to extend fingers, 2/5 left elbow flexor and extension, 3/5 manager business development hospice, 2/5 wrist extension, unable to extend finger, 3/5 strength right lower extremity except 1/5 ankle EHL and DF, 2/5 PF 2/5 strength left lower extremity except 0/5 ankle EHL and DF, 2/5 PF SKIN:cervical incision and PEG incision c/d/i ASSESSMENT:63-year-old M with past medical history of cervical stenosis with myelopathy who presents status post C3-T3 decompression and fusion with new diagnosis of Amyotrophic Lateral Sclerosis. PLAN: 1. Rehab: PT- strengthen, maintain ROM bilat LE, advance functional transfers, utilize energy conservation techniques OT-strengthen, maintain ROM bilat UE, c/u to use resting hand splints, advance bed mobility and ADL management, utilize energy conservation techniques- GRILL COOK- -c/u free water protocol, MBS 9/25/19, as per GRILL COOK will avoid pleasure feeds as he is inconsistent with even wetter puree foods, c/u free water protocol, t o be trained next week tomorrow -C3-T3 decompression and fusion with functional tetraplegia- cervical collar to be worn at all times, f/u with neurosurgeon Dr. Liu -new diagnosis of ALS with bulbar features, continue to provide respiratory support and monitor for decline , f/u with patient's neurologist in [place] -patient and asking to start Riluzole, instructed patient's to fern picker Riluzole from his pharmacy since it is not carried here, explained it may prolong his life by a few months, however has a side of effect of causing interstitial lung disease which needs to be monitored closely especially in the setting of restrictive lung disease with recent PNA -c/u Riluzole 50mg BID 3. Cardio: pmh HTN c/u bp Meds, medicine consulted to assist in management 4. Resp: s/p course Augmentin for aspiration pneumonia, admission CXR positive for LLL infiltrate, no leukocytosis, Xoepenex, Guaifenesin -c/u oral care -will hold scopolamine for increased oral secretions, continue saliva substitute -vital capacity and NIF low, pulmonology recs appreciated, no obvious need for NIMV at this time, will continue to asses and address prn -nocturnal 02 ordered -patient clinically appears stable now and comfortable breathing 5. : page d/c'd over the weekend, patient retaining urine, discussed option of IC with who would prefer a page, will place back today -UA ordered today 6. GI: avoid bowel meds given recent hx of loose stools 7. Pain: Gabapentin, oxycodone, tylenol 8. Heme: 01/19/19 Hgb 7.1 s/p 2 units- stabke 9. Hypernatremia: resolved with slow, gentle hydration, will c/u to monitor now with hyponatremia- c/u salt tabs 10. Psych: 01/26/19 to home with DME: Patient will need a hand-held suction device so that he can manage his own secretions and help prevent him from developing an aspiration pneumonia in the setting of ALS. He is a functional tetraplegia and has limited use of his hands, but is able to successfully use a suction device. Allergies Coded Allergies: No Known Drug Allergies (Verified Allergy, Unknown, 01/12/19) Vital Signs Vital Signs Date Time Temp Pulse Resp B/P (MAP) Pulse Ox O2 Delivery O2 Flow Rate FiO2 01/26/19 09:00 20 01/26/19 08:58 79 126/60 01/26/19 05:30 97.8 98 01/21/19 19:14 Room Air Laboratory Data Labs 24H Laboratory Tests 2 01/25/19 12:26: Urine Color YELLOW, Urine Appearance CLOUDYH, Urine pH 8.0, Urine Specific [place] 1.013, Urine Protein NEGATIVE, Urine Glucose (UA) NEGATIVE, Urine Ketones NEGATIVE, Urine Blood NEGATIVE, Urine Nitrite POSITIVEH, Urine Bilirubin NEGATIVE, Urine Urobilinogen 0.2, Urine Leukocyte Esterase NEGATIVE, Urine WBC (Auto) 1, Urine RBC (Auto) 1, Urine Hyaline Casts (Auto) 0, Urine Bacteria (Auto) 1+H, Urine Squamous Epithelial Cells 0, Urine Amorphous Sediment SMALLH, Urine Sperm (Auto) Microbiology Microbiology 01/25/19 Urine Culture, Received Pending Current Medications Current Medications Current Medications Medications (Trade) Dose Ordered Sig/Kaylen Route PRN Reason Start Time Stop Time Status Last Admin Dose Admin Acetaminophen (Tylenol Tab) 650 mg Q4HP PRN PO MILD PAIN (PS 1-4) 01/12/19 16:15 01/26/19 00:11 Albuterol/ Ipratropium (Duoneb (Ipr 0.5mg/Alb 2.5mg)) 3 ml TID NEB 01/13/19 21:00 Cancel Amoxicillin/ Clavulanate Potassium (Augmentin 250 Mg/5 ml Susp) 500 mg Q12H PEG 01/12/19 21:00 01/15/19 09:01 DC 01/15/19 09:27 Ascorbic Acid (Vitamin C) 500 mg DAILY GT 01/13/19 09:00 01/26/19 08:57 Bisacodyl (Dulcolax Suppository) 10 mg DAILYPRN PRN [place] CONSTIPATION 01/12/19 16:15 Diphenhydramine HCl (Benadryl Elixir) 25 mg QHSP PRN GT INSOMNIA 01/17/19 22:45 01/18/19 10:35 DC 01/17/19 23:49 Diphenhydramine HCl (Benadryl) 25 mg QHS PEG 01/19/19 21:00 01/25/19 20:11 Ferrous Sulfate (Ferrous Sulfate) 300 mg BID PEG 01/20/19 09:00 01/26/19 08:57 Gabapentin (Neurontin) 600 mg TID GT 01/12/19 21:00 01/26/19 08:58 Guaifenesin (Robitussin) 5 ml QID PO 01/12/19 21:00 01/26/19 08:57 Heparin Sodium (Porcine) (Heparin) 5,000 units Q8H SC 01/12/19 22:00 01/26/19 06:39 Home Med (Med Rec Complete!) ASDIRECTED XX 01/12/19 14:45 01/12/19 14:45 DC Levalbuterol HCl (Xopenex Neb) 1.25 mg RTID INH 01/12/19 20:00 01/24/19 19:48 Lisinopril (Prinivil) 10 mg DAILY GT 01/13/19 09:00 01/21/19 15:08 DC 01/21/19 08:49 Lisinopril (Prinivil) 20 mg DAILY GT 01/22/19 09:00 01/26/19 08:58 Magnesium Hydroxide (Milk Of Magnesia) 30 ml DAILYPRN PRN GT CONSTIPATION 01/12/19 16:15 Menthol/Methyl Salicylate (Bengay Cream) apply to bilateral shoulders TID TOP 01/14/19 09:00 01/26/19 09:02 Metoprolol Tartrate (Lopressor) 50 mg BID GT 01/12/19 21:00 01/19/19 12:03 DC 01/19/19 09:40 Metoprolol Tartrate (Lopressor) 50 mg TID GT 01/19/19 16:00 01/21/19 15:08 DC 01/21/19 08:49 Metoprolol Tartrate (Lopressor) 75 mg TID GT 01/21/19 16:00 01/26/19 08:58 Miscellaneous (Unresolved Patient Own Med Order) SEE LABEL COMMENTS DAILY XX 01/20/19 09:00 01/20/19 20:14 DC Moxifloxacin HCl (Avelox) 400 mg DAILY@06 PO 01/16/19 06:00 01/16/19 06:00 DC Multivitamins (Theragram-M) 1 tab DAILY GT 01/13/19 09:00 01/26/19 08:57 Ondansetron HCl (Zofran Odt) 4 mg Q6HP PRN GT NAUSEA 01/12/19 16:15 Oxycodone HCl (Roxicodone, Oxyir) 10 mg Q4HP PRN GT SEVERE PAIN (PS 8-10) 01/12/19 16:15 01/26/19 09:00 Patient Own Medication (Patient'S Own Med) 50MG BID GT 01/20/19 21:00 01/26/19 09:02 Saliva Substitute (Mouthkote) 2 sprays QID MT 01/14/19 09:00 01/26/19 09:01 Scopolamine (Scopolamine) 1 mg Q72H TOP 01/13/19 16:15 01/18/19 09:30 DC 01/16/19 16:33 Senna (Senokot) 1 tab QHS GT 01/12/19 21:00 01/25/19 20:09 Sodium Chloride (Sodium Chloride) 1 gm TID GT 01/23/19 16:00 01/26/19 08:58 Tamsulosin HCl (Flomax) 0.4 mg DAILY PO 01/25/19 11:00 01/25/19 14:19 DC Vitamin D (Vitamin D) 1,000 units QAM GT 01/13/19 09:00 01/26/19 08:57 BRUCE CARDOZA MD Jan 26, 2019 09:57
[2019-01-26] MEDS ORDERED: METO1TAB87 GT (10:24)
[2019-01-26] MEDS ORDERED: PREV1CAP PEG (10:24)
[2019-01-26] MEDS ORDERED: LANS15CA PO (10:24)
[2019-01-26] MEDS ORDERED: OXYCO5TA GT (10:24)
[2019-01-26] MEDS ORDERED: SODI1TAB6 GT (10:24)
[2019-01-26] MEDS ORDERED: GABA-843 GT (10:24)
[2019-01-26] MEDS ORDERED: LISI-538 GT (10:24)
[2019-01-26] MEDS ORDERED: LEVA12INH INH (10:24)
[2019-01-26] MEDS ORDERED: FERR5MLUD PEG (10:24)
== END 2019-01-26 14:10 | disposition home health service (06) | DRG 42 ==
LOC: M PM&R 13:34
PROVIDERS: ADMIT Physical Medicine & Rehabilitation; ATTEND Physical Medicine & Rehabilitation
PROC: 30233N1 Transfusion of Nonautologous Red Blood Cells into Peripheral Vein, Percutaneous Approach (ICD-10-PCS; principal; 2019-01-19)
DX: G12.21 Amyotrophic lateral sclerosis (principal); J69.0 Pneumonitis due to inhalation of food and vomit; M50.00 Cervical disc disorder with myelopathy, unspecified cervical region; E87.0 Hyperosmolality and hypernatremia; R13.10 Dysphagia, unspecified; E87.1 Hypo-osmolality and hyponatremia; M48.02 Spinal stenosis, cervical region; Z93.1 Gastrostomy status; M48.061 Spinal stenosis, lumbar region without neurogenic claudication; Z98.1 Arthrodesis status; R19.7 Diarrhea, unspecified; Z79.899 Other long term (current) drug therapy; I10 Essential (primary) hypertension; Z96.641 Presence of right artificial hip joint; E55.9 Vitamin D deficiency, unspecified; F17.200 Nicotine dependence, unspecified, uncomplicated; G12.22 Progressive bulbar palsy; G82.50 Quadriplegia, unspecified